=== PATIENT | male | born 1955 | race African-American/Black ===

== ENCOUNTER 2020-07-29 03:27 | Outpatient (CLI) | payer BC, SELFPAY ==
[2020-07-29 19:05] LABS: SARS-CoV-2 RNA PCR Negative
== END 2020-07-29 03:28 | disposition home or self-care (01) ==
LOC: ANHCOVIDDT 03:27
PROVIDERS: PCP Internal Medicine; Visit Provider Internal Medicine Gastroenterology
DX: Z01.812 Encounter for preprocedural laboratory examination (principal); Z20.828 Contact with and (suspected) exposure to other viral communicable diseases
CPT/HCPCS: 87635; C9803; U0003

== ENCOUNTER 2020-07-31 01:28 | Day surgery (SDC) | payer BC, SELFPAY ==
[2020-07-27 09:37] VITALS: BMI 30.9
[2020-07-31 09:21] VITALS: BP 139/70; PULSE 59; RESP 18; TEMP 36.3; O2SAT 99; BMI 32.9
[2020-07-31] MEDS: LACTATED RINGERS 1,000 ML 150 ML IV CONT (09:37)
--- NOTE | 2020-07-31 09:38 | WPDANESEPPF ---
Anes - Initial Pre Proc Eval Procedure: Operation Date: 07/31/20 10:00 Proposed Procedures p Screening Colonoscopy - Delfino Giles MD Date/Time: 07/31/20 09:38 Surgeon: Delfino Giles MD Pre Op Diagnosis: hx of polyps Patient Data Age: 65 Gender: M Height: 1.75 m Weight: 101.2 kg Last Vital Signs Temp 36.3 C L 07/31/20 09:21 Pulse 59 L 07/31/20 09:21 Resp 18 07/31/20 09:21 BP 139/70 07/31/20 09:21 Pulse Ox 99 07/31/20 09:21 Allergies Allergy/AdvReac Type Severity Reaction Status Date / Time No Known Allergies Allergy Verified 07/31/20 09:19 Home Medications Medication Instructions Recorded Confirmed Type diltiazem HCl 300 mg 300 mg PO DAILY #90 cap 08/20/19 07/27/20 Rx capsule,extended release 24 hr fluticasone propionate 50 2 spray NASAL DAILY PRN 11/05/19 07/27/20 History mcg/actuation nasal spray,suspension loratadine 10 mg tablet 10 mg PO DAILY PRN 11/05/19 07/27/20 History losartan 50 mg tablet 50 mg PO DAILY #90 tablet 02/03/20 07/27/20 Rx hydrochlorothiazide 25 mg tablet 25 mg PO DAILY #90 tablet 06/17/20 07/27/20 Rx doxazosin 4 mg PO BID 07/27/20 07/27/20 History Patient hx anesthesia problems: none Family hx anesthesia problems: none PMFSH Family History Family History Father Cerebrovascular accident, Onset Age: 59 Patient's father is , Onset Age: 59 Mother Family history of arthritis Social History Social History Smoking status: Never smoker Second hand tobacco smoke exposure: No Alcohol intake: never Substance use: never Substance use type: does not use Spiritual care concerns: No Anes - Eval Final PreProcedure Day of Procedure 07/31/20 09:38 Patient weight: obese Heart: regular rate and rhythm Lungs: clear to auscultation and normal air movement Airway: Mallampati scale class II Neurological: alert and oriented Last oral intake: >/= 8 hours ASA classification: III Emergent: no Anesthetic plan: proceed Anesthesia type and monitoring: general GIVS Informed Consent: The patient's anesthetic plan and its attendant risks and benefits were discussed with the patient/family/POA. Questions were solicited and answers provided to the satisfaction of the patient/family/POA.
--- NOTE | 2020-07-31 09:40 | PM.HPGS ---
History of Present Illness History of Present Illness Consent: Risks, benefits, and alternatives have been discussed and questions answered. Patient agrees to proceed with procedure. Chief complaint: hx of polyps Narrative: Juventino Cormier is a 65 year old AA male undergoing screening colonoscopy secondary history of colonic polyps. Patient had several polyps removed 2 years ago. No family history of colon polyps or colon cancer patient is asymptomatic. No interval changes in his health. [facility] Past Medical History Medical History (Updated 07/31/20 @ 09:43 by Delfino Giles MD) Hypertension Surgical History Surgical History (Updated 07/31/20 @ 09:42 by Delfino Giles MD) History of bilateral hip replacements Family History Family History Father Cerebrovascular accident, Onset Age: 59 Patient's father is , Onset Age: 59 Mother Family history of arthritis Social History Social History Smoking status: Never smoker Second hand tobacco smoke exposure: No Alcohol intake: never Substance use: never Substance use type: does not use Spiritual care concerns: No Meds Home Medications and Allergies Home Medications Medication Instructions Recorded Confirmed Type diltiazem HCl 300 mg 300 mg PO DAILY #90 cap 08/20/19 07/27/20 Rx capsule,extended release 24 hr fluticasone propionate 50 2 spray NASAL DAILY PRN 11/05/19 07/27/20 History mcg/actuation nasal spray,suspension loratadine 10 mg tablet 10 mg PO DAILY PRN 11/05/19 07/27/20 History losartan 50 mg tablet 50 mg PO DAILY #90 tablet 02/03/20 07/27/20 Rx hydrochlorothiazide 25 mg tablet 25 mg PO DAILY #90 tablet 06/17/20 07/27/20 Rx doxazosin 4 mg PO BID 07/27/20 07/27/20 History Allergies Allergy/AdvReac Type Severity Reaction Status Date / Time No Known Allergies Allergy Verified 07/31/20 09:19 Vital Signs Vital Signs - 24 hr 07/31/20 09:21 Temperature 36.3 C L Pulse Rate 59 L Respiratory Rate 18 Blood Pressure 139/70 Pulse Oximetry 99 Exam Const: Orientation/consciousness: patient oriented x3 Resp: Auscultation: clear to auscultation bilaterally Cardio: Rate: regular rate Rhythm: regular rhythm Heart sounds: no murmurs GI: GI Palp: Yes Soft to palpation, No Tenderness to palpation present (GI), Yes No hepatosplenomegaly present and No Palpable mass present Auscultation: normal bowel sounds Neuro: General: patient oriented x3 and no focal motor deficits Extrem: General: no pedal edema Assessment and Plan Additional Plan colonoscopy secondary history of colonic polyps
[2020-07-31 11:04] VITALS: BP 92/67; PULSE 57; RESP 16; O2SAT 100
[2020-07-31 11:14] VITALS: BP 102/57; PULSE 50; RESP 18; O2SAT 98
[2020-07-31 11:24] VITALS: BP 108/61; PULSE 48; RESP 16; O2SAT 100
== END 2020-07-31 11:44 | disposition home or self-care (01) ==
PROVIDERS: PCP Internal Medicine; Visit Provider Internal Medicine Gastroenterology
PROC: 0DJD8ZZ Inspection of Lower Intestinal Tract, Via Natural or Artificial Opening Endoscopic (ICD-10-PCS; CPT 45378; principal; 2020-07-31 10:00)
DX: Z12.11 Encounter for screening for malignant neoplasm of colon (principal); Q27.33 Arteriovenous malformation of digestive system vessel; I10 Essential (primary) hypertension; Z96.643 Presence of artificial hip joint, bilateral; Z86.010 Personal history of colon polyps
CPT/HCPCS: 45378; J2704; J7120

== ENCOUNTER 2021-08-28 10:18 | Outpatient (CLI) | payer BC, SELFPAY ==
[2021-08-28 12:26] LABS: Basophils Percent Auto 0.5 % (0.2-1.2); Eosinophils Absolute Auto 0.1 K/mm3 (0-0.3); Eosinophils Percent Auto 0.6 % (0-4.4); Hemoglobin 12.7 g/dL (14.0-18.0); Immature Granulocyte Absolute 0.04 K/mm3 (0.00-0.031); Immature Granulocyte Percent A 0.5 % (0-0.5); Lymphocytes Absolute Auto 3.86 K/mm3 (0.9-3.2); Mean Corpuscular HGB Conc 35.3 g/dl (32-36); Mean Corpuscular Hemoglobin 33.9 pg (26-34); Mean Platelet Volume 10.7 fl (7.4-10.4); Monocytes Absolute Auto 0.5 K/mm3 (0.1-0.6); Neutrophils Absolute Auto 3.2 K/mm3 (1.3-6.7); Neutrophils Percent Auto 41.4 % (45.5-73.1); Platelet Count Result 252 k/mm3 (150-375); Red Blood Count 3.75 M/mm3 (4.6-6.20); Red Cell Distribution Width 14.1 % (11.5-14.5); White Blood Count 7.7 K/mm3 (4.5-10.0)
[2021-08-28 12:36] LABS: Cholesterol 181 mg/dL (0-200); HDL Direct 37 mg/dL; Triglycerides 60 mg/dL (<150)
[2021-08-28 12:47] LABS: LDL Cholesterol Direct 104 mg/dL
[2021-08-28 13:07] LABS: Prostate Specific Antigen 3.7 ng/mL (< OR = 4.0)
[2021-08-28 13:29] LABS: Hemoglobin A1C 4.8 % (<5.7)
== END 2021-08-28 10:19 | disposition home or self-care (01) ==
LOC: ANHLAB 10:20
PROVIDERS: PCP Internal Medicine; Visit Provider Family Medicine
DX: N18.31 Chronic kidney disease, stage 3a (principal); Z13.0 Encounter for screening for diseases of the blood and blood-forming organs and certain disorders involving the immune mechanism; Z13.1 Encounter for screening for diabetes mellitus; Z12.5 Encounter for screening for malignant neoplasm of prostate
CPT/HCPCS: 36415; 80061; 83036; 84153; 85025

== ENCOUNTER 2022-02-27 06:31 | Emergency (ER) | payer BC, SELFPAY ==
--- NOTE | ~2022-02-27 | XR_ITS ---
EXAMINATION: XR chest 2V DATE: 02/27/2022 07:06 INDICATION: Chest pain TECHNIQUE: PA and lateral views of the chest were obtained. COMPARISON: Chest radiograph dated 03/02/2016 FINDINGS: Subtle opacity in the infrahilar right lower lung zone on the frontal projection which appears to cor respond to a linear band of discoid atelectasis/scarring on the lateral projection. No pulmonary brandy a, pleural effusion or pneumothorax. The cardiomediastinal silhouette is normal. Visualized bones and soft tissues are unremarkable. IMPRESSION: 1. Opacity in the right infrahilar lung and favor discoid atelectasis/scarring over pneumonia. Reviewed, dictated and finalized at location A.
--- NOTE | 2022-02-27 06:41 | ECG_ITS ---
Measurements Intervals [place] Rate: 52 P: 35 MN: 187 QRS: -34 QRSD: 110 T: -22 QT: 426 QTc: 398 Interpretive Statements SINUS BRADYCARDIA LEFT AXIS DEVIATION CANNOT RULE OUT SEPTAL INFARCT, AGE INDETERMINATE BORDERLINE ST-T WAVE ABNORMALITY- ANTEROLAT/INF LEADS BASELINE ARTIFACT- I, II, AVR, AVL, V1 ABNORMAL ECG Electronically Signed On 02-27-2022 7:58:35 CDT by Josue Britton D.O.
[2022-02-27 06:43] VITALS: BP 161/71; PULSE 53; RESP 17; TEMP 36.2; O2SAT 97
[2022-02-27 07:02] LABS: Basophils Absolute Auto 0.1 K/mm3 (0.0-0.1); Basophils Percent Auto 0.6 % (0.2-1.2); Eosinophils Absolute Auto 0.1 K/mm3 (0-0.3); Eosinophils Percent Auto 1.2 % (0-4.4); Hematocrit 39.4 % (42.0-52.0); Immature Granulocyte Absolute 0.04 K/mm3 (0.00-0.031); Immature Granulocyte Percent A 0.4 % (0-0.5); Lymphocytes Absolute Auto 4.72 K/mm3 (0.9-3.2); Lymphocytes Percent Auto 46.7 % (18.3-44.2); Mean Corpuscular Hemoglobin 29.7 pg (26-34); Mean Corpuscular Volume 90.2 fl (80-100); Mean Platelet Volume 10.1 fl (7.4-10.4); Monocytes Absolute Auto 0.7 K/mm3 (0.1-0.6); Monocytes Percent Auto 7.1 % (2.6-8.5); Neutrophils Absolute Auto 4.5 K/mm3 (1.3-6.7); Platelet Count Result 290 k/mm3 (150-375); Red Blood Count 4.37 M/mm3 (4.6-6.20); Red Cell Distribution Width 13.5 % (11.5-14.5); White Blood Count 10.1 K/mm3 (4.5-10.0)
[2022-02-27 07:06] LABS: Alanine Aminotransferase 32 U/L (6-50); Albumin Level 4.2 g/dL (3.5-5.1); Alkaline Phosphatase 66 U/L (38-126); Anion Gap 7 mmol/L (8-16); Aspartate Amino Transferase 41 U/L (17-59); Bilirubin,Total 0.7 mg/dL (0.2-1.3); Blood Urea Nitrogen 21 mg/dL (9-20); Carbon Dioxide 28 mmol/L (22-30); Chloride 100 mmol/L (98-107); Estimated CRCL calculation 55 ml/min; Estimated Glomerular Filt Rate > 60; Glucose 107 mg/dL (65-110); Lipase 31 U/L (23-300); Potassium 3.3 mmol/L (3.4-5.0); Sodium 135 mmol/L (137-145)
[2022-02-27 07:07] LABS: INR 1.3; Prothrombin Time 15.7 Seconds (11.1-14.7)
[2022-02-27 07:08] LABS: Partial Thromboplastin Time 34.7 SECONDS (22.3-36.8)
[2022-02-27 07:18] LABS: Troponin I 0.017 ng/mL (0.000-0.034)
--- NOTE | 2022-02-27 07:23 | ED.CHESTPAIN ---
HPI - Chest Pain General Chief Complaint: Chest Pain Stated Complaint: CP, constipation, chills and itching Time Seen by Provider: 02/27/22 07:03 Source: RN notes reviewed History of Present Illness HPI narrative: Patient presents emergency department from home for itching. Patient states he has had generalized itching since yesterday he states that with this itching he has had no rash there is been no swelling of his lips or tongue but he just feels itchy everywhere. He states that they recently adjusted his blood pressure medications he is unsure if this is contributing to this with the increased his losartan. Patient states he is also been having left-sided chest pain over the past 2 days the pain is located over the left lateral breast and hurts when he raises his left arm he states that the pain resolves when he puts his left arm down he has no pain at rest. He does note some intermittent shortness of breath he denies any fevers but has had some intermittent chills Related Data Home Medications Medication Instructions Recorded Confirmed fluticasone propionate 50 2 spray NASAL DAILY PRN 11/05/19 12/15/20 mcg/actuation nasal spray,suspension loratadine 10 mg tablet 10 mg PO DAILY PRN 11/05/19 12/15/20 Allergies Allergy/AdvReac Type Severity Reaction Status Date / Time No Known Allergies Allergy Verified 02/27/22 06:47 Review of Systems Review of Systems: Gen.: Denies fevers or chills ENT: Denies congestion Respiratory: Reports intermittent shortness of breath CV: Chest pain GI: Denies abdominal pain nausea, emesis or diarrhea Musculoskeletal: Denies back pain or muscle pain Neuro: Denies numbness, tingling, weakness or focal weakness Skin: Denies rash reports itching Except as documented, all other systems reviewed and negative [facility] Past Medical History Medical History Hypertension Surgical History Surgical History History of bilateral hip replacements Family History Family History Father Cerebrovascular accident, Onset Age: 59 Patient's father is , Onset Age: 59 Mother Family history of arthritis Social History Social History (Reviewed 02/27/22 @ 07:25 by GUDELIA Galicia Smoking status: Never smoker Second hand tobacco smoke exposure: No Alcohol intake: never Substance use: never Substance use type: does not use Spiritual care concerns: No Exam Narrative: APPEARANCE: No acute distress, nontoxic, resting in bed EYES: EOMI HEENT: Normocephalic, atraumatic, OMM, no swelling of the lips or tongue RESPIRATORY: No respiratory distress Clear to auscultation bilaterally with no rhonchi wheezing or rales. CARDIOVASCULAR: Regular rate and rhythm without murmurs rubs or gallops. Chest: Tender palpation of the left lateral chest wall just to the left of the areola over the pec lateral pectoralis muscle pain with flexion abduction left shoulder greater than 90 degrees with resolution of pain with putting the arm back down at rest no overlying erythema seen no masses palpated ABDOMINAL: Soft, nontender, nondistended, no rebound or guarding MUSCULOSKELETAl: Moves all extremities. No clubbing, cyanosis or edema. NEURO: Awake and alert. Following commands, speech normal, no focal deficits SKIN:: Warm, dry. No rashes lesions or abrasions no urticaria seen PSYCHIATRIC: Normal affect/mood, Course Course Emergency Course: Patient states chest pain is resolved with Benadryl Patient continues to have no chest pain except for when he moves his left arm Called and discussed with Dr. Britton presentation work-up we discussed the patient's symptoms 2 troponins in ER as well as heart score at this time feels patient may be discharged home with follow-up as an outpatient in his office Discussed with patient results
[2022-02-27] MEDS: KETOROLAC 30 MG/ML VIAL (*BKC) IV PUSH (08:10)
[2022-02-27] MEDS: diphenhydrAMINE HCl INJ 50 MG/ML VIAL 25 MG IV PUSH (08:11)
[2022-02-27] MEDS: POTASSIUM CHLORIDE 20 MEQ TABLET PO (09:04)
[2022-02-27 10:14] LABS: Troponin I 0.014 ng/mL (0.000-0.034)
== END 2022-02-27 12:26 | disposition home or self-care (01) ==
PROVIDERS: Emergency Medicine; Emergency Provider Emergency Medicine; PCP Family Medicine
DX: R07.9 Chest pain, unspecified (principal); I10 Essential (primary) hypertension
CPT/HCPCS: 36415; 71046; 80053; 83690; 84484; 85025; 85610; 85730; 93005; 96374; 96375; 99284; A9270; J1200; J1885

== ENCOUNTER 2023-01-17 03:15 | Emergency (ER) | payer BC, SELFPAY ==
--- NOTE | ~2023-01-17 | XR_ITS ---
Clinical Indication: Chest pain PA and lateral views of the chest: Comparison: 02/27/2022 Findings: The lungs are clear, without evidence of focal consolidation or pleural effusion. Probable COPD. Cardiomediastinal silhouette is within normal limits. Bones and soft tissues are unremarkable. Impression: Probable COPD. Clear lungs. Reviewed, dictated and finalized at location . Impression: Probable COPD. Clear lungs.
--- NOTE | 2023-01-17 03:16 | ECG_ITS ---
Measurements Intervals [place] Rate: 75 P: 43 WV: 140 QRS: -31 QRSD: 102 T: -2 QT: 344 QTc: 386 Interpretive Statements SINUS RHYTHM LEFT AXIS DEVIATION SEPTAL MYOCARDIAL INFARCTION , PROBABLY OLD MODERATE T-WAVE ABNORMALITY, CONSIDER ANTEROLATERAL ISCHEMIA ABNORMAL ECG COMPARED TO ECG 02/27/2022 06:43:58 HEART RATE HAS INCREASED Electronically Signed On 01-17-2023 16:14:34 CDT by Igor Chandra M.D.
[2023-01-17 03:24] VITALS: BP 178/88; PULSE 78; PULSE 80; RESP 17; O2SAT 98
[2023-01-17 03:37] VITALS: BP 147/85; PULSE 74; RESP 15; TEMP 36.8; O2SAT 97
[2023-01-17 03:41] LABS: Basophils Percent Auto 0.4 % (0.2-1.2); Eosinophils Absolute Auto 0.1 K/mm3 (0-0.3); Eosinophils Percent Auto 0.6 % (0-4.4); Hematocrit 38.3 % (42.0-52.0); Hemoglobin 12.6 g/dL (14.0-18.0); Immature Granulocyte Absolute 0.05 K/mm3 (0.00-0.031); Immature Granulocyte Percent A 0.6 % (0-0.5); Lymphocytes Absolute Auto 1.88 K/mm3 (0.9-3.2); Lymphocytes Percent Auto 23.6 % (18.3-44.2); Mean Corpuscular HGB Conc 32.9 g/dl (32-36); Mean Corpuscular Hemoglobin 31.2 pg (26-34); Mean Corpuscular Volume 94.8 fl (80-100); Mean Platelet Volume 9.8 fl (7.4-10.4); Monocytes Absolute Auto 0.9 K/mm3 (0.1-0.6); Monocytes Percent Auto 11.3 % (2.6-8.5); Neutrophils Percent Auto 63.5 % (45.5-73.1); Platelet Count Result 281 k/mm3 (150-375); Red Blood Count 4.04 M/mm3 (4.6-6.20); Red Cell Distribution Width 14.1 % (11.5-14.5)
--- NOTE | 2023-01-17 03:48 | ED.CHESTPAIN ---
HPI - Chest Pain General Chief Complaint: Chest Pain Stated Complaint: chest pain, nausea Time Seen by Provider: 01/17/23 03:23 History of Present Illness HPI narrative: Patient states that he over the past week has been feeling bad heartburn, she has had heartburn in the past but does not think he has been eating anything particularly bad, earlier today had some nausea and vomiting with dry heaves, states that the pain started in his upper abdomen and seem to come up to his chest with a burning sensation, it did resolve after he took some Pepcid. No chest pain, nausea or vomiting at this time. Related Data Home Medications Medication Instructions Recorded Confirmed fluticasone propionate 50 2 spray intranasal DAILY PRN 11/05/19 01/16/23 mcg/actuation nasal Congestion spray,suspension (Children's Flonase Allergy Relief) loratadine 10 mg tablet (Claritin) 10 mg PO DAILY PRN Allergy Symptoms 11/05/19 01/16/23 Allergies Allergy/AdvReac Type Severity Reaction Status Date / Time esomeprazole [From Nexium] AdvReac Hives Verified 01/17/23 03:36 Review of Systems Review of Systems: CONST: No fever. HEENT: Tickling in throat C/V: Heartburn RESP: Slight cough GI: Reports abdominal pain, nausea now resolved : No dysuria. M/S: No joint pain. SKIN: No rash. NEURO: [No headache or focal numbness or weakness] PSYCH: [No depression] [facility] Past Medical History Medical History Hypertension Surgical History Surgical History History of bilateral hip replacements Family History Family History Father Cerebrovascular accident, Onset Age: 59 Patient's father is , Onset Age: 59 Mother Family history of arthritis Social History Social History Smoking status: Never smoker Second hand tobacco smoke exposure: No Alcohol intake: never Substance use: never Substance use type: does not use Lack of Transportation: No Lack of Food: Never True Current Housing: I Have Housing Concerned About Future Housing: No Difficulty Paying Gas/Electric Bills: No Difficulty Paying for Meds: No Currently Unemployed: No Education: Decline to Answer Difficulty w/ Childcare or Family Care: No Spiritual care concerns: No Exam Narrative: EXAMINATION OF ORGAN SYSTEMS/BODY AREAS: Constitutional: Vital signs per nursing GENERAL:[No acute distress, non-toxic appearing.] HEAD: Normal with no signs of head trauma. EYES: EOMI, conjunctiva normal ENT: Hearing grossly intact LUNGS: Nonlabored breathing. HEART: [Regular rate and rhythm] ABD: [Soft], [nontender to palpation] EXT: Normal range of motion SKIN: [No rashes or lesions.] NEURO: [Alert and oriented x 3. No gross focal sensory or strength deficits.] PSYCH: Normal affect Course Vital Signs Vital signs: Vital Signs Pulse Rate 80 01/17/23 03:24 Respiratory Rate 17 01/17/23 03:24 Blood Pressure 178/88 H 01/17/23 03:24 Pulse Oximetry 98 01/17/23 03:24 Temperature 98.3 F 01/17/23 03:37 Pulse Rate 74 01/17/23 03:37 Respiratory Rate 15 01/17/23 03:37 Blood Pressure 147/85 H 01/17/23 03:37 Pulse Oximetry 97 01/17/23 03:37 Oxygen Delivery Room Air 01/17/23 03:38 MDM - Chest Pain MDM Narrative Medical decision making narrative: ED COURSE AND MEDICAL DECISION MAKINyoM presenting with burning chest pain/cough and nausea/vomiting. EKG done in triage negative for acute ischemic changes. Cardiac workup is initiated. EKG: Performed in triage and interpreted by me. Normal sinus rhythm. Rate [75]. Normal axis. FL normal. QRS duration normal. QTc normal. No pathologic Q waves. He does have some flattened T waves but on review of EMR this is on prior EKGs. No RV strain pattern. Labs notable
[2023-01-17 03:51] LABS: Alanine Aminotransferase 31 U/L (6-50); Albumin Level 4.4 g/dL (3.5-5.1); Alkaline Phosphatase 63 U/L (38-126); Anion Gap 6 mmol/L (8-16); Aspartate Amino Transferase 45 U/L (17-59); Bilirubin,Total 0.9 mg/dL (0.2-1.3); Blood Urea Nitrogen 17 mg/dL (9-20); Calcium 9.2 mg/dL (8.4-10.2); Carbon Dioxide 32 mmol/L (22-30); Chloride 98 mmol/L (98-107); Estimated CRCL calculation 66 ml/min; Estimated Glomerular Filt Rate > 60; Glucose 107 mg/dL (65-110); Lipase 26 U/L (23-300); Sodium 136 mmol/L (137-145)
[2023-01-17 04:00] LABS: INR 1.2
[2023-01-17 04:01] LABS: Partial Thromboplastin Time 33.1 SECONDS (22.3-36.8); Troponin I < 0.012 ng/mL (0.000-0.034)
[2023-01-17] MEDS: POTASSIUM CHLORIDE 20 MEQ PACKET (FOR LIQUID) 40 MEQ PO (05:43)
[2023-01-17] MEDS: ONDANSETRON HCL ODT 4 MG TABLET PO (06:41)
[2023-01-17 06:44] VITALS: BP 148/85; PULSE 76; RESP 16; O2SAT 95
== END 2023-01-17 06:43 | disposition home or self-care (01) ==
PROVIDERS: Emergency Provider Emergency Medicine; PCP Family Medicine
DX: R07.9 Chest pain, unspecified (principal); E87.6 Hypokalemia; I10 Essential (primary) hypertension
CPT/HCPCS: 36415; 71046; 80053; 83690; 84484; 85025; 85610; 85730; 93005; 99284; A9270

== ENCOUNTER 2024-03-14 15:44 | Outpatient (CLI) | payer BC, SELFPAY ==
--- NOTE | ~2024-03-14 | CT_ITS ---
EXAMINATION: CT IAC/mastoids BI wo con DATE: 03/14/2024 16:03 INDICATION: Chronic mastoiditis, right ear. TECHNIQUE: Computed tomography (CT) of the temporal bones was performed without intravenous contrast. Automated exposure control and iterative reconstruction technique were employed. The dose-length pro duct was 558.22 mGy-cm. COMPARISON: Neck CT 07/10/2018 FINDINGS: RIGHT TEMPORAL BONE: The internal auditory canal, cochlea, vestibule, semicircular canals, vestibular aqueduct, carotid ca nal, and jugular bulb are normal. The ossicles are normal. There is abundant material in the tympanic cavity including in Prussak space and around the ossicles. There are erosions of scutum. There is a right mastoid effusion. There is thickening of the tympanic membrane. There is irregular thickening o f the harris of the external artery canal. LEFT TEMPORAL BONE: The internal auditory canal, cochlea, vestibule, semicircular canals, vestibular aqueduct, carotid ca nal, jugular bulb, facial nerve course, ossicles, Prussak space, scutum, tympanic membrane, mastoid a ir cells, and external artery canal are normal. IMPRESSION: 1. Right otomastoid effusion with erosions of scutum, which may be chronic otitis media or cholesteat ernie. Reviewed, dictated and finalized at location A. IMPRESSION: 1. Right otomastoid effusion with erosions of scutum, which may be chronic otit is media or cholesteatoma.
== END 2024-03-14 15:45 ==
LOC: GOSHIMG 15:45
PROVIDERS: PCP Family Medicine; Visit Provider Otolaryngology
DX: H65.491 Other chronic nonsuppurative otitis media, right ear (principal); H90.11 Conductive hearing loss, unilateral, right ear, with unrestricted hearing on the contralateral side; H70.11 Chronic mastoiditis, right ear
CPT/HCPCS: 70480

== ENCOUNTER 2024-07-26 10:19 | Outpatient (CLI) | payer BC, SELFPAY ==
[2024-07-26 18:31] LABS: Blood Urea Nitrogen 18 mg/dL (9-20); Calcium 9.3 mg/dL (8.4-10.2); Carbon Dioxide 30 mmol/L (22-30); Estimated Glomerular Filt Rate > 60; Glucose 95 mg/dL (65-110); Sodium 138 mmol/L (137-145)
[2024-07-26 21:23] LABS: Anion Gap 6 mmol/L (4-12); Chloride 102 mmol/L (98-107); Potassium 3.2 mmol/L (3.4-5.0)
== END 2024-07-26 10:20 | disposition home or self-care (01) ==
LOC: ANHGOSHLAB 10:20
PROVIDERS: PCP Family Medicine; Visit Provider Family Medicine
DX: Z13.228 Encounter for screening for other metabolic disorders (principal)
CPT/HCPCS: 36415; 80048

== ENCOUNTER 2024-08-13 10:13 | Outpatient (CLI) | payer BC, SELFPAY ==
[2024-08-13 19:11] LABS: Anion Gap 8 mmol/L (4-12); Blood Urea Nitrogen 19 mg/dL (9-20); Calcium 9.4 mg/dL (8.4-10.2); Carbon Dioxide 26 mmol/L (22-30); Chloride 102 mmol/L (98-107); Estimated Glomerular Filt Rate > 60; Glucose 101 mg/dL (65-110); Potassium 4.2 mmol/L (3.4-5.0); Sodium 136 mmol/L (137-145)
== END 2024-08-13 10:14 | disposition home or self-care (01) ==
LOC: ANHGOSHLAB 10:13
PROVIDERS: PCP Family Medicine; Visit Provider Family Medicine
DX: Z13.228 Encounter for screening for other metabolic disorders (principal)
CPT/HCPCS: 36415; 80048

== ENCOUNTER 2024-09-10 09:08 | Emergency (ER) | payer BC, SELFPAY ==
--- NOTE | 2024-09-10 09:10 | ED.URI ---
HPI - URI/Sore Throat General Chief Complaint: Upper Respiratory Infection Stated Complaint: Cold Symptoms Time Seen by Provider: 09/10/24 09:09 Source: patient Mode of arrival: ambulatory Limitations: no limitations History of Present Illness HPI Narrative: Juventino is a 69-year-old male patient presenting to the clinic today with complaints of cold symptoms x3 days. He reports he has nasal congestion, sinus pressure, and chest congestion times 3 days. Is coughing up some green phlegm and blowing out green nasal drainage. He denies any chest pain or shortness of breath. MD elicited complaint: cough, rhinorrhea, nasal congestion and sinus pain Related Data Home Medications Medication Instructions Recorded Confirmed fluticasone propionate 50 2 spray intranasal DAILY PRN 11/05/19 08/13/24 mcg/actuation nasal Congestion spray,suspension (Children's Flonase Allergy Relief) loratadine 10 mg tablet (Claritin) 10 mg PO DAILY PRN Allergy Symptoms 11/05/19 08/13/24 Allergies Allergy/AdvReac Type Severity Reaction Status Date / Time esomeprazole [From Nexium] AdvReac Hives Verified 09/10/24 09:34 Review of Systems Review of Systems: Pertinent positives per HPI. Patient denies any fever, chills, rash, headache, visual changes, dizziness, shortness of breath, chest pain, palpitations, nausea, vomiting, diarrhea, constipation, abdominal pain, or any urinary issues. [facility] Past Medical History Medical History Hypertension Surgical History Surgical History History of bilateral hip replacements Family History Family History Father Cerebrovascular accident, Onset Age: 59 Patient's father is , Onset Age: 59 Mother Family history of arthritis Social History Social History Smoking status: Never smoker Second hand tobacco smoke exposure: No Alcohol intake: never Substance use: never Substance use type: does not use Lack of Transportation: No Lack of Food: Never True Current Housing: I Have Housing Concerned About Future Housing: No Difficulty Paying Gas/Electric Bills: No Difficulty Paying for Meds: No Currently Unemployed: No Education: Decline to Answer Difficulty w/ Childcare or Family Care: No Spiritual care concerns: No Comments At the time of my signature, I reviewed and agree with the nursing past medical, surgical, social, and family history. There is no relevant family history pertinent to the patient complaint. Exam Narrative: General: Well-developed, well nourished, in no apparent distress Head: Normocephalic, atraumatic Eyes: Pupils equally round and reactive to light bilaterally, EOM intact, sclera and conjunctive clear, no discharge, lids normal Ears: TMs intact and congested, ear canals clear, no drainage, grossly hearing normal. Nose: Nares patent, clear nasal discharge, mild inflammation, no sinus tenderness. Mouth: Oral pharynx without lesions or masses, good dentition, MMM. Postnasal drip Neck: Supple, trachea midline, no enlargement of anterior or posterior cervical nodes, no thyroid masses or goiter palpable. Cardio: Regular rate and rhythm, s1 and s2 normal, no murmur appreciated. Resp: Clear to auscultation bilaterally, no rhonchi, rales, wheezing or rubs Course Course Emergency Course: Portions of this record may have been created with voice recognition software. Level of Care: Express Care Visit Vital Signs Vital signs: Vital signs reviewed MDM - URI/Sore Throat MDM Narrative Medical decision making narrative: At the time of visit patient is resting comfortably on the exam table. Patient appears to be nontoxic. Labs: COVID and influenza testing was negative in the clinic today. Plan: I suspect patient has URI. Will send in prescription for prednisone. Supportive measures were discussed with the patient and they voiced understanding discharge instructions and agrees to treatment plan. Return precautions reviewed Differential Diagnosis Differential diagnosis: Likely upper respiratory infection, otitis media, sinusitis, viral infection, bronchitis, influenza, pharyngitis and other (COVID) Discharge Plan Discharge Clinical Impression: URI (upper respiratory infection) Qualifiers: URI type: unspecified URI Qualified Code(s): J06.9 - Acute upper respiratory infection, unspecified Patient Disposition: Home, Self-Care Condition: Stable Instructions: Antibiotic Form, Cold Symptoms (ED) Additional Instructions: COVID and influenza testing was negative in the clinic today. Take prescription medications only as prescribed-prednisone Increase fluids and stay well hydrated Tylenol/motrin for pain/fever Flonase and OTC antihistamines as directed Vicks vapor rub to open sinuses Sinus rinses for congestion Cepacol spray, cough drops, throat lozenges, warm tea with honey/lemon, gargle salt water to soothe throat BRAT diet for diarrhea Clear liquids x 24 hours then advance as tolerated for nausea/vomiting Go to the ED if you develop a worsening in your condition- high fever not controlled by Tylenol or Motrin, dehydration, weakness, lethargy, shortness of breath, or chest pain. Follow up with your PCP in 3-5 days if symptoms persist. Prescriptions: New prednisone 20 mg tablet 40 mg PO DAILY 5 Days Qty: 10 0RF No Action [id number] 3.5-10,000-1 mg/mL-unit/mL-% drops,suspension 4 drp otic (ear) Q8H Qty: 10 1RF Rx Instructions: put 4 drops in right ear t.i.d. with ear up for 1 minute afterward famotidine 20 mg tablet 20 mg PO DAILY Qty: 30 0RF loratadine [Claritin] 10 mg tablet 10 mg PO DAILY PRN (Reason: Allergy Symptoms) fluticasone propionate [Children's Flonase Allergy Rlf] 50 mcg/actuation spray,suspension 2 spray NASAL DAILY PRN (Reason: Congestion) Rx Instructions: administer into each nostril potassium chloride 20 mEq tablet extended release 20 meq PO DAILY Qty: 90 4RF hydrochlorothiazide 25 mg tablet 25 mg PO DAILY Qty: 90 1RF losartan 100 mg tablet 100 mg PO DAILY Qty: 90 0RF spironolactone 25 mg tablet 25 mg PO DAILY Qty: 90 1RF amlodipine 10 mg tablet 10 mg PO DAILY Qty: 90 1RF Follow-up/Referrals: Remy Sevilla DO [Primary Care Provider] - Time of Disposition: 09:35 Quality NIHSS Nursing Documentation ED NIHSS nursing documentation: reviewed/agree
[2024-09-10 09:17] VITALS: BP 118/50; PULSE 80; RESP 16; TEMP 35.9; O2SAT 99
[2024-09-10 09:39] LABS: EDCOVIDSCREEN Negative (Negative); EDINFLUASCREEN Negative (Negative); EDINFLUBSCREEN Negative (Negative)
== END 2024-09-10 10:27 | disposition home or self-care (01) ==
PROVIDERS: Emergency Provider Nurse Practitioner Family; PCP Family Medicine
DX: J06.9 Acute upper respiratory infection, unspecified (principal); Z20.822 Contact with and (suspected) exposure to COVID-19; I10 Essential (primary) hypertension; Z96.643 Presence of artificial hip joint, bilateral
CPT/HCPCS: 87426; 87804; 99213; G0463

== ENCOUNTER 2024-09-23 00:44 | Day surgery (SDC) | payer BC, SELFPAY ==
[2024-09-12 09:21] VITALS: BMI 29.5
--- NOTE | 2024-09-23 08:41 | WPDANESEPPF ---
Anes - Initial Pre Proc Eval Procedure: Operation Date: 09/23/24 12:30 Proposed Procedures p Screening Colonoscopy - Lewis Ladd MD Date/Time: 09/23/24 08:41 Surgeon: Lewis Ladd MD Pre Op Diagnosis: neoplasm screening Patient Data Age: 69 Gender: M Height: 1.75 m Weight: 90.8 kg Allergies Allergy/AdvReac Type Severity Reaction Status Date / Time esomeprazole (From Nexium) AdvReac Hives Verified 09/12/24 09:16 Home Medications ?Medication ?Instructions ?Recorded ?Confirmed ?Type fluticasone propionate 50 2 spray intranasal DAILY PRN 11/05/19 09/12/24 History mcg/actuation nasal Congestion spray,suspension (Children's Flonase Allergy Relief) loratadine 10 mg tablet (Claritin) 10 mg PO DAILY PRN Allergy Symptoms 11/05/19 09/12/24 History potassium chloride 20 mEq 20 meq PO DAILY #90 tabs 03/14/24 09/12/24 Rx tablet,extended release hydrochlorothiazide 25 mg tablet 25 mg PO DAILY #90 tabs 03/29/24 09/12/24 Rx ctfyfknp-afwnlflby-gaaoqhbti 3.5 4 drp otic (ear) Q8H #10 mL 04/22/24 09/12/24 Rx mg-10,000 unit/mL-1 % ear drops,susp losartan 100 mg tablet 100 mg PO DAILY #90 tabs 07/22/24 09/12/24 Rx spironolactone 25 mg tablet 25 mg PO DAILY #90 tabs 07/29/24 09/12/24 Rx amlodipine 10 mg tablet 10 mg PO DAILY #90 tabs 08/12/24 09/12/24 Rx prednisone 20 mg tablet 40 mg (2 x 20 mg) PO DAILY 5 days 09/10/24 09/12/24 Rx #10 tabs famotidine 20 mg tablet 20 mg PO DAILY PRN Heartburn 09/12/24 09/12/24 History Patient hx anesthesia problems: none Family hx anesthesia problems: none Results Review: All pre-operative results and documents have been reviewed as part of the pre-operative evaluation. [facility] Past Medical History Medical History Hypertension Surgical History Surgical History History of bilateral hip replacements Family History Family History Father Cerebrovascular accident, Onset Age: 59 Patient's father is , Onset Age: 59 Mother Family history of arthritis Social History Social History Smoking status: Never smoker Second hand tobacco smoke exposure: No Alcohol intake: never Substance use: never Substance use type: does not use Lack of Transportation: No Lack of Food: Never True Current Housing: I Have Housing Concerned About Future Housing: No Difficulty Paying Gas/Electric Bills: No Difficulty Paying for Meds: No Currently Unemployed: No Education: Decline to Answer Difficulty w/ Childcare or Family Care: No Spiritual care concerns: No Anes - Eval Final PreProcedure Day of Procedure 09/23/24 08:41 Results Review: All pre-operative results and documents have been reviewed as part of the pre-operative evaluation. Informed Consent: The patient's anesthetic plan and its attendant risks and benefits were discussed with the patient/family/POA. Questions were solicited and answers provided to the satisfaction of the patient/family/POA.
[2024-09-23 11:24] VITALS: BP 132/73; PULSE 73; RESP 18; TEMP 36.4; O2SAT 99
[2024-09-23] MEDS: LACTATED RINGERS 1,000 ML 150 ML IV CONT (11:36)
--- NOTE | 2024-09-23 11:41 | WPDANESEPPF ---
Anes - Initial Pre Proc Eval Procedure: Operation Date: 09/23/24 12:30 Proposed Procedures p Screening Colonoscopy - Lewis Ladd MD Date/Time: 09/23/24 11:41 Surgeon: Lewis Ladd MD Pre Op Diagnosis: neoplasm screening Patient Data Age: 69 Gender: M Height: 1.75 m Weight: 98.4 kg Last Vital Signs Temp 36.4 C L 09/23/24 11:24 Pulse 73 09/23/24 11:24 Resp 18 09/23/24 11:24 BP 132/73 09/23/24 11:24 Pulse Ox 99 09/23/24 11:24 O2 Del Method Room Air 09/23/24 11:24 Allergies Allergy/AdvReac Type Severity Reaction Status Date / Time esomeprazole (From Nexium) AdvReac Hives Verified 09/23/24 11:20 Home Medications ?Medication ?Instructions ?Recorded ?Confirmed ?Type fluticasone propionate 50 2 spray intranasal DAILY PRN 11/05/19 09/12/24 History mcg/actuation nasal Congestion spray,suspension (Children's Flonase Allergy Relief) loratadine 10 mg tablet (Claritin) 10 mg PO DAILY PRN Allergy Symptoms 11/05/19 09/23/24 History potassium chloride 20 mEq 20 meq PO DAILY #90 tabs 03/14/24 09/23/24 Rx tablet,extended release hydrochlorothiazide 25 mg tablet 25 mg PO DAILY #90 tabs 03/29/24 09/23/24 Rx qnmglrcl-xudwkkqtr-lomlpswyr 3.5 4 drp otic (ear) Q8H #10 mL 04/22/24 09/12/24 Rx mg-10,000 unit/mL-1 % ear drops,susp losartan 100 mg tablet 100 mg PO DAILY #90 tabs 07/22/24 09/23/24 Rx spironolactone 25 mg tablet 25 mg PO DAILY #90 tabs 07/29/24 09/23/24 Rx amlodipine 10 mg tablet 10 mg PO DAILY #90 tabs 08/12/24 09/23/24 Rx prednisone 20 mg tablet 40 mg (2 x 20 mg) PO DAILY 5 days 09/10/24 09/12/24 Rx #10 tabs famotidine 20 mg tablet 20 mg PO DAILY PRN Heartburn 09/12/24 09/23/24 History Patient hx anesthesia problems: none Family hx anesthesia problems: none Results Review: All pre-operative results and documents have been reviewed as part of the pre-operative evaluation. [facility] Past Medical History Medical History Hypertension Surgical History Surgical History History of bilateral hip replacements Family History Family History Father Cerebrovascular accident, Onset Age: 59 Patient's father is , Onset Age: 59 Mother Family history of arthritis Social History Social History Smoking status: Never smoker Second hand tobacco smoke exposure: No Alcohol intake: never Substance use: never Substance use type: does not use Lack of Transportation: No Lack of Food: Never True Current Housing: I Have Housing Concerned About Future Housing: No Difficulty Paying Gas/Electric Bills: No Difficulty Paying for Meds: No Currently Unemployed: No Education: Decline to Answer Difficulty w/ Childcare or Family Care: No Spiritual care concerns: No Anes - Eval Final PreProcedure Day of Procedure 09/23/24 11:41 Patient weight: obese Heart: regular rate and rhythm Lungs: clear to auscultation Airway: Mallampati scale class II Neurological: alert and oriented Last oral intake: >/= 8 hours ASA classification: III Emergent: no Anesthetic plan: proceed Anesthesia type and monitoring: general GIVS and standard monitoring Results Review: All pre-operative results and documents have been reviewed as part of the pre-operative evaluation. Informed Consent: The patient's anesthetic plan and its attendant risks and benefits were discussed with the patient/family/POA. Questions were solicited and answers provided to the satisfaction of the patient/family/POA.
--- NOTE | 2024-09-23 13:01 | P.PNGI_ITS ---
<Statement entered by Lewis Ladd MD - 09/24/24 12:33> See colonoscopy report
--- NOTE | 2024-09-23 13:02 | PM.IMHP ---
H&P: HPI History of Present Illness Date/Time: 09/23/24 13:02 Chief Complaint: History of colon polyps Narrative: The patient has a history of colonic polyps, the last colonoscopy was 4 years ago. 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 Review of Systems Review of Systems: All systems reviewed & are unremarkable except as noted in HPI and below PMFSH Past Medical History Medical History Hypertension Surgical History Surgical History History of bilateral hip replacements Family History Family History Father Cerebrovascular accident, Onset Age: 59 Patient's father is , Onset Age: 59 Mother Family history of arthritis Social History Social History Smoking status: Never smoker Second hand tobacco smoke exposure: No Alcohol intake: never Substance use: never Substance use type: does not use Lack of Transportation: No Lack of Food: Never True Current Housing: I Have Housing Concerned About Future Housing: No Difficulty Paying Gas/Electric Bills: No Difficulty Paying for Meds: No Currently Unemployed: No Education: Decline to Answer Difficulty w/ Childcare or Family Care: No Spiritual care concerns: No Meds Home Medications and Allergies Home Medications ?Medication ?Instructions ?Recorded ?Confirmed ?Type fluticasone propionate 50 2 spray intranasal DAILY PRN 11/05/19 09/12/24 History mcg/actuation nasal Congestion spray,suspension (Children's Flonase Allergy Relief) loratadine 10 mg tablet (Claritin) 10 mg PO DAILY PRN Allergy Symptoms 11/05/19 09/23/24 History potassium chloride 20 mEq 20 meq PO DAILY #90 tabs 03/14/24 09/23/24 Rx tablet,extended release hydrochlorothiazide 25 mg tablet 25 mg PO DAILY #90 tabs 03/29/24 09/23/24 Rx lhtnopjl-ojolqbgxq-xiqosofut 3.5 4 drp otic (ear) Q8H #10 mL 04/22/24 09/12/24 Rx mg-10,000 unit/mL-1 % ear drops,susp losartan 100 mg tablet 100 mg PO DAILY #90 tabs 07/22/24 09/23/24 Rx spironolactone 25 mg tablet 25 mg PO DAILY #90 tabs 07/29/24 09/23/24 Rx amlodipine 10 mg tablet 10 mg PO DAILY #90 tabs 08/12/24 09/23/24 Rx prednisone 20 mg tablet 40 mg (2 x 20 mg) PO DAILY 5 days 09/10/24 09/12/24 Rx #10 tabs famotidine 20 mg tablet 20 mg PO DAILY PRN Heartburn 09/12/24 09/23/24 History Allergies Allergy/AdvReac Type Severity Reaction Status Date / Time esomeprazole (From Nexium) AdvReac Hives Verified 09/23/24 11:20 Vital Signs Vital Signs - 24 hr 09/23/24 11:24 Temperature 97.5 F L Pulse Rate 73 Respiratory Rate 18 Blood Pressure 132/73 Pulse Oximetry 99 Oxygen Delivery Room Air Exam Const: General: cooperative and healthy appearing Resp: Effort & Inspection: normal respiratory effort and able to speak in complete sentences Auscultation: clear to auscultation bilaterally Cardio: Rate: regular rate Rhythm: regular rhythm GI: Inspection: normal to inspection GI Palp: No No hepatosplenomegaly present Auscultation: normal bowel sounds Rectal Exam: deferred Skin: General skin exam: normal color Psych: Appearance: grossly normal Mental Status: mental status grossly normal Assessment and Plan Assessment and plan (1) History of colonic polyps: Code(s): Z86.0100 - Personal history of colon polyps, unspecified Status: Acute Assessment and Plan: The patient is deemed a good candidate for the procedure. Consent signed. Will proceed. The we find no polyps, his next colonoscopy would be between 7 and 10 years.
[2024-09-23 13:35] VITALS: BP 125/53; PULSE 72; RESP 21; O2SAT 94
[2024-09-23 13:45] VITALS: BP 107/63; PULSE 61; RESP 16; O2SAT 99
[2024-09-23 13:55] VITALS: BP 120/62; PULSE 58; RESP 15; O2SAT 100
--- OUTSIDE RECORDS SUMMARY | 2024-09-28 10:20 | XMS_ITS | Encounter Summary ---
Author Organization [facility] Address [address] [place] [address] Phone Care Team Providers Care Loom Technician Name Role Phone Remy Sevilla DO Primary Care Provider [phone] Reason for Visit * Reason Comments OT Treatment * Consultation (Routine) - Authorized Specialty Diagnoses / Procedures Referred By Vish t Referred To Contact Occupational Therapy Diagnoses Wrist injury, left, initial encounter Pet, Major Freitas MD [address] [place] [address] Phone: tel: fax: [facility] (All Locations) Referral ID Status Reason Start Date Expiration Date Visits Requested Visits Authorized [id number] Authorized Specialty Services Required 02/02/2024 03/03/2025 24 24 Encounter Details Date Type Department Care Team (Late st Contact Info) Description 02/16/2024 3:00 PM CDT Therapy [facility] Occupational Therapy [address] [facility] [address] [place] [address] [place] [address] Aneta Colin OT [address] [facility] [address] [place] [id number] Rupture of extensor tendon of hand, left, subsequent encounter (Primary Dx) Social History Tobacco Use Types Packs/Day Years Used Date Smoking Tobacco: Never Passive Smoke Exposure: Never Smokeless Tobacco: Never Alcohol Use Standard Drinks/Week Comments Not Currently 0 (1 standard drink = 0.6 oz pur e alcohol) AUDIT-C Answer Date Recorded Q1: How often do you have a drink containing alcohol? Never 02/02/2024 Q2: How many drinks containi ng alcohol do you have on a typical day when you are drinking? Patient does not drink Q3: How often do you have si x or more drinks on one occasion? Never 02/02/2024 Personal Safety Answer Date Recorded Have you ever been in or are you currently in a harmful physical or emotional relationship or is someone making you feel afraid or unsafe? Denies 02/02/2024 Sex and Gender Information Value Date Recorded Sex Assigned at Not on file Legal 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 EPIDEMIOLOGY INTERN Gender Identity Male 08/03/2023 6:13 PM CDT Sexual Orientation Not on file documented as of this encounter Progress Notes * Aneta Colin, OT - 02/16/2024 3:00 PM CDT [facility] [place] Occupational/Physical Therapy Progress Note Juventino Cormier 1955 Visits: 3 Cancellations: 3 Diagnosis: Tenolysis at the level of hand and forearm for the extensor digitorum communis tendons to the small finger, ring finger, middle finger, in addition to the extensor indicis proprius and theextensor digitorum communis to the index finger (5 separate tendons). Repair of the extensor retinaculum at the level of the wrist. Date of surgery: 02/02/24 Referring MD: Garo AYALA order: Splint Fabrication after 02/02/24 sx w/ Dr. Major Wyman Subjective: Juventino is happy with his progress. He is wearing his nighttime extension splint as wellas his daytime yoke splint. He will be seeing Dr Wyman on 02/20. [] Mental health status discussed Details: Pain: no pain Objective: Circumference: P1 IF: 8.0 MF 8.0 RF 7.0 MP extension: -10/-10/-10/0 DPC: 2/2/1.5/1.5 Treatment provided: Active range of motion for digit extension - isolated digit extension, all digits extended togetheroff tabletop, combined active wrist and digit extension, wrist flexion and extension, and compositedigit flexion Reviewed home program to include active digit extension off tabletop, active and passive digit flexion Assessment: Juventino continues to do very well s/p his recent surgery. His composite fist is near full and he canextend his digits more than he could preoperatively. He is incorporating his hand into ADLs more effectively. We discussed that he can initiate scar mobilization after his sutures are removed, and herecalls this from previous surgeries. Goals: Goal Status / Date Updated Due by: STG1 Pt will demonstrate ability to don/doff orthosis for hygiene. Achieved 02/05/2024 02/05/24 STG2 Pt will report understanding of wear/care instructions for orthosis as they relate to ADL/IADLs. Achieved 02/05/2024 02/05/24 STG3 Pt to demonstrate full digit flexion (DPC <1cm) to aid with return to functional grasping. In progress 02/16/2024 02/21/24 LTG1 Pt will report comfort in orthosis for protection during ADLs. Goal met 02/16/2024 02/09/24 LTG2 Pt to extend long finger for playing piano with <2/10 pain. Goal met 02/16/2024 05/06/24 LTG3 Pt will report readiness for discharge to [facility], gradual return to more strenuous activities andverbalize understanding of any remaining precautions. In progress 02/16/2024 05/06/24 Plan: Frequency/Duration: 1-2 times per week for up to 12 weeks . Plan Details: patient will work independently and follow up as needed. Updated MD orders required after: Start time: 1508 End Time: 1525 Aneta Colin OTR/L, CHT If the patient does not return to therapy this will serve as a discharge summary. documented in this encounter Plan of Treatment Not on file documented as of this encounter Visit Diagnoses Diagnosis Rupture of extensor tendon of hand, left, subsequent encounter- Primary documented in this encounter Care Teams Loom Technician Relationship Specialty Start Date End Date Remy Sevilla DO [address] [place] [address] [place] [id number] PCP - General Family Medicine 07/10/23 documented as of this encounter
--- OUTSIDE RECORDS SUMMARY | 2024-09-28 10:20 | XMS_ITS | Encounter Summary ---
Author Organization [facility] Address [address] [place] [address] Phone Care Team Providers Care Cuff Setter Overlock Name Role Phone Remy Sevilla DO Primary Care Provider [phone] Reason for Visit * Reason Comments OT Treatment * Consultation (Routine) - Authorized Specialty Diagnoses / Procedures Referred By Contac t Referred To Contact Occupational Therapy Diagnoses Wrist injury, left, initial encounter Pet, Major Freitas MD [address] [place] [address] Phone: tel: fax: [facility] (All Locations) Referral ID Status Reason Start Date Expiration Date Visits Requested Visits Authorized [id number] Authorized Specialty Services Required 02/02/2024 03/03/2025 24 24 Encounter Details Date Type Department Care Team (Late st Contact Info) Description 02/07/2024 11:[address] 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 Major Wyman Subjective: Juventino reports that he is wearing his orthoses without difficulty. He is overall happy with his progress and happy that he got the surgery [] Mental health status discussed Details: Pain: no pain Objective: Circumference: P1 IF: 8.3 MF 8.0 RF 7.5 MP extension: -10/-15/-5/0 DPC: 2/2/1.5/2 Treatment provided: Active range of motion for digit extension - isolated digit extension, all digits extended togetheroff tabletop, combined active wrist and digit extension, wrist flexion and extension, and compositedigit flexion Functional activities: pop beads, carabiner interlocking hooking, plastic pegs with foam pegboard, wrist maze for digit/wrist motion Assessment: Juventino demonstrates excellent improvement since his recent surgery. He is happy with his progress and pleased with his surgery and will benefit from skilled therapy to address motion and prevent scaradhesions. Goals: Goal Status / Date Updated Due by: STG1 Pt will demonstrate ability to don/doff orthosis for hygiene. Achieved 02/05/2024 02/05/24 STG2 Pt will report understanding of wear/care instructions for orthosis as they relate to ADL/IADLs. Achieved 02/05/2024 02/05/24 STG3 Pt to demonstrate full digit flexion (DPC <1cm) to aid with return to functional grasping. In progress 02/07/2024 02/21/24 LTG1 Pt will report comfort in orthosis for protection during ADLs. In progress 02/07/2024 02/09/24 LTG2 Pt to extend long finger for playing piano with <2/10 pain. In progress 02/07/2024 05/06/24 LTG3 Pt will report readiness for discharge to [facility], gradual return to more strenuous activities andverbalize understanding of any remaining precautions. In progress 02/07/2024 05/06/24 Plan: Frequency/Duration: 1-2 times per week for up to 12 weeks . Plan Details: Heat, active motion, scar massage, adjust orthoses Updated MD orders required after: Start time: 1145 End Time: 1220 Aneta Colin OTR/L, CHT If the patient does not return to therapy this will serve as a discharge summary. documented in this encounter Plan of Treatment Not on file documented as of this encounter Visit Diagnoses Diagnosis Wrist injury, left, subsequent encounter- Primary documented in this encounter Care Teams Cuff Setter Overlock Relationship Specialty Start Date End Date Remy Sevilla DO [facility] [facility] [place] [address] PCP - General Family Medicine 07/10/23 documented as of this encounter
--- OUTSIDE RECORDS SUMMARY | 2024-09-28 10:20 | XMS_ITS | Encounter Summary ---
Author Organization [facility] Address Formerly [facility] [place] [address] [place] [address] Care Team Providers Care Care Companion Name Role Phone Unavailable Primary Care Provider Unavailabl e Encounter Details Date Type Department Care Team (Late st Contact Info) Description 08/31/[address] 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 Gender Identity Not on file Sexual Orientation Not on file documented as of this encounter Plan of Treatment Not on file documented as of this encounter Procedures Procedure Name Priority Date/Time Associated Diagnosis Comments CULTURE, ANAEROBIC Routine 08/30/2021 7: 12 AM ELECTRONIC ENGRAVER Myringotomy tube(s) status Chronic suppurative otitis media of right ear documented in this encounter Results * (ABNORMAL) CULTURE ANAEROBIC (08/30/2021 7:12 AM ELECTRONIC ENGRAVER) SPEC DESCRIPTION EAR,RIGHT 08/31/2021 7:12 AM ELECTRONIC ENGRAVER [facility] SPECIAL REQUESTS NO SPECIAL REQUEST 08/31/2021 7:[address] [facility] GRAM STAIN RESULT NO WHITE BLOOD CELLS SEEN 09/01/2021 9:27 AM ELECTRONIC ENGRAVER [facility] GRAM STAIN RESULT NO ORGANISMS SEEN 09/01/2021 9:[address] [facility] CULTURE RESULT HEAVY GROWTH OF DIPHTHEROIDS SAVING ISOLATE FOR 5 DAYS. CONTACT MICROBIOLOGY DEPARTMENT IF FURTHER WORKUP IS INDICATED. (A) 09/05/2021 11:06 AM ELECTRONIC ENGRAVER [facility] CULTURE RESULT NOTE: ANAEROBIC CULTURES ARE ROUTINELY SCREENED FOR BOTH AEROBIC AND ANAEROBIC ORGANISMS. 09/05/2021 11:06 AM ELECTRONIC ENGRAVER [facility] RIGHT EAR STRUCTURE / Unknown 08/30/2021 7:12 AM ELECTRONIC ENGRAVER 08/31/2021 7:13 AM ELECTRONIC ENGRAVER us Shikha Link NP MICROBIOLOGY - GENERAL ORDERA BLES Final Result [facility] [address] [place] [address], [place] [phone] documented in this encounter Visit Diagnoses Diagnosis Myringotomy tube(s) status- Primary Chronic suppurative otitis media of right ear documented in this encounter
--- OUTSIDE RECORDS SUMMARY | 2024-09-28 10:20 | XMS_ITS | Referral Summary ---
Author Organization [facility] Address [address] [place] [address] Care Team Providers Care Event Security Officer Name Role Phone Satnampaige Remy YOUNGBLOOD Primary Care Provider [phone] Allergies No known active allergies Medications hydroCHLOROthia zide (HYDRODIURIL) 25 mg tablet Take 1 tablet (25 mg total) by mouth clinical reimbursement specialist before breakfast 3 9 Active loratadine (CLARITIN) 10 mg tablet Take 1 tablet (10 mg total) by mouth clinical reimbursement specialist before breakfast 3 9 Active amLODIPine (NORVASC) 10 mg tablet Take 1 tablet (10 mg total) by mouth clinical reimbursement specialist before breakfast 2 Active metoprolol XL (TOPROL-XL) 50 mg extended release tablet Take 1 tablet (50 mg total) by mouth clinical reimbursement specialist before breakfast 2 Active losartan (COZAAR) 100 mg tablet Take 1 tablet (100 mg total) by mouth clinical reimbursement specialist before breakfast 2 Active ciprofloxacin-h ydrocortisone (Cipro HC) otic suspension Administer 3 drops into each ear as needed Active potassium chloride ER 10 mEq CR tablet Take 1 tablet/capsule (10 mEq total) by mouth clinical reimbursement specialist before breakfast Active acetaminophen (TYLENOL) 500 mg tablet Take 1 tablet (500 mg total) by mouth every 6 (six) hours as needed for pain 30 tablet 3 Active ibuprofen (ADVIL,MOTRIN) 600 mg tablet Take 1 tablet (600 mg total) by mouth every 6 (six) hours as needed for pain 60 tablet 3 Active oxyCODONE (ROXICODONE) 5 mg immediate release tabletIndicatio ns:Pain Take 1-2 tablets (5-10 mg total) by mouth every 4 (four) hours as needed for pain 10 tablet 4 Active Active Problems Problem Noted Date Diagnosed Date Tendon adhesions 12/20/2023 Tendon rupture of wrist 07/31/2023 Spontaneous rupture of extensor tendon of left h and 07/21/2023 Injury of left rotator cuff 08/27/2018 Tendinitis of right rotator cuff 08/28/2017 Primary localized osteoarthritis of pelvic regio n and thigh 12/13/2010 Surgical follow-up care 07/01/2010 Spinal stenosis of cervical region 05/28/2010 Osteoarthritis of cervical spine 05/28/2010 Benign prostatic hyperplasia 03/09/2010 Arthralgia of hip 02/23/2010 Social History Tobacco Use Types Packs/Day Years [...] on file 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 Gender Identity Male 08/03/2023 6:13 PM CDT Sexual Orientation Not on file Last Filed Vital Signs Vital Sign Reading Time Taken Comments Blood Pressure 128/72 02/02/2024 9:30 AM CDT Pulse 53 02/02/2024 9:30 AM CDT Temperature 36 ??C (96.8 ??F) 02/02/2024 9:00 AM CDT Respiratory Rate 19 02/02/2024 9:30 AM CDT Oxygen Saturation 97% 02/02/2024 9:30 AM CDT Inhaled Oxygen Concentration - - Weight 95.3 kg (210 lb) 08/02/2023 11:00 AM CDT Height 175.3 cm (5' 9 ) 08/02/2023 11:00 AM CDT Body Mass Index 31.01 08/02/2023 11:00 AM CDT Plan of Treatment Not on file Medical Devices Implanted Type Area Nuclear Monitoring Technician Device Identifier Shelf Expiration Date Model / Serial / Lot Other - See Comments Other - see comments Jaimie l: Hip Description:Bilateral hip jacqueline int replacement Insurance [facility] FEDERAL Member Subscriber Plan / Payer (Ef fective 2018-Present) Name:Juventino Cormier Relation to Subscriber:Self Name:Juventino Cormier Payer ID:[id number] (NAIC) Group ID:[id number] Type:[facility] Address: [address] [place] [id number] Care Teams Event Security Officer Relationship Specialty Start Date End Date Remy Sevilla DO [address] [facility] [address] [place] [phone] PCP - General Family Medicine 07/10/23
--- OUTSIDE RECORDS SUMMARY | 2024-09-28 10:20 | XMS_ITS | Encounter Summary ---
Author Organization [facility] Address [address] [place] [address] Phone Care Team Providers Care Medical Assistant Name Role Phone Remy Sevilla DO Primary Care Provider [phone] Reason for Visit * Reason Comments OT Re-Eval * Consultation (Routine) - Authorized Specialty Diagnoses / Procedures Referred By Vish t Referred To Contact Occupational Therapy Diagnoses Wrist injury, left, initial encounter Pet, Major Freitas MD [address] [place] [address] Phone: tel: fax: [facility] (All Locations) Referral ID Status Reason Start Date Expiration Date Visits Requested Visits Authorized [id number] Authorized Specialty Services Required 02/02/2024 03/03/2025 24 24 Encounter Details Date Type Department Care Team (Late st Contact Info) Description 02/05/2024 10:30 AM CDT Therapy [facility] Occupational Therapy [address] [facility] 6th [place] [address] [place] [address] Cuauhtemoc Mckeon, OT [address] [facility] [address] [place] [phone] Wrist injury, left, subsequent encounter (Primary Dx) [...] on file 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 [facility] Occupational Therapy Re-Evaluation Referring Provider: Major Wyman MD [address] [place] [address] Wrist injury, left, subsequent encounter [S69.92XD] Subjective: Juventino arrives today for a re-evaluation after his MD appointment today. He was originally seen in Fall 2022 after an extensor tendon attritional rupture. After that surgery, he reports he never got full middle finger extension which was frustrating. He found that his lack of middle finger extension was somewhat limiting for piano and typing on a keyboard. He underwent surgery on Monday for a tenolysis of his extensor tendons and arrives today to start therapy. 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 Repair of the extensor retinaculum at the level of the wrist. Next MD Appointment: [address] Wyman Past Medical History: Diagnosis Date Aftercare following joint replacement surgery Aftercare following joint replacement - (Added by Conv) Disorder of tendon of left hand 07/2023 GERD (gastroesophageal reflux disease) Hypertension Limb alert care status 07/2023 left hand Obesity Personal history of other diseases of the circulatory system History of hypertension - (Added by Conv) Personal history of other diseases of the digestive system History of esophageal reflux - (Added by ) Primary osteoarthritis of right hip Primary osteoarthritis of right hip - (Added by Conv) Patient has no known allergies. 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 Hobbies: Playing music (guitar, piano keyboard); Typing on computer Living situation: Lives with Do you feel safe in your home environment?: [x] Yes [] No ADL Status (bathing, grooming, dressing, eating, etc.): [] Independent [x] Independent but with increased time or pain [] Requires assistance [] Dependent Details: IADL Status (housework, driving, cooking, shopping, etc.) [] Independent [x] Independent but with increased time or pain [] Requires assistance [] Dependent Details: Leisure activities: [] Able to participate in leisure activities [x] Able to participate but with increased time or pain [x] Unable to participate in leisure activities Details: hard to play piano and type with extensor lag Sleep: [] Reports adequate sleep to support daily routines [x] Reports inadequate sleep to support daily routines Details: swelling and discomfort waking him up when he sleeps at night Hand dominance [] Right [] Left [x] Ambidextrous Involved side [] Right [x] Left [] Bilateral Numbness [] Yes [x] No Location: Tingling [] Yes [x] No Location: Pain at rest: 5/10 Pain at worst: 5/10 Are you taking pain medication? [x] Yes [] No Medication using: oxycodone Objective: Wound/appearance: Moderate edema throughout digits, palm and wrist. Sutures are covered with gauze from MD clinic. Clinical Exam: Edema: Circumferential measurements: DPC 24.5 cm DWC 20.1 cm Range of Motion: Active Digit Range of Motion Index Middle Ring Small MP -25/40 -25/47 -24/55 -11/55 PIP 0/82 -22/87 0/88 0/85 DIP 0/37 0/45 0/40 0/32 Able to extend long finger fully with focus in yoke orthosis and during reverse blocking exercise. Flexion deficit to DPC: 2.5/2.5/2.5/2.5 cm Treatment Provided: - Fabricated and issued a left hand based digit extension orthosis (HFO without joints, L3913) and a long finger yoke orthosis to hold long finger in full extension. Pt to wear yoke orthosis at all times during the day and wear hand based digit extension orthosis at night only. Pt able to don/doff orthoses and educated on wear/care. Pt left wearing yoke orthosis and left with hand based digit extension orthosis. A pre-fabricated orthosis will not support digits in full extension. - Initiated and performed digit AROM: full fist, hook fist, PIP reverse blocking, finger lifts. 10 reps 4x/day. - Discussed edema management: elevation as much as possible, active motion, and compression with tubigrip size D or ian wrap. - Written instructions provided for all education. All questions answered. Assessment: Pt demonstrated independence/verbalized understanding in: [] HEP [] Don/doff orthosis [x] All tx listed above Assessment details: Juventino is 3 days out from a left hand and forearm EDC tenolysis. He presents with good active flexion and some deficits with long finger extension both at the MP and PIP joints. He is able to fully extend his long finger when in the reverse blocked position and with encouragement in yoke orthosis. He verbalizes comfort in both orthoses and understanding of all education provided. He will continue to benefit from regular therapy to aid with regaining full digit extension for return to meaningful daily activities. Impairment list: [] Coordination [x] Edema [x] Endurance/activity tolerance [x] Fine motor use [] Flexibility [x] Gross motor use [] Muscle tone [x] Pain [x] Range of motion [x] Scar tissue [] Sensation [] Sensory/motor [] Skin integrity [] Strength Other: Functional Limitations: [] ADLs [] Community activities [] Communication (writing, typing, use of phone) [] Education (carrying books and/or electronic devices, using computer or writing utensils to take notes or complete assignments) [] Home management [x] Leisure activities [] Play [] Safety (balance, using affected UE to steady self or push off of surfaces) [] Sports [] Work Other: Environmental Barriers: [x] Home [] Work [] Community Barriers to Therapy: None Intervention Approach: [] Health promotion [x] Remediation [x] Wellness [] Adaptation [] Prevention Prognosis: [] Excellent [x] Good [] Fair [] Poor Goals for Occupational Therapy Intervention: Goal Status / Date Updated Due by: STG1 Pt will demonstrate ability to don/doff orthosis for hygiene. Achieved 02/05/2024 02/05/24 STG2 Pt will report understanding of wear/care instructions for orthosis as they relate to ADL/IADLs. Achieved 02/05/2024 02/05/24 STG3 Pt to demonstrate full digit flexion (DPC <1cm) to aid with return to functional grasping. New 02/05/2024 02/21/24 LTG1 Pt will report comfort in orthosis for protection during ADLs. New 02/05/2024 02/09/24 LTG2 Pt to extend long finger for playing piano with <2/10 pain. New 02/05/2024 05/06/24 LTG3 Pt will report readiness for discharge to [facility], gradual return to more strenuous activities andverbalize understanding of any remaining precautions. New 02/05/2024 05/06/24 Plan: Frequency/Duration: 1-2 times per week for up to 12 weeks . Plan Details: Heat, active motion, scar massage, adjust orthoses Updated MD orders required after: 05/03/24 Start time: 11:15 am End time: 12:00pm Cuauhtemoc Mckeon, ABIGAIL, OTR/L, CHT If the patient does not return to therapy this will serve as a discharge summary. FOR INSURANCE AUTHORIZATION PURPOSES ONLY: 1. Primary purpose of therapy: Rehabilitation 2. Name tool(s) used during evaluation: Goniometer 3. Will any of the following be used as a primary treatment: None of these apply 4. Body part(s) affected: Upper Extremity 5. Does the patient have difficulty performing age appropriate activities of daily living (ADLs) and activities related to independent living: Yes 6. Select all conditions expected to impact treatment: Musculoskeletal disorders (eg, juvenile idiopathic arthritis, contractures, or fractures) documented in this encounter Plan of Treatment Not on file documented as of this encounter Visit Diagnoses Diagnosis Wrist injury, left, subsequent encounter- Primary documented in this encounter Orders Outpatient Referral Count Last Ordered Date Fir st Ordered Date AMB REFERRAL ORDER TO HAND THERAPY 1 2023 documented in this encounter Care Teams Medical Assistant Relationship Specialty Start Date End Date Remy Sevilla DO [address] [facility] [address] [place] [id number] PCP - General Family Medicine 07/10/23 documented as of this encounter
--- OUTSIDE RECORDS SUMMARY | 2024-09-28 10:20 | XMS_ITS | Encounter Summary ---
Author Organization [facility] Address [address] [place] [address] Phone Care Team Providers Care Panel Lay Up Worker Name Role Phone Remy Sevilla DO Primary Care Provider [phone] Reason for Visit * Consultation (Routine) - Closed Specialty Diagnoses / Procedures Referred By Vish negro Referred To Contact Plastic Surgery Diagnoses Wrist injury, left, initial encounter Remy Sevilla DO [address] [facility] [address] [address] Phone: tel: fax: Major Wyman MD [address] [place] [address] Phone: tel: fax: Referral ID Status Reason Start Date Expiration Date V isits Requested Visits Authorized [id number] Closed Specialty Services Required 07/21/2023 08/19/2024 99 99 Encounter Details Date Type Department Care Team (Late st Contact Info) Description 02/21/2024 10:15 AM CDT Office Visit [facility] Surgery [address] 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 He reports vast improvement in his range of motion. He is back to playing his instrument and typing. He has no pain. Very happy with the outcome. On examination he is able to show full extension of all fingers in a position of pronation. He has aslight middle finger lag when he turns into supination, but this does not bother him. Incision is nicely healed. Today the sutures can come out. He can return to all activities without any restriction. He can follow up as needed. documented in this encounter Plan of Treatment Not on file documented as of this encounter Visit Diagnoses Diagnosis Extensor tendon adhesions- Primary documented in this encounter Care Teams Panel Lay Up Worker Relationship Specialty Start Date End Date Remy Sevilla DO [address] [facility] [address] [place] [address] PCP - General Family Medicine 07/10/23 documented as of this encounter
--- OUTSIDE RECORDS SUMMARY | 2024-09-28 10:20 | XMS_ITS | Encounter Summary ---
Author Organization [facility] Address [address] [place] [address] Phone Care Team Providers Care Dust Control Engineer Name Role Phone Remy Sevilla DO Primary Care Provider [phone] Encounter Details Date Type Department Care Team (Late st Contact Info) Description 02/05/2024 Plan of Care Documentation [facility] Occupational Therapy [address] [facility] [address] 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
--- OUTSIDE RECORDS SUMMARY | 2024-09-28 10:20 | XMS_ITS | Clinical Summary ---
Author Organization [facility] Address [address] [place] [address] Care Team Providers Care Nurse Aide Name Role Phone Satnampaige Remy YOUNGBLOOD Primary Care Provider [phone] Allergies No known active allergies Medications hydroCHLOROthia zide (HYDRODIURIL) 25 mg tablet Take 1 tablet (25 mg total) by mouth cephalometric technician before breakfast 3 9 Active loratadine (CLARITIN) 10 mg tablet Take 1 tablet (10 mg total) by mouth cephalometric technician before breakfast 3 9 Active amLODIPine (NORVASC) 10 mg tablet Take 1 tablet (10 mg total) by mouth cephalometric technician before breakfast 2 Active metoprolol XL (TOPROL-XL) 50 mg extended release tablet Take 1 tablet (50 mg total) by mouth cephalometric technician before breakfast 2 Active losartan (COZAAR) 100 mg tablet Take 1 tablet (100 mg total) by mouth cephalometric technician before breakfast 2 Active ciprofloxacin-h ydrocortisone (Cipro HC) otic suspension Administer 3 drops into each ear as needed Active potassium chloride ER 10 mEq CR tablet Take 1 tablet/capsule (10 mEq total) by mouth cephalometric technician before breakfast Active acetaminophen (TYLENOL) 500 mg [...] prostatic hyperplasia 03/09/2010 Arthralgia of hip 02/23/2010 Surgical History Surgery Date Site/Laterality Comments [place] HEMORRHOIDECTOMY INTERNAL RUBBER BAND LIGATIONS Hemorrhoidectomy - (Added by TW Conv) COLONOSCOPY TOTAL HIP ARTHROPLASTY 10/09/2009 - 10/08/2010 Bilateral Medical History Medical History Date Comments Primary osteoarthritis of right hip Primary osteoarthritis of right hip - (Added by TW Conv) Personal history of other di seases of the digestive system History of esophageal reflux - (Added by TW Conv) Personal history of other di seases of the circulatory system History of hypertension - (A dded by TW Conv) Aftercare following joint re placement surgery Aftercare following joint re placement - (Added by TW Conv) Hypertension GERD (gastroesophageal reflux disease) Limb alert care status 07/2023 left hand Disorder of tendon of left hand 07/2023 Obesity Family History Medical History Relation Name Comments Anesthesia problems Neg Hx Social History Tobacco Use Types Packs/Day Years [...] on file 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 Gender Identity Male 08/03/2023 6:13 PM CDT Sexual Orientation Not on file Obstetrics History Last Filed Vital Signs Vital Sign Reading [...] 08/02/2023 11:00 AM CDT Plan of Treatment Health Maintenance Due Date Last Done Comments Colon Cancer Screening-Colonoscopy 1955 Depression Screening 1955 Hepatitis C Screening 1955 Prostate Cancer Screening-PSA 1953 DTaP/Tdap/Td Vaccine (1 - Tdap) 1964 Hepatitis B Screening 1971 Zoster Vaccine (1 of 2) 2003 Pneumococcal vaccine 65+ (1 of 1 - PCV) 2018 Well Visit 65+ 2018 Influenza Vaccine (#1) 2024 8, 11/07/2017, 10/06/2016 Fall Risk Assessment 02/01/2025 02/02/2024 Medical Devices Implanted Type Area Delivery Coordinator Device Identifier Shelf Expiration Date Model / Serial / Lot Other - See Comments Other - see comments Bilatera l: Hip Description:Bilateral hip jacqueline int replacement Insurance [facility] MEDICARE [facility] Member Subscriber Plan / Payer (Ef fective 2018-Present) Name:Juventino Cormier Relation to Subscriber:Self Name:Juventino Cormier Saravanan Payer ID:[id number] (NAIC) Group ID:[id number] Type:BC ALLIANCE Address: [facility] [id number] [place] [id number] Care Teams Nurse Aide Relationship Specialty Start Date End Date Remy Sevilla DO [address] [place] [address] DR [address] [place] [id number] PCP - General Family Medicine 07/10/23
--- OUTSIDE RECORDS SUMMARY | 2024-09-28 10:20 | XMS_ITS | Clinical Summary ---
Author Organization [facility] Address [address] [place] [address]. 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 Gender Identity Not on file Sexual Orientation Not on file Plan of Treatment Health Maintenance Due Date Last Done Comments Colorectal Cancer Screening Colonoscopy (10 Years) 1953 Hepatitis C 1971 DTaP, Tdap and Td Vaccines ( 1 - Tdap) 1972 Zoster Vaccines (1 of 2) 2003 RSV Immunization or 60+ Years (1 - 1-dose 60+ series) 2013 Pneumococcal Vaccine: 65+ Ye ars (1 of 1 - PCV) 2018 COVID-19 Vaccine ( - 2023-2 5 season) 2024 Influenza Adult (#1) 2024 Meningococcal Vaccine Aged Out No sandi rhoda eligible based on patient's age to complete this topic RSV Immunizations Under 20 Months Aged Out No longer eligible based on patient's age to complete this topic Insurance [facility] MEDICARE PART A
--- OUTSIDE RECORDS SUMMARY | 2024-09-28 10:20 | XMS_ITS | Encounter Summary ---
Author Organization [facility] Address [facility] [place] [address] [place] [address] Care Team Providers Care Fire Support Man Name Role Phone Unavailable Primary Care Provider Unavailabl e Encounter Details Date Type Department Care Team (Latest Contact Info) Description 08/20/2020 6:47 PM SHOW HOST OR HOSTESS - 08/20/2020 11:59 PM SHOW HOST OR HOSTESS Hospital Encounter [facility] [place] [address] Ashish Ibarra MD [address] [place] [address] Discharge Disposition: Home or Self Care (Routine Discharge) Social History Tobacco Use Types Packs/Day Years Used Date Smoking Tobacco: Never Assessed Sex and Gender Information Value Date Recorded Sex Assigned at Not on file Legal Sex Male 6:47 PM SHOW HOST OR HOSTESS Gender Identity Not on file Sexual Orientation Not on file documented as of this encounter Plan of Treatment Not on file documented as of this encounter Procedures Procedure Name Priority Date/Time Associated Diagnosis Comments CULTURE, ANAEROBIC Routine 08/20/2020 4: 00 PM SHOW HOST OR HOSTESS Chronic purulent otitis media of right ear documented in this encounter Results * (ABNORMAL) CULTURE ANAEROBIC (08/20/2020 4:00 PM SHOW HOST OR HOSTESS) SPEC DESCRIPTION EAR,RIGHT 08/20/2020 6:51 PM SHOW HOST OR HOSTESS [facility] SPECIAL REQUESTS NO SPECIAL REQUEST 08/20/2020 6:51 PM [facility] GRAM STAIN RESULT NO WHITE BLOOD CELLS SEEN 08/22/2020 10:12 AM [facility] GRAM STAIN RESULT MANY GRAM POSITIVE RODS 08/22/2020 10:12 AM SHOW HOST OR HOSTESS [facility] CULTURE RESULT HEAVY GROWTH OF DIPHTHEROIDS SAVING ISOLATE FOR 5 DAYS. CONTACT MICROBIOLOGY DEPARTMENT IF FURTHER WORKUP IS INDICATED. (A) 08/26/2020 1:48 PM SHOW HOST OR HOSTESS [facility] CULTURE RESULT NOTE: ANAEROBIC CULTURES ARE ROUTINELY SCREENED FOR BOTH AEROBIC AND ANAEROBIC ORGANISMS. 08/26/2020 1:48 PM SHOW HOST OR HOSTESS [facility] RIGHT EAR STRUCTURE / Unknown 08/20/2020 4:00 PM SHOW HOST OR HOSTESS 08/20/2020 6:53 PM SHOW HOST OR HOSTESS us Ashish Ibarra MD MICROBIOLOGY - GENERAL ORDERABL ES Final Result [facility] [address] [place] [address], [place] [phone] documented in this encounter Visit Diagnoses Diagnosis Chronic purulent otitis media of right ear documented in this encounter
--- OUTSIDE RECORDS SUMMARY | 2024-09-28 10:20 | XMS_ITS | Encounter Summary ---
Author Organization [facility] Address [facility] 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 GRAM STAIN RESULT MANY GRAM POSITIVE RODS 08/22/2020 10:[address] [facility] CULTURE RESULT HEAVY GROWTH OF DIPHTHEROIDS SAVING ISOLATE FOR 5 DAYS. CONTACT MICROBIOLOGY DEPARTMENT IF FURTHER WORKUP IS INDICATED. (A) 08/26/2020 1:48 PM PUSH BUTTON SWITCH ASSEMBLER [facility] CULTURE RESULT NOTE: ANAEROBIC CULTURES ARE ROUTINELY SCREENED FOR BOTH AEROBIC AND ANAEROBIC ORGANISMS. 08/26/2020 1:48 PM PUSH BUTTON SWITCH ASSEMBLER [facility] RIGHT EAR STRUCTURE / Unknown 08/20/2020 4:00 PM PUSH BUTTON SWITCH ASSEMBLER 08/20/2020 6:53 PM PUSH BUTTON SWITCH ASSEMBLER us Ashish Ibarra MD MICROBIOLOGY - GENERAL ORDERABL ES Final Result [facility] [address] [place] [address], [place] [phone] documented in this encounter Visit Diagnoses Diagnosis Chronic purulent otitis media of right ear- Primary documented in this encounter
--- OUTSIDE RECORDS SUMMARY | 2024-09-28 10:20 | XMS_ITS | Encounter Summary ---
Author Organization [facility] Address [facility] [place] [address] [place] [address] Care Team Providers Care Geospatial Image Analyst Name Role Phone Unavailable Primary Care Provider Unavailabl e Encounter Details Date Type Department Care Team (Latest Contact Info) Description 08/30/2021 7:07 AM LINE PRODUCTION COOK - 08/30/2021 11:59 PM LINE PRODUCTION COOK Hospital Encounter [facility] [place] [address] Shikha Link, CONVEYOR FEEDER [address] [place] [address] Discharge Disposition: Home or Self Care (Routine Discharge) Social History Tobacco Use Types Packs/Day Years Used Date Smoking Tobacco: Never Assessed Sex and Gender Information Value Date Recorded Sex Assigned at Not on file Legal Sex Male 6:47 PM 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
--- OUTSIDE RECORDS SUMMARY | 2024-09-28 10:21 | XMS_ITS | Encounter Summary ---
Author Organization [facility] Healthcare Address [address] [place] [address] Care Team Providers Care Crusher Tender Name Role Phone Remy Sevilla Primary Care Provider [phone] Reason for Visit * Reason Comments Test Results Encounter Details Date Type Department Care Team (Late st Contact Info) Description 07/21/2023 11:30 AM CDT Office Visit [facility] Medical Group Hand Surgery [address] [place] [phone] Paula Flores MD [address] [place] [phone] Spontaneous rupture of extensor tendon of left hand (Primary Dx) Social History Tobacco Use Types Packs/Day Years Used Date Smoking Tobacco: Never Smokeless Tobacco: Never Alcohol Use Standard Drinks/Week Comments Not Currently 0 (1 standard drink = 0.6 oz pur e alcohol) Sex and Gender Information Value Date Recorded Sex Assigned at Not on file 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 FOLLOW UP VISIT Subjective CHIEF COMPLAINT He had concerns including Test Results of the Left Hand. HISTORY OF PRESENT ILLNESS The patient is a 68-year-old ambidextrous male who presents today for evaluation of a left wrist injury he sustained on 07/07/2023. The patient states he fell onto an outstretched hand and had immediate pain and swelling over the left wrist. He states that over the last few days he is also noticed an inability to extend the middle finger. He denies paresthesias in his left upper extremity. He states that he is tried icing and that this has failed to relieve his symptoms. He is not had any imaging prior to today. MEDICATIONS He has a current medication list which includes the following prescription(s): amlodipine, cartia xt, clotrimazole, doxazosin, enalapril, hydrochlorothiazide, loratadine, losartan, losartan, metoprolol xl, and naproxen. REVIEW OF SYSTEMS Constitutional: Negative for fever and chills. HENT: Negative for neck pain. Eyes: Negative for change in vision. Respiratory: Negative for cough and shortness of breath. Cardiovascular: Negative for chest pain or pressure. Hematologic: negative for easy bruising Musculoskeletal: negative for muscle and joint pain GI: negative for constipation Integumentary: negative for skin wound or rash Neurologic: negative for paresthesias Objective PHYSICAL EXAM There were no vitals taken for this visit. General: Well appearing in no acute distress Chest: Normal work of breathing HEENT: Normocephalic, atraumatic Neuro: alert and oriented to person, place and time Examination of the left upper extremity demonstrates the patient is able make a composite fist. He is tenodesis of all digits however he is unable to actively extend the middle finger and he is unable to hold middle finger and full extension. He is able to partially extend the ring finger however he was unable to hold the ring finger in extension. There is an obvious area of swelling about the dorsum of the wrist with tenderness to palpation. The patient is able to extend his index finger independently. His sensation is intact to light touch in the median, radial, ulnar distribution. His digits are warm well perfused. REVIEW OF X-RAYS/STUDIES/LABS CT scan without contrast of the left wrist was reviewed by me and it is my interpretation there is 12 mm dorsal ossific fragment overlies the 3rd carpometacarpal joint in the 4th extensor compartmentassociated with the long and ring finger extensor tendons. No discrete donor site/acute fracture seen. 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 MRI of the left hand without contrast was reviewed by me and it is my interpretation there is 17 x 13 mm osseous fragment dorsal to the 3rd carpometacarpal joint with moderate surrounding dorsal handsoft tissue swelling. The extensor tendons of the long and ring fingers appear associated with the f ragment and demonstrate laxity on the sagittal exam Assessment/Plan There are no diagnoses linked to this encounter. PLAN This is a 68 year-old [id number] male who presents today with left dorsal bony wrist mass,possibly heterotopic ossification verses fractured carpal boss and left middle and ring finger extensor tendon rupture. I reviewed with the patient the relevant anatomy in the diagnosis. I reviewed with the patient thatin order to address the left middle as well as ring finger extensor tendon rupture and prevent future rerupture I would plan to excise this ossific fragment and do a side to side middle and ring withan EIP transfer in order to power his middle and ring fingers. The patient understands the middle and ring finger were then be extended together. We discussed the risks and benefits of the procedure including but not limited to pain, infection, bleeding, risk to neurovascular structures, tendon injury, incomplete resolution of symptoms, stiffness and future surgery. The patient understood these risks and wished to proceed. We also discussed that all postoperative course and postoperative splinting followed by therapy. The patient understood these risks and wished to proceed. This will be scheduled at the earliest mutual convenience. Paula Flores MD documented in this encounter Plan of Treatment Not on file documented as of this encounter Visit Diagnoses Diagnosis Spontaneous rupture of extensor tendon of left hand- Primary documented in this encounter Care Teams Crusher Tender Relationship Specialty Start Date End Date Remy Sevilla DO [address] [facility] [place] [address] PCP - General Family Medicine 07/10/23 documented as of this encounter
--- OUTSIDE RECORDS SUMMARY | 2024-09-28 10:21 | XMS_ITS | Encounter Summary ---
Author Organization [facility] Healthcare Address [address] [place] [address] Care Team Providers Care Career Technical Supervisor Name Role Phone Remy Sevilla Primary Care Provider [phone] Reason for Visit * Reason Onset Date Comments surgery question 07/21/2023 Encounter Details Date Type Department Care Team (Late st Contact Info) Description 07/21/2023 Telephone [facility] Medical Group Hand Surgery [address] [facility] [address] [place] [phone] Paula Flores MD [address] [place] [phone] surgery question Social History Tobacco Use Types Packs/Day Years Used Date Smoking Tobacco: Never Smokeless Tobacco: Never Alcohol Use Standard Drinks/Week Comments Not Currently 0 (1 standard drink = 0.6 oz pur e alcohol) AUDIT-C Answer Date Recorded Q1: How often do you have a drink containing alcohol? Never 08/04/2023 Q2: How many drinks containi ng alcohol do you have on a typical day when you are drinking? Patient does not drink Q3: How often do you have si x or more drinks on one occasion? Never 08/04/2023 Personal Safety Answer Date Recorded Have you ever been in or are you currently in a harmful physical or emotional relationship or is someone making you feel afraid or unsafe? 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 Pt stated understanding. * Telephone Encounter - Edilai Wright - 07/21/2023 2:06 PM CDT ESD Pt has a question regarding the surgery on his middle and ring finger. He was told they would be operating jointly but he would like to know if his fingers will still be separate. documented in this encounter Plan of Treatment Not on file documented as of this encounter Visit Diagnoses Not on filedocumented in this encounter Care Teams Career Technical Supervisor Relationship Specialty Start Date End Date Remy Sevilla DO [facility] [address] [place] [phone] PCP - General Family Medicine 07/10/23 documented as of this encounter
--- OUTSIDE RECORDS SUMMARY | 2024-09-28 10:21 | XMS_ITS | Encounter Summary ---
Author Organization [facility] Healthcare Address [address] [place] [address] Care Team Providers Care Auditor Internal Name Role Phone Remy Sevilla Primary Care Provider [phone] Reason for Visit * Auth/Cert (Routine) Specialty Diagnoses / Procedures Referred By Vish negro Referred To Contact Diagnoses Tendon adhesions Tendon adhesions [M77.9] Procedures FL TENOLYSIS EXTENSOR TENDON HAND/FINGER EACH Left Extensor Tenolysis Referral ID Status Reason Start Date Expiration Date Visits Re quested Visits Authorized [id number] 1 1 Encounter Details Date Type Department Care Team (Late st Contact Info) Description 02/02/2024 7:20 AM CDT Anesthesia Event [facility] Operating [facility] ([facility]) [address] [place] [address] Louie Pedraza MD [address] [facility] [address] [place] [address] Nick Ann RN Anesthesia Record Procedure Summary Procedure Name Responsible Anesthesiologist Anesthesia Start Time Anesthesia Stop Time Left Hand Extensor Tenolysis x4 (Left: Arm Lower) Louie Pedraza MD 02/02/24 0720 02/02/24 0907 Events Date Time Event Comment 02/02/2024 0543 In Preop 0720 0720 An Start 0723 In Room 0724 An Start Data 0726 Start Supplemental O2 0727 An Induction The patient was reevaluated immediately before moderate or deep sedation use and before anesthesia induction. 0728 HOB turned 90 degrees 0730 Anesthesia Ready 0732 Proc Start 0743 Quick Note Patient obstruc ting. NURSERY TECHNICIAN placed oral airway. 0744 An LMA 0746 Quick Note Patient obstruc ting with oral airway in. Converted from MAC to general anesthesia with an LMA. 0747 Incision Start 0831 Quick Note Tourniquet down . (46 min total) 0850 Proc Fin 0852 Airway Removed 0855 an stop data 0855 Out of Room 0905 Handoff to RN I completed my handoff to the receiving nurse during which we: 1. Patient identified 2. Responsible provider identified 3. Pertinent medical history reviewed 4. Procedure type and surgical course discussed 5. Intraoperative anesthetic management and any significant issues discussed 6. Expectations and concerns for postop period discussed 7. Questions solicited from receiving nurse 8. Patient disposition at the time of handoff: PACU 09 An Stop Meds Name Total midazolam PF 2 mg lidocaine (cardiac) syringe 2 % 80 mg propofol 60 mg propofol 628.98 mg fentaNYL 50 mcg phenylephrine 100 mcg/mL 3.19 mg ondansetron PF (ZOFRAN) 2 mg/mL injectio n 4 mg glycopyrrolate 0.4 mg ceFAZolin (ANCEF) 2,000 mg/20 mL in ster ile water (premix) 2,000 mg 2,000 mg famotidine 20 mg dexAMETHasone 4 mg/mL 4 mg LR 0 mL * Agents Name O2% N2O O2 N2O Air Sevoflurane Inspired Sevoflurane * Blood No blood administrations on file. Lines, Drains, and Airways Type Details Placement Removal RETIRED Surgical Site 08/04/23; 0915; No ; Right; Wrist; 02/02/24; 0839; Not present on admission 08/04/23 0915 by Ashish Saravia RN 02/02/24 0839 by Amelie Rubio RN RETIRED Surgical Site 02/02/24; Left, Distal; Forearm; 09/10/24 (Retired LDA, Removed/Completed by Cytosorbents with LDA Utility); 1213 (Retired LDA, Removed/Completed by Cytosorbents with LDA Utility) 02/02/24 0000 by Amelie Rubio RN 09/10/24 1213 by Discharge Provider, Automatic Peripheral IV Placement Date: 02/02/24; Placement Time: 718; Catheter Size: 20 G; Orientation: Right, Posterior; Location: Hand; Site Prep: Chlorhexidine; Technique: Anatomical landmarks; Inserted by: Cresencio BAE; Insertion Attempts: 1; Patient Tolerance: Tolerated well; Removal Date: 02/02/24; Removal Time: 0902/02/24 0719 by Arianna Coles RN 02/02/24 0946 by Yudi Chaves RN RETIRED Surgical Site 02/02/24; 0722; Le ft; Hand; 02/02/24; 0839 02/02/24 0722 by Amelie Rubio RN 02/02/24 0839 by Amelie Rubio RN Supraglottic Airway Placement Date: 02/02/24; Placement Time: 812 (created via procedure documentation); Mask Ventilation: 1; Size: 4; Insertion Attempts: 1; Removal Date: 02/02/24; Removal Time: 0802/02/24 0813 by Nadir Newton CRNA 02/02/24 0852 by Nick Ann RN RETIRED Surgical Site 02/02/24; 0835; Le ft; Arm; proximal; 09/10/24 (Retired LDA, Removed/Completed by Cytosorbents with LDA Utility); 1213 (Retired LDA, Removed/Completed by Cytosorbents with LDA Utility) 02/02/24 0835 by Amelie Rubio RN 09/10/24 1213 by Discharge Provider, Automatic documented in this encounter Social History Tobacco Use Types Packs/Day Years [...] on file 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 Gender Identity Male 08/03/2023 6:13 PM CDT Sexual Orientation Not on file documented as of this encounter OR Notes * Anesthesia Postprocedure Evaluation - Louie Pedraza MD - 02/02/2024 9:28 AM CDT Patient: Juventino Cormier Procedure Summary Date: 02/02/24 Room / Location: [facility] OR POD 4 ROOM E / [facility] OR POD 4 Anesthesia Start: 719 Anesthesia Stop: 906 Procedure: Left Hand Extensor Tenolysis x4 (Left: Arm Lower) Diagnosis: Tendon adhesions (Tendon adhesions [M77.9]) Surgeons: Major Wyman MD Responsible Provider: Louie Pedraza MD Anesthesia Type: general ASA Status: 2 Anesthesia Type: general Last vitals BP 147/77 Pulse 60 Temp 36 ??C (96.8 ??F) (Temporal) Resp 12 SpO2 98% Anesthesia Post Evaluation Patient location during evaluation: PACU Patient participation: complete - patient participated Level of consciousness: fully awake Pain score: 0 Pain management: adequate Airway patency: adequate Evidence of recall: no Cardiovascular status: acceptable Respiratory status: acceptable Hydration status: acceptable Pt is: normothermic Nausea/Vomiting status: none No notable events documented. * Anesthesia Procedure Notes - Nick Ann RN - 02/02/2024 8:11 AM CDT Associated Order(s): Airway Airway Patient location: OR Urgency: elective Indications for airway management: anesthesia Difficult airway: no Staff: Supervising provider: Louie Pedraza MD Placed by: NURSERY TECHNICIAN: Nadir Newton CRNA Other staff: Nick Ann RN Emergent airway documentation: Risks and benefits discussed: yes Consent obtained: yes Consent given by: patient Airway prep: Preoxygenated: yes Patient position: sniffing Mask difficulty assessment: 1 - vent by mask Spontaneous ventilation during airway: absent Sedation level during airway: GA Final airway details: Final airway type: supraglottic airway Final supraglottic airway: IGel SGA size: 4 Number of attempts: 1 * Anesthesia Preprocedure Evaluation - Louie Pedraza MD - 02/02/2024 7:38 AM CDT Images from the original note were not included. Anesthesia Evaluation Juventino Cormier is a 68 y.o. 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 12/13/2010 Surgical follow-up care 07/01/2010 Spinal stenosis of cervical region 05/28/2010 Osteoarthritis of cervical spine 05/28/2010 Benign prostatic hyperplasia 03/09/2010 Arthralgia of hip 02/23/2010 Past Medical History: Diagnosis Date Aftercare following joint replacement surgery Aftercare following joint replacement - (Added by TW Conv) Disorder of tendon of left hand 07/2023 GERD (gastroesophageal reflux disease) Hypertension Limb alert care status 07/2023 left hand Obesity Personal history of other diseases of the circulatory system History of hypertension - (Added by TW Conv) Personal history of other diseases of the digestive system History of esophageal reflux - (Added by TW Conv) Primary osteoarthritis of right hip Primary osteoarthritis of right hip - (Added by TW Conv) Past Surgical History: Procedure Laterality Date COLONOSCOPY FL HEMORRHOIDECTOMY INTERNAL RUBBER BAND LIGATIONS Hemorrhoidectomy - (Added by TW Conv) 1980s TOTAL HIP ARTHROPLASTY Bilateral 2010 No Known Allergies Med List Status: Nurse Complete Set By: Arianna Coles RN at 02/02/2024 5:48 AM Taking? Last Dose Start Date End Date Provider amLODIPine (NORVASC) 10 mg tablet 02/01/2024 08/18/22 -- ProviderJennifer MD ciprofloxacin-hydrocortisone (Cipro HC) otic suspension 02/01/2024 -- -- Jennifer Higginbotham MD hydroCHLOROthiazide (HYDRODIURIL) 25 mg tablet 02/01/2024 02/03/19 -- Jennifer Higginbotham MD loratadine (CLARITIN) 10 mg tablet 02/01/2024 03/09/19 -- Jennifer Higginbotham MD losartan (COZAAR) 100 mg tablet 02/01/2024 07/25/22 -- Jennifer Higginbotham MD metoprolol XL (TOPROL-XL) 50 mg extended release tablet 02/01/2024 08/08/22 -- Jennifer Higginbotham MD potassium chloride ER 10 mEq CR tablet 02/01/2024 -- -- Jennifer Higginbotham MD Notes: Has not started Flag for Review Taking? Last Dose Start Date End Date Provider acetaminophen (TYLENOL) 500 mg tablet -- 08/04/23 -- Jaclyn Mcgee MD Take 1 tablet (500 mg total) by mouth every 6 (six) hours as needed for pain HYDROcodone-acetaminophen (NORCO) 5-325 mg per tablet -- 08/04/23 -- Jaclyn Mcgee MD Take 1 tablet by mouth every 6 (six) hours as needed for pain (breakthrough pain) ibuprofen (ADVIL,MOTRIN) 600 mg tablet -- 08/04/23 -- Jaclyn Mcgee MD Take 1 tablet (600 mg total) by mouth every 6 (six) hours as needed for pain Current Facility-Administered Medications: ceFAZolin (ANCEF) 2,000 mg/20 mL in sterile water (premix) 2,000 mg, 2,000 mg, intravenous, Once Social History Tobacco Use Smoking Status Never Passive exposure: Never Smokeless Tobacco Never Alcohol Use: Not At Risk (02/02/2024) AUDIT-C Frequency of Alcohol Consumption: Never Average Number of Drinks: Patient does not drink Frequency of Binge Drinking: Never Substance and Sexual Activity Drug Use Never Family History Problem Relation Age of Onset Anesthesia problems Neg Hx Vitals: 02/02/24 0600 BP: 122/52 Pulse: (!) 46 Resp: 10 Temp: 36 ??C (96.8 ??F) SpO2: 94% PT: No results found for requested labs within last 30 days. INR: No results found for requested labs within last 30 days. APTT: No results found for requested labs within last 30 days. Hgb A1C: No results found for requested labs within last 30 days. CBC RBC: No results found for requested labs within last 30 days. RDW: No results found for requested labs within last 30 days. MCHC: No results found for requested labs within last 30 days. MCH: No results found for requested labs within last 30 days. MCV: No results found for requested labs within last 30 days. Hct: No results found for requested labs within last 30 days. Hgb: No results found for requested labs within last 30 days. WBC: No results found for requested labs within last 30 days. MPV: No results found for requested labs within last 30 days. Platelets: No results found for requested labs within last 30 days. RDW CV: No results found for requested labs within last 30 days. RDW Sd: No results found for requested labs within last 30 days. BMP Glucose: No results found for requested labs within last 30 days. Calcium: No results found for requested labs within last 30 days. Sodium: No results found for requested labs within last 30 days. Potassium: No results found for requested labs within last 30 days. CO2: No results found for requested labs within last 30 days. Chloride: No results found for requested labs within last 30 days. BUN: No results found for requested labs within last 30 days. Creatinine: No results found for requested labs within last 30 days. STOP-Bang Total Score: 4 DOS Physical Exam Medical history, medications, and allergies reviewed. Attestation: With today's edits, I endorse the findings of the procedural assessment dated: 02/02/2024. Airway Exam: Mallampati: II Cervical ROM: FROM TM distance: >4 Cardiovascular Exam: Rate: regular Rhythm: regular Negative for Murmur Pulmonary Exam: LCTA, bilat EENT Exam: trachea midline Dental Exam: Appears intact Current state: Patient's current state is cooperative. Anesthesia Plan ASA 2 My patient is approved for the Anesthesia Controlled Medication protocol when under care of a NURSERY TECHNICIAN Planned anesthesia: MAC Informed Consent: Discussed plan with NURSERY TECHNICIAN. Anesthesia plan and risks discussed with patient. Consent and Attending signature: I and/or my designee have discussed the anesthesia plan, benefits, possible alternatives, parental presence at time of induction (if indicated), and clinically relevant risks that may include dental injury, unintentional awareness, and/or other complications. The patient and/or parent/legal guardian understand, and agree to proceed. All questions answered. documented in this encounter Plan of Treatment Not on file documented as of this encounter Procedures Procedure Name Priority Date/Time Associated Diagnosis Comments FL AN PROCEDURE PLACEHOLDER Routine 02/02/2024 8:11 AM CDT FL AN ELECTIVE SUPRAGLOTTIC AIRWAY Routine 02/02/2024 8:11 AM CDT documented in this encounter Results * FL AN ELECTIVE SUPRAGLOTTIC AIRWAY, FL AN PROCEDURE PLACEHOLDER (02/02/2024 8:11 AM CDT) Narrative Nick Ann RN - 02/02/2024 8:11 AM CDT Nick Ann RN ? 02/02/2024 ??8:13 AM Airway Patient location: OR Urgency: elective Indications for airway management: anesthesia Difficult airway: no Staff: Supervising provider: Louie Pedraza MD Placed by: NURSERY TECHNICIAN: Nadir Newton CRNA Other staff: Nick Ann RN Emergent airway documentation: Risks and benefits discussed: yes Consent obtained: yes Consent given by: patient Airway prep: Preoxygenated: yes Patient position: sniffing Mask difficulty assessment: 1 - vent by mask Spontaneous ventilation during airway: absent Sedation level during airway: GA Final airway details: Final airway type: supraglottic airway Final supraglottic airway: IGel SGA size: 4 Number of attempts: 1 Louie Pedraza MD ANESTHESIA ORDERABLES Sima l Result documented in this encounter Visit Diagnoses Not on filedocumented in this encounter Administered Medications Inactive Administered Medications - up to 3 most recent administrations Medication Order MAR Action Action Date Dose Rate Site ceFAZolin (ANCEF) 2,000 mg/20 mL in sterile water (premix) 2,000 mg 2,000 mg, intravenous, at 400 mL/hr, Administer over 3 Minutes, Once, On Mon02/02/24 at 0615, For 1 dose, Pre-Op, Administer within 60 minutes of incision., Indications: Prophylaxis, SurgicalIndications:Prophylaxis, Surgical Given 02/02/2024 7:25 AM CDT 2,000 mg dexAMETHasone (DECADRON) 4 mg/mL injection intravenous, Administer over 2 Minutes, As needed, Starting on Mon02/02/24 at 0801, Anesthesia Intra-op Given 02/02/2024 8:01 AM CDT 4 mg famotidine (PEPCID) injection intravenous, Administer over 2 Minutes, As needed, Starting on Mon02/02/24 at 0801, Anesthesia Intra-op Given 02/02/2024 8:01 AM CDT 20 mg fentaNYL (SUBLIMAZE) preservative free injection intravenous, As needed, Starting on Mon02/02/24 at 0727, Anesthesia Intra-op Given 02/02/2024 7:27 AM CDT 50 mcg glycopyrrolate (ROBINUL) injection intravenous, Administer over 1 Minutes, As needed, Starting on Mon02/02/24 at 0720, Anesthesia Intra-op Given 02/02/2024 7:28 AM CDT 0.2 mg Given 02/02/2024 7:20 AM CDT 0.2 mg Lactated Ringer's (LR) infusion intravenous, Continuous PRN, Starting on Mon02/02/24 at 0720, Anesthesia Intra-op Rate/Dose Change 02/02/2024 8:48 AM CDT 7 00 mL/hr New Bag 02/02/2024 7:20 AM CDT 30 mL/hr lidocaine (cardiac) (XYLOCAINE) preservative free injection intravenous, As needed, Starting on Mon02/02/24 at 0727, Anesthesia Intra-op, Indications: Ventricular ArrhythmiasIndications:Ventricular Arrhythmias Given 02/02/2024 7: 30 AM CDT 40 mg Given 02/02/2024 7:27 AM CDT 40 mg midazolam (VERSED) 2 mg/2 mL preservative free injection intravenous, Administer over 2 Minutes, As needed, Starting on Mon02/02/24 at 0720, Anesthesia Intra-op Given 02/02/2024 7:27 AM CDT 1 mg Given 02/02/2024 7:20 AM CDT 1 mg ondansetron (ZOFRAN) injection intravenous, Administer over 2 Minutes, As needed, Starting on Mon02/02/24 at 0801, Anesthesia Intra-op Given 02/02/2024 8:01 AM CDT 4 mg phenylephrine (JEAN-CLAUDE-SYNEPHRINE) 1 mg/10 mL (100 mcg/mL) in sodium chloride 0.9% (premix) intravenous, Continuous PRN, Starting on Mon02/02/24 at 0742, Anesthesia Intra-op New Bag 02/02/2024 7:42 AM CDT 0.5 mcg/kg/min 28.59 mL/hr propofoL (DIPRIVAN) 10 mg/mL IV intravenous, Continuous PRN, Starting on Mon02/02/24 at 0727, Anesthesia Intra-op Rate/Dose Change 02/02/2024 7:53 AM CDT 100 mcg/kg/min 57.18 mL/hr Rate/Dose Change 02/02/2024 7:45 AM CDT 125 mcg/kg/min 71. 475 mL/hr New Bag 02/02/2024 7:27 AM CDT 100 mcg/kg/min 57.18 mL/ hr propofoL (DIPRIVAN) 10 mg/mL IV intravenous, As needed, Starting on Mon02/02/24 at 0731, Anesthesia Intra-op Bolus 02/02/2024 7:39 AM CDT 20 mg Bolus 02/02/2024 7:34 AM CDT 20 mg New Bag 02/02/2024 7:31 AM CDT 20 mg documented in this encounter Care Teams Auditor Internal Relationship Specialty Start Date End Date Remy Sevilla DO [facility] [address] [place] [address] [place] [id number] PCP - General Family Medicine 07/10/23 documented as of this encounter
--- OUTSIDE RECORDS SUMMARY | 2024-09-28 10:21 | XMS_ITS | Encounter Summary ---
Author Organization [facility] Address [address] [place] [address] Phone Care Team Providers Care Faith Doctor Name Role Phone Remy Sevilla DO Primary Care Provider [phone] Reason for Visit * Reason Comments OT Treatment * Consultation (Routine) - Closed Specialty Diagnoses / Procedures Referred By Vish negro Referred To Contact Occupational Therapy Diagnoses Extensor tendon rupture of hand, left, subsequent encounter Pet, Major Freitas MD [address] [place] [address] Phone: tel: fax: [facility] (All Locations) Referral ID Status Reason Start Date Expiration Date V isits Requested Visits Authorized [id number] Closed Specialty Services Required 08/09/2023 09/07/2024 24 24 Encounter Details Date Type Department Care Team (Late st Contact Info) Description 08/16/2023 2:00 PM COMPOSITION PROFESSOR Therapy [facility] Occupational Therapy [address] [facility] 6th [place] [address] [place] [address] Cuauhtemoc Mckeon, OT [address] [facility] [address] [place] [id number] Rupture of extensor tendon of hand, left, [...] file 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 [facility] Occupational Therapy Progress Note Juventino Cormier 1955 Referring Provider: Major Wyman MD [address] [place] [address] Rupture of extensor tendon of hand, left, subsequent encounter [[id number]] Diagnosis: 1. Attritional rupture of the left ring finger and middle finger at the extensor digitorum communistendons. 2. Bony mass associated with the left digital extensors. 3. Tendon adhesions of the left ring and middle finger extensor tendons. Date of surgery: 08/04/23 1. Excision left hand bony mass, 1.5 cm in maximal diameter. 2. Tenolysis extensor digitorum communis tendon to the ring finger. 3. Tenolysis extensor digitorum communis tendon to the middle finger. Each of these tenolysis procedures was at the level of the hand, wrist and forearm. 4. Reconstruct left middle finger extensor digitorum communis tendon with palmaris longus tendon autograft. 5. Reconstruction of left ring finger extensor digitorum communis tendon with palmaris longus autograft. 6. Tenosynovial biopsy, left 4th compartment. Referring MD: Dr. Garo AYALA order: Frequency/Duration: 1 x week for up to 12 weeks Md visit: 2 weeks OT/PT Evaluate and Treat: edema/scar mgmt PRN. A/PROM of IP joints in splint. Okay to begin very gentle AROM for wrist as well as MP extension in gravity eliminated out of splint. Have pt work on individual finger lifts in the splint to prevent scar adhesions. states this is a very strongly weaved graft. Restrictions: Limit heavy use of L UE; must wear splint Orthosis Specifications: Fabricate L FA-based P1 block for all digits with wrist in 30 degrees extension and Mps in full extension to be worn AAT except protected hygiene/exercises. WHFO without joints, L3808 Purpose: to support affected structures Subjective: Juventino is 2 weeks out from a left EDC tendon repair to his long and ring finger. He reports he had a lot of swelling on Monday after keeping his hand down, but that after elevating his hand and using cold water on his fingers it resolved. He notes that his exercises are going well and he feels his hand is doing better. [x] Mental health status discussed Details: reports no problems Pain: 0/10 Objective: Appearance: Sutures are intact with no signs of infection. Mild edema visualized. Edema: Circumferential measurement DPC: 24.6 cm Range of Motion: Active Digit Range of Motion Index Middle Ring Small MP NT NT NT NT PIP 0/90 -18/92 0/96 0/89 DIP 0/55 0/55 0/54 0/49 Treatment Provided: - Pt to continue wearing P1 blocking orthosis at all times but remove for protected hygiene and exercises. - Reviewed and performed HEP (see handouts): - AROM of IP joints (hook fist) in orthosis 10 reps 4x/day - AROM MP extension from position in orthosis (finger lifts) 10 reps 4x/day - Added gentle mid range wrist AROM with other hand to maintain MP extension 10 reps 4x/day. - Added MP extension in gravity eliminated out of orthosis 10 reps 4x/day. - Added scar massage to perform adjacent to incisions for 2-3 min 3x/day. Performed in clinic this date. - Discussed edema management - continue to elevate and move adjacent joints (elbow, IP joints) - All questions answered. Assessment: Juventino presents today 2 weeks out from a left long and ring finger EDC repair with autograft tendon. He presents with improved hook fist active motion and improved extension compared to his last visit. He is still unable to lift his digits off the table, but is able to fire his EDC and extend his MPs in gravity eliminated plane this week. Added gentle wrist motion and scar massage [place] gliding and to decrease scar adhesions. Pt continues to verbalize comfort in orthosis and understanding of all precautions. He will continue to benefit from skilled therapy to ensure appropriate progress through exercises to aid with return to functional use of left hand. Plan: Frequency/Duration: Weekly for up to 12 weeks Plan details: MHP, AROM hook fist, MP extension, wrist AROM, possibly progress to gentle MP flexionif allowed by MD, adjust orthosis if needed. Goals: Goals for Occupational Therapy Intervention: Goal Status / Date Updated Due by: STG1 Pt will demonstrate ability to don/doff orthosis for hygiene. Achieved 08/09/2023 08/09/23 STG2 Pt will report understanding of wear/care instructions for orthosis as they relate to ADL/IADLs. Achieved 08/09/2023 08/09/23 STG3 Pt will demonstrate ability to make a full hook fist Ongoing 08/16/23 08/22/23 LTG1 Pt will report comfort in orthosis for protection during ADLs. Met 08/16/23 08/16/23 LTG2 Pt will demonstrate ability to lift middle/ring finger off table to aid with return to piano Ongoing 08/16/23 11/09/22 LTG3 Pt will demonstrate ability to make a fist (DPC <2cm) when allowed by precautions to aid with return to functional grasping. Ongoing 08/16/23 11/09/22 Start Time: 2:10 pm End Time: 2:45 pm ABIGAIL Triana, OTR/L, CHT If the patient does not return to therapy this will serve as a discharge summary. OSITION PROFESSOR documented in this encounter Plan of Treatment Not on file documented as of this encounter Visit Diagnoses Diagnosis Rupture of extensor tendon of hand, left, subsequent encounter- Primary documented in this encounter Care Teams Faith Doctor Relationship Specialty Start Date End Date Remy Sevilla DO [facility] [address] [place] [address] PCP - General Family Medicine 07/10/23 documented as of this encounter
--- OUTSIDE RECORDS SUMMARY | 2024-09-28 10:21 | XMS_ITS | Encounter Summary ---
Author Organization [facility] Address [address] [place] [address] Phone Care Team Providers Care Supervisor Belt And Link Assembly Name Role Phone Remy Sevilla DO Primary Care Provider [phone] Encounter Details Date Type Department Care Team (Late st Contact Info) Description 08/23/2023 1:00 PM TEACHING MUSIC LESSONS Office Visit [facility] Surgery [address] [facility] 6th [place] [address] [place] [address] Major Wyman MD [address] [place] [address] Extensor tendon rupture of hand, left, subsequent encounter (Primary Dx) [...] on file 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 He reports that he is worn his splint as directed. He has been attending therapy. On examination today the reconstructions are clearly intact. He does have some tugging on his skin when he tries to activate. He has some extensor lag at the MP joint which is perhaps a little bit worse than last time I saw him. This improves with wrist flexion due to tenodesis. Incisions are well healed. At this point the patient can progress his therapy to be more aggressive in terms of active range of motion. Should continue splinting to prop up his MPs. I do think that he is probably having some stretching of his musculotendinous units as the prolonged re-application of tension is getting these back towards the resting length. This is probably due to some lag. It is also possible he is affected by some adhesions. Right now I think we should focus on movement to get his motion back. His current MP extension is better than it was preoperatively, but still sub ideal. In the future he may benefit from tenolysis under wide- awake anesthesia, or tightening of his transfer. I will see him back in about month to assess progress. HING MUSIC LESSONS documented in this encounter Plan of Treatment Not on file documented as of this encounter Visit Diagnoses Diagnosis Extensor tendon rupture of hand, left, subsequent encounter- Primary documented in this encounter Care Teams Supervisor Belt And Link Assembly Relationship Specialty Start Date End Date Remy Sevilla DO [facility] [address] [place] [id number] PCP - General Family Medicine 07/10/23 documented as of this encounter
--- OUTSIDE RECORDS SUMMARY | 2024-09-28 10:21 | XMS_ITS | Encounter Summary ---
Author Organization [facility] Address [address] [place] [address] Phone Care Team Providers Care Cruise Counselor Name Role Phone Remy Sevilla DO Primary Care Provider [phone] Reason for Referral * Consultation (Routine) - Closed Specialty Diagnoses / Procedures Referred By Vish negro Referred To Contact Occupational Therapy Diagnoses Extensor tendon rupture of hand, left, subsequent encounter Pet, Major Freitas MD [address] [place] [address] Phone: tel: fax: [facility] (All Locations) Referral ID Status Reason Start Date Expiration Date V isits Requested Visits Authorized [id number] Closed Specialty Services Required 08/09/2023 09/07/2024 24 24 Question Answer Rfl reason PT/OT Evaluate and Treat Therapy options discussed with patient? Yes Location provided for therapy services is: Patient requested/Patient preferred Please select the performing region: [facility] (All Locations) [167] # of visits: 24 Comments Occupational Therapy / Physical Therapy Outpatient Referral [facility] Diagnosis: 1. Attritional rupture of the left ring finger and middle finger at the extensor digitorum communis tendons. 2. Bony mass associated with the left digital extensors. 3. Tendon adhesions of the left ring and middle finger extensor tendons. PROCEDURES PERFORMED 08/04/23 1. Excision left hand bony mass, [...] autograft. 6. Tenosynovial biopsy, left 4th compartment. Frequency/Duration: 1 x week for up to [...] joints, L3808 Purpose: to support affected structures Reason for Visit * Consultation (Routine) - Closed Specialty Diagnoses / Procedures Referred By Vish negro Referred To Contact Plastic Surgery Diagnoses Wrist injury, left, initial encounter Remy Sevilla DO [address] [facility] [address] [place] [address] Phone: tel: fax: Major Wyman MD [address] [place] [address] Phone: tel: fax: Referral ID Status Reason Start Date Expiration Date V isits Requested Visits Authorized [id number] Closed Specialty Services Required 07/21/2023 08/19/2024 99 99 Encounter Details Date Type Department Care Team (Late st Contact Info) Description 08/09/2023 1:00 PM CDT Office Visit [facility] Surgery [address] [facility] 6th [place] [address] [place] [address] Major Wyman MD [address] [place] [address] Extensor tendon rupture of hand, left, subsequent [...] on file 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 Both palmaris tendons were used. He reports minimal pain. He has been using theright hand without any difficulty. On examination his incisions are healing nicely. He is able to show active MP extension, but this does not get up to full MP extension in the middle and ring finger or the index finger for that matter. He is able make a fist. No signs of infection. At this point I would like the patient to get a splint. This should be a P1 block short-arm type ofsplint to keep his wrist in some extension and MPs in extension. He will start activating within his splint to avoid scarring. He has a very strong reconstruction so I think that we can afford some early motion here. I would like to see him back in about 2 weeks for suture removal. documented in this encounter Plan of Treatment Scheduled Referrals Name Type Priority Associated Diagnoses Order Schedule Ambulatory referral order to Hand Therapy - Outpatient Referral Routine Extensor tendon rupture of hand, left, subsequent encounter Expected: 08/09/2023 (Approximate), Expires: 08/09/2024 documented as of this encounter Visit Diagnoses Diagnosis Extensor tendon rupture of hand, left, subsequent encounter- Primary documented in this encounter Care Teams Cruise Counselor Relationship Specialty Start Date End Date Remy Sevilla DO [address] [facility] [address] [address] PCP - General Family Medicine 07/10/23 documented as of this encounter
--- OUTSIDE RECORDS SUMMARY | 2024-09-28 10:21 | XMS_ITS | Encounter Summary ---
Author Organization [facility] Address [address] [place] [address] Phone Care Team Providers Care Business Mail Entry Clerk Name Role Phone Remy Sevilla DO Primary Care Provider [phone] Encounter Details Date Type Department Care Team (Late st Contact Info) Description 08/07/2023 Telephone [facility] Surgery [address] [facility] 6th [place] [address] [place] [address] El Gutierres, APOLONIA Social History Tobacco Use Types Packs/Day Years [...] on file Legal 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 [employer] Gender Identity Male 08/03/2023 6:13 PM CDT Sexual Orientation Not on file documented as of this encounter Miscellaneous Notes * Telephone Encounter - El Gutierres RMA - 08/07/2023 10:15 AM CDT Patient called with concern to post op dressing feeling too tight . Informed patient that what he is feeling and most likely has inflammation, and swelling. Instructed patient to elevate hand above elbow, and to start Ibuprofen OTC every 4-6 hrs. Patient has appointment on 08/09/23 emphasized importance of appointment to patient and to make sure he attends that appointment. Patient understood and will comply. documented in this encounter Plan of Treatment Not on file documented as of this encounter Visit Diagnoses Not on filedocumented in this encounter Care Teams Business Mail Entry Clerk Relationship Specialty Start Date End Date Remy Sevilla DO [facility] [address] [place] [address] PCP - General Family Medicine 07/10/23 documented as of this encounter
--- OUTSIDE RECORDS SUMMARY | 2024-09-28 10:21 | XMS_ITS | Encounter Summary ---
Author Organization [facility] Address [address] [place] [address] Care Team Providers Care Senior Dynamics Crm Developer Name Role Phone Remy Sevilla DO Primary Care Provider [phone] Reason for Referral * MRI/CAT/PET Scan (Routine) - Closed Specialty Diagnoses / Procedures Referred By Contac t Referred To Contact Radiology Diagnoses Spontaneous rupture of extensor tendon of left hand Fracture of unspecified carpal bone, left wrist, initial encounter for closed fracture Procedures CT Wrist Left WO Contrast Paula Flores MD [address] [place] [address] [address] [place] [address] Phone: tel: fax: [facility] [address] [place] [address] Referral ID Status Reason Start Date Expiration Date Visits Re quested Visits Authorized [id number] Closed 07/11/2023 08/09/2024 1 1 Encounter Details Date Type Department Care Team (Late st Contact Info) Description 07/11/2023 Orders Only [facility] Hand Surgery [facility] [address] [place] [address] [facility] [address] [place] [address] Spontaneous rupture of extensor tendon of left hand (Primary Dx); Fracture of unspecified carpal bone, left wrist, initial encounter for closed fracture Social History Tobacco Use Types Packs/Day Years Used Date Smoking Tobacco: Never Smokeless Tobacco: Never Alcohol Use Standard Drinks/Week Comments Not Currently 0 (1 standard drink = 0.6 oz pur e alcohol) Sex and Gender Information Value Date Recorded Sex Assigned at Not on file 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 CT WRIST LEFT WO CONTRAST REASON FOR STUDY: ?? Soft tissue infection suspected, wrist, xray done, extensor tendon injury suspected ?? extensor tendon injury suspected, Soft tissue infection suspected, wrist, xray done, Spontaneous rupture of extensor tendon of left hand, Fracture of unspecified carpal bone, left wrist, initial encounter for closed fracture ? Pt states he fell last week in his yard onto left wrist/hand ?? TECHNIQUE: Multidetector CT scan of the ?? left wrist ??was performed. ?? Axial, ?? coronal and sagittal images were reconstructed. Dose modulation adjustment of the mA and/or kV has been performed per [facility] protocols according to patient size and indication. COMPARISON: ?? Left hand MRI 07/10/2023. ??Left hand radiographs 07/10/2023. FINDINGS: A 12 mm dorsal ossific fragment overlies the 3rd carpometacarpal joint and is present in the 4th extensor compartment and is likely associated with the long and ring finger extensor tendons. Moderate basal joint thumb, mild triscaphe, mild distal radioulnar joint and amxp-xd-ircrokfn 2nd metacarpophalangeal joint osteoarthritis are present. ?? Small cyst is present in the ulna at the distal radioulnar joint. IMPRESSION: 1. ?? 12 mm dorsal ossific fragment overlies the 3rd carpometacarpal joint in the 4th extensor compartment associated with the long and ring finger extensor tendons. ??No discrete donor site/acute fracture seen. 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 2. ?? Xogj-fo-hmhlfolf polyarticular hand and wrist osteoarthritis. THIS IS AN ELECTRONICALLY VERIFIED FINAL REPORT 07/18/2023 9:57 AM - Electronically signed by ??Owen Ireland M.D. TH: TH D: ??07/18/2023 9:57 AM T: ??07/18/2023 9:57 AM Report ID: [id number] Reading Location: ??[id number] Procedure Note Owen Ireland MD - 07/18/2023 EXAM DESCRIPTION: CT WRIST LEFT WO CONTRAST REASON FOR STUDY: Soft tissue infection suspected, wrist, xray done, extensor tendon injury suspected extensor tendon injury suspected, Soft tissue infection suspected, wrist,xray done, Spontaneous rupture of extensor tendon of left hand, Fracture of unspecified carpal bone, left wrist, initial encounter for closed fracture Pt states he fell last week in his yard onto left wrist/hand TECHNIQUE: Multidetector CT scan of the left wrist was performed.Axial, coronal and sagittal images were reconstructed. Dose modulation adjustment of the mA and/or kV has been performed per [facility] protocols according to patient size and indication. COMPARISON: Left hand MRI 07/10/2023. Left hand radiographs 07/10/2023. FINDINGS: A 12 mm dorsal ossific fragment overlies the 3rd carpometacarpal joint and is present in the 4th extensor compartment and is likelyassociated with the long and ring finger extensor tendons. Moderate basal joint thumb, mild triscaphe, mild distal radioulnar jointand bqeh-qg-giplzkwz 2nd metacarpophalangeal joint osteoarthritis are present. Small cyst is present in the ulna at the distal radioulnar joint. IMPRESSION: 1. 12 mm dorsal ossific fragment overlies the 3rd carpometacarpal jointin the 4th extensor compartment associated with the long and ring fingerextensor tendons. No discrete donor site/acute fracture seen. 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 2. Xzds-wj-yhswbnnx polyarticular hand and wrist osteoarthritis. THIS IS AN ELECTRONICALLY VERIFIED FINAL REPORT 07/18/2023 9:57 AM - Electronically signed by Owen Ireland M.D. TH: TH Report ID: [id number] Reading Location: [id number] Paula Flores MD IMG CT PROCEDURES Final R esult documented in this encounter Visit Diagnoses Diagnosis Spontaneous rupture of extensor tendon of left hand- Primary Fracture of unspecified carpal bone, left wrist, initial encounter for closed fracture Spontaneous rupture of extensor tendon of left hand Fracture of unspecified carpal bone, left wrist, initial encounter for closed fracture documented in this encounter Care Teams Senior Dynamics Crm Developer Relationship Specialty Start Date End Date Remy Sevilla DO [facility] [address] [address] PCP - General Family Medicine 07/10/23 documented as of this encounter
--- OUTSIDE RECORDS SUMMARY | 2024-09-28 10:21 | XMS_ITS | Encounter Summary ---
Author Organization [facility] Healthcare Address [address] [place] [address] Care Team Providers Care Dry Pan Feeder Name Role Phone Remy Sevilla Primary Care Provider [phone] Reason for Visit * Auth/Cert (Routine) Specialty Diagnoses / Procedures Referred By Vish negro Referred To Contact Diagnoses Tendon adhesions Tendon adhesions [M77.9] Procedures SC TENOLYSIS EXTENSOR TENDON HAND/FINGER EACH Left Extensor Tenolysis Referral ID Status Reason Start Date Expiration Date Visits Re quested Visits Authorized [id number] 1 1 Encounter Details Date Type Department Care Team (Late st Contact Info) Description 02/02/2024 7:30 AM CDT - 02/02/2024 9:30 AM CDT Surgery [facility] ([facility]) [address] [place] [address] Major Wyman MD [address] [facility] [address] [place] [address] Left Hand Extensor Tenolysis x4 Surgery Details Date/Time Status Location OR Service Patient Class Case Cl ass Case Type Trauma Case? 02/02/2024 7:[address] [facility] CAM OR POD 4 E Plastics Outpatient Elective Panel 1 Procedure LRB Anes Op Region Wound Class Comments Left Hand Extensor Tenolysis x4 Left General Arm Lowe r Class I - Clean Surgeon Surgeon Role Service Panel Mehreen Vega MD Resident - Assisting Orthopaedics 1 Arianna George MD Resident - Assisting Plasti cs 1 Pet, Major Freitas MD Primary Plastics 1 Case Notes 12/26@1259 Per Polo via case message, Per pt request, please reschedule this surgery to 02/02/24. CF Special Needs 1:1 Mix of 1% Lidocaine w/ EPI and 0.25% Marcaine w/ EPI, Tenolysis Knives. 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 Gender Identity Male 08/03/2023 6:13 PM CDT Sexual Orientation Not on file documented as of this encounter Last Filed Vital Signs Vital Sign Reading Time Taken Comments Blood Pressure 128/72 02/02/2024 9:30 AM CDT Pulse 53 02/02/2024 9:30 AM CDT Temperature 36 ??C (96.8 ??F) 02/02/2024 9:00 AM CDT Respiratory Rate 19 02/02/2024 9:30 AM CDT Oxygen Saturation 97% 02/02/2024 9:30 AM CDT Inhaled Oxygen Concentration - - Weight - - Height - - Body Mass Index - - documented in this encounter Medications at Time of Discharge acetaminophen (TYLENOL) 500 mg tablet Take 1 tablet (500 mg total) by mouth every 6 (six) hours as needed for pain 30 tablet 08/04/2023 amLODIPine (NORVASC) 10 mg tablet Take 1 tablet (10 mg total) by mouth header up before breakfast 08/18/2022 ciprofloxacin-hy drocortisone (Cipro HC) otic suspension Administer 3 drops into each ear as needed hydroCHLOROthiaz anuj (HYDRODIURIL) 25 mg tablet Take 1 tablet (25 mg total) by mouth header up before breakfast 3 02/03/2019 ibuprofen (ADVIL,MOTRIN) 600 mg tablet Take 1 tablet (600 mg total) by mouth every 6 (six) hours as needed for pain 60 tablet 08/04/2023 loratadine (CLARITIN) 10 mg tablet Take 1 tablet (10 mg total) by mouth header up before breakfast 3 03/09/2019 losartan (COZAAR) 100 mg tablet Take 1 tablet (100 mg total) by mouth header up before breakfast 07/25/2022 metoprolol XL (TOPROL-XL) 50 mg extended release tablet Take 1 tablet (50 mg total) by mouth header up before breakfast 08/08/2022 oxyCODONE (ROXICODONE) 5 mg immediate release tabletIndication s:Pain Take 1-2 tablets (5-10 mg total) by mouth every 4 (four) hours as needed for pain 10 tablet 02/02/2024 potassium chloride ER 10 mEq CR tablet Take 1 tablet/capsule (10 mEq total) by mouth header up before breakfast documented as of this encounter Ordered Prescriptions Prescription Sig Dispense Quantity Refills Last Filled Start Date End Date oxyCODONE (ROXICODONE) 5 mg immediate release tabletIndications: Pain Take 1-2 tablets (5-10 mg total) by mouth every 4 (four) hours as needed for pain 10 tablet 02/02/2024 documented in this encounter Discharge Disposition Disposition Code Departure Means Destination Comment s Discharge to home or self care documented in this encounter H&P Notes * Arianna George MD - 02/02/2024 6:30 AM CDT PLASTIC & RECONSTRUCTIVE SURGERY HISTORY & PHYSICAL Patient: Juventino Cormier : 1955 PCP: Remy Sevilla DO HISTORY OF PRESENT ILLNESS: Juventino Cormier is a 68 y.o. male who presents for left long and ring finger extensor tenolysis. Pt has h/o attritional rupture of left ring/long finger EDC. REVIEW OF SYSTEMS: A thorough review of systems was performed and all systems are negative unless state above in HPI. PAST MEDICAL HISTORY: Past Medical History: Diagnosis Date Aftercare following [...] right hip - (Added by TW Conv) PAST SURGICAL HISTORY: Past Surgical History: Procedure Laterality Date COLONOSCOPY SC HEMORRHOIDECTOMY INTERNAL RUBBER BAND LIGATIONS Hemorrhoidectomy - (Added by TW Conv) TOTAL HIP ARTHROPLASTY Bilateral 2010 SOCIAL HISTORY: Social History Tobacco Use Smoking status: Never Passive exposure: Never Smokeless tobacco: Never Substance and Sexual Activity Drug use: Never Sexual activity: Defer Alcohol Use: Not At Risk (02/02/2024) AUDIT-C Frequency of Alcohol Consumption: Never Average Number of Drinks: Patient does not drink Frequency of Binge Drinking: Never FAMILY HISTORY: Family History Problem Relation Age of Onset Anesthesia problems Neg Hx MEDICATIONS: Prior to Admission medications Medication Sig Start Date End Date Taking? Authorizing Provider amLODIPine (NORVASC) 10 mg tablet Take 1 tablet (10 mg total) by mouth header up before breakfast 08/18/22 Yes Jennifer Higginbotham MD ciprofloxacin-hydrocortisone (Cipro HC) otic suspension Administer 3 drops into each ear as needed Yes ProviderJennifer MD hydroCHLOROthiazide (HYDRODIURIL) 25 mg tablet Take 1 tablet (25 mg total) by mouth header up before breakfast 02/03/19 Yes Jennifer Higginbotham MD loratadine (CLARITIN) 10 mg tablet Take 1 tablet (10 mg total) by mouth header up before breakfast 03/09/19 Yes Jennifer Higginbotham MD losartan (COZAAR) 100 mg tablet Take 1 tablet (100 mg total) by mouth header up before breakfast 07/25/22 Yes Jennifer Higginbotham MD metoprolol XL (TOPROL-XL) 50 mg extended release tablet Take 1 tablet (50 mg total) by mouth header up before breakfast 08/08/22 Yes Jennifer Higginbotham MD potassium chloride ER 10 mEq CR tablet Take 1 tablet/capsule (10 mEq total) by mouth header up before breakfast Yes Jennifer Higginbotham MD acetaminophen (TYLENOL) 500 mg tablet Take 1 tablet (500 mg total) by mouth every 6 (six) hours as needed for pain 08/04/23 Jaclyn Mcgee MD HYDROcodone-acetaminophen (NORCO) 5-325 mg per tablet Take 1 tablet by mouth every 6 (six) hours asneeded for pain (breakthrough pain) 08/04/23 Jaclyn Mcgee MD ibuprofen (ADVIL,MOTRIN) 600 mg tablet Take 1 tablet (600 mg total) by mouth every 6 (six) hours asneeded for pain 08/04/23 Jaclyn Mcgee MD ALLERGIES: No Known Allergies PHYSICAL EXAM: General: no acute distress ENT: normocephalic, atraumatic, mucous membranes moist Neck: supple Chest: RRR Lungs: nonlabored breathing without audible wheeze Abdomen: Soft, nontender, nondistended Extremities: WWP Neurologic: A&Ox3 Psychiatric: Normal mood and affect. ASSESSMENT AND PLAN: - Will plan for left long and ring finger extensor tenolysis - Risks, benefits, and possible complications were reviewed with patient who voiced understanding and consent was obtained. Cosigned by Major Wyman MD at 02/02/2024 7:13 AM CDT documented in this encounter Miscellaneous Notes * Brief Op Note - Mehreen Vega MD - 02/02/2024 7:47 AM CDT Operative Progress Note Surgical Team: Surgeons and Role: * Major Wyman MD - Primary * Arianna George MD - Resident - Assisting * Mehreen Vega MD - Resident - Assisting Anesthesiologist: Louie Pedraza MD LABORER [employer]: Nadir Newton CRNA Student Nurse Contract Design Agent: Nick Ann RN Manufacturing Helper: Aury Dean RN Manufacturing Helper Relief: Pam Cormier RN Scrub: Amelie Buck ST Orientee Scrub: Roma Cannon RN Orientee Manufacturing Helper: Amelie Rubio RN DATE OF SURGERY : 02/02/2024 Preoperative Diagnosis: Pre-op Diagnosis * Tendon adhesions [M77.9] Postoperative Diagnosis: Post-op Diagnosis * Tendon adhesions [M77.9] Procedure(s): Procedure(s) (LRB): Left Hand Extensor Tenolysis x4 (Left) Operative Findings: Scar tissue impeding stensor tendon glide Estimated Blood Loss: 0 mL Intraoperative Fluids: See anesthesia note Specimens: No specimen collected in procedure Implants: Nothing was implanted during the procedure Blood/Blood Products Transfused: 0 mls Complications: None Condition on Discharge from the operating room was stable Mehreen Vega MD Date: 02/02/2024 Time: 8:52 AM Cosigned by Major Wyman MD at 02/02/2024 9:24 AM CDT * Op Note - Major Wyman MD - 02/02/2024 12:00 AM CDT PREOPERATIVE DIAGNOSIS Extensor tendon adhesions of the left arm. POSTOP DIAGNOSIS Extensor tendon adhesions of the left arm. PROCEDURES PERFORMED 1. Tenolysis at the level of hand and forearm for the extensor digitorum communis tendons to the small finger, ring finger, middle finger, in addition to the extensor indicis proprius and the extensor digitorum communis to the index finger (5 separate tendons). 2. Repair of the extensor retinaculum at the level of the wrist. SURGEONS PRESENT Cresencio Gordillo Danielle Hogarth. COMPLICATION None apparent at the end of procedure. EBL 5 mL. 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 I repaired these with tendon graft. He has done quite wellbut he has some limited terminal extension of the middle finger, and extending index finger is still a little bit difficult. I felt he had adhesions and I recommended tenolysis. I advised him of the risks of surgery which include bleeding, infection, damage to surrounding structures, incomplete oriental orthodox of range of motion, tendon rupture, and stiffness. He provided his informed consent. OPERATIVE PROCEDURE Patient was greeted in the preoperative area. Operative site was marked. He was brought to the OR by the anesthesia team, positioned supine on the OR table. A sedation was attempted, but his airway began to obstruct, so the anesthesia team placed a laryngeal mask airway. This constituted a general anesthetic. He was prepped and draped in usual sterile fashion. I injected a mixture of 0.25% Marcaine with epinephrine and 1% lidocaine plain in the intended surgical site. I opened up his previous incision and identified the extensor tendons to the small middle, ring and index finger. The middle finger was the most affected, but he had dense adhesions throughout the back of the hand and the proximal forearm where I had done the proximal coaptations for his tendons. I performed tenolysis of theindex finger, extensor digitorum communis, the middle finger extensor digitorum communis, the ring finger extensor digitorum communis, and small finger extensor digitorum communis. I also performed tenolysis of the extensor indicis proprius. All of these were at the level of the hand and wrist and forearm. Once this was done, I could see that there was approximately a 1.5 cm strip of extensor retinaculum left. This was quite camarena, but I felt that we could improve this. I found some additional fibrous tissue which I think perhaps was his old extensor retinaculum or it may be something else. Irepaired this on top of the extensor tendons at the level of wrist to reinforce the extensor retinaculum. The repair was done with 3-0 Vicryl suture in a horizontal mattress fashion. Once I was done,I could see the tendons had nice gliding underneath the retinaculum and underneath the skin bridge in between the 2 incisions. These gave full extension and hyperextension of the MP joint. Tenodesis showed a good cascade. I dropped the tourniquet, performed hemostasis with bipolar electrocautery. Irrigated copiously and closed the incisions with nylon distally where he had thin dermis and Monocryl proximally where he had thicker dermis. I applied Mastisol and Steri-Strips to the proximal incision and antibiotic ointment, Adaptic, 4x4s, and a soft dressing. I was present for entire procedure. POSTOPERATIVE PLAN The patient will start movement immediately. I would like him to come back on Monday to see Gege.At that point, the dressing can be taken down. At that point, he should do dressing care with antibiotic ointment and some nonstick gauze followed by re-application of a gently compressive Dougie bandage. This should be his protocol for about the first 2 weeks postoperatively. I do not think splintingis necessary. I would like him to initiate therapy on Monday and follow closely with the therapist to maximize his active extension. Job ID/Internal Job ID: [id number] documented in this encounter Plan of Treatment Not on file documented as of this encounter Procedures Procedure Name Priority Date/Time Associated Diagnosis Comments TENOLYSIS - UPPER EXTREMITY 02/02/2024 7:23 AM CDT Tendon adhesions Case Notes 12/26@1259 Per Polo via case message, Per pt request, please reschedule this surgery to 02/02/24. CF Special Needs 1:1 Mix of 1% Lidocaine w/ EPI and 0.25% Marcaine w/ EPI, Tenolysis Knives. documented in this encounter Visit Diagnoses Diagnosis Tendon adhesions- Primary Tendon adhesions Tendon adhesions documented in this encounter Admitting Diagnoses Diagnosis Tendon adhesions documented in this encounter Administered Medications Inactive Administered Medications - up to 3 most recent administrations Medication Order MAR Action Action Date Dose Rate Site bacitracin-polymyxin B (POLYSPORIN) 500-10,000 unit/gram ointment tube As needed, Starting on Mon02/02/24 at 0843, Intra-Op Given 02/02/2024 8:43 AM CDT 1 Application Surgical Site benzocaine-menthoL (CHLORASEPTIC) lozenge 1 lozenge 1 lozenge, mouth/throat, Once, On Mon02/02/24 at 1000, For 1 dose, Phase I Given 02/02/2024 9:32 AM CDT 1 lozenge BUPivacaine-EPINEPHrine (MARCAINE with EPI) 0.25 %-1:200,000 preservative free injection As needed, Starting on Mon02/02/24 at 0733, Intra-Op Given 02/02/2024 7:33 AM CDT 20 mL Surgical Site lidocaine (XYLOCAINE) 10 mg/mL (1 %) injection As needed, Starting on Mon02/02/24 at 0733, Intra-Op, Indications: Administration of Local AnesthesiaIndications:Adm inistration of Local Anesthesia Given 02/02/2024 7:33 AM CDT 20 mL Surgical Site sodium chloride 0.9% irrigation As needed, Starting on Mon02/02/24 at 0754, Intra-Op Given 02/02/2024 7:54 AM CDT 1,000 mL documented in this encounter Discontinued Medications Medication Sig Discontinue Reason Start Date End Da te HYDROcodone-acetaminop hen (NORCO) 5-325 mg per tabletIndications:Pain Take 1 tablet by mouth every 6 (six) hours as needed for pain (breakthrough pain) Stop Taking at Discharge 08/04/2023 02/02/2024 documented as of this encounter Active and Recently Administered Medications Times are shown in CDT. Scheduled Medication Order 01/31/2024 02/01/2024 02/02/2024 benzocaine-menthoL (CHLORASEPTIC) lozenge 1 lozenge (COMPLETED) 1 lozenge, mouth/throat, Once, On Mon02/02/24 at 1000, For 1 dose, Phase I 0932 (Given - Provid er: Yudi Chaves RN) ceFAZolin (ANCEF) 2,000 mg/20 mL in sterile water (premix) 2,000 mg (COMPLETED) 2,000 mg, intravenous, at 400 mL/hr, Administer over 3 Minutes, Once, On Mon02/02/24 at 0615, For 1 dose, Pre-Op, Administer within 60 minutes of incision., Indications: Prophylaxis, Surgical 0725 (Given - Provid er: Nick Ann RN) PRN Medication Order 01/31/2024 02/01/2024 02/02/2024 bacitracin-polymyxin B (POLYSPORIN) 500-10,000 unit/gram ointment tube (CANCELED) As needed, Starting on Mon02/02/24 at 0843, Intra-Op 0843 (Given - Provid er: Major Wyman MD) BUPivacaine-EPINEPHrine (MARCAINE with EPI) 0.25 %-1:200,000 preservative free injection (CANCELED) As needed, Starting on Mon02/02/24 at 0733, Intra-Op 0733 (Given - Provid er: Major Wyman MD) fentaNYL (SUBLIMAZE) preservative free injection 50 mcg 50 mcg, intravenous, Once as needed, uncontrolled pain on PACU admission, Starting on Mon02/02/24 at 0857, For 1 dose, Phase I, Then proceed to PACU 1st line analgesic., Indications: Pain HYDROmorphone (DILAUDID) injection 0.2 mg 0.2 mg, intravenous, Administer over 2 Minutes, Every 10 min PRN, 1st line for pain, Starting on Mon02/02/24 at 0857, Phase I, Switch to 2nd line analgesic order if pain is uncontrolled or increasing after 2 doses. Notify Anesthesiologist if total PACU dose reaches 2 mg and pain score 5/10 or more., Indications: Pain HYDROmorphone (DILAUDID) injection 0.4 mg 0.4 mg, intravenous, Administer over 2 Minutes, Every 10 min PRN, 2nd line for pain, Starting on Mon02/02/24 at 0857, Phase I, May administer 10 mintes after 2nd dose of 1st line analgesic agent for uncontrolled or increasing pain. Revert to 1st line dose if POSS of 3. Notify Anesthesiologist if total PACU dose reaches 2 mg and pain score 5/10 or more., Indications: Pain lidocaine (XYLOCAINE) 10 mg/mL (1 %) injection (CANCELED) As needed, Starting on Mon02/02/24 at 0733, Intra-Op, Indications: Administration of Local Anesthesia 0733 (Given - Provid er: Major Wyman MD) naloxone (NARCAN) 0.4 mg/mL injection 0.04-0.4 mg 0.04-0.4 mg, intravenous, Once as needed, other, excessive sedation/respiratory depression, Starting on Mon02/02/24 at 0857, For 1 dose, Phase I, Dilute 0.4 mg with 9 mL NS (final concentration 0.04 mg/mL). For respiratory depression (respiratory rate less than 6), administer 0.4 mg IVP over 30 seconds. For excessive sedation administer 0.04 mg (1 mL) every 1 minute until desired level of alertness. For IV, administer over 30 seconds., Indications: Opioid Toxicity sodium chloride 0.9% irrigation (CANCELED) As needed, Starting on Mon02/02/24 at 0754, Intra-Op 0754 (Given - Provid er: Major Wyman MD) documented in this encounter Orders Medications Ordered That Daniel ht Not Have Been Administered Count Last Ordered Date First Ordered Date ceFAZolin (ANCEF) 2,000 mg/2 0 mL in sterile water (premix) 2,000 mg 1 02/02/2024 fentaNYL (SUBLIMAZE) preserv ative free injection 50 mcg 1 02/02/2024 HYDROmorphone (DILAUDID) injection 0.2 mg 1 02/02/2024 HYDROmorphone (DILAUDID) injection 0.4 mg 1 02/02/2024 naloxone (NARCAN) 0.4 mg/mL injection 0.04-0.4 mg 1 02/02/2024 Nursing Count Last Ordered Date First Orde red Date DISCHARGE ACTIVITY 2 02/02/2024 DISCHARGE CALL PROVIDER 1 02/02/2024 DISCHARGE INSTRUCTIONS 2 02/02/2024 Discharge Count Last Ordered Date First Orde red Date DISCHARGE PATIENT 1 02/02/2024 documented in this encounter Care Teams Dry Pan Feeder Relationship Specialty Start Date End Date Remy Sevilla DO [facility] [facility] [address] [place] [address] [place] [id number] PCP - General Family Medicine 07/10/23 documented as of this encounter
--- OUTSIDE RECORDS SUMMARY | 2024-09-28 10:21 | XMS_ITS | Encounter Summary ---
Author Organization [facility] Address [address] [place] [address] Care Team Providers Care Singing Messenger Name Role Phone Juan A Quezada MD Primary Care Provider [phone] Reason for Referral * Procedure (Routine) - Closed Specialty Diagnoses / Procedures Referred By Contniya t Referred To Contact Diagnoses Trigger ring finger of right hand Procedures Hand / Upper Extremity Arthrocentesis: R ring A1 Trisha Harmon PA [address] [place] [address] [address] [place] [id number] Phone: tel: fax: [facility] Referral ID Status Reason Start Date Expiration Date Visits Re quested Visits Authorized [id number] Closed 12/15/2020 01/14/2022 1 1 S INTERN Encounter Details Date Type Department Care Team (Late st Contact Info) Description 12/15/2020 2:30 PM SALES INTERN Office Visit [facility] Hand Surgery [address] [place] [address] Trisha Harmon PA [facility] [facility] [address] [place] [address] Trigger ring finger of right hand (Primary Dx) Social History Tobacco Use Types Packs/Day Years Used Date Smoking Tobacco: Never Smokeless Tobacco: Never Alcohol Use Standard Drinks/Week Comments Not Currently 0 (1 standard drink = 0.6 oz pur e alcohol) Sex and Gender Information Value Date Recorded Sex Assigned at Not on file Legal 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 SALES INTERN Gender Identity Male 08/03/2023 6:13 PM CDT Sexual Orientation Not on file documented as of this encounter Progress Notes * Trisha Harmon PA - 12/15/2020 2:30 PM CSTAssociated Order(s): Hand / Upper Extremity Arthrocentesis: R ring A1 Post-Procedure Diagnose(s): Trigger ring finger of right hand Images from the original note were not included. Patient ID: Juventino Cormier is a 65 y.o. male. Visit Date: 12/15/2020 Chief Complaint: No chief complaint on file. HPI: Patient is a 65-year-old ambidextrous male who presents today with complaints of right ring triggerfinger. He has been seen previously for right ring trigger digit, and received an injection on 04/16/2020. At that time he had been having catching of the finger, but states that over the last several weeks he has noticed increased swelling and mild pain. He has not had any triggering. Physical Exam: General: A&O x 3, NAD, Well appearing Eyes: EOMs intact. PERRL. Integument: skin is warm and dry. Neuro: CN II-XII grossly intact. Pt gait is stable, balance WNL. Sensation intact. Cardiovascular: 2+ capillary refill to all upper digits bilaterally. On examination, patient does have mild to moderate tenderness with palpation over the palmar aspectof the right ring finger just proximal to the A1 ludy. At this areas also a tender nodularity. There is no active triggering noted. Patient does have difficulty achieving full flexion of the digit. X-rays/Imaging: Assessment/Plan There are no diagnoses linked to this encounter. Treatment / Plan: Today I injected the patient's right ring flexor tendon sheath for treatment of his trigger digit. I have given him a pink card for follow-up in 2 weeks. I have asked him to call the office with any other questions or concerns. Hand / Upper Extremity Arthrocentesis: R ring A1 Performed by: Trisha Harmon PA Authorized by: Trisha Harmon PA Hand/Upper Extremity Injection: Consent Given by: Patient Site marked: the procedure site was marked Timeout: prior to procedure the correct patient, procedure, and site was verified Verbal consent obtained?: Yes Written consent obtained?: No Supporting Documentation: Indications: Pain Procedure Details: Condition: trigger finger Location: Ring finger Site: R ring A1 Prep: patient was prepped and draped in usual sterile fashion Prep: patient was prepped using a clean technique Needle Size: 27 G Approach: Volar Medications: 1 mL lidocaine 10 mg/mL (1 %); 10 mg triamcinolone 40 mg/mL ANNELIESE Pereyra S INTERN documented in this encounter Plan of Treatment Not on file documented as of this encounter Procedures Procedure Name Priority Date/Time Associated Diagnosis Comments [place] INJECTION 1 TENDON SHEATH/LIGAMENT APONEUROSIS Routine 12/15/2020 2:30 PM SALES INTERN Trigger ring finger of right hand documented in this encounter Results * [place] INJECTION 1 TENDON SHEATH/LIGAMENT APONEUROSIS (12/15/2020 2:30 PM SALES INTERN) Narrative Trisha Harmon PA - 12/15/2020 2:30 PM SALES INTERN Trisha Harmon PA ? 12/15/2020 ??2:41 PM Hand / Upper Extremity Arthrocentesis: R ring A1 Performed by: Trisha Harmon PA Authorized by: Trisha Harmon PA Hand/Upper Extremity Injection: ??Consent Given by: ??Patient ??Site marked: the procedure site was marked ?Timeout: prior to procedure the correct patient, procedure, and site was verified ?Verbal consent obtained?: Yes ?Written consent obtained?: No ?? Supporting Documentation: ??Indications: ??Pain Procedure Details: ??Condition: trigger finger ?Location: ??Ring finger ??Site: ??R ring A1 ??Prep: patient was prepped and draped in usual sterile fashion ?Prep: patient was prepped using a clean technique ?Needle Size: ??27 G ??Approach: ??Volar ??Medications: ??1 mL lidocaine 10 mg/mL (1 %); 10 mg triamcinolone 40 mg/mL us Trisha COY IN CLINIC/BEDSIDE ORDERABLES F inal Result documented in this encounter Visit Diagnoses Diagnosis Trigger ring finger of right hand- Primary documented in this encounter Administered Medications Inactive Administered Medications - up to 3 most recent administrations Medication Order MAR Action Action Date Dose Rate Site lidocaine (XYLOCAINE) 10 mg/mL (1 %) injection 1 mL 1 mL, One-Time Injection, Starting on Mon12/15/20 at 1441, For 1 dose, Indications: Administration of Local AnesthesiaIndications:Administratio n of Local Anesthesia Given 12/15/2020 2:41 PM SALES INTERN 1 mL triamcinolone (KENALOG) 40 mg/mL injection 10 mg 10 mg, intra-articular, One-Time Injection, Starting on Mon12/15/20 at 1441, For 1 doseIndications:Trigger ring finger of right hand Given 12/15/2020 2:41 PM SALES INTERN 10 mg documented in this encounter Care Teams Singing Messenger Relationship Specialty Start Date End Date Juan A Quezada MD [address] [place] [address] PCP - General Internal Medicine 03/12/19 07/09/23 documented as of this encounter
--- OUTSIDE RECORDS SUMMARY | 2024-09-28 10:21 | XMS_ITS | Encounter Summary ---
Author Organization [facility] Healthcare Address [address] [place] [address] Care Team Providers Care Bomb Technician Name Role Phone Remy Sevilla Primary Care Provider [phone] Reason for Visit * Auth/Cert (Routine) Specialty Diagnoses / Procedures Referred By Vish negro Referred To Contact Diagnoses Tendon rupture of wrist, left, initial encounter Tendon rupture of wrist, left, initial encounter [S66.912A] Procedures PA REPAIR EXTENSOR TENDON FINGER W/GRAFT EACH Left Middle Finger and Ring Finger Tendon Graft Referral ID Status Reason Start Date Expiration Date Visits Re quested Visits Authorized [id number] 1 1 Encounter Details Date Type Department Care Team (Late st Contact Info) Description 08/04/2023 7:30 AM CDT - 08/04/2023 10:10 AM CDT Surgery [facility] [address] [place] [id number] Pet, Major Freitas MD [address] [facility] [address] [place] [address] Left Middle Finger and Ring Finger Tendon Graft x2 Surgery Details Date/Time Status Location OR Service Patient Class Case Cl ass Case Type Trauma Case? 08/04/2023 7:30 AM Posted [facility] OR POD 4 G Plastics Outpatient Elective Panel 1 Procedure LRB Anes Op Region Wound Class Comments Left Middle Finger and Ring Finger Tendon Graft x2 Left Monitor Anesthesia Care Fingers Class I - Clean EXCISION CYST/LESION/MASS - HAND Left Monitor Anesthesia Care Hand Class I - Clean TENOLYSIS x2 Left General Arm Upper Class I - Clean Surgeon Surgeon Role Service Panel Laura Lobato MD Resident - Assisting Plastics 1 Jaclyn Mcgee MD Resident - Assisting Orthop aedics 1 Garo, Major Freitas MD Primary Plastics 1 Case Notes 08/03@1413- Changed line up per Polo via phone call.[email or web address]: Sent email to OR resource nurse about missing blank dpc. 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 Gender Identity Male 08/03/2023 6:13 PM CDT Sexual Orientation Not on file documented as of this encounter Last Filed Vital Signs Vital Sign Reading Time Taken Comments Blood Pressure 145/76 08/04/2023 6:00 AM CDT Pulse 54 08/04/2023 6:00 AM CDT Temperature 36.3 ??C (97.3 ??F) 08/04/2023 6:00 AM CD T Respiratory Rate 11 08/04/2023 6:00 AM CDT Oxygen Saturation 99% 08/04/2023 6:00 AM CDT Inhaled Oxygen Concentration - - Weight 95.3 kg (210 lb) 08/02/2023 11:00 AM CDT Height 175.3 cm (5' 9 ) 08/02/2023 11:00 AM CDT Body Mass Index 31.01 08/02/2023 11:00 AM CDT documented in this encounter Discharge Instructions * Discharge Instructions* Jaclyn Mcgee MD - 08/04/2023 7:19 AM CDT Please call Monday - Monday from 9 am - 4 pm with questions or concerns. For urgent issues, outside of these hours, please call and ask for the plastic surgery resident marketing communications specialist if: You have a fever higher than 101.3 degrees F. You have persistent nausea and/or vomiting. You have increased or uncontrollable pain. You feel dizzy or like you may pass out. Diet: Do not drink alcohol while taking narcotic pain medications. You may return to your previous diet as tolerated. It is important for you to get extra nutrition for healing. Eat extra protein and take a multivitamin daily. Drink 2-3 Ensure or Boost supplement shakes each day. Activity: No sports or strenuous activity until cleared by your doctor. Do not put weight on the affected arm or use it to lift or carry. Elevate the affected extremity as much as possible. This will reduce swelling and pain and improve your final results. Keep your hand above your elbow and your elbow above your heart. Continue to move unaffected joints to avoid stiffness. Care Instructions: Please keep splint and dressings clean, dry, and in place until your follow-up appointment. It is important that the splint not get wet while bathing. Special Instructions: Do not drive when taking narcotic pain medications. Examples of narcotic pain medication include Percocet, Oxycontin, [place], Hydrocodone, and Oxycodone. [place] and Percocet both contain 325 mg of Acetaminophen (Tylenol) per pill. Do not exceed 4,000 mg of acetaminophen/Tylenol from any source in a 24 hour period. If you do not need or like the narcotic pain medication - you may substitute a regular strength Tylenol. Do not take both the Tylenol and narcotic pain medication. Be sure to track your total Tylenolintake. Narcotic pain medications can cause constipation and nausea. Take a stool softener as instructed and take medications with food. If you have itching due to the narcotic pain medications, you may take an etrh-dzb-rrktqld antihistamine such as Benadryl. Smoking slows wound healing. It increases your chance for infection and other complications including loss of your flap. This applies to e-cigarettes, tobacco, and other nicotine products. Follow up: Follow up is important to ensure the best possible outcome. Please follow-up with Dr. Major Wyman at [facility] ([facility] [address] [place] [phone] Call Call to get an appointment in 2 weeks. * Attachments The following attachments cannot be sent through Care Everywhere. * [facility] PATHWAY TO EXCELLENT CARE AFTER SURGERY documented in this encounter Medications at Time of Discharge acetaminophen (TYLENOL) 500 mg tablet Take 1 tablet (500 mg total) by mouth every 6 (six) hours as needed for pain 30 tablet 08/04/2023 amLODIPine (NORVASC) 10 mg tablet Take 1 tablet (10 mg total) by mouth director loan before breakfast 08/18/2022 ciprofloxacin-hy drocortisone (Cipro HC) otic suspension Administer 3 drops into each ear as needed hydroCHLOROthiaz anuj (HYDRODIURIL) 25 mg tablet Take 1 tablet (25 mg total) by mouth director loan before breakfast 3 02/03/2019 ibuprofen (ADVIL,MOTRIN) 600 mg tablet Take 1 tablet (600 mg total) by mouth every 6 (six) hours as needed for pain 60 tablet 08/04/2023 loratadine (CLARITIN) 10 mg tablet Take 1 tablet (10 mg total) by mouth director loan before breakfast 3 03/09/2019 losartan (COZAAR) 100 mg tablet Take 1 tablet (100 mg total) by mouth director loan before breakfast 07/25/2022 metoprolol XL (TOPROL-XL) 50 mg extended release tablet Take 1 tablet (50 mg total) by mouth director loan before breakfast 08/08/2022 potassium chloride ER 10 mEq CR tablet Take 1 tablet/capsule (10 mEq total) by mouth director loan before breakfast HYDROcodone-acet aminophen (NORCO) 5-325 mg per tabletIndication s:Pain Take 1 tablet by mouth every 6 (six) hours as needed for pain (breakthrough pain) 10 tablet 08/04/2023 documented as of this encounter Ordered Prescriptions Prescription Sig Dispense Quantity Refills Last Filled Start Date End Date ibuprofen (ADVIL,MOTRIN) 600 mg tablet Take 1 tablet (600 mg total) by mouth every 6 (six) hours as needed for pain 60 tablet 08/04/2023 acetaminophen (TYLENOL) 500 mg tablet Take 1 tablet (500 mg total) by mouth every 6 (six) hours as needed for pain 30 tablet 08/04/2023 HYDROcodone-acetam inophen (NORCO) 5-325 mg per tabletIndications: Pain Take 1 tablet by mouth every 6 (six) hours as needed for pain (breakthroug h pain) 10 tablet 08/04/2023 02/02/2024 documented in this encounter Discharge Disposition Disposition Code Departure Means Destination Comment s Discharge to home or self care documented in this encounter H&P Notes * Jacky Joyce MD - 08/04/2023 7:03 AM CDT I have reviewed the H&P, examined the patient, and endorse the findings as written. Plan of Care : Based on the above findings, I consider Juventino Cormier to be an acceptable risk for : Procedure(s): Left Middle Finger and Ring Finger Tendon Graft Cosigned by Major Wyman MD at 08/04/2023 7:05 AM CDT Source Note - Karen Cunningham NP - 08/02/2023 1:15 PM CDT Images from the original note were not included. Center for Preoperative Assessment and Planning Preoperative Evaluation Record Evaluation type/location: TPAP from [facility] Planned procedure site: [facility] OR (Pod 4) Date: 08/02/23 NOTE: This note represents a preoperative evaluation initiated via telephone interview. NO PHYSICALEXAM was performed at the time of initial assessment. A physical exam may be added to this note anddocumented below. Anesthesia Evaluation Juventino Cormier is a 68 y.o. male Procedure(s): Left Middle Finger and Ring Finger Tendon Graft Pre-Op Diagnosis Codes: * Tendon rupture of wrist, left, initial encounter [S66.912A] HISTORY HPI 68 yo male with Tendon rupture of wrist, left being evaluated prior to undergoing Left Middle Finger and Ring Finger Tendon Graft (Left: Fingers) Past Medical History Information obtained from: patient and chart. Neurological Pertinent negatives: seizures; neuromuscular disease; CVA/stroke; TIA; CEA; ICA stenosis; dementia/mild cognitive impairment and carotid artery stent Cardiovascular + Hypertension Typical systolic BP - 140 Typical diastolic BP - 80 Pertinent negatives: CAD ; NC ; CABG ; valvular heart disease; valve replacement; atrial fibrillation; arrhythmia; pacemaker/ICD; PVD; DVT/PE; negative for CHF; drug-eluting stent(s); bare metal stent(s) and coronary angioplasty Respiratory Pertinent negatives: COPD; asthma; sleep apnea (TED); pulmonary hypertension; no O2 use outside thehospital and non-smoker Hepatic / Heme Pertinent negatives: liver disease; history of anemia; history of thrombocytopenia and history of Kamila positive Gastrointestinal + GERD - on daily therapy. Asymptomatic. Pertinent negatives: hiatal hernia Renal / Pertinent negatives: renal disease; dialysis and nephrolithiasis Musculoskeletal/Pain + Osteoarthritis Pertinent negatives: chronic pain; chronic opioid use and previous treatment for opioid use disorder Endocrine / Other + Obesity (BMI >30) Pertinent negatives: diabetes mellitus; thyroid disease; cancer history; rheumatological disease and transplanted organ Functional Capacity Functional capacity: 4-6 METs Comments: Patient reports they are able to walk 2 flights of stairs or 3-4 blocks at a moderate pace without significant SOB or CP. 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 PAT Summary and Plans Cardiac risk classification of planned procedure: low cardiac risk. Preoperative assessment status: complete. Additional comments: Juventino Cormier is a 68 y.o. male who is being evaluated prior to undergoing a low cardiac risk surgery. Revised Cardiac Risk Index factors are (none) for a total RCRI of 0 out of6. Functional capacity is 4-6 METs. NOTE: This note represents a preoperative evaluation initiated via telephone interview. NO PHYSICALEXAM was performed at the time of initial assessment. A physical exam may be added to this note anddocumented below. Obstructive sleep apnea (TED) screening status is STOP-Bang=3 suggesting moderate risk for TED. Blood bank needs for day of procedure: No type and screen needed Pending labs/tests include: None Labs reviewed 07/28/2023 CMP Bindery Machine Setter/Set Up Operator 1.4 CBC unremarkable Patient instructions were provided via telephone and in writing sent via [employer]. Patient verbalized understanding of preoperative plan. TPAP Complete Preoperative evaluation performed by Karen Cunningham NP on 08/02/23 at 1:17 PM . Patient Active Problem List Diagnosis Date Noted Tendon rupture of wrist 07/31/2023 Spontaneous rupture [...] Aftercare following joint replacement - (Added by FANNIE Conv) Disorder of tendon of left hand 07/2023 GERD (gastroesophageal reflux disease) Hypertension Limb alert care status 07/2023 left hand Obesity Personal history of other diseases of the circulatory system History of hypertension - (Added by TW Conv) Personal history of other diseases of the digestive system History of esophageal reflux - (Added by FANNIE Conv) Primary osteoarthritis of right hip Primary osteoarthritis of right hip - (Added by TW Conv) Past Surgical History: Procedure Laterality Date COLONOSCOPY PA HEMORRHOIDECTOMY INTERNAL RUBBER BAND LIGATIONS Hemorrhoidectomy - (Added by TW Conv) 1980s TOTAL HIP ARTHROPLASTY Bilateral 2010 No Known Allergies Med List Status: Nurse Complete Set By: Nika Ellis RN at 08/02/2023 11:01 AM Taking? Last Dose Start Date End Date Provider amLODIPine (NORVASC) 10 mg tablet 08/02/2023 08/18/22 -- Jennifer Higginbotham MD ciprofloxacin-hydrocortisone (Cipro HC) otic suspension Past Week -- -- Jennifer Higginbotham MD hydroCHLOROthiazide (HYDRODIURIL) 25 mg tablet 08/02/2023 02/03/19 -- Jennifer Higginbotham MD loratadine (CLARITIN) 10 mg tablet 08/02/2023 03/09/19 -- Jennifer Higginbotham MD losartan (COZAAR) 100 mg tablet 08/02/2023 07/25/22 -- Jennifer Higginbotham MD metoprolol XL (TOPROL-XL) 50 mg extended release tablet 08/02/2023 08/08/22 -- Jennifer Higginbotham MD potassium chloride ER 10 mEq CR tablet -- -- -- Jennifer Higginbotham MD Notes: Has not started -- -- No current facility-administered medications for this encounter. Current Outpatient Medications: amLODIPine (NORVASC) 10 mg tablet ciprofloxacin-hydrocortisone (Cipro HC) otic suspension hydroCHLOROthiazide (HYDRODIURIL) 25 mg tablet loratadine (CLARITIN) 10 mg tablet losartan (COZAAR) 100 mg tablet metoprolol XL (TOPROL-XL) 50 mg extended release tablet potassium chloride ER 10 mEq CR tablet Social History Tobacco Use Smoking Status Never Passive exposure: Never Smokeless Tobacco Never Alcohol Use: Not At Risk (08/02/2023) AUDIT-C Frequency of Alcohol Consumption: Never Average Number of Drinks: Patient does not drink Frequency of Binge Drinking: Never Substance and Sexual Activity Drug Use Never Family History Problem Relation Age of Onset Anesthesia problems Neg Hx There were no vitals filed for this visit. Relevant diagnostics: ECG(s): 07/29/2023 Ventricular Rate EKG/Min BPM 52 Atrial Rate BPM 52 PA-Interval (MSEC) ms 178 QRS-Interval (MSEC) ms 96 QT-Interval (MSEC) ms 418 QTc ms 388 P Alton degrees 35 R Alton degrees -31 T Alton degrees 2 Diagnosis Sinus bradycardia Left axis deviation T wave abnormality, consider lateral ischemia Abnormal ECG When compared with ECG of 22-DEC-2010 12:21, Premature atrial complexes are no longer Present ST no longer elevated in Anterior leads Inverted T waves have replaced nonspecific T wave abnormality in Anterior leads Confirmed by MASON ARREAGA M.D. ([id number]) on 07/29/2023 4:27:23 PM Echocardiogram(s): N/A Stress test(s): N/A Cardiac catheterization(s): N/A PFT(s): N/A Vascular studies: N/A Other: N/A PT: No results found for requested labs within last 30 days. INR: No results found for requested labs within last 30 days. APTT: No results found for requested labs within last 30 days. Hgb A1C: No results found for requested labs within last 30 days. CBC RBC: 07/28/2023: 4.24 M/cumm (L) RDW: No results found for requested labs within last 30 days. MCHC: 07/28/2023: 32.7 g/dL MCH: 07/28/2023: 30.0 pg MCV: 07/28/2023: 91.5 fL Hct: 07/28/2023: 38.8 % (L) Hgb: 07/28/2023: 12.7 g/dL (L) WBC: 07/28/2023: 8.0 K/cumm MPV: 07/28/2023: 10.3 fL Platelets: 07/28/2023: 272 K/cumm RDW CV: 07/28/2023: 14.0 % RDW Sd: 07/28/2023: 46.1 fL BMP Glucose: 07/28/2023: 104 mg/dL Calcium: 07/28/2023: 9.8 mg/dL Sodium: 07/28/2023: 141 mmol/L Potassium: 07/28/2023: 3.2 mmol/L (L) CO2: 07/28/2023: 28 mmol/L Chloride: 07/28/2023: 102 mmol/L BUN: 07/28/2023: 23 mg/dL Creatinine: 07/28/2023: 1.40 mg/dL (H) Lencho index score: 100 documented in this encounter Miscellaneous Notes * Brief Op Note - Jaclyn Mcgee MD - 08/04/2023 8:06 AM CDT Operative Progress Note Surgical Team: Surgeon(s) and Role: * Major Wyman MD - Primary * Jaclyn Mcgee MD - Resident - Assisting * Laura Lobato MD - Resident - Assisting Anesthesiologist: Ashley Padilla MD CANVAS MARKER: Yael Fang CRNA High Energy Forming Equipment Operator: Ashish Saravia RN Scrub: Brian Cummings ST FLOAT: Andreea Anderson RN DATE OF SURGERY : 08/04/2023 Preoperative Diagnosis: Pre-op Diagnosis * Tendon rupture of wrist, left, initial encounter [S66.912A] Postoperative Diagnosis: Post-op Diagnosis * Tendon rupture of wrist, left, initial encounter [S66.912A] Procedure(s): Procedure(s) (LRB): Left Middle Finger and Ring Finger Tendon Graft x2 (Left) EXCISION CYST/LESION/MASS - HAND (Left) TENOLYSIS x2 (Left) Operative Findings: [id number] bony mass on dorsal left hand Complete rupture of left hand ring and middle finger extensor tendons Estimated Blood Loss: 10 mL Intraoperative Fluids: Per anesthesia Specimens: ID Type Source Tests Collected by Time A : left wrist bony mass Tissue Mass/Tumor/Lesion SURGICAL PATHOLOGY Major Wyman MD 08/04/2023 0818 B : left extensor tenosynovium Tissue Tendon / Tendon Sheath SURGICAL PATHOLOGY Major Wyman MD 08/04/2023826 Implants: Nothing was implanted during the procedure Blood/Blood Products Transfused: 0 mls Complications: None Condition on Discharge from the operating room was stable Jaclyn Mcgee MD Date: 08/04/2023 Time: 10:37 AM TEACHING ATTESTATION : I was present and directly participated in the entire procedure (including opening and closing). Cosigned by Major Wyman MD at 08/04/2023 11:28 AM CDT * Op Note - Major Wyman MD - 08/04/2023 12:00 AM CDT PREOPERATIVE DIAGNOSES Bony mass over the left digital extensor tendons. Attritional rupture of the left extensor digitorum communis tendon to the middle finger, with suspected severe wear of the extensor digitorum communis tendon to the ring finger. POSTOPERATIVE DIAGNOSES Attritional rupture of the left ring finger and middle finger at the extensor digitorum communis tendons. Bony mass associated with the left digital extensors. Tendon adhesions of the left ring and middle finger extensor tendons. PROCEDURES PERFORMED Excision left hand bony mass, 1.5 cm in maximal diameter. Tenolysis extensor digitorum communis tendon to the ring finger. Tenolysis extensor digitorum communis tendon to the middle finger. Each of these tenolysis procedures was at the level of the hand, wrist and forearm. Reconstruct left middle finger extensor digitorum communis tendon with palmaris longus tendon autograft. Reconstruction of left ring finger extensor digitorum communis tendon with palmaris longus autograft. Tenosynovial biopsy, left 4th compartment. SURGEONS PRESENT Major Wyman, Jaclyn Douglas SPECIMENS Left hand bony mass and left extensor tenosynovium. COMPLICATION None apparent at the end of the procedure. EBL 5 mL. INDICATIONS This is a gentleman with a history of inability to extend his middle finger on the left side after a fall. He also has weakness of the ring finger extensor. He has a bony mass on his dorsal hand and I suspected attritional rupture. I advised him that exploration would reveal very likely a rupture of the middle finger extensor digitorum communis tendon, and also likely additional tendon damage, especially affecting the ring finger, which was already weak. I offered him 2 options which included tendon transfer or intercalary reconstruction. Because he strongly values independent digital extension, he chose intercalary reconstruction. I advised him that I would need a palmaris longus tendon atleast from the left side and possibly from the right side as well. I advised him the of risks of surgery including bleeding, infection, damage to structures, adhesions, stiffness, imperfect digital cascade, tendon rupture, and wound dehiscence. He provided informed consent. OPERATIVE PROCEDURE Patient was greeted in preoperative area. Operative site marked. Brought to the OR by anesthesia team, positioned supine on the OR table. He was brought under general anesthetic and prepped draped inhis usual fashion. Surgical time-out was held. Began the case by saying left upper extremity with the Esmarch bandage, raised tourniquet to 250 mmHg. I made an extensile exposure over the dorsal left hand. Dissected down through skin subcutaneous tissue. I identified a jagged bony mass associated with his dorsal hand soft tissues. I removed this and sent it for pathology. There was complete rupture of the ring finger and middle finger extensor tendons at the level of the mid metacarpal. There was a small attachment between 1 of the small finger extensor tendons and the ring finger extensor tendon which explained its residual but weak movement. The proximal ends were not accessible from thisdistal incision. I made a counter incision proximally over the 4th compartment. Dissected down through skin and subcutaneous tissues and entered the 4th compartment. I identified the middle and ring extensor tendons, which had been ruptured. These were heavily scarred in this area. I performed tenolysis of these tendons meticulously by from the surrounding tendons using a tenotomy scissor and a [place]. I was eventually able to free them so that they glided nicely, and I was able to ret ract into the proximal incision. There was an intercalary defect of about 6 cm in each of these 2 tendons. I then used a tendon stripper to harvest the left palmaris longus tendon through a small wrist incision. I then turned my attention to the right side and made a similar small incision in the wrist crease and harvested the palmaris longus tendon in this location as well. In both cases of palmaris longus harvest I was very careful to protect the nearby palmar cutaneous branch of the median nerve. Both the donor sites were closed with 4-0 nylon suture in a horizontal mattress fashion. I then began intercalary reconstruction of the middle finger and ring finger extensor tendons. I began the proximal incision and extended the cut proximal tendons by attaching a tendon graft, each 1.This was done with 3-0 FiberWire in a running interlocking manner. After extending both of these tendons I threaded each of them through the extensor retinaculum using a tendon passer. I took a tenosynovial biopsy of the tissue around the tendons for pathology to see if we have any sense of why this inflammatory bony mass may have formed. I then did my distal tensioning. I used a running interlocking suture of 3-0 FiberWire to repair the distal extent of the middle finger extensor digitorum communis reconstruction. I did this with tensioning the MP joint slightly in excessive extension compared to the index finger anticipating some stretching. I then used the other tendon graft to repair distally to the ring finger extensor digitorum communis tendon using a similar technique and similar tensioning. I checked that the patient had excellent tenodesis of the of the fingers and that they mov ed in concert with the small and the index finger which they were doing well. I did observe during my dissection that there was some wear and fray on the extensor indicis proprius and the extensor digitorum communis to the small finger. The extensor digiti quinti and the extensor digitorum communisto the index finger were unaffected. I dropped the tourniquet, performed hemostasis with bipolar electrocautery. Irrigated copiously and closed both incisions. The proximal end was closed with absorbable subcutaneous Monocryl and the distal was closed with nylon. The hand regained perfusion immediately after the tourniquet was dropped. I splinted him with an MP block leaving his fingertips free and wrist in neutral. I was present for the entire procedure. POSTOPERATIVE PLAN The patient will come to see me on Monday. He will go into a removable MP block. I will start a little bit of early wrist tenodesis motion given that I think these repairs were very strong. I willprogress him per protocol. SUMMARY STATEMENT This operation consists of excision of a bony mass, tenosynovial biopsy, 2 extensor tendon reconstructions with intercalary autograft, in addition to tenolysis of 2 extensor tendons at the level of the hand, wrist and forearm. Job ID/Internal Job ID: [id number] * Pre-Procedure Instructions - Karen Cunningham NP - 08/02/2023 1:08 PM CDT [facility] Location: [facility] The night before your surgery: * Do not eat anything after midnight the night before your procedure. and * Do not smoke or use tobacco products after midnight the night before surgery. It is best to stop smoking now to improve your health. The morning of your surgery: * You may have clear liquids on your surgery day. You must stop drinking two hours before you arrive to the surgery facility. Acceptable clear liquids include water, clear sports drinks, black coffee, or clear soda. DO NOT drink any milk, creamer, or alcohol. * Your surgeon's office may have provided additional instructions or restrictions. Please follow those instructions. * You may brush your teeth and rinse your mouth out. * Do not glue your dentures. * Do not wear jewelry, body piercings, makeup, hairpins, false eyelashes or contact lenses to the hospital. * Leave any valuables at home or with your family. * If you have an implantable device with a remote, bring the remote with you on the day of surgery. * If having surgery at [facility], you may want to bring a credit card if you want to use our Mobile Pharmacy for your discharge medications. Mobile pharmacy is not available at [facility], the [facility]opedic Center, or the [place] for [facility]. Outpatient Surgery: * You must have a responsible adult drive you home and stay with you for 24 hours after your surgery * You cannot be alone at home or in a hotel * Please call your surgeon's office if you do not have someone to drive you home and/or stay with you after surgery * Please bring any items you may need to spend the night in the hospital. Sometimes patients need to be cared for in the hospital overnight. Instructions For Your Medications: Pre-Surgery Instructions: Medication Instructions amLODIPine (NORVASC) 10 mg tablet Take as prescribed. ciprofloxacin-hydrocortisone (Cipro HC) otic suspension Don't take on day of surgery hydroCHLOROthiazide (HYDRODIURIL) 25 mg tablet Don't take on day of surgery loratadine (CLARITIN) 10 mg tablet Don't take on day of surgery losartan (COZAAR) 100 mg tablet Take as prescribed. metoprolol XL (TOPROL-XL) 50 mg extended release tablet Take as prescribed. potassium chloride ER 10 mEq CR tablet Don't take on day of surgery General Instructions For Medications: * Stop all of these medications 5 days prior to your surgery: excedrin, motrin, advil, ibuprofen, aleve, naproxen, meloxicam, celebrex, celecoxib. For medications that you are instructed to take on the morning of surgery, take the medications with a few sips of water. Stop all of these medications 7-14 days prior to your surgery: Vitamin E, Herbal medicines, Diet Pills If you have pain, you may take tylenol (acetaminophen). Do not take more than 6 tablets or 3000 mg (3 g) within a 24 period. Call your surgeon and the CPAP clinic if any of the following happens before surgery: Any changes in your health You have a fever You have any signs of an infection (chest, urinary tract or tooth) You have been to the Emergency Room or were in the hospital You have started taking any new medications You have questions about a bowel prep or special diet before surgery You have symptoms of COVID-19 such as a new or worsening cough, shortness of breath, fever, body aches, loss of taste or smell, diarrhea or vomiting, or sore throat. You have a household contact with COVID-19. You test positive for COVID-19. * Perioperative Nursing Note - Nika Ellis RN - 08/02/2023 11:04 AM CDT [facility] Preoperative Assessment and Planning Perioperative Nursing Note Telephone Preoperative Evaluation ([facility]) - TELEPHONE ONLY, NO PHYSICAL EXAM Date: 08/02/23 This assessment was completed with the patient. Vitals: 08/02/23 1100 Weight: 95.3 kg (210 lb) Height: 175.3 cm (5' 9 ) CHEST CIRCUMFERENCE: Social History Tobacco Use Smoking Status Never Passive exposure: Never Smokeless Tobacco Never Substance and Sexual Activity Drug Use Never Alcohol Use Q1: How often do you have a drink containing alcohol?: Never Q2: How many drinks containing alcohol do you have on a typical day when you are drinking?: Patientdoes not drink Q3: How often do you have six or more drinks on one occasion?: Never Outpatient Medications Marked as Taking for the 08/04/23 encounter (Hospital Encounter) Medication Sig Dispense Refill amLODIPine (NORVASC) 10 mg tablet Take 1 tablet (10 mg total) by mouth director loan before breakfast ciprofloxacin-hydrocortisone (Cipro HC) otic suspension Administer 3 drops into each ear as needed hydroCHLOROthiazide (HYDRODIURIL) 25 mg tablet Take 1 tablet (25 mg total) by mouth director loan before breakfast 3 loratadine (CLARITIN) 10 mg tablet Take 1 tablet (10 mg total) by mouth director loan before breakfast 3 losartan (COZAAR) 100 mg tablet Take 1 tablet (100 mg total) by mouth director loan before breakfast metoprolol XL (TOPROL-XL) 50 mg extended release tablet Take 1 tablet (50 mg total) by mouth director loan before breakfast Implants Other - see comments Other - See Comments - Implanted (Bilateral) Hip As of 07/24/2023 Status: Implanted SKIN Piercings Remaining: No Wound (LDAs) Type of Wound (LDA): (denies) SCREENINGS Lencho index score: 100 NUTRITION PATIENT CARE PLANNING Advance Directives (For Healthcare) Have you reviewed your Advance Directive and is it valid for this stay?: No Advance Directive: Patient does not have advance directive Communication/Dispatcher Electric Power Needs Communication Needs: Glasses, Contacts Assistive Devices/DME: Eyeglasses, Contacts Hearing - Right Ear: Functional Hearing - Left Ear: Functional Discharge Planning Type of Residence: Private residence Living Arrangements: Spouse/significant other Support Systems: Spouse/significant other Patient expects to be discharged to:: Private residence NUCLEAR MEDICINE TECH NO ADDITIONAL COMMENTS/ FOLLOW UP * Pre-Procedure Instructions - Nika Ellis RN - 08/02/2023 11:04 AM CDT [facility] PREOPERATIVE ASSESSMENT [facility]ANNING (CPAP) PRE-SURGICAL NURSING INSTRUCTIONS Telephone Assessment General Information Discussed with Patient: Surgery location provided to patient. Arrival time and surgical time will be provided to the patient by their surgeon. You should wear clothing that is clean, loose, comfortable and easy to get in and out of on the dayof surgery. You should remove nail coverings, artificial nails and nail sao tomean prior to the day of surgery. You should leave your valuables and any jewelry at home. No metal or piercings are allowed in the operating room. You should bring your insurance card, a photo ID (example: General Production Manager's License) and a method of payment for any insurance copay, deductible or copay for discharge medications. You should bring a complete, up-to-date, list of all your medications on the day of surgery, including any over the counter medications or supplements you may take. Please note on your medication list, the last date & time you took each medication. The healthcare team, on the day of surgery, will ask for this information. You should bring your Advanced Directive and/or Living Will with you on the day of surgery if you have not verified a copy is already in your Epic Chart. A Guide for Patients Having Surgery: Your Pathway to Excellent Care OUR GOAL IS TO PROVIDE YOU WITH EXCELLENT CARE Use this guide to learn about what you can do before, during and after surgery to help your recovery. You are the most important person on your health care team. By becoming informed and involved, you can contribute to the success of your surgery. If your surgeon's directions are different than those in this guide, talk with your nurse or surgeon to confirm the information. It is important that you understand how to take care of yourself at home after surgery. Be sure to bring this guide with you on the day of surgery and take it home with you after surgery. Write down questions for your nurse or surgeon on the last page of this booklet. Important pages to be reviewed BEFORE surgery: Page 1: QR codes for Surgery Center maps Page 3: Types of Anesthesia Page 5: Tips for the day & night before surgery Page 6: When to stop eating BEFORE surgery and examples of clear liquids Page 7-10: Preventing Infection: Chlorhexidine Gluconate (CHG) Bathing Instructions You may access A Guide for Patients Having Surgery: Your Pathway to Excellent Care by the followinglink: [email or web address] How To Prepare Your Skin For Surgery Below is the Pre-Surgical Bathing Protocol you should follow for your surgery. If your surgeon provides you different bathing instructions, please follow your surgeon's orders. 2 Day CHG Bathing Protocol (no nasal ointment) PREVENTING INFECTION (DECOLONIZATION): Decolonization is the use of a topical antiseptic soap and sometimes a nasal ointment to remove bacteria (germs) from the skin's surface. Antiseptic soap: Chlorhexidine gluconate or CHG (brand name: Hibiclens??) Before surgery, your entire body must be thoroughly cleaned. CHG helps to reduce the bacteria on your skin. You may be given one or more bottles of CHG or you may be asked to obtain from your preferred pharmacy. Be sure to ask your pharmacist if you need help finding this product. SHOWERING WITH ANTISEPTIC SOAP (CHG) What You Need For Each Shower 60 mL (?? cup) of CHG 2 clean washcloths CHG Bathing Instructions First, shampoo and rinse your hair with your own shampoo (no conditioners). Do this so the antiseptic soap isn't washed off by your shampoo. Wash face with warm water. Turn off shower and stand away from the water. Use 2 clean washcloths to apply the antiseptic soap to all areas as described below: Pour 30 mL (1/8 cup) of CHG on washcloth #1: Using washcloth- start at jawline and firmly massage the soap into the skin in a circular motion to clean neck, shoulders, chest, back, both armpits, arms, hands and abdomen. Finish with legs and feet. Pour 30 mL (1/8 cup) of CHG on washcloth #2: Using washcloth- firmly massage the soap into the skinin a circular motion to clean groin area, perineum and buttocks. (Do not use CHG on genital area.) Jaramillo Points: The CHG antiseptic soap will not bubble or lather very much. If you get soap in your eyes, ears or mouth, rinse well with cool water. When finished, leave the soap on your skin for 2 minutes before rinsing. Dry off with a clean fresh towel. Wear clean clothes or pajamas to sleep in. After showering DO NOT put on deodorant, hair products or conditioners, lotions or creams, powders,Vaseline or any non-essential products. If you cannot reach the surgical site, such as the back, please have someone help you. Shaving: You may shave your face, legs and underarms during your evening shower before you apply the CHG antiseptic soap. Be careful not to cut or bebo your skin. Avoid shaving on the day of surgery. 2-Day CHG Bathing Protocol The Evening Before Surgery: Take a shower with Antiseptic soap (CHG). Follow the steps for ???Showering with Antiseptic Soap (CHG)?? above. Change all linens on your bed so you are sleeping in clean fresh sheets and pillowcases. Remove nail coverings, artificial nails and nail sao tomean. The Morning of Surgery: Take a shower with Antiseptic soap (CHG). Follow the steps for ???Showering with Antiseptic Soap (CHG)?? above. Put clean clothes on after you shower. Travel/Exposure Screening: Travel Screening Have you traveled outside the [place] in the last 6 months?: No Exposure Screening Have you been exposed to anyone who is sick in the last 30 days?: No Have you been exposed to or tested positive for COVID-19 within the last 10 days?: No Infectious Disease Screening Are you having any of the following:: None As of 08/02/2022 any COVID TESTING required for surgery will be set up by your surgeon's office. Please reach out to your surgeon's office if you develop any COVID symptoms, test positive for COVID or are exposed to a COVID positive person. If you have questions, please call the CPAP Staff at [phone], Monday-Monday 8am-4:30pm. All patients should read the below section: COVID 19 Updates & Visitor Policy: Please access [email or web address] for the most updated information. Information on [facility] & the [facility]: Please view [email or web address] (Patient & Visitor Information) for additional details regarding Advanced Directive forms, AWARE, directions, parking information, lodging, Internet access, dining and more. Information on [facility] or [facility] [place] ([facility]): Please view [email or web address] (Patient and Visitor Information) for parking/directions and more. For MyChart information, to activate account or password recovery, please go to [email or web address] or call [phone] (toll-free: [phone]), Mon- Monday 8am-5pm. Information for Suicide Prevention: National Suicide Prevention Lifeline (8-366- 297-OKMD (7284)). Surgery Times: For patients having surgery @ [facility] or [facility] [place] ([facility]), if your surgeon's office has not notified you of your surgery time by NOON THE BUSINESS DAY BEFORE your surgery, please call [phone] and ask for your surgeon's office Dr. Sabino Wyman. documented in this encounter Plan of Treatment Not on file documented as of this encounter Procedures Procedure Name Priority Date/Time Associated Diagnosis Comments SURGICAL PATHOLOGY Routine 08/04/2023 8:18 AM CDT Tendon rupture of wrist, left, initial encounter TENOLYSIS - UPPER EXTREMITY 08/04/2023 7:30 AM CDT Tendon rupture of wrist, left, initial encounter Case Notes 08/03@1413- Changed line up per Polo via phone call.[email or web address]: Sent email to OR resource nurse about missing blank dpc. SR Special Needs MIni C-Arm, Tourniquet, 1:1 Mix of 1% Lidocaine w/ EPI and 0.25% Marcaine w/ EPI, Tendon Passer + Zambrano, Nerve Stripper, 3-0 Fiberwire EXCISION CYST/LESION/MASS - HAND 08/04/2023 7:30 AM CDT Tendon rupture of wrist, left, initial encounter Case Notes 08/03@1413- Changed line up per Polo via phone call.[email or web address]: Sent email to OR resource nurse about missing blank dpc. SR Special Needs MIni C-Arm, Tourniquet, 1:1 Mix of 1% Lidocaine w/ EPI and 0.25% Marcaine w/ EPI, Tendon Passer + Zambrano, Nerve Stripper, 3-0 Fiberwire TENDON GRAFT 08/04/2023 7:30 AM CDT Tendon rupture of wrist, left, initial encounter Case Notes 08/03@1413- Changed line up per Polo via phone call.[email or web address]: Sent email to OR resource nurse about missing blank dpc. SR Special Needs MIni C-Arm, Tourniquet, 1:1 Mix of 1% Lidocaine w/ EPI and 0.25% Marcaine w/ EPI, Tendon Passer + Zambrano, Nerve Stripper, 3-0 Fiberwire documented in this encounter Results * Surgical pathology (08/04/2023 8:18 AM CDT) Tissue (Mass/Tumor/Lesio n) 08/04/2023 8:18 AM CDT Tissue (Tendon / Tendon Sheath) 08/04/2023 8:27 AM CDT Narrative PATHOLOGY [facility] - 08/11/2023 2:16 PM CDT EPIC results best viewed via link to PDF [facility] [address], [place] [address] Note to Patients: This report may contain a detailed description of human tissue sent by a health care provider to the laboratory for pathologic evaluation. The content of this report is essential for diagnosis and may provide important critical findings. This information may be unfamiliar to patients to review without a medical professional present. It is advised that the patient review this report in the presence of a health care provider who can answer questions and explain the details. SURGICAL PATHOLOGY REPORT FINAL Patient Name: ?? JUVENTINO CORMIER Gender: ??M : ??1955 (Age: 68) Address: ??[address] [place] [address] ??[id number] Hospital #: ??[id number] Taken:08/04/2023 Received:08/04/2023 Reported: 08/11/2023 Patient Type: [facility] SDS ?? Service: Surgery Location: Physician(s): ??MD Remy Levy D.O. Diagnosis: A. ??Soft tissue, left wrist, excision ? - Heterotopic ossification B. Synovium, left wrist, excision ? - Sub-synovial soft tissues with no histopathological abnormality 08/11/2023 08:28 By this signature, I attest that the above diagnosis is based upon my personal examination of the slides(and/or other material indicated in the diagnosis). Ozzy Esqueda M.D. Report Electronically Reviewed and Signed Out By ??Ozzy Esqueda M.D. 08/11/2023 14:16:27 Microscopic Description and Comment: Microscopic examination substantiates the above cited diagnosis. Lesa Mcdaniels M.D. History: The patient is a 68-year-old man presenting with a tendon rupture of wrist, left, initial encounter. ??Operative procedure: Left middle finger and ring finger tendon graft x2. Specimen(s) Received: A: Left wrist bony mass B: Left extensor tenosynovium Gross Description: Received in two formalin jars labeled with the patient's identifiers. A. ??Labeled left wrist bony mass , is an irregular ovoid marie-fernandez bone fragment (2.0 x 1.5 x 1.0 cm) with a congested marie cut surface. The bone fragment is inked blue and bisected. The bone fragment is entirely submitted in cassette A1 after decalcification. Jar 0. ?? B. ??Labeled left extensor tenosynovium , is a piece of rubbery marie-white tissue (2.0 x 1.0 x 0.6 cm). ??Tissue is entirely submitted in cassette B1. ??Jar 0. ? behu/08/04/2023 15:46 PA(s): Soha Mckoy By this signature, I attest that the above diagnosis is based upon my personal examination of the slides(and/or other material). Addenda/Procedures The performance characteristics of some immunohistochemical stains, fluorescence in-situ hybridization tests and immunophenotyping by flow cytometry cited in this report (if any) were determined by the Surgical Pathology and Flow Cytometry Departments at [facility] as part of an ongoing quality assurance assistant program and in compliance with federally mandated regulations drawn from the Clinical Laboratory Improvement Act of 1988 (CLIA '88). ??Some of these tests rely on the use of analyte specific reagents and are subject to specific labeling requirements by the US Food and Drug Administration. ??Such diagnostic tests may only be performed in a facility that is certified by the Department of Health and Human Services as a high complexity laboratory under CLIA '88. ??The FDA has determined that such clearance or approval is not necessary. ??This test is used for clinical purposes. ??It should not be regarded as investigational or for research. ??Nevertheless, federal rules concerning the medical use of analyte specific reagents require that the following disclaimer be attached to the report: This test was developed and its performance characteristics determined by the Surgical Pathology and Flow Cytometry Departments of [facility]. ??It has not been cleared or approved by the U. S. Food and Drug Administration. IMAGES AND SCANNED DOCUMENTS, IF INCLUDED, ONLY VIEWABLE IN PDF VERSION OF REPORT Major Wyman MD LAB PATHOLOGY ORDERABLES Final Result PATHOLOGY [facility] [address] Floor [place], [place] [phone] documented in this encounter Visit Diagnoses Diagnosis Tendon rupture of wrist, left, initial encounter Tendon rupture of wrist, left, initial encounter documented in this encounter Admitting Diagnoses Diagnosis Tendon rupture of wrist documented in this encounter Administered Medications Inactive Administered Medications - up to 3 most recent administrations Medication Order MAR Action Action Date Dose Rate Site BUPivacaine-EPINEPHrine (MARCAINE with EPI) 0.25 %-1:200,000 preservative free injection As needed, Starting on Mon08/04/23 at 1015, Intra-Op Given 08/04/2023 10:15 AM CDT 20 mL Surgical Site HYDROcodone-acetaminophen (NORCO) 5-325 mg per tablet 1 tablet 1 tablet, oral, Once as needed, 2nd line for pain, Starting on Mon08/04/23 at 1052, For 2 doses, Phase I, Indications: PainIndications:Pain Given 08/04/2023 12:16 PM CDT 1 tablet HYDROmorphone (DILAUDID) injection 0.5 mg 0.5 mg, intravenous, Administer over 2 Minutes, Every 10 min PRN, 2nd line for pain, Starting on Mon08/04/23 at 1052, For 4 doses, Phase I Given 08/04/2023 11:39 AM CDT 0.5 mg Lactated Ringer's (LR) infusion 30 mL/hr, intravenous, Continuous, Starting on Mon08/04/23 at 0630, Pre-Op New Bag 08/04/2023 8:23 AM CDT Restarted 08/04/2023 7:38 AM CDT Rate/Dose Verify 08/04/2023 7:25 AM CDT 30 mL/h r sodium chloride 0.9% irrigation As needed, Starting on Mon08/04/23 at 0813, Intra-Op Given 08/04/2023 8:13 AM CDT 1,000 mL documented in this encounter Discontinued Medications Medication Sig Discontinue Reason Start Date End Da te CARTIA XT 300 mg 24 hr capsuleIndications:hype rtension Take 1 capsule (300 mg total) by mouth director loan before breakfast 02/25/2019 08/02/2023 enalapril (VASOTEC) 5 mg tablet 1 tablet (5 mg total) 08/02/2023 documented as of this encounter Historical Medications * This list may reflect changes made after this encounter. potassium chloride ER 10 mEq CR tablet Take 1 tablet/capsule (10 mEq total) by mouth director loan before breakfast added in this encounter Active and Recently Administered Medications Times are shown in CDT. Scheduled Medication Order 08/02/2023 08/03/2023 08/04/2023 ceFAZolin (ANCEF) 2,000 mg/20 mL in sterile water (premix) 2,000 mg (COMPLETED) 2,000 mg, intravenous, at 400 mL/hr, Administer over 3 Minutes, Once, On Mon08/04/23 at 0630, For 1 dose, Pre-Op, Administer within 60 minutes of incision., Indications: Prophylaxis, Surgical 0739 (Given - Provid er: Yael Fang CRNA) Continuous Medication Order 08/02/2023 08/03/2023 08/04/2023 Lactated Ringer's (LR) infusion 30 mL/hr, intravenous, Continuous, Starting on Mon08/04/23 at 0630, Pre-Op 0609 (New Bag - Prov ider: Mehreen York RN)0725 (Rate/Dose Verify - Provider: Yael Fang CRNA)0737 (Paused - Provider: Yael Fang CRNA - Comment: Switch to gravity)0738 (Restarted - Provider: Yael Fang CRNA)0822 (Canceled Entry - Provider: Yael Fang CRNA - Comment: Switch to gravity)0823 (New Bag - Provider: Yael Fang CRNA)1019 (Anesthesia Volume Adjustment - Provider: Yael Fang CRNA)1638 (Due: Stopped) Lactated Ringer's (LR) infusion 125 mL/hr, intravenous, Continuous, Starting on Mon08/04/23 at 1130, Phase I 1130 (Due) PRN Medication Order 08/02/2023 08/03/2023 08/04/2023 albuterol 2.5 mg/0.5 mL nebulizer solution 2.5 mg 2.5 mg, nebulization, Once as needed, wheezing, Starting on Mon08/04/23 at 1052, For 1 dose, Phase I, Notify Anesthesiologist. , Indications: Bronchospastic Pulmonary Disease BUPivacaine-EPINEPHrine (MARCAINE with EPI) 0.25 %-1:200,000 preservative free injection (CANCELED) As needed, Starting on Mon08/04/23 at 1015, Intra-Op 1015 (Given - Provid er: Major Wyman MD) fentaNYL (SUBLIMAZE) preservative free injection 50 mcg 50 mcg, intravenous, Every 10 min PRN, 1st line for pain, Starting on Mon08/04/23 at 1052, Phase I, Notify Anesthesiologist if total PACU dose reaches 100 mcg and pain score 5/10 or more., Indications: Pain hydrALAZINE (APRESOLINE) injection 5 mg 5 mg, intravenous, Administer over 2 Minutes, Every 15 min PRN, high blood pressure, Starting on Mon08/04/23 at 1052, Phase I, Max cumulative dose 20 mg. Dose if systolic BP greater than 180 AND heart rate less than 70. HYDROcodone-acetaminophen (NORCO) 5-325 mg per tablet 1 tablet 1 tablet, oral, Once as needed, 2nd line for pain, Starting on Mon08/04/23 at 1052, For 2 doses, Phase I, Indications: Pain 1216 (Given - Provid er: Reema Lyman RN) HYDROmorphone (DILAUDID) injection 0.5 mg 0.5 mg, intravenous, Administer over 2 Minutes, Every 10 min PRN, 2nd line for pain, Starting on Mon08/04/23 at 1052, For 4 doses, Phase I 1139 (Given - Provid er: Reema Lyman RN) labetaloL (NORMODYNE,TRANDATE) injection 5 mg 5 mg, intravenous, at 30 mL/hr, Administer over 2 Minutes, Every 10 min PRN, high blood pressure, Starting on Mon08/04/23 at 1052, Phase I, Max cumulative dose 20 mg. Dose if systolic blood pressure greater than 180 AND HR greater than 70. naloxone (NARCAN) 0.4 mg/mL injection 0.04-0.4 mg 0.04-0.4 mg, intravenous, Once as needed, other, excessive sedation/respiratory depression, Starting on Mon08/04/23 at 1052, For 1 dose, Phase I, Dilute 0.4 mg with 9 mL NS (final concentration 0.04 mg/mL). For respiratory depression (respiratory rate less than 6), administer 0.4 mg IVP over 30 seconds. For excessive sedation administer 0.04 mg (1 mL) every 1 minute until desired level of alertness. For IV, administer over 30 seconds., Indications: Opioid Toxicity prochlorperazine (COMPAZINE) injection 10 mg 10 mg, intravenous, Administer over 2 Minutes, Once as needed, nausea, vomiting, Starting on Mon08/04/23 at 1052, For 1 dose, Phase I sodium chloride 0.9% irrigation (CANCELED) As needed, Starting on Mon08/04/23 at 0813, Intra-Op 0813 (Given - Provid er: Major Wyman MD) documented in this encounter Orders Medications Ordered That Daniel ht Not Have Been Administered Count Last Ordered Date First Ordered Date albuterol 2.5 mg/0.5 mL nebu lizer solution 2.5 mg 1 08/04/2023 Carrier Fluids for Secondary Infusion - 0.9% Sodium Chloride 1 08/04/2023 ceFAZolin (ANCEF) 2,000 mg/2 0 mL in sterile water (premix) 2,000 mg 1 08/04/2023 fentaNYL (SUBLIMAZE) preserv ative free injection 50 mcg 1 08/04/2023 hydrALAZINE (APRESOLINE) injection 5 mg 1 1 labetaloL (NORMODYNE,TRANDAT E) injection 5 mg 1 08/04/2023 Lactated Ringer's (LR) infusion 1 3 naloxone (NARCAN) 0.4 mg/mL injection 0.04-0.4 mg 1 08/04/2023 prochlorperazine (COMPAZINE) injection 10 mg 1 08/04/2023 sodium chloride 0.9% flush 0.5-20 mL 1 07/10 Discharge Count Last Ordered Date First Orde red Date DISCHARGE PATIENT 1 08/04/2023 documented in this encounter Care Teams Bomb Technician Relationship Specialty Start Date End Date Remy Sevilla DO [address] [facility] [address] [place] [address] PCP - General Family Medicine 07/10/23 documented as of this encounter
--- OUTSIDE RECORDS SUMMARY | 2024-09-28 10:21 | XMS_ITS | Encounter Summary ---
Author Organization [facility] Address [address] [place] [address] Care Team Providers Care Wage Conciliator Name Role Phone Remy Sevilla DO Primary Care Provider [phone] Reason for Referral * MRI/CAT/PET Scan (Routine) - Closed Specialty Diagnoses / Procedures Referred By Vish negro Referred To Contact Radiology Diagnoses Spontaneous rupture of extensor tendon of left hand Fracture of unspecified carpal bone, left wrist, initial encounter for closed fracture Procedures MRI Hand Left WO Contrast Paula Flores MD [address] [place] [address] DR [address] [place] [address] Phone: tel: fax: [address] [phone] Referral ID Status Reason Start Date Expiration Date Visits Re quested Visits Authorized [id number] Closed 07/10/2023 08/08/2024 1 1 Reason for Visit * MRI/CAT/PET Scan (Routine) - Closed Specialty Diagnoses / Procedures Referred By Vish negro Referred To Contact Radiology Diagnoses Spontaneous rupture of extensor tendon of left hand Fracture of unspecified carpal bone, left wrist, initial encounter for closed fracture Procedures MRI Hand Left WO Contrast Paula Flores MD [facility] [facility] [address] [place] [address] Phone: tel: fax: [address] [phone] Referral ID Status Reason Start Date Expiration Date Visits Re quested Visits Authorized [id number] Closed 07/10/2023 08/08/2024 1 1 Encounter Details Date Type Department Care Team (Latest Contact Info) Description 07/10/2023 3:30 PM CDT - 07/10/2023 11:59 PM CDT Hospital Encounter [address] [address] Spontaneous rupture of extensor tendon of left hand; Fracture of unspecified carpal bone, left wrist, initial encounter for closed fracture Discharge Disposition: Discharge to home or self care Social History Tobacco Use Types Packs/Day Years Used Date Smoking Tobacco: Never Smokeless Tobacco: Never Alcohol Use Standard Drinks/Week Comments Not Currently 0 (1 standard drink = 0.6 oz pur e alcohol) Sex and Gender Information Value Date Recorded Sex Assigned at Not on file 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 Gender Identity Male 08/03/2023 6:13 PM CDT Sexual Orientation Not on file documented as of this encounter Medications at Time of Discharge amLODIPine (NORVASC) 10 mg tablet Take 1 tablet (10 mg total) by mouth chrome plater helper before breakfast 08/18/2022 hydroCHLOROthiaz anuj (HYDRODIURIL) 25 mg tablet Take 1 tablet (25 mg total) by mouth chrome plater helper before breakfast 3 02/03/2019 loratadine (CLARITIN) 10 mg tablet Take 1 tablet (10 mg total) by mouth chrome plater helper before breakfast 3 03/09/2019 losartan (COZAAR) 100 mg tablet Take 1 tablet (100 mg total) by mouth chrome plater helper before breakfast 07/25/2022 metoprolol XL (TOPROL-XL) 50 mg extended release tablet Take 1 tablet (50 mg total) by mouth chrome plater helper before breakfast 08/08/2022 CARTIA XT 300 mg 24 hr capsuleIndicatio ns:hypertension Take 1 capsule (300 mg total) by mouth chrome plater helper before breakfast 3 02/25/2019 3 clotrimazole (LOTRIMIN) 1 % external solution TIMA TO RIGHT EAR 4 GTS BID FOR 10 DAYS 10/08/2019 3 doxazosin (CARDURA) 4 mg tablet TK 1 T BID 3 01/16/2019 3 enalapril (VASOTEC) 5 mg tablet 1 tablet (5 mg total) 3 losartan (COZAAR) 50 mg tablet TK 1 T PO D 4 01/30/2019 3 naproxen (NAPROSYN) 500 mg tablet 3 documented as of this encounter Discharge Disposition Disposition Code Departure Means Destination Discharge to home or self care documented in this encounter Plan of Treatment Not on file documented as of this encounter Procedures Procedure Name Priority Date/Time Associated Diagnosis Comments MRI HAND LEFT WO CONTRAST Schedule Routine, Read Routine (OP Routine) 07/10/2023 4:29 PM CDT Spontaneous rupture of extensor tendon of left hand Fracture of unspecified carpal bone, left wrist, initial encounter for closed fracture documented in this encounter Results * MRI Hand Left WO Contrast (07/10/2023 4:29 PM CDT) Anatomical Region Laterality Modality Upper Extremities Left Magnetic Reson ance 07/10/2023 5:56 PM CDT Narrative 07/10/2023 6:04 PM CDT EXAM DESCRIPTION: MRI HAND LEFT WO CONTRAST REASON FOR STUDY: Hand fracture, tendon/ligament injury suspected, xray done, TO INCLUDE WRIST ?? Pt stated that he had a fall on 07/07/2023. Pt stated that he fell w/ his LT hand on his chest while falling forward. Pt stated that he has a bone or bump that has risen on his 3rd metacarpal. Pt stated pain and swelling of LT hand since injury. Pt ?? stated no surgery. Bone/bump was marked w/ marker ? TECHNIQUE: Multiplanar, multisequence MRI of the ??left hand ??was performed ?? without contrast. COMPARISON: 07/10/2023 FINDINGS: There is a 17 x 13 mm osseous fragment dorsal to the 3rd carpometacarpal joint. ??There is moderate surrounding dorsal hand soft tissue swelling. ??The extensor tendons of the long and ring fingers appear associated with the fragment and demonstrate laxity on the sagittal exam. There is mild triscaphe and basal thumb joint chondrosis. ??There is 1st through 3rd metacarpophalangeal joint chondrosis. The visualized flexor tendons appear intact. ??The carpal tunnel appears normal. ??The extensor tendons of the 1st, 2nd and 5th digits appear intact on limited evaluation. IMPRESSION: 17 x 13 mm osseous fragment dorsal to the 3rd carpometacarpal joint with moderate surrounding dorsal hand soft tissue swelling. The extensor tendons of the long and ring fingers appear associated with the fragment and demonstrate laxity on the sagittal exam. ??Recommend further evaluation with a hand and wrist CT to assess for donor site. ??Additionally, wrist MRI may be considered for evaluation of the extensor compartment tendons at the level of the distal radius. Mild left triscaphe and basal thumb joint chondrosis. Mild left 1st through 3rd metacarpophalangeal joint chondrosis. THIS IS AN ELECTRONICALLY VERIFIED FINAL REPORT 07/10/2023 6:04 PM - Electronically signed by ??Rachid Haynes M.D. D: ??07/10/2023 6:04 PM T: Report ID: [id number] Reading Location: ??[id number] Procedure Note Rachid Haynes MD - 07/10/2023 EXAM DESCRIPTION: MRI HAND LEFT WO CONTRAST REASON FOR STUDY: Hand fracture, tendon/ligament injury suspected, xraydone, TO INCLUDE WRIST Pt stated that he had a fall on 07/07/2023. Pt stated that he fell w/ hisLT hand on his chest while falling forward. Pt stated that he has a bone orbump that has risen on his 3rd metacarpal. Pt stated pain and swelling of LThand since injury. Pt stated no surgery. Bone/bump was marked w/ marker TECHNIQUE: Multiplanar, multisequence MRI of the left hand was performed without contrast. COMPARISON: 07/10/2023 FINDINGS: There is a 17 x 13 mm osseous fragment dorsal to the 3rd carpometacarpal joint. There is moderate surrounding dorsal hand softtissue swelling. The extensor tendons of the long and ring fingers appearassociated with the fragment and demonstrate laxity on the sagittal exam. There is mild triscaphe and basal thumb joint chondrosis. There is 1st through 3rd metacarpophalangeal joint chondrosis. The visualized flexor tendons appear intact. The carpal tunnel appears normal. The extensor tendons of the 1st, 2nd and 5th digits appear intacton limited evaluation. IMPRESSION: 17 x 13 mm osseous fragment dorsal to the 3rd carpometacarpal joint with moderate surrounding dorsal hand soft tissue swelling. The extensortendons of the long and ring fingers appear associated with the fragment anddemonstrate laxity on the sagittal exam. Recommend further evaluation with a hand and wrist CT to assess for donor site. Additionally, wrist MRI may beconsidered for evaluation of the extensor compartment tendons at the level of thedistal radius. Mild left triscaphe and basal thumb joint chondrosis. Mild left 1st through 3rd metacarpophalangeal joint chondrosis. THIS IS AN ELECTRONICALLY VERIFIED FINAL REPORT 07/10/2023 6:04 PM - Electronically signed by Rachid Haynes M.D. T: Report ID: [id number] Reading Location: [place] [address] Paula Flores MD IMG MRI PROCEDURES Final Result documented in this encounter Visit Diagnoses Diagnosis Spontaneous rupture of extensor tendon of left hand Fracture of unspecified carpal bone, left wrist, initial encounter for closed fracture documented in this encounter Care Teams Wage Conciliator Relationship Specialty Start Date End Date Remy Sevilla DO [address] [facility] [address] [place] [address] PCP - General Family Medicine 07/10/23 documented as of this encounter
--- OUTSIDE RECORDS SUMMARY | 2024-09-28 10:21 | XMS_ITS | Encounter Summary ---
Author Organization [facility] Address [address] [place] [address] Phone Care Team Providers Care Front Office Assistant Name Role Phone Remy Sevilla DO Primary Care Provider [phone] Reason for Visit * Reason Comments OT Treatment * Consultation (Routine) - Closed Specialty Diagnoses / Procedures Referred By Vish negro Referred To Contact Occupational Therapy Diagnoses Extensor tendon rupture of hand, left, subsequent encounter Pet, Major Freitas MD [address] [place] [address] Phone: tel: fax: [facility] (All Locations) Referral ID Status Reason Start Date Expiration Date V isits Requested Visits Authorized [id number] Closed Specialty Services Required 08/09/2023 09/07/2024 24 24 Encounter Details Date Type Department Care Team (Late st Contact Info) Description 08/23/2023 2:00 PM STAFF DEVELOPER Therapy [facility] Occupational Therapy [address] [facility] 6th [place] [address] [place] [address] Cuauhtemoc Mckeon, OT [address] [facility] [address] [place] [address] Rupture of extensor tendon of hand, left, [...] on file 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 [facility] Occupational Therapy Progress Note Juventino Cormier 1955 Referring Provider: Major Wyman MD [address] [place] [address] Rupture of extensor tendon of hand, left, subsequent encounter [Y45.428V] Diagnosis: 1. Attritional rupture of the left [...] to support affected structures Subjective: Juventino is 3 weeks out from a left EDC tendon repair to his long and ring finger. He sawDr. Pet today who gave him the go ahead to start being more aggressive with his exercises. He has been doing the exercises provided last week without any difficulty. [x] Mental health status discussed Details: reports no problems Pain: 0/10 Objective: Appearance: Sutures are intact with no signs of infection. Mild edema visualized. Edema: Circumferential measurement DPC: 24.6 cm Range of Motion: Active Digit Range of Motion Index Middle Ring Small MP (isolated MP flexion) -19/55 -31/58 -26/63 0/62 PIP (in hook fist) 0/96 -18/92 0/98 0/94 DIP (in hook fist) 0/55 0/62 0/60 0/60 Treatment Provided: - Pt to continue wearing P1 blocking orthosis at all times but remove for protected hygiene and exercises. Added extra foam under long and ring finger for increased MP extension. - MHP x 10 min prior to A/PROM for tissue extensibility and pain relief. - Reviewed and performed HEP (see handouts): - AROM of IP joints (hook fist) in orthosis 10 reps 4x/day - AROM MP extension from position in orthosis (finger lifts) 10 reps 4x/day - Gentle mid range wrist AROM with other hand to maintain MP extension 10 reps 4x/day. - MP extension in gravity eliminated out of orthosis 10 reps 4x/day. - Added MP flexion to hook fist exercise 10 reps 4x/day (able to come up to a full hook fist) - Added digit extension with wrist flexion 10 reps 4x/day - Added hook fist to gentle composite full fist 10 reps 4x/day - Reviewed and performed scar massage for 2-3 min 4x/day. Performed in clinic for 5 minutes over all incisions. - Discussed edema management - continue to elevate and move adjacent joints (elbow, IP joints) - All questions answered. Assessment: Juventino presents today 3 weeks out from a left long and ring finger EDC repair with autograft tendon. He present with continued full active hook fist, but an extension lag in his long finger MP that is greater than what it was last week at his visit. 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 But with digits extended, he is unableto fully extend his long finger MP. His intrinsic extensors (lumbricals) may be stronger than his external extensors which is why he is not able to extend with digits full extended. He also demonstrates increased scar adherence this date compared to his last visit, so this may be limiting tendon gliding. Added more aggressive MP flexion and composite flexion this date to aid with increasing tendon gliding and increasing range of motion. Pt continues to verbalize comfort in orthosis and understanding of all precautions. He will continue to benefit from skilled therapy to ensure appropriate progress through exercises to aid with return to functional use of left hand. Plan: Frequency/Duration: Weekly for up to 12 weeks Plan details: MHP, AROM hook fist, MP extension, wrist AROM, MP flexion, scar management, compositeflexion, adjust orthosis if needed. Goals: Goals for Occupational Therapy Intervention: Goal Status / Date Updated Due by: STG1 Pt will demonstrate ability to don/doff orthosis for hygiene. Achieved 08/09/2023 08/09/23 STG2 Pt will report understanding of wear/care instructions for orthosis as they relate to ADL/IADLs. Achieved 08/09/2023 08/09/23 STG3 Pt will demonstrate ability to make a full hook fist Ongoing 08/23/23 08/22/23 LTG1 Pt will report comfort in orthosis for protection during ADLs. Met 08/16/23 08/16/23 LTG2 Pt will demonstrate ability to lift middle/ring finger off table to aid with return to piano Ongoing 08/23/23 11/09/22 LTG3 Pt will demonstrate ability to make a fist (DPC <2cm) when allowed by precautions to aid with return to functional grasping. Ongoing 08/23/23 11/09/22 Start Time: 1:50 pm End Time: 2:40 pm ABIGAIL Triana, OTR/L, CHT If the patient does not return to therapy this will serve as a discharge summary. F DEVELOPER documented in this encounter Plan of Treatment Not on file documented as of this encounter Visit Diagnoses Diagnosis Rupture of extensor tendon of hand, left, subsequent encounter- Primary documented in this encounter Care Teams Front Office Assistant Relationship Specialty Start Date End Date Remy Sevilla DO [facility] [address] [address] PCP - General Family Medicine 07/10/23 documented as of this encounter
--- OUTSIDE RECORDS SUMMARY | 2024-09-28 10:21 | XMS_ITS | Encounter Summary ---
Author Organization [facility] Address [address] [place] [address] Phone Care Team Providers Care Blow Machine Tender Starch Spraying Name Role Phone Remy Sevilla DO Primary Care Provider [phone] Reason for Visit * Reason Comments OT Treatment * Consultation (Routine) - Canceled Specialty Diagnoses / Procedures Referred By Vish negro Referred To Contact Occupational Therapy Diagnoses Extensor tendon rupture of hand, left, subsequent encounter Pet, Major Freitas MD [address] [place] [address] Phone: tel: fax: [facility] (All Locations) Referral ID Status Reason Start Date Expiration Date Visits Requested Visits Authorized [id number] Canceled Specialty Services Required 08/23/2023 09/21/2024 24 24 Encounter Details Date Type Department Care Team (Late st Contact Info) Description 09/06/2023 1:00 PM ELECTRONIC WIRER Therapy [facility] Occupational Therapy [address] [facility] 6th [place] [address] [place] [address] Cuauhtemoc Mckeon, OT [address] [address] Rupture of extensor tendon of hand, left, [...] on file Legal 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 [facility] Occupational Therapy Progress Note Juventino Cormier 1955 Referring Provider: Major Wyman MD [address] [place] [address] Rupture of extensor tendon of hand, left, subsequent encounter [Y19.185X] Diagnosis: 1. Attritional rupture of the left [...] x week for up to 12 weeks visit: 2 weeks OT/PT Evaluate and Treat: [...] to support affected structures Subjective: Juventino is 5 weeks out from a left EDC tendon repair to his long and ring finger. He notes intermittent pain on the back of his hand. Overall, he has been doing his exercises consistently and feels his hand is moving better. [x] Mental health status discussed Details: reports no problems Pain: 11/18 Objective: Appearance: Sutures are intact with no signs of infection. Mild edema visualized. Edema: Circumferential measurement DPC: 24.6 cm Range of Motion: Active Digit Range of Motion (full fist) Index Middle Ring Small MP -19/55 -29/61 -21/74 0/75 PIP 0/96 -18/100 0/99 0/94 DIP 0/55 0/65 0/60 0/60 Treatment Provided: - Pt to continue wearing P1 blocking orthosis at all times but remove for protected hygiene and exercises. - MHP x 10 min prior to [...] out of orthosis 10 reps 4x/day. - MP flexion to hook fist exercise 10 reps 4x/day (able to come up to a full hook fist) - Digit extension with wrist flexion 10 reps 4x/day - progressed by increasing wrist extension and maintaining digit extension - Hook fist to gentle composite full fist 10 reps 4x/day - Scar management: IASTM x 5 min over dorsal incision Cross frictional massage over dorsal hand with finger lifts Manual scar massage - All questions answered. Assessment: Juventino presents today 5 weeks out from a left long and ring finger EDC repair with autograft tendon. His long finger MCP extension has improved from his last visit and he continues to be able to fire his EDC into full MP extension hook fist. He continues to have difficulty with long finger MP extension with digits in full extension. He is likely scarred down in his dorsal hand which is likely limiting his tendon gliding. Added more aggressive scar management techniques this date compared to last session. Pt continues to verbalize comfort in orthosis [...] ability to make a full hook fist Met 09/06/23 08/22/23 LTG1 Pt will report comfort in orthosis for protection during ADLs. Met 08/16/23 08/16/23 LTG2 Pt will demonstrate ability to lift middle/ring finger off table to aid with return to piano Ongoing 09/06/23 11/09/22 LTG3 Pt will demonstrate ability to make a fist (DPC <2cm) when allowed by precautions to aid with return to functional grasping. Ongoing 09/06/23 11/09/22 Start Time: 1:00 pm End Time: 1:40 pm ABIGAIL Triana, OTR/L, CHT If the patient does not return to therapy this will serve as a discharge summary. TRONIC WIRER documented in this encounter Plan of Treatment Not on file documented as of this encounter Visit Diagnoses Diagnosis Rupture of extensor tendon of hand, left, subsequent encounter- Primary documented in this encounter Care Teams Blow Machine Tender Starch Spraying Relationship Specialty Start Date End Date Remy Sevilla DO [address] [facility] [address] [place] [address], [place] [address] PCP - General Family Medicine 07/10/23 documented as of this encounter
--- OUTSIDE RECORDS SUMMARY | 2024-09-28 10:21 | XMS_ITS | Encounter Summary ---
Author Organization [facility] Healthcare Address [address] [place] [address] Care Team Providers Care Cfd Engineer Name Role Phone Remy Sevilla DO Primary Care Provider [phone] Reason for Referral * MRI/CAT/PET Scan (Routine) - Closed Specialty Diagnoses / Procedures Referred By Vish negro Referred To Contact Radiology Diagnoses Spontaneous rupture of extensor tendon of left hand Fracture of unspecified carpal bone, left wrist, initial encounter for closed fracture Procedures MRI Hand Left WO Contrast Paula Flores MD [address] [place] [address] DR [address] [place] [address] Phone: tel: fax: [address] [phone] Referral ID Status Reason Start Date Expiration Date Visits Re quested Visits Authorized [id number] Closed 07/10/2023 08/08/2024 1 1 * Diagnostic Imaging (Routine) - Closed Specialty Diagnoses / Procedures Referred By Vish negro Referred To Contact Diagnoses Left hand pain Procedures XR Hand Left 3+ Vw Paula Flores MD [facility] [facility] [address] V[address] [place] [address] Phone: tel: fax: [address] [phone] Referral ID Status Reason Start Date Expiration Date Visits Re quested Visits Authorized [id number] Closed 07/10/2023 08/08/2024 1 1 Reason for Visit * Reason Comments Pain Encounter Details Date Type Department Care Team (Late st Contact Info) Description 07/10/2023 10:00 AM CDT Office Visit [facility] Hand Surgery [address] [facility] [address] [place] [id number] Paula Flores MD [address] [facility] [address] V[address] [place] [id number] Left hand pain (Primary Dx); Spontaneous rupture of extensor tendon of left [...] 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 FOLLOW UP VISIT Subjective CHIEF COMPLAINT He had concerns including Pain of the Left Hand. HISTORY OF PRESENT [...] to hold middle finger and full extension. There is an obvious area of swelling about the dorsum ofthe wrist with tenderness to palpation. His sensation is intact to light touch in the median, radial, ulnar distribution. His digits are warm well perfused. REVIEW OF X-RAYS/STUDIES/LABS X-rays of the left hand dated today were reviewed by me and demonstrate what appears to be an acuteossific fragment in the dorsal aspect of the wrist at the carpometacarpal joints is further displaced distally with overlying soft tissue swelling. 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 Assessment/Plan Juventino was seen today for pain. Diagnoses and all orders for this visit: Left hand pain - XR Hand Left 3+ Vw; Future Spontaneous rupture of extensor tendon of left hand - MRI Hand Left WO Contrast; Future Fracture of unspecified carpal bone, left wrist, initial encounter for closed fracture - MRI Hand Left WO Contrast; Future PLAN This is a 67-year-old etspv-wdci-llfjgtai male who presents today with left carpal fracture, likelythe capitate as well as left middle finger extensor tendon rupture. I reviewed with the patient the relevant anatomy in the diagnosis. I reviewed the patient has images with him today. I discussed with him that in order to better evaluate where this dorsal fragment came from I have ordered him an MRI. At the same time we will also assess his middle extensor tendon.I have placed him into a volar resting splint. He will return to see me following the test to discuss the results. Paula Flores MD documented in this encounter Plan of Treatment Not on file documented as of this encounter Results * MRI Hand Left [...] D: ??07/10/2023 6:04 PM T: Report ID: [id number] Reading Location: ??[id number] Procedure Note Rachid Haynes MD - 07/10/2023 [...] by Rachid Haynes M.D. T: Report ID: [id number] Reading Location: [id number] us Paula Flores MD IM MRI PROCEDURES Final Result * XR Hand Left 3+ Vw (07/10/2023 10:09 AM CDT) Anatomical Region Laterality Modality Upper Extremities, Hand Left Computed Radiography 07/10/2023 12:3 1 PM CDT Narrative 07/10/2023 12:33 PM CDT EXAM DESCRIPTION: XR HAND LEFT 3 OR MORE VIEWS REASON FOR STUDY: pain ?? Fall x 3 days ago, pain and swelling, loss of mobility to 3rd digit ? FINDINGS: Three views of the left hand are submitted for interpretation and compared to prior 08/25/2022. Ossific fragment in the dorsal aspect of the wrist at the carpometacarpal joints is further displaced distally with overlying soft tissue swelling. ?? 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 IMPRESSION: Increased displacement of dorsal ossific fragment in the wrist with adjacent soft tissue swelling overlying the carpometacarpal joints. ??The donor site is uncertain and CT would be helpful to further evaluate if clinically indicated. 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 THIS IS AN ELECTRONICALLY VERIFIED FINAL REPORT 07/10/2023 12:33 PM - Electronically signed by ??Owen Ireland M.D. TH: TH D: ??07/10/2023 12:33 PM T: ??07/10/2023 12:33 PM Report ID: [id number] Reading Location: ??[id number] Procedure Note Owen Ireland MD - 07/10/2023 EXAM DESCRIPTION: XR HAND LEFT 3 OR MORE VIEWS REASON FOR STUDY: pain Fall x 3 days ago, pain and swelling, loss of mobility to 3rd digit FINDINGS: Three views of the left hand are submitted for interpretationand compared to prior 08/25/2022. Ossific fragment in the dorsal aspect of the wrist at the carpometacarpal joints is further displaced distally with overlying soft tissue swelling. 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 IMPRESSION: Increased displacement of dorsal ossific fragment in the wrist withadjacent soft tissue swelling overlying the carpometacarpal joints. The donor siteis uncertain and CT would be helpful to further evaluate if clinicallyindicated. 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 THIS IS AN ELECTRONICALLY VERIFIED FINAL REPORT 07/10/2023 12:33 PM - Electronically signed by Owen Ireland M.D. TH: TH Report ID: [id number] Reading Location: [id number] us Paula Flores MD IMG XR PROCEDURES Final R esult documented in this encounter Visit Diagnoses Diagnosis Left hand pain- Primary Pain in soft tissues of limb Spontaneous rupture of extensor tendon of left hand Fracture of unspecified carpal bone, left wrist, initial encounter for closed fracture Left hand pain Pain in soft tissues of limb Spontaneous rupture of extensor tendon of left hand Fracture of unspecified carpal bone, left wrist, initial encounter for closed fracture documented in this encounter Care Teams Cfd Engineer Relationship Specialty Start Date End Date Remy Sevilla DO [facility] [address] [address] PCP - General Family Medicine 07/10/23 documented as of this encounter
--- OUTSIDE RECORDS SUMMARY | 2024-09-28 10:21 | XMS_ITS | Encounter Summary ---
Author Organization [facility] Address [address] [place] [address] Phone Care Team Providers Care V Belt Curer Name Role Phone Remy Sevilla DO Primary Care Provider Reason for Visit * Consultation (Routine) - Closed Specialty Diagnoses / Procedures Referred By Vish negro Referred To Contact Plastic Surgery Diagnoses Wrist injury, left, initial encounter Remy Sevilla DO [address] [facility] [address] [address] Phone: tel: fax: Garo, Major Freitas MD [address] [place] [address] Phone: tel: fax: Referral ID Status Reason Start Date Expiration Date V isits Requested Visits Authorized [id number] Closed Specialty Services Required 07/21/2023 08/19/2024 99 99 Encounter Details Date Type Department Care Team (Late st Contact Info) Description 02/05/2024 10:15 AM CDT Office Visit [facility] Surgery [address] [facility] 6th [place] [address] [place] [address] Gege Randall NP [address] [facility] [phone] [place] [address] Extensor tendon adhesions (Primary Dx) Social History [...] on file 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 Repair of the extensor retinaculum at the level of the wrist. INTERIM HISTORY Juventino Cormier presents to clinic for scheduled post operative visit. He presents to clinic 3 days out from above surgery with Dr Wyman. His post operative pain is manageable. He does complain of a sore throat from the anesthesia process with swelling to back of the throat. He has no fevers or chills. Airway patent, just sore. FOCUSED PHYSICAL EXAM CDI surgical incisions to left dorsal distal forearm and hand that crosses the wrist crease. All skin edges well approximated, no signs of infection, no erythema or induration. He has a moderate amount of diffuse pitting edema to fingers, wrist, and hand. He is quite stiff, but can gently move all fingers, hand is WWP with grossly intact sensation ASSESSMENT/PLAN Juventino is stable. He will keep incisions clean, wash daily with mild soap and water. Okay to get incisions wet in shower, no submerging in water. Dress with a small amount of baci ointment and dry bandage. He will start therapy immediately, he has an appointment with Jam after our visit. He will continue therapy until his follow up with Dr Wyman in 1.5-2weeks. As far as his sore throat, there is swelling on exam with some ecchymosis. His airway is patent. I recommended cold/warm fluids for comfort, throat lozenges, and softer foods. This should resolve within a few days. I recommend he geta hold of anesthesia or CPAP if the issue persists. All questions answered at visit, patient is agreeable to plan. Gege Randall NP documented in this encounter Plan of Treatment Not on file documented as of this encounter Visit Diagnoses Diagnosis Extensor tendon adhesions- Primary documented in this encounter Care Teams V Belt Curer Relationship Specialty Start Date End Date Remy Sevilla DO [address] [facility] [address] [place] [address] PCP - General Family Medicine 07/10/23 documented as of this encounter
--- OUTSIDE RECORDS SUMMARY | 2024-09-28 10:21 | XMS_ITS | Encounter Summary ---
Author Organization [facility] Address [address] [place] [address] Care Team Providers Care Noise Abatement Engineer Name Role Phone Juan A Quezada MD Primary Care Provider [phone] Reason for Referral * Diagnostic Imaging (Routine) - Closed Specialty Diagnoses / Procedures Referred By Contac t Referred To Contact Diagnoses Right hand pain Procedures XR Hand Right 3 or More Views Paula Flores MD Phone: tel: fax: [address] [phone] Referral ID Status Reason Start Date Expiration Date Visits Re quested Visits Authorized [id number] Closed 08/23/2022 09/22/2023 1 1 ICAL SPECIALTY REP * Diagnostic Imaging (Routine) - Closed Specialty Diagnoses / Procedures Referred By Vish negro Referred To Contact Diagnoses Left hand pain Procedures XR Hand Left 3 or More Views Paula Flores MD Phone: tel: fax: [address] [phone] Referral ID Status Reason Start Date Expiration Date Visits Re quested Visits Authorized [id number] Closed 08/23/2022 09/22/2023 1 1 ICAL SPECIALTY REP Reason for Visit * Diagnostic Imaging (Routine) - Closed Specialty Diagnoses / Procedures Referred By Contac t Referred To Contact Diagnoses Right hand pain Procedures XR Hand Right 3 or More Views Paula Flores MD Phone: tel: fax: [facility] [address] [place] [address] Referral ID Status Reason Start Date Expiration Date Visits Re quested Visits Authorized [id number] Closed 08/23/2022 09/22/2023 1 1 Encounter Details Date Type Department Care Team (Latest Contact Info) Description 08/25/2022 11:28 AM CLINICAL SPECIALTY REP - 08/25/2022 11:59 PM CLINICAL SPECIALTY REP Hospital Encounter [facility] [address] [place] [address] Left hand pain; Right hand pain Discharge Disposition: Discharge to home or self care Social History Tobacco Use Types Packs/Day Years Used Date Smoking Tobacco: Never Smokeless Tobacco: Never Alcohol Use Standard Drinks/Week Comments Not Currently 0 (1 standard drink = 0.6 oz pur e alcohol) Sex and Gender Information Value Date Recorded Sex Assigned at Not on file Legal 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 CLINICAL SPECIALTY REP Gender Identity Male 08/03/2023 6:13 PM CDT Sexual Orientation Not on file documented as of this encounter Medications at Time of Discharge amLODIPine (NORVASC) 10 mg tablet Take 1 tablet (10 mg total) by mouth early childhood associate before breakfast 08/18/2022 hydroCHLOROthiaz anuj (HYDRODIURIL) 25 mg tablet Take 1 tablet (25 mg total) by mouth early childhood associate before breakfast 3 02/03/2019 loratadine (CLARITIN) 10 mg tablet Take 1 tablet (10 mg total) by mouth early childhood associate before breakfast 3 03/09/2019 losartan (COZAAR) 100 mg tablet Take 1 tablet (100 mg total) by mouth early childhood associate before breakfast 07/25/2022 metoprolol XL (TOPROL-XL) 50 mg extended release tablet Take 1 tablet (50 mg total) by mouth early childhood associate before breakfast 08/08/2022 CARTIA XT 300 mg 24 hr capsuleIndicatio ns:hypertension Take 1 capsule (300 mg total) by mouth early childhood associate before breakfast 3 02/25/2019 3 clotrimazole (LOTRIMIN) [...] Procedure Name Priority Date/Time Associated Diagnosis Comments XR HAND RIGHT 3 OR MORE VIEWS Schedule Routine, Read Routine (OP Routine) 08/25/2022 11:48 AM CLINICAL SPECIALTY REP Right hand pain XR HAND LEFT 3 OR MORE VIEWS Schedule Routine, Read Routine (OP Routine) 08/25/2022 11:48 AM CLINICAL SPECIALTY REP Left hand pain documented in this encounter Results * XR Hand Right 3 or More Views (08/25/2022 11:48 AM CLINICAL SPECIALTY REP) Anatomical Region Laterality Modality Upper Extremities, Hand Right Computed Radiography 08/27/2022 9:00 AM CLINICAL SPECIALTY REP Narrative 08/27/2022 9:02 AM CLINICAL SPECIALTY REP EXAM DESCRIPTION: ?? XR HAND RIGHT 3 OR MORE VIEWS REASON FOR STUDY: Pain in 4th digit for 6 months, no injury ?? TECHNIQUE: ?? Frontal, lateral, and oblique ??radiographic views acquired of the right hand. COMPARISON: ?? None available FINDINGS: Joint alignment is normal. ??There is mild thumb interphalangeal joint osteoarthritis. ??There is no fracture. ??No gross soft tissue abnormality. IMPRESSION: ?? No acute osseous abnormality. Mild thumb interphalangeal joint osteoarthritis. THIS IS AN ELECTRONICALLY VERIFIED FINAL REPORT 08/27/2022 9:02 AM - Electronically signed by ??Derrick SCHMIDT D: ??08/27/2022 9:02 AM T: Report ID: [id number] Reading Location: ??[id number] Procedure Note Derrick Henson MD - 08/27/2022 EXAM DESCRIPTION: XR HAND RIGHT 3 OR MORE VIEWS REASON FOR STUDY: Pain in 4th digit for 6 months, no injury TECHNIQUE: Frontal, lateral, and oblique radiographic views acquired ofthe right hand. COMPARISON: None available FINDINGS: Joint alignment is normal. There is mild thumb interphalangeal joint osteoarthritis. There is no fracture. No gross soft tissue abnormality. IMPRESSION: No acute osseous abnormality. Mild thumb interphalangeal joint osteoarthritis. THIS IS AN ELECTRONICALLY VERIFIED FINAL REPORT 08/27/2022 9:02 AM - Electronically signed by Derrick SCHMIDT T: Report ID: [id number] Reading Location: [id number] us Paula Flores MD IMG XR PROCEDURES Final R esult * XR Hand Left 3 or More Views (08/25/2022 11:48 AM CLINICAL SPECIALTY REP) Anatomical Region Laterality Modality Upper Extremities, Hand Left Computed Radiography 08/27/2022 8:23 AM CLINICAL SPECIALTY REP Narrative 08/27/2022 8:26 AM CLINICAL SPECIALTY REP EXAM DESCRIPTION: ?? XR HAND LEFT 3 OR MORE VIEWS REASON FOR STUDY: Pain in left wrist and proximal metacarpal area since elbowed in wrist 1 month ago ?? TECHNIQUE: ?? Frontal, lateral, and oblique ??radiographic views acquired of the left hand. COMPARISON: ?? None available FINDINGS: BONES/JOINTS: ?? No acute fracture, malalignment or osseous abnormalities. ?? There is mild thumb basal joint osteoarthritis. SOFT TISSUES: ?? Unremarkable. OTHER: ?? No other significant finding. IMPRESSION: ?? No acute osseous abnormality. Mild left thumb basal joint osteoarthritis. THIS IS AN ELECTRONICALLY VERIFIED FINAL REPORT 08/27/2022 8:26 AM - Electronically signed by ??Derrick SCHMIDT D: ??08/27/2022 8:26 AM T: Report ID: [id number] Reading Location: ??[id number] Procedure Note Derrick Henson MD - 08/27/2022 EXAM DESCRIPTION: XR HAND LEFT 3 OR MORE VIEWS REASON FOR STUDY: Pain in left wrist and proximal metacarpal area since elbowed in wrist 1month ago TECHNIQUE: Frontal, lateral, and oblique radiographic views acquired ofthe left hand. COMPARISON: None available FINDINGS: BONES/JOINTS: No acute fracture, malalignment or osseous abnormalities. There is mild thumb basal joint osteoarthritis. SOFT TISSUES: Unremarkable. OTHER: No other significant finding. IMPRESSION: No acute osseous abnormality. Mild left thumb basal joint osteoarthritis. THIS IS AN ELECTRONICALLY VERIFIED FINAL REPORT 08/27/2022 8:26 AM - Electronically signed by Derrick Henson M.D. MZ T: Report ID: [id number] Reading Location: [id number] us Paula Flores MD IMG XR PROCEDURES Final R esult documented in this encounter Visit Diagnoses Diagnosis Left hand pain Pain in soft tissues of limb Right hand pain Pain in soft tissues of limb documented in this encounter Care Teams Noise Abatement Engineer Relationship Specialty Start Date End Date Juan A Quezada MD [address] [place] [address] PCP - General Internal Medicine 03/12/19 07/09/23 documented as of this encounter
--- OUTSIDE RECORDS SUMMARY | 2024-09-28 10:21 | XMS_ITS | Encounter Summary ---
Author Organization [facility] Address [address] [place] [address] Phone Care Team Providers Care Director Surface Transportation Name Role Phone Remy Sevilla DO Primary Care Provider [phone] Reason for Visit * Reason Comments OT Initial Eval * Consultation (Routine) - Closed Specialty Diagnoses / Procedures Referred By Vish t Referred To Contact Occupational Therapy Diagnoses Extensor tendon rupture of hand, left, subsequent encounter Pet, Major Freitas MD [address] [place] [address] Phone: tel: fax: [facility] (All Locations) Referral ID Status Reason Start Date Expiration Date V isits Requested Visits Authorized [id number] Closed Specialty Services Required 08/09/2023 09/07/2024 24 24 Encounter Details Date Type Department Care Team (Late st Contact Info) Description 08/09/2023 2:00 PM CDT Therapy [facility] Occupational Therapy [address] [place] [address] [place] [address] Cuauhtemoc Mckeon, OT [address] [facility] [address] [place] [id number] Rupture of extensor tendon of hand, left, subsequent encounter (Primary Dx); Extensor tendon rupture of hand, left, subsequent encounter Social History Tobacco Use Types Packs/Day [...] on file 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 [facility] Occupational Therapy Evaluation Referring Provider: Major Wyman MD [address] [facility] [address] [place] [address] Rupture of extensor tendon of hand, left, subsequent encounter [J93.189B] Subjective: Juventino arrives today after seeing Dr. Wyman. He is accompanied by his . He reports he sustained extensor tendon ruptures about 6 weeks ago due to arthritis. He underwent surgery for extensor tendonreconstructions 5 days ago. Patient's primary goal:to return to normal functional use of left hand Diagnosis: 1. Attritional rupture of the left ring finger and middle finger at the extensor digitorum communistendons. 2. Bony mass associated with the left digital extensors. 3. Tendon adhesions of the left ring and middle finger extensor tendons. Date of onset: 1 month before surgery Cause of injury: Attritional rupture of tendons Date of surgery: 08/04/23 Surgery details: 1. Excision left hand bony mass, 1.5 [...] autograft. 6. Tenosynovial biopsy, left 4th compartment. Next MD Appointment: 2 weeks Order: Frequency/Duration: 1 x week for up to 12 weeks Md visit: 2 weeks OT/PT Evaluate and Treat: edema/scar mgmt PRN. A/PROM of IP joints in splint. Okay to begin very gentle AROM for wrist as well as MP extension in gravity eliminated out of splint. Have pt work on individual finger lifts in the splint to prevent scar adhesions. MD states this is a very strongly weaved graft. Restrictions: Limit heavy use of L UE; must wear splint Orthosis Specifications: Fabricate L FA-based P1 block for all digits with wrist in 30 degrees extension and Mps in full extension to be worn AAT except protected hygiene/exercises. WHFO without joints, L3808 Purpose: to support affected structures Past Medical History: Diagnosis Date Aftercare following [...] right hip - (Added by TW Conv) Patient has no known allergies. 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 Hobbies: Plays piano Living situation: Lives with Do you feel safe in your home environment?: [x] Yes [] No ADL Status (bathing, grooming, dressing, eating, etc.): [] Independent [x] Independent but with increased time or pain [x] Requires assistance [] Dependent Details: IADL Status (housework, driving, cooking, shopping, etc.) [] Independent [x] Independent but with increased time or pain [x] Requires assistance [] Dependent Details: is driving Leisure activities: [] Able to participate in leisure activities [x] Able to participate but with increased time or pain [x] Unable to participate in leisure activities Details: cannot play piano Sleep: [] Reports adequate sleep to support daily routines [x] Reports inadequate sleep to support daily routines Details: cast was waking him up at night Hand dominance [] Right [] Left [x] Ambidextrous Involved side [] Right [x] Left [] Bilateral Numbness [] Yes [x] No Location: Tingling [] Yes [x] No Location: Pain at rest: 1/10 Pain at worst: 2/10 Are you taking pain medication? [x] Yes [] No Medication using: ibuprofen, hydrocodone, tylenol PRN Objective: Wound/appearance: Sutures intact with no signs of infection. Clinical Exam: Edema: Minimal edema visualized. Range of Motion: Unable to achieve full IP extension in middle and ring finger. Near full hook fist when in orthosis. Will take formal measurements at next visit Pt able to lift index and small finger from orthosis, but not able to lift middle or ring finger from orthosis this date. Treatment Provided: - Initial evaluation performed. - Wound care: covered incision with 2x2 gauze and wrap gauze. Pt issued additional supplies for useat home. - Fabricated and issued a left forearm based P1 blocking orthosis for all digits with wrist in 30 degrees extension and MPs in full extension (WHFO without joints, L3808). Pt to wear at all times, but may remove for protected hygiene. Pt cover in shower. Pt able to don/doff and educated on wear/care. Pt left wearing orthosis. A pre-fabricated orthosis would not properly fit or support upper extremity. - Initiated AROM of IP joints in orthosis 10 reps 4x/day - Initiated AROM MP extension from position in orthosis 10 reps 4x/day - Discussed edema management - continue to elevate and move adjacent joints (elbow, IP joints) - Written instructions provided for all education. All questions answered. Assessment: Pt demonstrated independence/verbalized understanding in: [] HEP [] Don/doff orthosis [x] All tx listed above Assessment details: Juventino is 5 days out from a left middle and ring finger extensor tendon reconstruction after an attritional rupture. He is able to perform a near full hook fist when in the orthosis, but has difficulty with full extension. Finger lifts in orthosis were added to aid with gliding tendon, but pt does demonstrate difficulty with lifting middle/ring finger. Pt verbalizes comfort inorthosis and understanding of all precautions. He will continue to benefit from skilled therapy to ensure appropriate progress through exercises to aid with return to functional use of left hand. Impairment list: [] Coordination [x] Edema [x] Endurance/activity tolerance [x] Fine motor use [] Flexibility [x] Gross motor use [] Muscle tone [x] Pain [x] Range of motion [x] Scar tissue [] Sensation [] Sensory/motor [] Skin integrity [] Strength Other: Functional Limitations: [] ADLs [] Community activities [] Communication [] Education [x] Home management [x] Leisure activities [] Play [] Safety [] Sports [] Work Other: Environmental Barriers: [x] Home [] Work [] Community Barriers to Therapy: None Intervention Approach: [] Health promotion [x] Remediation [] Wellness [] Adaptation [] Prevention Prognosis: [] [...] ability to make a full hook fist New 08/09/2023 08/22/23 LTG1 Pt will report comfort in orthosis for protection during ADLs. New 08/09/2023 08/16/23 LTG2 Pt will demonstrate ability to lift middle/ring finger off table to aid with return to piano New 08/09/2023 11/09/22 LTG3 Pt will demonstrate ability to make a fist (DPC <2cm) when allowed by precautions to aid with return to functional grasping. New 08/09/2023 11/09/22 Plan: Frequency/Duration: 1x/week for up to 12 weeks Plan Details: MHP, scar massage, hook fist, finger lifts, MP extension in gravity eliminated holding wrist in extension (if finger lifts still too hard), add gentle mid range wrist motion, adjust orthosis, add granger part to splint if needed to maintain digit extension Start time: 2:00pm End time: 3:10pm ABIGAIL Triana, OTR/L, CHT If the patient does not return to therapy this will serve as a discharge summary. FOR INSURANCE AUTHORIZATION PURPOSES ONLY: 1. Primary purpose of therapy: Rehabilitation 2. Name tool(s) used during evaluation: N/a 3. Will any of the following be [...] tendon of hand, left, subsequent encounter- Primary Extensor tendon rupture of hand, left, subsequent encounter documented in this encounter Orders Outpatient Referral Count Last Ordered Date st Ordered Date AMB REFERRAL ORDER TO HAND THERAPY 2 2022 documented in this encounter Care Teams Director Surface Transportation Relationship Specialty Start Date End Date Remy Sevilla DO [address] [facility] [address] [place] [address] PCP - General Family Medicine 07/10/23 documented as of this encounter
--- OUTSIDE RECORDS SUMMARY | 2024-09-28 10:21 | XMS_ITS | Encounter Summary ---
Author Organization [facility] Address [address] [place] [address] Care Team Providers Care Oil Pipeline Operator Name Role Phone Juan A Quezada MD Primary Care Provider [phone] Reason for Referral * Procedure (Routine) - Closed Specialty Diagnoses / Procedures Referred By Vish negro Referred To Contact Diagnoses Trigger ring finger of right hand Procedures Hand / Upper Extremity Arthrocentesis: R ring A1 Trisha Harmon PA [address] [place] [address] [address] [place] [address] Phone: tel: fax: [facility] Referral ID Status Reason Start Date Expiration Date Visits Re quested Visits Authorized [id number] Closed 07/09/2021 08/08/2022 1 1 Reason for Visit * Reason Comments Pain Encounter Details Date Type Department Care Team (Late st Contact Info) Description 07/08/2021 3:15 PM CDT Office Visit [facility] Hand Surgery [address] [facility] [facility] [address] [place] [address] Trisha Harmon PA [address] [place] [address] DR [address] [place] [id number] Trigger ring finger of right hand (Primary Dx) Social History Tobacco Use Types Packs/Day Years Used Date Smoking Tobacco: Never Smokeless Tobacco: Never Alcohol Use Standard Drinks/Week Comments Not Currently 0 (1 standard drink = 0.6 oz pur e alcohol) Sex and Gender Information Value Date Recorded Sex Assigned at Not on file 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 Patient ID: Juventino Cormier is a 66 y.o. male. Visit Date: 07/08/2021 Chief Complaint: Chief Complaint Patient presents with ??? Right Ring Finger - Pain HPI: Patient is a 66-year-old ambidextrous male who presents today with complaints of right ring triggerfinger. He has been seen previously for right ring trigger digit, and received an injection on 12/15/2020. He has noticed increased swelling and mild pain. [...] 10 mg triamcinolone 40 mg/mL ANNELIESE Pereyra documented in this encounter Plan of Treatment Not on file documented as of this encounter Procedures Procedure Name Priority Date/Time Associated Diagnosis Comments MT INJECTION 1 TENDON SHEATH/LIGAMENT APONEUROSIS Routine 07/08/2021 3:15 PM CDT Trigger ring finger of right hand documented in this encounter Results * MT INJECTION 1 TENDON SHEATH/LIGAMENT APONEUROSIS (07/08/2021 3:15 PM CDT) Narrative Trisha Harmon PA - 07/08/2021 3:15 PM CDT Trisha Harmon PA ? 07/09/2021 11:17 AM Hand / Upper Extremity Arthrocentesis: R ring [...] mL 1 mL, One-Time Injection, Starting on Mon07/09/21 at 1116, For 1 dose, Indications: Administration of Local AnesthesiaIndications:Administrati on of Local Anesthesia Given 07/09/2021 11:16 AM CDT 1 mL triamcinolone (KENALOG) 40 mg/mL injection 10 mg 10 mg, intra-articular, One-Time Injection, Starting on Mon07/09/21 at 1116, For 1 doseIndications:Trigger ring finger of right hand Given 07/09/2021 11:16 AM CDT 10 mg documented in this encounter Care Teams Oil Pipeline Operator Relationship Specialty Start Date End Date Juan A Quezada MD [address] [place] [address] PCP - General Internal Medicine 03/12/19 07/09/23 documented as of this encounter
--- OUTSIDE RECORDS SUMMARY | 2024-09-28 10:21 | XMS_ITS | Encounter Summary ---
Author Organization [facility] Healthcare Address [address] [place] [address] Care Team Providers Care Health Systems Analyst Name Role Phone Remy Sevilla Primary Care Provider [phone] Reason for Visit * Auth/Cert (Routine) Specialty Diagnoses / Procedures Referred By Vish negro Referred To Contact Diagnoses Tendon rupture of wrist, left, initial encounter Tendon rupture of wrist, left, initial encounter [S66.912A] Procedures RI REPAIR EXTENSOR TENDON FINGER W/GRAFT EACH Left Middle Finger and Ring Finger Tendon Graft Referral ID Status Reason Start Date Expiration Date Visits Re quested Visits Authorized [id number] 1 1 Encounter Details Date Type Department Care Team (Latest Contact Info) Description 08/04/2023 5:13 AM CDT - 08/04/2023 12:38 PM CDT Hospital Encounter [facility] [address] [place] [address] Pet, Major Freitas MD [address] [facility] [address] [place] [address] Tendon rupture of wrist, left, initial encounter Discharge Disposition: Discharge to home or self [...] on file Legal 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 Gender Identity Male 08/03/2023 6:13 PM CDT Sexual Orientation Not on file documented as of this encounter Last Filed Vital Signs Vital Sign Reading Time Taken Comments Blood Pressure 157/83 08/04/2023 12:00 PM CDT Pulse 62 08/04/2023 12:10 PM CDT Temperature 36.1 ??C (97 ??F) 08/04/2023 10:50 AM CDT Respiratory Rate 16 08/04/2023 12:10 PM CDT Oxygen Saturation 100% 08/04/2023 12:10 PM CDT Inhaled Oxygen Concentration - - Weight [...] and ask for the plastic surgery resident solution professional if: You have a fever higher than [...] of narcotic pain medication include Percocet, Oxycontin, Tomball, Hydrocodone, and Oxycodone. Tomball and Percocet both contain 325 mg of [...] narcotic pain medications, you may take an zfuz-fip-thnuygh antihistamine such as Benadryl. Smoking slows wound healing. It increases your chance for infection and other complications including loss of your flap. This applies to e-cigarettes, tobacco, and other nicotine products. Follow up: Follow up is important to ensure the best possible outcome. Please follow-up with Dr. Major Wyman at [facility] [address] [place] [address] - [address] [place] [phone] Call Call to get an appointment in 2 weeks. * Attachments The following attachments cannot be sent through Care Everywhere. * [facility] PATHWAY TO EXCELLENT CARE AFTER SURGERY documented in this encounter Medications at Time of Discharge acetaminophen (TYLENOL) 500 mg tablet Take 1 tablet (500 mg total) by mouth every 6 (six) hours as needed for pain 30 tablet 08/04/2023 amLODIPine (NORVASC) 10 mg tablet Take 1 tablet (10 mg total) by mouth assembler fluorescent lights before breakfast 08/18/2022 ciprofloxacin-hy drocortisone (Cipro HC) otic suspension Administer 3 drops into each ear as needed hydroCHLOROthiaz anuj (HYDRODIURIL) 25 mg tablet Take 1 tablet (25 mg total) by mouth assembler fluorescent lights before breakfast 3 02/03/2019 ibuprofen (ADVIL,MOTRIN) 600 mg tablet Take 1 tablet (600 mg total) by mouth every 6 (six) hours as needed for pain 60 tablet 08/04/2023 loratadine (CLARITIN) 10 mg tablet Take 1 tablet (10 mg total) by mouth assembler fluorescent lights before breakfast 3 03/09/2019 losartan (COZAAR) 100 mg tablet Take 1 tablet (100 mg total) by mouth assembler fluorescent lights before breakfast 07/25/2022 metoprolol XL (TOPROL-XL) 50 mg extended release tablet Take 1 tablet (50 mg total) by mouth assembler fluorescent lights before breakfast 08/08/2022 potassium chloride ER 10 mEq CR tablet Take 1 tablet/capsule (10 mEq total) by mouth assembler fluorescent lights before breakfast HYDROcodone-acet aminophen (NORCO) 5-325 mg per tabletIndication s:Pain Take 1 tablet by mouth every 6 (six) hours as needed for pain (breakthrough pain) 10 tablet 08/04/2023 4 documented as of this encounter Ordered Prescriptions [...] Preoperative Evaluation Record Evaluation type/location: TPAP from [facility] Planned procedure site: [facility] OR (Pod 4) Date: 08/02/23 NOTE: [...] BP - 80 Pertinent negatives: CAD ; LA ; CABG ; valvular heart disease; valve [...] pace without significant SOB or CP. 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 Patient verbalized understanding of preoperative plan. TPAP [...] Past Surgical History: Procedure Laterality Date COLONOSCOPY RI HEMORRHOIDECTOMY INTERNAL RUBBER BAND LIGATIONS Hemorrhoidectomy - (Added by TW Conv) 1980s TOTAL HIP ARTHROPLASTY Bilateral 2009 No Known Allergies Med List Status: Nurse Complete Set By: Nika Ellis RN at 08/02/2023 11:01 AM Taking? Last Dose Start Date End Date Provider amLODIPine (NORVASC) 10 mg tablet 08/02/2023 08/18/22 -- ProviderJennifer MD ciprofloxacin-hydrocortisone (Cipro HC) otic suspension Past Week -- -- ProviderJennifer MD hydroCHLOROthiazide (HYDRODIURIL) 25 mg tablet 08/02/2023 02/03/19 -- Jennifer Higginbotham MD loratadine (CLARITIN) 10 mg tablet 08/02/2023 03/09/19 -- Jennifer Higginbotham MD losartan (COZAAR) 100 mg tablet 08/02/2023 07/25/22 -- Jennifer Higginbotham MD metoprolol XL (TOPROL-XL) 50 mg extended release tablet 08/02/2023 08/08/22 -- ProviderJennifer MD potassium chloride ER 10 mEq CR [...] EKG/Min BPM 52 Atrial Rate BPM 52 RI-Interval (MSEC) ms 178 QRS-Interval (MSEC) ms 96 QT-Interval (MSEC) ms 418 QTc ms 388 P [place] degrees 35 R [place] degrees -31 T [place] degrees 2 Diagnosis Sinus bradycardia Left axis [...] Resident - Assisting Anesthesiologist: Ashley Padilla MD MATERIAL SPECIALIST: Yael Fang CRNA Dean Of Girls: Ashish Saravia RN Scrub: Brian Cummings ST [...] HAND (Left) TENOLYSIS x2 (Left) Operative Findings: [id number] bony mass on dorsal left hand Complete rupture of left hand ring and middle finger extensor tendons Estimated Blood Loss: 10 mL Intraoperative Fluids: Per anesthesia Specimens: ID Type Source Tests Collected by Time A : left wrist bony mass Tissue Mass/Tumor/Lesion SURGICAL PATHOLOGY Major Wyman MD 08/04/202318 B : left extensor tenosynovium Tissue Tendon [...] left 4th compartment. SURGEONS PRESENT Major Wyman, Rob Lobato, Jaclyn Dolan SPECIMENS Left hand bony mass and left [...] tendons using a tenotomy scissor and a [place]. I was eventually able to free them [...] the of the fingers and that they mo briana in concert with the small and the index finger which they were doing well. I did observe duringmy dissection that there was some wear and fray on the extensor indicis proprius and the extensor digitorum communis to the small finger. The extensor digiti quinti and the extensor digitorum communis to the index finger were unaffected. I dropped [...] wrist and forearm. Job ID/Internal Job ID: [id number] * Pre-Procedure Instructions - Karen Cunningham NP - 08/02/2023 1:08 PM CDT [facility] for Preoperative Assessment and Planning CP[facility] Clinic Location: [facility] The night before your surgery: [...] of surgery. * If having surgery at [facility], you may want to bring a credit card if you want to use our Mobile Pharmacy for your discharge medications. Mobile pharmacy is not available at [facility], the [facility], or the [place] [facility]. Outpatient Surgery: * You must have a [...] Planning Perioperative Nursing Note Telephone Preoperative Evaluation ([facility]) - TELEPHONE ONLY, NO PHYSICAL EXAM Date: [...] 1 tablet (10 mg total) by mouth assembler fluorescent lights before breakfast ciprofloxacin-hydrocortisone (Cipro HC) otic suspension Administer 3 drops into each ear as needed hydroCHLOROthiazide (HYDRODIURIL) 25 mg tablet Take 1 tablet (25 mg total) by mouth assembler fluorescent lights before breakfast 3 loratadine (CLARITIN) 10 mg tablet Take 1 tablet (10 mg total) by mouth assembler fluorescent lights before breakfast 3 losartan (COZAAR) 100 mg tablet Take 1 tablet (100 mg total) by mouth assembler fluorescent lights before breakfast metoprolol XL (TOPROL-XL) 50 mg extended release tablet Take 1 tablet (50 mg total) by mouth assembler fluorescent lights before breakfast Implants Other - see comments [...] Directive: Patient does not have advance directive Communication/Technical Writing Lead/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 You should leave your valuables and any jewelry at home. No metal or piercings are allowed in the operating room. You should bring your insurance card, a photo ID (example: Inspector [place]'s License) and a method of payment for [...] Remove nail coverings, artificial nails and nail vincentian. The Morning of Surgery: Take a shower [...] questions, please call the CPAP Staff at [phone], Monday-Monday 8am-4:30pm. All patients should read the below section: COVID 19 Updates & Visitor Policy: Please access [email or web address] for the most updated information. Information on [facility]: Please view [email or web address] (Patient & Visitor Information) for additional details regarding Advanced Directive forms, AWARE, directions, parking information, lodging, Internet access, dining and more. Information on [facility] or [facility] ([facility]): Please view [email or web address] (Patient and Visitor Information) for parking/directions and more. For MyChart information, to activate account or password recovery, please go to [email or web address] or call [phone] (toll-free: [phone]), Mon- Monday 8am-5pm. Information for Suicide Prevention: National Suicide Prevention Lifeline (2-133- 192-HSUW (6724)). Surgery Times: For patients having surgery @ [facility] or [facility] [place] ([facility]), if your surgeon's office has not notified you of your surgery time by NOON THE BUSINESS DAY BEFORE your surgery, please call [phone] and ask for your surgeon's office Dr. [...] Sheath) 08/04/2023 8:27 AM CDT Narrative PATHOLOGY [facility] - 08/11/2023 2:16 PM CDT EPIC results best viewed via link to PDF [facility] [place] [address] Note to Patients: This report may contain [...] Gender: ??M : ??1955 (Age: 68) Address: ??[address] [place], [place] ??[address] Hospital #: ??[id number] Taken:08/04/2023 Received:08/04/2023 Reported: 08/11/2023 Patient Type: [facility] SDS ?? Service: Surgery Location: Physician(s): ??MD Remy Levy D.O. Diagnosis: A. ??Soft tissue, left wrist, excision ? - Heterotopic ossification B. Synovium, left wrist, excision ? - Sub-synovial soft tissues with no histopathological abnormality /08/11/2023 08:28 By this signature, I attest that [...] submitted in cassette B1. ??Jar 0. ? [facility] [place]/08/04/2023 15:46 PA(s): Soha Mckoy By this signature, I attest that the above diagnosis is based upon my personal examination of the slides(and/or other material). Addenda/Procedures The performance characteristics of some immunohistochemical stains, fluorescence in-situ hybridization tests and immunophenotyping by flow cytometry cited in this report (if any) were determined by the Surgical Pathology and Flow Cytometry Departments at [facility] as part of an ongoing research quality assurance analyst program and in compliance with federally mandated [...] Surgical Pathology and Flow Cytometry Departments of [facility]. ??It has not been cleared or approved by the U. S. Food and Drug Administration. IMAGES AND SCANNED DOCUMENTS, IF INCLUDED, ONLY VIEWABLE IN PDF VERSION OF REPORT Major Wyman MD LAB PATHOLOGY ORDERABLES Final Result PATHOLOGY [facility] [address] [place], [place] [phone] documented in this encounter Visit Diagnoses Diagnosis Tendon rupture of wrist, left, initial encounter documented in this encounter Admitting Diagnoses Diagnosis Tendon rupture of wrist documented in this encounter Administered Medications Inactive Administered Medications - up to 3 most recent administrations Medication Order MAR Action Action Date Dose Rate Site HYDROcodone-acetaminophen (NORCO) 5-325 mg per tablet [...] 08/04/2023 7:25 AM CDT 30 mL/h r documented in this encounter Discontinued Medications Medication Sig Discontinue Reason Start Date End Da te CARTIA XT 300 mg 24 hr capsuleIndications:hype rtension Take 1 capsule (300 mg total) by mouth assembler fluorescent lights before breakfast 02/25/2019 08/02/2023 enalapril (VASOTEC) 5 mg tablet 1 tablet (5 mg total) 08/02/2023 documented as of this encounter Historical Medications * This list may reflect changes made after this encounter. potassium chloride ER 10 mEq CR tablet Take 1 tablet/capsule (10 mEq total) by mouth assembler fluorescent lights before breakfast added in this encounter Active [...] nebu lizer solution 2.5 mg 1 08/04/2023 BUPivacaine-EPINEPHrine (MAR MARTITA with EPI) 0.25 %-1:200,000 preservative free injection 1 08/04/2023 Carrier Fluids for Secondary Infusion [...] chloride 0.9% flush 0.5-20 mL 1 07/10 sodium chloride 0.9% irrigation 1 3 Discharge Count Last Ordered Date First Orde red Date DISCHARGE PATIENT 1 08/04/2023 documented in this encounter Care Teams Health Systems Analyst Relationship Specialty Start Date End Date Remy Sevilla DO [address] [facility] [address] [place] [id number] PCP - General Family Medicine 07/10/23 documented as of this encounter
--- OUTSIDE RECORDS SUMMARY | 2024-09-28 10:21 | XMS_ITS | Encounter Summary ---
Author Organization [facility] Address [address] [place] [address] Phone Care Team Providers Care Unit Assistant Name Role Phone Remy Sevilla DO Primary Care Provider [phone] Reason for Visit * Consultation (Routine) - Closed Specialty Diagnoses / Procedures Referred By Vish negro Referred To Contact Plastic Surgery Diagnoses Wrist injury, left, initial encounter Remy Sevilla DO [address] [facility] [address] [address] Phone: tel: fax: Major Wyman MD [address] [place] [address] Phone: tel: fax: Referral ID Status Reason Start Date Expiration Date V isits Requested Visits Authorized [id number] Closed Specialty Services Required 07/21/2023 08/19/2024 99 99 Encounter Details Date Type Department Care Team (Late st Contact Info) Description 12/20/2023 1:00 PM CDT Office Visit [facility] Surgery [address] 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 You may receive a call from [facility] even if you do not need an appointment. They are with the anesthesia department and just want to be prepared for yoursurgery. Surgery Please note - Surgery dates and times can and often DO change and can be as early as a 5:30 a.m. arrival. We will call you to confirm details and arrival time the day before your surgery. Date: Friday, January 05, 2024 Approximate Arrival Time: 6:30 a.m. Admittance Type: Outpatient - The patient will be released home after surgery. Make sure to arrangefor a responsible person to take the patient home. They will not discharge unless they can release the patient to the care of a responsible adult. Location: [facility] - [address] [place] [id number] - 4th Floor - Use Regional Sales Representative Parking from 6:00 a.m. to 7:00 p[address] [facility] on 3rd floor - Report to Surgery Registration. - More information about the [facility] is available at [email or web address] Before Surgery: Our precertification department will contact your insurance to obtain any needed authorizations. If instructed, complete your preoperative testing by the day before surgery. Follow instructions given by the [facility] ([facility].) Even if you don't need an appointment, you may receive a call from [facility] to review preparation instructions. If you take anticoagulants / blood thinners such as Aspirin, Warfarin, Coumadin, Plavix, Heparin, Ticlid, or Lovenox, your Primary Care Physician or Commercial Lender must be consulted before discontinuing prior to surgery. Stop all herbal medications, vitamin E, diet pills, multivitamins, and NSAIDS such as Ibuprofen, Advil, Motrin, Nuprin, Aleve, Naprosyn, or Naproxen 1 to 10 days prior to surgery. If you develop a cold or flu-like symptoms before surgery, please call our office at [phone] to report this. If you are ill, we may have to cancel or postpone your surgery, so please give us as much notice as possible. Please do not smoke, drink alcoholic beverages, or indulge in any other recreational drugs (tobacco, cannabis, etc) during the 24 hours before your surgery. The Day of Surgery: If you are being sedated, nothing to eat after midnight the night before surgery. You may brush your teeth with no swallowing. Small sips of water are permitted to take any required medication. You may have clear liquids up to 2 hours before your arrival time to the hospital or surgery center. Clear liquids include Apple Juice, Black Coffee, Chicken/Beef Boullion or Broth, Crystal Light, Gatorade, Walter-Aid, Lemonade, Plain Jell-O, Popsicles, Soda/Pop, Tea, Water, and White Grape Juice. Stop drinking all liquids 2 hours before your arrival time. If you are diabetic, DO NOT TAKE ANY DIABETIC PILLS OR INSULIN the morning of surgery. Your blood sugar will be checked at the hospital prior to surgery and will be taken care of as needed. Bring your Photo ID, Insurance Card, and a List of Medications you are taking or the bottles themselves to surgery with you. Arrival time will be 2 hours before your surgery time. There may be periods where you will be waiting. Patients under the age of 18 must be accompanied by an adult. The absence of a responsible adult will result in delay or cancellation of your procedure. You may have up to 2 people in the waiting room while the procedure goes on. Do not wear any jewelry, make-up, nail afghan, hair clips, or contact lenses the day of surgery. Bring your contact lens case and cleaning solution to the hospital if you wear contacts. Do not bring any valuables with you to the hospital, or they will have to be placed with security or left with an accompanying person in the waiting room. After you have checked in at the surgery center, your lab work and other testing will be reviewed. You will then be escorted to the holding room where you will change into [facility] and be interviewed by several members of the health care team. For your safety, you will be asked your name and date of several times. After your surgical procedure, you will be taken to the recovery room, where your blood pressure will be checked and oxygen may be given to you. If you are returning home after your surgery, a nurse will review your post-operative instructions and prepare you for discharge from the hospital. If youare staying overnight, you will be taken to your room. Your family may then join you. After Surgery: It is strongly recommended you have someone to stay with you for the first 24 hours after your procedure. There will be a follow up appointment on your discharge paperwork after surgery. It is important for us to see you after the surgery. If you need to move this appointment, please call our Call Centerat [phone]. If you have Family and Medical Leave Act (FMLA) paperwork for yourself or a family member or short term disability paperwork, it should be faxed to the office at [phone] Attn: Dr. Major Wyman. These can take up to 14 days to process. If you are having medical issues after your surgery, please call the Nurse's Line at [phone] or through [employer]. Please note these methods are not monitored after hours or over weekends.. If you are having medical issues after business hours, calls should be made to [phone], and ask for the Plastic Surgery resident environmental compliance technician. Important Phone Numbers: Nurse's Line - [phone] Nurse's Fax - [phone] [facility] - [phone] Office Fax - [phone] [facility] Billing - [phone] [facility] Billing - [phone] [facility] - [phone] Appointments: [phone] documented in this encounter Progress Notes * Fabian Arambula MD PhD - 12/20/2023 1:00 PM CDT PLASTIC & RECONSTRUCTIVE SURGERY CLINIC ESTABLISHED PATIENT NOTE Patient: Juventino Cormier : 1955 PCP: Remy Sevilla DO DATE OF VISIT: 12/20/2023 PROCEDURE: Left intercalary tendon graft reconstruction of his middle and ring finger extensors. HISTORY OF PRESENT ILLNESS: Juventino Cormier is a 68 y.o. male who underwent the above procedure. Patient is recovering well. Pain controlled. No fevers, chills, erythema, incisional dehiscence. The patient does still notice incomplete extension at the left ring finger MPJ that has not improved since his last visit. The extensor lag is worse with supination. He is able to complete his ADLs and does not have any pain currently. 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 REVIEW OF SYSTEMS: A thorough review of systems was performed per the patients general health questionnaire. All systems are negative except for history of present illness per patient questionnaire. PHYSICAL EXAM: General: NAD, resting comfortably LUE: Left hand and forearm with well-healing surgical incision over the dorsum of the ulnar hand. No signs of infection. There is approximately 20 degrees of extension lag at the ring finger MP jointin pronation and 30 degrees with wrist supination. There is good tension on the tendon repair with attempted MPJ extension. There is palpable catching of the RF extensor tendon at the scar site and decreased excursion. ASSESSMENT AND PLAN: Juventino Cormier is a 68 y.o. male s/p left intercalary tendon graft reconstruction of his middle andring finger extensors on 08/04/23. He is doing well postoperatively but does still have bothersome extensor lag at the ring finger MP. While he does not have pain and is not limited in completing is a ctivities of daily living, he would like to improve his finger extension. I suspect that this is due to excess scar tissue around the site of tendon repair. Other causes, including insufficient tendon tensioning, are less likely as there is excellent tendon pull with attempted MP extension in the ring and small fingers. We discussed tenolysis to reduce adhesions and scar tissue burden around his repair in the office today. I would pursue this under local anesthesia with the patient wide awake to test voluntary MPJ extension in real time. We discussed the risks and benefits of surgery including bleeding, infection, incomplete scar release, and tendon rupture, and he would like to proceed. Demetriwill work to get this scheduled for him at his earliest convenience. He knows to call the office with questions or concerns in the meantime. I did speak with him about the possibility that tenolysis does not restore full active extension. If this is the case he is very clear that he would not like he [id number] tenodesis. Also, I would hesitate to cut and repair his tendon again. More likely I would probably put an imbricating stitch in the tendon and then protected while things heal in. Cosigned by Major Wyman MD at 12/20/2023 2:38 PM CDT Associated attestation - Major Wyman MD - 12/20/2023 2:38 PM CDT I have seen and examined the patient. I agree with the findings and plan of care as documented in the resident/fellow's note. My total encounter time on 12/20/2023 was 30 minutes which was spent in the activities documented in the note. This includes time spent prior to the visit and after the visitin direct care of the patient. This time does not include time spent in any separately reportable services. documented in this encounter Plan of Treatment Not on file documented as of this encounter Visit Diagnoses Diagnosis Extensor tendon adhesions- Primary documented in this encounter Care Teams Unit Assistant Relationship Specialty Start Date End Date Remy Sevilla DO [address] [place] [address] [address] [place] [phone] PCP - General Family Medicine 07/10/23 documented as of this encounter
--- OUTSIDE RECORDS SUMMARY | 2024-09-28 10:21 | XMS_ITS | Encounter Summary ---
Author Organization [facility] Healthcare Address [address] [place] [address] Care Team Providers Care Desk Top Publisher Name Role Phone Remy Sevilla Primary Care Provider [phone] Encounter Details Date Type Department Care Team (Late st Contact Info) Description 07/31/2023 Telephone [facility] Medical Group Hand Surgery [address] [place] [address] [place] [phone] Paula Flores MD [address] [place] [address] [address] Social History Tobacco Use Types Packs/Day Years Used Date Smoking Tobacco: Never Smokeless Tobacco: Never Alcohol Use Standard Drinks/Week Comments Not Currently 0 (1 standard drink = 0.6 oz pur e alcohol) AUDIT-C Answer Date Recorded Q1: How often do you have a drink containing alc ohol? Monthly or less 07/24/2023 Q2: How many drinks containi ng alcohol do you have on a typical day when you are drinking? 1 or 2 07/24/2023 Q3: How often do you have si x or more drinks on one occasion? 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 Pt was reminded not to eat or drink after Midnight. Understanding was voiced documented in this encounter Plan of Treatment Not on file documented as of this encounter Visit Diagnoses Not on filedocumented in this encounter Care Teams Desk Top Publisher Relationship Specialty Start Date End Date Remy Sevilla DO [address] [place] [facility] [place] [address] [address] PCP - General Family Medicine 07/10/23 documented as of this encounter
--- OUTSIDE RECORDS SUMMARY | 2024-09-28 10:21 | XMS_ITS | Encounter Summary ---
Author Organization [facility] Healthcare Address [address] [place] [address] Care Team Providers Care Financial Rep Name Role Phone Di Remy YOUNGBLOOD Primary Care Provider [phone] Reason for Visit * Reason Onset Date Comments CANCEL SURGERY 07/31/2023 Encounter Details Date Type Department Care Team (Late st Contact Info) Description 07/31/2023 Telephone [facility] Medical Group Hand Surgery [address] [facility] [address] [place] [phone] Paula Flores MD [address] [place] [id number] CANCEL SURGERY Social History Tobacco Use Types Packs/Day Years [...] on file 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 He will call back if he wants to reschedule. Dr Flores is aware and surgery canceled. * Telephone Encounter - Jacinda Barrett MA - 08/01/2023 8:18 AM CDT Left message for pt to call back. * Telephone Encounter - Ciarra Paris - 07/31/2023 3:39 PM CDT ESD Pt would like to cancel surgery. Pt would like to wait to get surgery and try another way. Surgery is 08/02/23 documented in this encounter Plan of Treatment Not on file documented as of this encounter Visit Diagnoses Not on filedocumented in this encounter Care Teams Financial Rep Relationship Specialty Start Date End Date Remy Sevilla DO [facility] [place] [address] [place] [address] [place] [address] PCP - General Family Medicine 07/10/23 documented as of this encounter
--- OUTSIDE RECORDS SUMMARY | 2024-09-28 10:21 | XMS_ITS | Encounter Summary ---
Author Organization [facility] Address [address] [address] Care Team Providers Care Tool Coordinator Name Role Phone Juan A Quezada MD Primary Care Provider [phone] Reason for Referral * Procedure (Routine) - Closed Specialty Diagnoses / Procedures Referred By Contac t Referred To Contact Diagnoses Left hand pain Procedures Medium Joint (Ankle, Elbow, Shoulder (AC), Wrist) Injection: L radiocarpal Paula Flores MD Phone: tel: fax: [facility] Referral ID Status Reason Start Date Expiration Date Visits Re quested Visits Authorized [id number] Closed 08/25/2022 09/24/2023 1 1 ENISHMENT ANALYST * Procedure (Routine) - Closed Specialty Diagnoses / Procedures Referred By Contac t Referred To Contact Diagnoses Trigger ring finger of right hand Procedures Hand / Upper Extremity Arthrocentesis: R ring A1 Paula Flores MD Phone: tel: fax: [facility] Referral ID Status Reason Start Date Expiration Date Visits Re quested Visits Authorized [id number] Closed 08/25/2022 09/24/2023 1 1 ENISHMENT ANALYST * Diagnostic Imaging (Routine) - Closed Specialty Diagnoses / Procedures Referred By Vish negro Referred To Contact Diagnoses Right hand pain Procedures XR Hand Right 3 or More Views Paula Flores MD Phone: tel: fax: [address] [phone] Referral ID Status Reason Start Date Expiration Date Visits Re quested Visits Authorized [id number] Closed 08/23/2022 09/22/2023 1 1 ENISHMENT ANALYST * Diagnostic Imaging (Routine) - Closed Specialty Diagnoses / Procedures Referred By Vish negro Referred To Contact Diagnoses Left hand pain Procedures XR Hand Left 3 or More Views Paula Flores MD Phone: tel: fax: [address] [phone] Referral ID Status Reason Start Date Expiration Date Visits Re quested Visits Authorized [id number] Closed 08/23/2022 09/22/2023 1 1 ENISHMENT ANALYST Reason for Visit * Reason Comments Pain Muscle Weakness Numbness Trigger Finger Encounter Details Date Type Department Care Team (Late st Contact Info) Description 08/25/2022 11:30 AM REPLENISHMENT ANALYST Office Visit [facility] Hand Surgery [facility] [address] [phone] Paula Flores MD [address] [place] [id number] Left hand pain (Primary Dx); Right hand pain; Trigger ring finger of right hand Social History Tobacco Use Types Packs/Day Years Used Date Smoking Tobacco: Never Smokeless Tobacco: Never Alcohol Use Standard Drinks/Week Comments Not Currently 0 (1 standard drink = 0.6 oz pur e alcohol) Sex and Gender Information Value Date Recorded Sex Assigned at Not on file Legal 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 REPLENISHMENT ANALYST Gender Identity Male 08/03/2023 6:13 PM CDT Sexual Orientation Not on file documented as of this encounter Progress Notes * Paula Flores MD - 08/25/2022 11:30 AM CSTAssociated Order(s): Hand / Upper Extremity Arthrocentesis: R ring A1; Medium Joint (Ankle, Elbow, S houlder (AC), Wrist) Injection: L radiocarpal Post-Procedure Diagnose(s): Trigger ring finger of right hand; Left hand pain Images from the original note were not included. FOLLOW UP VISIT Subjective CHIEF COMPLAINT He had no chief complaint listed for this encounter. HISTORY OF PRESENT ILLNESS The patient is a 67-year-old ambidextrous male who presents today for evaluation of a right ring trigger finger as well as an injury to the left wrist. He states that he is had trigger finger for multiple months however it has been worse over the last weeks . He describes pain swelling and triggering multiple times per day. He previously tried corticosteroid injections and would like to try this a gain. With regard to the left wrist injury he states that he was worsening around with his nephew when his nephew struck the dorsal aspect of his left wrist. States he is got dull aching moderate to severe pain which is worse with gripping things and better with rest. He notes that his pain is activity related and is worse with wrist movement. He is tried icing which has failed to relieve his symptoms. He is not tried any corticosteroid injections or bracing for this problem. MEDICATIONS He has a current medication list which includes the following prescription(s): cartia xt, clotrimazole, doxazosin, enalapril, hydrochlorothiazide, loratadine, losartan, and naproxen. REVIEW OF SYSTEMS Constitutional: Negative [...] the patient is able make a composite fist and fully extend all digits. He has sensation intact to light touch in the median, radial, and ulnar distribution. He is got tenderness to palpation over the radiocarpal joint and pain with resisted wristflexion extension. He does have full active range of motion. There is no swelling or ecchymosis. Heis no tenderness to palpation over his 1st CMC joint or 1st dorsal compartment. He is no tendernessto palpation over his 4th dorsal compartment, 6 dorsal compartment. He is no tenderness to palpation over his SL or LT interval. DRUJ is stable in supination, pronation and neutral. He is no tenderness to palpation over his ulnar fovea. Examination of the right upper extremity demonstrates the patient has tenderness to palpation over the right ring finger A1 ludy. There is clicking on exam but no obvious triggering. He is full active range of motion of the hands able make fist fully extend all digits. His sensation is intact to light touch in the median, radial, and ulnar distribution. His digits are warm and well perfused. REVIEW OF X-RAYS/STUDIES/LABS X-rays of the left hand dated today were reviewed by me and demonstrate no fractures, dislocations or malalignment. There is joint space narrowing and sclerosis particularly at the 1st MP joint as well as multiple IP joints consistent with osteoarthritis. There is also joint space narrowing and scle rosis at the radiocarpal joint as well as DRUJ consistent with osteoarthritis. X-rays of the right hand dated today were reviewed by me and demonstrate no fractures, dislocationsor malalignment. There is joint space narrowing and sclerosis particularly at the 1st MP joint as well as multiple IP joints consistent with osteoarthritis. Assessment/Plan Diagnoses and all orders for this visit: Left hand pain - XR Hand Left 3 or More Views; Future Right hand pain - XR Hand Right 3 or More Views; Future Hand / Upper Extremity Arthrocentesis: R ring A1 Performed by: Paula Flores MD Authorized by: Paula Flores MD Hand/Upper Extremity Injection: Consent Given by: Patient Site marked: the procedure site was marked Timeout: prior to procedure the correct patient, procedure, and site was verified Verbal consent obtained?: Yes Written consent obtained?: Yes Supporting Documentation: Indications: Pain Procedure Details: Condition: trigger finger Location: Ring finger Site: R ring A1 Prep: patient was prepped and draped in usual sterile fashion Prep: patient was prepped using a clean technique Medications: 40 mg triamcinolone 40 mg/mL; 1 mL lidocaine 10 mg/mL (1 %) Medium Joint (Ankle, Elbow, Shoulder (AC), Wrist) Injection: L radiocarpal Performed by: Paula Flores MD Authorized by: Paula Florse MD Medium Joint Injection/Aspiration: Consent Given by: Patient Verbal consent obtained?: Yes Written consent obtained?: Yes Supporting Documentation: Indications: Pain Procedure Details: Location: Wrist Site: L radiocarpal Prep: patient was prepped and draped in usual sterile fashion Medications: 1 mL lidocaine 10 mg/mL (1 %); 40 mg triamcinolone 40 mg/mL Patient tolerance: Patient tolerated the procedure well with no immediate complications PLAN This is a 67-year-old xivhc-mdde-fqviaxpj male who presents today with left radiocarpal osteoarthritis as well as a right ring trigger finger. I reviewed with the patient the relevant anatomy in the diagnosis. We discussed forms of non operative management including rest, ice, anti-inflammatory medications, activity modification, bracing and corticosteroid injection. We discussed the risks and benefits of a corticosteroid injection including but not limited to pain, infection, bleeding, risk to neurovascular structures, incomplete resolution of symptoms, increased blood sugar, and future surgery. I have given the patient an oval 8 splint to wear for his ring trigger finger. Additionally he wished to undergo corticosteroid injectionsfor his right ring trigger finger as well as left radiocarpal osteoarthritis. This was provided by me. He will return to see me in 8 weeks time for repeat evaluation. PROCEDURE NOTE: After a discussion of the indications and risks, the site was confirmed with a formal timeout. Using aseptic technique the finger was prepped and the base of the digit was topically anesthetized with Ethyl Chloride. Approximately 1 cc of a combination of Kenalog 40 milligram per cc and Lidocaine 1% without epinephrine was instilled in the flexor sheath by myself. A sterile dressing was applied and the patient tolerated it well. No adverse reactions were observed. PROCEDURE NOTE: After a discussion of the indications and risks, the site was confirmed with a formal timeout. Using aseptic technique the left wrist was prepped and topically anesthetized with EthylChloride. Approximately 1cc of a combination of Kenalog 40 milligram per cc and Lidocaine 1% without epinephrine was instilled into the radiocarpal joint. A sterile dressing was applied and the patient tolerated it well. No adverse reactions were observed Paula Flores MD ENISHMENT ANALYST documented in this encounter Plan of Treatment Not on file documented as of this encounter Procedures Procedure Name Priority Date/Time Associated Diagnosis Comments SC INJECTION 1 TENDON SHEATH/LIGAMENT APONEUROSIS Routine 08/25/2022 11:30 AM REPLENISHMENT ANALYST Trigger ring finger of right hand SC ARTHROCENTESIS ASPIR&/INJ INTERM JT/BURS W/O US Routine 08/25/2022 11:30 AM REPLENISHMENT ANALYST Left hand pain documented in this encounter Results * XR Hand Right 3 or More Views (08/25/2022 11:48 AM REPLENISHMENT ANALYST) Anatomical Region Laterality Modality Upper Extremities, Hand Right Computed Radiography 08/27/2022 9:00 AM REPLENISHMENT ANALYST Narrative 08/27/2022 9:02 AM REPLENISHMENT ANALYST EXAM DESCRIPTION: ?? XR HAND RIGHT 3 [...] D: ??08/27/2022 9:02 AM T: Report ID: [id number] Reading Location: ??[id number] Procedure Note Derrick Henson MD - 08/27/2022 [...] 9:02 AM - Electronically signed by Derrick Henson M.D. MZ T: Report ID: [id number] Reading Location: [place] [address] us Paula Flores MD IMG XR PROCEDURES Final R esult * XR Hand Left 3 or More Views (08/25/2022 11:48 AM REPLENISHMENT ANALYST) Anatomical Region Laterality Modality Upper Extremities, Hand Left Computed Radiography 08/27/2022 8:23 AM REPLENISHMENT ANALYST Narrative 08/27/2022 8:26 AM REPLENISHMENT ANALYST EXAM DESCRIPTION: ?? XR HAND LEFT 3 [...] D: ??08/27/2022 8:26 AM T: Report ID: [id number] Reading Location: ??[id number] Procedure Note Derrick Henson MD - 08/27/2022 [...] Derrick Henson M.D. MZ T: Report ID: [id number] Reading Location: [place] [address] us Paula Flores MD IMG XR PROCEDURES Final R esult * SC ARTHROCENTESIS ASPIR&/INJ INTERM JT/BURS W/O US (08/25/2022 11:30 AM REPLENISHMENT ANALYST) Narrative Paula Flores MD - 08/25/2022 11:30 AM REPLENISHMENT ANALYST Paula Flores MD ? 08/28/2022 ??6:26 AM Medium Joint (Ankle, Elbow, Shoulder (AC), Wrist) Injection: L radiocarpal Performed by: Paula Flores MD Authorized by: Paula Flores MD Medium Joint Injection/Aspiration: ??Consent Given by: ??Patient ??Verbal consent obtained?: Yes ?Written consent obtained?: Yes ?? Supporting Documentation: ??Indications: ??Pain Procedure Details: ??Location: ??Wrist ??Site: ??L radiocarpal ??Prep: patient was prepped and draped in usual sterile fashion ?Medications: ??1 mL lidocaine 10 mg/mL (1 %); 40 mg triamcinolone 40 mg/mL ??Patient tolerance: ??Patient tolerated the procedure well with no immediate complications us Paula Flores MD IN CLINIC/BEDSIDE ORDERAB LES Final Result * SC INJECTION 1 TENDON SHEATH/LIGAMENT APONEUROSIS (08/25/2022 11:30 AM REPLENISHMENT ANALYST) Narrative Paula Flores MD - 08/25/2022 11:30 AM REPLENISHMENT ANALYST Paula Flores MD ? 08/28/2022 ??6:26 AM Hand / Upper Extremity Arthrocentesis: R ring A1 Performed by: Paula Flores MD Authorized by: Paula Flores MD Hand/Upper Extremity Injection: ??Consent Given by: ??Patient ??Site marked: the procedure site was marked ?Timeout: prior to procedure the correct patient, procedure, and site was verified ?Verbal consent obtained?: Yes ?Written consent obtained?: Yes ?? Supporting Documentation: ??Indications: ??Pain Procedure Details: ??Condition: trigger finger ?Location: ??Ring finger ??Site: ??R ring A1 ??Prep: patient was prepped and draped in usual sterile fashion ?Prep: patient was prepped using a clean technique ?Medications: ??40 mg triamcinolone 40 mg/mL; 1 mL lidocaine 10 mg/mL (1 %) us Paula Flores MD IN CLINIC/BEDSIDE ORDERAB LES Final Result documented in this encounter Visit Diagnoses Diagnosis Left hand pain- Primary Pain in soft tissues of limb Right hand pain Pain in soft tissues of limb Trigger ring finger of right hand Left hand pain Pain in soft tissues of limb Right hand pain Pain in soft tissues of limb documented in this encounter Administered Medications Inactive Administered Medications - up to 3 most recent administrations Medication Order MAR Action Action Date Dose Rate Site lidocaine (XYLOCAINE) 10 mg/mL (1 %) injection 1 mL 1 mL, One-Time Injection, Starting on Leatha 08/25/22 at 1204, For 1 dose, Indications: Administration of Local AnesthesiaIndications:Admin istration of Local Anesthesia Given 08/25/2022 12:04 PM REPLENISHMENT ANALYST 1 mL Left Wrist lidocaine (XYLOCAINE) 10 mg/mL (1 %) injection 1 mL 1 mL, One-Time Injection, Starting on Leatha 08/25/22 at 1204, For 1 dose, Indications: Administration of Local AnesthesiaIndications:Admin istration of Local Anesthesia Given 08/25/2022 12:04 PM REPLENISHMENT ANALYST 1 mL Right Ring Finger triamcinolone (KENALOG) 40 mg/mL injection 40 mg 40 mg, intra-articular, One-Time Injection, Starting on Leatha 08/25/22 at 1204, For 1 doseIndications:Left hand pain Given 08/25/2022 12:04 PM REPLENISHMENT ANALYST 40 mg Left Wrist triamcinolone (KENALOG) 40 mg/mL injection 40 mg 40 mg, intra-articular, One-Time Injection, Starting on Leatha 08/25/22 at 1204, For 1 doseIndications:Trigger ring finger of right hand Given 08/25/2022 12:04 PM REPLENISHMENT ANALYST 40 mg Right Ring Finger documented in this encounter Historical Medications * This list may reflect changes made after this encounter. losartan (COZAAR) 100 mg tablet Take 1 tablet (100 mg total) by mouth washing machine repairer before breakfast 07/25/2022 metoprolol XL (TOPROL-XL) 50 mg extended release tablet Take 1 tablet (50 mg total) by mouth washing machine repairer before breakfast 08/08/2022 amLODIPine (NORVASC) 10 mg tablet Take 1 tablet (10 mg total) by mouth washing machine repairer before breakfast 08/18/2022 added in this encounter Care Teams Tool Coordinator Relationship Specialty Start Date End Date Juan A Quezada MD [address] [place] [address] PCP - General Internal Medicine 03/12/19 07/09/23 documented as of this encounter
--- OUTSIDE RECORDS SUMMARY | 2024-09-28 10:21 | XMS_ITS | Encounter Summary ---
Author Organization [facility] Address [address] [place] [address] Care Team Providers Care Health Information Management Director Name Role Phone Remy Sevilla DO Primary Care Provider [phone] Reason for Referral * Diagnostic Imaging (Routine) - Closed Specialty Diagnoses / Procedures Referred By Vish negro Referred To Contact Diagnoses Left hand pain Procedures XR Hand Left 3+ Vw [facility] [address] [place] [address] Phone: tel: fax: [address] [phone] Referral ID Status Reason Start Date Expiration Date Visits Re quested Visits Authorized [id number] Closed 07/10/2023 08/08/2024 1 1 Reason for Visit * Diagnostic Imaging (Routine) - Closed Specialty Diagnoses / Procedures Referred By Vish negro Referred To Contact Diagnoses Left hand pain Procedures XR Hand Left 3+ Vw [facility] [address] [place] [address] Phone: tel: fax: [address] [phone] Referral ID Status Reason Start Date Expiration Date Visits Re quested Visits Authorized [id number] Closed 07/10/2023 08/08/2024 1 1 Encounter Details Date Type Department Care Team (Latest Contact Info) Description 07/10/2023 10:02 AM CDT - 07/10/2023 11:59 PM CDT Hospital Encounter [facility] IM [address] [place] [address] Left hand pain Discharge Disposition: Discharge to home or self care Social History Tobacco Use Types Packs/Day Years Used Date Smoking Tobacco: Never Smokeless Tobacco: Never Alcohol Use Standard Drinks/Week Comments Not Currently 0 (1 standard drink = 0.6 oz pur e alcohol) Sex and Gender Information Value Date Recorded Sex Assigned at Not on file Legal 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 BACK GRAY 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 WASHER Gender Identity Male 08/03/2023 6:13 PM CDT Sexual Orientation Not on file documented as of this encounter Medications at Time of Discharge amLODIPine (NORVASC) 10 mg tablet Take 1 tablet (10 mg total) by mouth brick setter before breakfast 08/18/2022 hydroCHLOROthiaz anuj (HYDRODIURIL) 25 mg tablet Take 1 tablet (25 mg total) by mouth brick setter before breakfast 3 02/03/2019 loratadine (CLARITIN) 10 mg tablet Take 1 tablet (10 mg total) by mouth brick setter before breakfast 3 03/09/2019 losartan (COZAAR) 100 mg tablet Take 1 tablet (100 mg total) by mouth brick setter before breakfast 07/25/2022 metoprolol XL (TOPROL-XL) 50 mg extended release tablet Take 1 tablet (50 mg total) by mouth brick setter before breakfast 08/08/2022 CARTIA XT 300 mg 24 hr capsuleIndicatio ns:hypertension Take 1 capsule (300 mg total) by mouth brick setter before breakfast 3 02/25/2019 3 clotrimazole (LOTRIMIN) [...] Priority Date/Time Associated Diagnosis Comments XR HAND LEFT 3 OR MORE VIEWS Schedule Routine, Read Routine (OP Routine) 07/10/2023 10:09 AM CDT Left hand pain documented in this encounter Results * XR Hand Left 3+ Vw (07/10/2023 [...] distally with overlying soft tissue swelling. ?? Qwhi-wq-rgziloxb proximal and distal interphalangeal joint fingers, interphalangeal joint thumb and basal joint thumb osteoarthritis are unchanged. IMPRESSION: Increased displacement of dorsal ossific fragment in the wrist with adjacent soft tissue swelling overlying the carpometacarpal joints. ??The donor site is uncertain and CT would be helpful to further evaluate if clinically indicated. Unchanged bdkd-xq-lqjpjqgp interphalangeal joints fingers, interphalangeal joint thumb and basal joint thumb osteoarthritis. THIS IS AN ELECTRONICALLY VERIFIED FINAL REPORT 07/10/2023 12:33 PM - Electronically signed by ??Owen Ireland M.D. TH: TH D: ??07/10/2023 12:33 PM T: ??07/10/2023 12:33 PM Report ID: [id number] Reading Location: ??[id number] Procedure Note Owen Ireland MD - 07/10/2023 [...] displaced distally with overlying soft tissue swelling. Ckyx-xq-udrslypy proximal and distal interphalangeal joint fingers, interphalangeal joint thumb and basal joint thumb osteoarthritis are unchanged. IMPRESSION: Increased displacement of dorsal ossific fragment in the wrist withadjacent soft tissue swelling overlying the carpometacarpal joints. The donor siteis uncertain and CT would be helpful to further evaluate if clinicallyindicated. Unchanged nqor-ar-hjtrelws interphalangeal joints fingers,interphalangeal joint thumb and basal joint thumb osteoarthritis. THIS IS AN ELECTRONICALLY VERIFIED FINAL REPORT 07/10/2023 12:33 PM - Electronically signed by Owen Ireland M.D. TH: Report ID: [id number] Reading Location: [id number] us Paula Flores MD IMG XR PROCEDURES Final R esult documented in this encounter Visit Diagnoses Diagnosis Left hand pain Pain in soft tissues of limb documented in this encounter Care Teams Health Information Management Director Relationship Specialty Start Date End Date Remy Sevilla DO [address] [facility] [address] [place] [id number] PCP - General Family Medicine 07/10/23 documented as of this encounter
--- OUTSIDE RECORDS SUMMARY | 2024-09-28 10:21 | XMS_ITS | Encounter Summary ---
Author Organization [facility] Address [address] [place] [address] Care Team Providers Care Medical Safety Director Name Role Phone Remy Sevilla DO Primary Care Provider [phone] Encounter Details Date Type Department Care Team (Late st Contact Info) Description 07/11/2023 Orders Only [facility] Hand Surgery [address] [place] [address] [place] [phone] Paula Flores MD [address] [facility] [address] [place] [address] Spontaneous rupture of extensor tendon of left [...] on file Legal 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
--- OUTSIDE RECORDS SUMMARY | 2024-09-28 10:21 | XMS_ITS | Encounter Summary ---
Author Organization [facility] Address [address] [place] [address] Phone Care Team Providers Care Jboss Developer Name Role Phone Remy Sevilla DO Primary Care Provider [phone] Reason for Visit * Reason Comments OT Treatment * Consultation (Routine) - Canceled Specialty Diagnoses / Procedures Referred By Vish negro Referred To Contact Occupational Therapy Diagnoses Extensor tendon rupture of hand, left, subsequent encounter Pet, Major Freitas MD [address] [place] [address] Phone: tel: fax: [facility] (All Locations) Referral ID Status Reason Start Date Expiration Date Visits Requested Visits Authorized [id number] Canceled Specialty Services Required 08/23/2023 09/21/2024 24 24 Encounter Details Date Type Department Care Team (Late st Contact Info) Description 09/20/2023 2:00 PM NEWSPAPER CORRESPONDENT Therapy [facility] Occupational Therapy [address] [place] [address] [place] [address] Cuauhtemoc Mckeon, OT [address] [address] Rupture of extensor tendon of hand, left, [...] on file Legal 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 NEWSPAPER 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 [facility] Occupational Therapy Progress Note Juventino Cormier 1955 Referring Provider: Major Wyman MD [address] [place] [address] Rupture of extensor tendon of hand, left, subsequent encounter [F15.865F] Diagnosis: 1. Attritional rupture of the left [...] to support affected structures Subjective: Juventino is 6 weeks out from a left EDC tendon repair to his long and ring finger. He notes that he can make a full fist and though he can't straighten all the way yet with his middle finger, this does not bother him functionally and he has no pain with use. He has been wearing the splinton and off but notes that Dr. Wyman cleared him today from wearing his splint. He is excited that he was release to all activities without restrictions. [x] Mental health status discussed Details: reports no problems Pain: 0/10 Objective: Appearance: Sutures are intact with no signs of infection. Mild edema visualized. Edema: Circumferential measurement DPC: 24.6 cm Range of Motion: Active Digit Range of Motion (full fist) Index Middle Ring Small MP 0/60 -23/72 -10/80 0/85 PIP 0/105 0/105 0/106 0/92 DIP 0/55 0/65 0/60 0/60 Treatment Provided: - Discussed continuing to wear custom orthosis as needed for heavy activities or if pain occurs over the next few weeks. He understands to wean out of orthosis - Reviewed HEP exercises to continue: - AROM MP extension from position in orthosis (finger lifts) 10 reps 4x/day - Gentle mid range wrist AROM with other hand to maintain MP extension 10 reps 4x/day. - Digit extension with wrist flexion 10 reps 4x/day - progressed by increasing wrist extension and maintaining digit extension - Cross frictional massage over dorsal hand with finger lifts - Manual scar massage - All questions answered. Assessment: Juventino presents toda 6 weeks out from a left long and ring finger EDC repair with autograft tendon. His long finger MCP extension has improved from his last visit and his flexion improvesas he is able to make a full fist without difficulty. He continues to have difficulty with long finger MP extension with digits in full extension and wrist in full extension. He is likely scarred down in his dorsal hand which is likely limiting his tendon gliding. Pt in agreement with plan to continue with HEP independently and understands to follow up as needed. Plan: Frequency/Duration: D/c to HEP Goals: Goals for Occupational Therapy Intervention: Goal [...] table to aid with return to piano Met for ring finger 09/20/23 11/09/22 LTG3 Pt will demonstrate ability to make a fist (DPC <2cm) when allowed by precautions to aid with return to functional grasping. Met 09/20/23 11/09/22 Start Time: 1:50 pm End Time: 2:10 pm ABIGAIL Triana, OTR/L, CHT If the patient does not return to therapy this will serve as a discharge summary. PAPER CORRESPONDENT documented in this encounter Plan of Treatment Not on file documented as of this encounter Visit Diagnoses Diagnosis Rupture of extensor tendon of hand, left, subsequent encounter- Primary documented in this encounter Care Teams Jboss Developer Relationship Specialty Start Date End Date Remy Sevilla DO [facility] [address] [place] [address] [place] [id number] PCP - General Family Medicine 07/10/23 documented as of this encounter
--- OUTSIDE RECORDS SUMMARY | 2024-09-28 10:21 | XMS_ITS | Encounter Summary ---
Author Organization [facility] Address [address] [place] [address] Phone Care Team Providers Care Hematologist Name Role Phone Remy Sevilla DO Primary Care Provider [phone] Reason for Visit * Consultation (Routine) - Closed Specialty Diagnoses / Procedures Referred By Vish negro Referred To Contact Plastic Surgery Diagnoses Wrist injury, left, initial encounter Remy Sevilla DO [facility]7 [facility] [address] [address] Phone: tel: fax: Major Wyman MD [address] [place] [address] Phone: tel: fax: Referral ID Status Reason Start Date Expiration Date V isits Requested Visits Authorized [id number] Closed Specialty Services Required 07/21/2023 08/19/2024 99 99 Encounter Details Date Type Department Care Team (Late st Contact Info) Description 07/31/2023 2:45 PM CDT Office Visit [facility] Surgery [address] 6th [place] [address] [place] [address] Major Wyman MD [address] [place] [address] Wrist injury, left, initial encounter Social History Tobacco Use Types Packs/Day [...] on file 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 You may receive a call from [facility] even if you do not need an appointment. They are with the anesthesia department and just want to be prepared for yoursurgery. Surgery Please note - Surgery dates and times can and often DO change and can be as early as a 5:30 a.m. arrival. We will call you to confirm details and arrival time the day before your surgery. Date: Friday, August 04, 2023 Approximate Arrival Time: 9:30 a.m. Admittance Type: Outpatient - The patient will be released home after surgery. Make sure to arrangefor a responsible person to take the patient home. You will not be discharged unless they can release you to the care of a responsible adult. Location: [facility] - [address] [place] [address] - 4th Floor - Use Truck Spotter Parking from 6:00 a.m. to 7:00 p.m. or park in the [facility], walkway on 3rd floor - Report to Surgery Registration. More information about [facility] and the [facility] is available at [email or web address] Before Surgery: Our precertification department will contact [...] or Lovenox, your Primary Care Physician or Equipment Services Associate must be consulted before discontinuing prior to surgery. Stop all herbal medications, vitamin E, diet pills, multivitamins, and NSAIDS such as Ibuprofen, Advil, Motrin, Nuprin, Aleve, Naprosyn, or Naproxen 1 to 10 days prior to surgery. If you develop a cold or flu-like symptoms before surgery, please call our office at [phone] to report this. If you are ill, [...] Do not wear any jewelry, make-up, nail kyrgyz, hair clips, or contact lenses the day [...] holding room where you will change into [facility] and be interviewed by several members of [...] this appointment, please call our Call Centerat [phone]. If you have Family and Medical Leave Act (FMLA) paperwork for yourself or a family member or short term disability paperwork, it should be faxed to the office at [phone] Attn: Dr. Major Wyman. These can take up to 14 days to process. If you are having medical issues after your surgery, please call the Nurse's Line at [phone] or through [employer]. Please note these methods are not monitored after hours or over weekends.. If you are having medical issues after business hours, calls should be made to [phone], and ask for the Plastic Surgery resident convict guard. Important Phone Numbers: Nurse's Line - [phone] Nurse's Fax - [phone] [facility] - [phone] Office Fax - [phone] [facility] Billing - [phone] [facility] Billing - [phone] [facility] [phone] Appointments: [phone] documented in this encounter Progress Notes * Garo, Major Freitas MD - 07/31/2023 2:45 PM CDT Patient Identification: Juventino Cormier History of Present Illness: Juventino Cormier is a 68 y.o. year-old male who presents as a new patient for a chief complaint of inability to extend the left middle finger at the MP joint. He reports a fall at the end of June.Since then he has been unable to fully extend the middle finger. X-ray showed an unusual mass of bone overlying the metacarpals in the central portion of the left hand. MRI showed concern for damage to the extensor tendons of the middle and ring finger. He is seen another hand surgeon who recommended tendon transfer. He comes in today for a 2nd opinion. Medical History: Past Medical History: Diagnosis Date Aftercare following [...] right hip - (Added by TW Conv) Surgical History: Past Surgical History: Procedure Laterality Date COLONOSCOPY [place] HEMORRHOIDECTOMY INTERNAL RUBBER BAND LIGATIONS Hemorrhoidectomy - (Added by TW Conv) TOTAL HIP ARTHROPLASTY Bilateral Social History: Social History Tobacco Use Smoking status: Never Smokeless tobacco: Never Substance and Sexual Activity Drug use: Defer Sexual activity: None Alcohol Use: Not At Risk (07/24/2023) AUDIT-C Frequency of Alcohol Consumption: Monthly or less Average Number of Drinks: 1 or 2 Frequency of Binge Drinking: Never Family History: History reviewed. No pertinent family history. Home Medications: Current Outpatient Medications Medication Sig Dispense Refill amLODIPine (NORVASC) 10 mg tablet Take 1 tablet (10 mg total) by mouth daily CARTIA XT 300 mg 24 hr capsule TK 1 C PO QD 3 ciprofloxacin-hydrocortisone (Cipro HC) otic suspension 3 drops 2 (two) times a day enalapril (VASOTEC) 5 mg tablet hydroCHLOROthiazide (HYDRODIURIL) 25 mg tablet nightly 3 loratadine (CLARITIN) 10 mg tablet TK 1 T PO D 3 losartan (COZAAR) 100 mg tablet Take 1 tablet (100 mg total) by mouth daily metoprolol XL (TOPROL-XL) 50 mg extended release tablet Take 1 tablet (50 mg total) by mouth daily No current facility-administered medications for this visit. Allergies: No Known Allergies Review of Systems: Review Of Systems: Positive findings from the Review of Systems are noted in the History of Presentillness. All other systems are negative. Physical Examination: On examination the patient has about 40?? of extensor lag at the middle finger MP joint. The index finger and small finger and thumb have normal extension. The ring finger is able to extend completely but this is weak with respect to the contralateral side. Sensation on the dorsum of the hand is normal. He is a palpable bony mass over the 3rd metacarpal. Interpretation of Imaging: I reviewed the patient's x-ray which shows this chronic appearing bone fragment over the metacarpals. His MRI shows that this is associated with the extensor tendons to the middle and ring finger. I am able to trace his index and small finger extensors and they seem to be completely separate from this. On review of his CT scan I do not see a donor site which would suggest that this bone is a acute fracture fragment. Rather, it looks quite smooth, and is most consistent with heterotopic ossification. Assessment and Plan: Juventino Cormier is a 68 y.o. year-old male presenting with left middle finger extensor tendon rupture. Based upon his clinical presentation I strongly suspect that the patient has had an attritional rupture related to this bony mass on the extensor side of his hand. In addition to attritional rupture of the middle finger extensor, I strongly suspect that his ring finger extensor is quite frayed. This is suspected based upon the MRI, and also based upon my physical examination. I described to this patient that the true extent of his extensor deficiency will not be totally understood until we open this up in surgery. However I think it is most likely that the pathology above is all that we will find, especially because his MRI of the adjacent extensors look normal. We discussed several reconstructive options. We 1st discussed non operative management. He understands this very unlikely that his extensor function would recover without intervention, I also described to him that would be atrisk for further extensor ruptures if untreated. I strongly recommended excision of this unusual bony mass, and sending this for pathology. 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 Ithink that the best way to achieve this would be intercalary grafting of the extensor tendons usinghis left and/or right palmaris longus tendon. He is previously been offered a tendon transfer the extensor indicis proprius tendon into the ring and middle finger extensors. I do believe that this kel reasonable option, but after discussing with the patient I understand his preference for intercalary grafting. I did discuss with him the possibility that transfer of the index finger extensor could be necessary if intraoperative evaluation reveals very extensive area of attritional tendon damage, or if the proximal stump could not be retrieved for some reason. Did give me permission to take tendon graft from either or both forearms, and he has consented to extensor indicis proprius tendon transfer if I deem this necessary based upon intraoperative examination. I counseled the patient aboutthe risks of surgery which include bleeding, infection, damage to surrounding structures, tendon adhesions, tendon rupture, stiffness. He provides informed consent. My plan will be as follows: 1) exploration of the extensor surface of the hand with excision of bony mass, and sent for permanent pathology 2) reconstruction of the left middle finger common extensor tendon with intercalary ipsilateral palmaris longus tendon graft 3) possible reconstruction of the left ring finger common extensor tendon with intercalary ipsilateral or contralateral palmaris tendon graft 4) tendon transfer only if the above plan is not technically feasible. documented in this encounter Plan of Treatment Not on file documented as of this encounter Visit Diagnoses Diagnosis Wrist injury, left, initial encounter documented in this encounter Orders Outpatient Referral Count Last Ordered Date st Ordered Date AMB REFERRAL TO PLASTIC SURGERY 1 3 documented in this encounter Care Teams Hematologist Relationship Specialty Start Date End Date Remy Sevilla DO [facility]7 [facility] [address] [place] [phone] PCP - General Family Medicine 07/10/23 documented as of this encounter
--- OUTSIDE RECORDS SUMMARY | 2024-09-28 10:21 | XMS_ITS | Encounter Summary ---
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 Gender Identity Male 08/03/2023 6:13 PM CDT Sexual Orientation Not on file documented as of this encounter Last Filed Vital Signs Vital Sign Reading Time Taken Comments Blood Pressure 152/78 07/28/2023 2:28 PM CDT rt upper arm Pulse 63 07/28/2023 2:28 PM CDT Temperature 36.7 ??C (98 ??F) 07/28/2023 2:28 PM CDT Respiratory Rate 14 07/28/2023 2:28 PM CDT Oxygen Saturation 99% 07/28/2023 2:28 PM CDT Inhaled Oxygen Concentration - - Weight 99.8 kg (220 lb) 07/28/2023 2:28 PM CDT Height 175.3 cm (5' 9 ) 07/28/2023 2:28 PM CDT Body Mass Index 32.49 07/28/2023 2:28 PM CDT documented in this encounter Plan of Treatment Not on file documented as of this encounter Procedures Procedure Name Priority Date/Time Associated Diagnosis Comments EGFR Routine 07/28/2023 2:09 PM CDT Pre-op testing DIFFERENTIAL AUTO Routine 07/28/2023 2:0 9 PM CDT Pre-op testing CBC WITH AUTO DIFFERENTIAL Routine 07/28/2023 2:09 PM CDT Pre-op testing BASIC METABOLIC PANEL Routine 07/28/2023 2:09 PM CDT Pre-op testing ECG 12-LEAD Routine 07/28/2023 2:04 PM CDT Pre-op testing documented in this encounter Results * eGFR (07/28/2023 2:09 PM CDT) [facility] Signature eGFR 54 mL/min/1. 73 m2 Comment: Interpretive Data Reference Interval Normal ?>/= 90 mL/min/1.73m2 Mildly decreased* ? 60 - 89 mL/min/1.73m2 Mildly to moderately decreased ?45 - 59 mL/min/1.73m2 Moderately to severely decreased ??30 - 44 mL/min/1.73m2 Severely decreased ?15 - 29 mL/min/1.73m2 Kidney Failure ?< 15 ??mL/min/1.73m2 *Relative to young adult level Estimated glomerular filtration rate is determined by the 2020 CKD-EPI equation recommended by the National Kidney Foundation (A Unifying Approach to GFR Estimation: Recommendations of the NKF-ASK Task Force on Reassessing the Inclusion of Race in Diagnosing Kidney Disease, JASN 202). The CKD-EPI equation should not be used for patients with unstable renal function and has not been validated in children and those over 70. Current interpretive data was last reviewed 2021. Blood 07/28/2023 2:09 PM CDT 07/28/2023 2:22 PM CDT Emre Hinson MD LAB BLOOD ORDERABLES Final Result [place] [address] [facility] Department [place] [address] * (ABNORMAL) Differential, auto (07/28/2023 2:09 PM CDT) Pathologist [facility] Neutrophil abs 3.4 1.7 - 6.5 K/cumm Imm gran abs 0.0 0.0 - 0.1 K/cumm [facility] Lymphocyte abs 3.9(H) 0.8 - 3.3 K/cumm [facility] Monocyte abs 0.6 0.2 - 0.8 K/cumm [facility] Eosinophil abs 0.1 0.0 - 0.5 K/cumm [facility] Basophil abs 0.1 0.0 - 0.1 K/cumm [facility] Neutrophil pct 42.8 % [facility] Comment: Interpretive Data Percent cell count reference ranges are not reported, since discordance with absolute values may lead to misinterpretation of CBC data. Current Interpretive Data was last revised on 2018. Imm gran pct 0.4 % [facility] Comment: Interpretive Data Percent cell count reference ranges are not reported, since discordance with absolute values may lead to misinterpretation of CBC data. Current Interpretive Data was last revised on 2018. Lymphocyte pct 48.5 % [facility] Comment: Interpretive Data Percent cell count reference ranges are not reported, since discordance with absolute values may lead to misinterpretation of CBC data. Current Interpretive Data was last revised on 2018. Monocyte pct 6.9 % [facility] Comment: Interpretive Data Percent cell count reference ranges are not reported, since discordance with absolute values may lead to misinterpretation of CBC data. Current Interpretive Data was last revised on 2018. Eosinophil pct 0.6 % [facility] Comment: Interpretive Data Percent cell count reference ranges are not reported, since discordance with absolute values may lead to misinterpretation of CBC data. Current Interpretive Data was last revised on 2018. Basophil pct 0.8 % [facility] Comment: Interpretive Data Percent cell count reference ranges are not reported, since discordance with absolute values may lead to misinterpretation of CBC data. Current Interpretive Data was last revised on 2018. Blood 07/28/2023 2:09 PM CDT 07/28/2023 2:22 PM CDT Emre Hinson MD LAB BLOOD ORDERABLES Final Result [facility] [address] [facility] Department [place] [address] * (ABNORMAL) Basic metabolic panel (07/28/2023 2:09 PM CDT) Sodium 141 135 - 145 mmol/L Potassium, pl 3.2(L) 3.3 - 4.9 mmol/L [facility] Chloride 102 97 - 110 mmol/L [facility] CO2 28 22 - 32 mmol/L [facility] Anion gap 11 2 - 15 mmol/L [facility] BUN 23 6 - 25 mg/dL [facility] Creatinine 1.40(H) 0.80 - 1.30 mg/dL [facility] Glucose 104 70 - 199 mg/dL [facility] Comment: Interpretive Data Fasting glucose >/= 126 mg/dl is diagnostic for diabetes. ?? Fasting is defined as no caloric intake for at least 8 hours. Fasting glucose between 100 mg/dl to 125 mg/dl is diagnostic of prediabetes. In a patient with classic symptoms of hyperglycemia or hyperglycemic crisis, a random glucose >/= 200 mg/dl is diagnostic for diabetes. In the absence of unequivocal hyperglycemia, results should be confirmed by repeat testing. The classification and Diagnosis of Diabetes Diabetes Care 202; 46: S19-S40. Current interpretive data was last revised 2022. Calcium 9.8 8.5 - 10.3 mg/dL [facility] Blood 07/28/2023 2:09 PM CDT 07/28/2023 2:22 PM CDT Emre Hinson MD LAB BLOOD ORDERABLES Final Result [facility] [address] [facility] Department of Laboratories [place], [place] [id number] * (ABNORMAL) CBC with auto differential (07/28/2023 2:09 PM CDT) [facility] WBC 8.0 3.8 - 9.9 K/cumm Hgb 12.7(L) 13.0 - 17.5 g/dL [facility] Comment: Interpretive Data A reference range for this assay has not been established for patients with an unknown legal sex. Please refer to the laboratory test catalog for established sex-specific reference intervals. Current interpretive data was last revised on 2023. Hct 38.8(L) 38.9 - 50.3 % [facility] Comment: Interpretive Data A reference range for this assay has not been established for patients with an unknown legal sex. Please refer to the laboratory test catalog for established sex-specific reference intervals. Current interpretive data was last revised on 2023. Plt 272 150 - 400 K/cumm [facility] MPV 10.3 9.1 - 12.3 fL [facility] RBC 4.24(L) 4.30 - 5.80 M/cumm [facility]NY[facility] Comment: Interpretive Data A reference range for this assay has not been established for patients with an unknown legal sex. Please refer to the laboratory test catalog for established sex-specific reference intervals. Current interpretive data was last revised on 2023. MCV 91.5 81.3 - 96.4 fL [facility] MCH 30.0 27.1 - 33.3 pg [facility] MCHC 32.7 32.3 - 35.7 g/dL [facility] RDW CV 14.0 11.1 - 14.9 % [facility] RDW SD 46.1 35.7 - 48.1 fL [facility] NRBC abs 0.00 0.00 - 0.01 K/cumm [facility] Blood 07/28/2023 2:09 PM CDT 07/28/2023 2:22 PM CDT Emre Hinson MD LAB BLOOD ORDERABLES Final Result Performing Organization Address City/[facility]/ZIP Co de Phone Number [facility] [address] [facility] Department [place] [address] * ECG 12 lead (07/28/2023 2:04 PM CDT) Pathologist [facility] Ventricular Rate EKG/Min 52 BPM [facility] Atrial Rate 52 BPM [facility] VT-Interval (MSEC) 178 ms [facility] QRS-Interval (MSEC) 96 ms [facility] QT-Interval (MSEC) 418 ms [facility] QTc 388 ms [facility] P Irene 35 degrees [facility] R Irene -31 degrees [facility] T [place] 2 degrees [facility] Diagnosis Sinus bradycardia Left axis deviation T wave abnormality, consider lateral ischemia Abnormal ECG When compared with ECG of 22-DEC-2010 12:21, Premature atrial complexes are no longer Present ST no longer elevated in Anterior leads Inverted T waves have replaced nonspecific T wave abnormality in Anterior leads Confirmed by MASON ARREAGA M.D. ([id number]) on 07/29/2023 4:27:23 PM [facility] 07/28/2023 2:04 PM CDT 07/29/2023 4:27 PM CDT Emre Hinson MD ECG ORDERABLES Final Resu lt Performing Organization Address City/[facility]/ZIP Co de Phone Number [facility] documented in this encounter Visit Diagnoses Diagnosis Pre-op testing Unspecified pre-operative examination documented in this encounter Care Teams Smooth And Burr Worker Composites Relationship Specialty Start Date End Date Remy Sevilla DO [address] [place] [address] [address] [place] [address] PCP - General Family Medicine 07/10/23 documented as of this encounter
--- OUTSIDE RECORDS SUMMARY | 2024-09-28 10:21 | XMS_ITS | Encounter Summary ---
Author Organization [facility] Address [address] [place] [address] Care Team Providers Care Tool Coordinator Name Role Phone Di Remy YOUNGBLOOD Primary Care Provider [phone] Reason for Referral * Cardiology (Routine) - Closed Specialty Diagnoses / Procedures Referred By Contac t Referred To Contact Diagnoses Pre-op testing Procedures ECG 12 lead Emre Hinson MD [address] [facility] [address] [place] [address] Phone: tel: fax: [address] [phone] Referral ID Status Reason Start Date Expiration Date Visits Re quested Visits Authorized [id number] Closed 07/24/2023 08/22/2024 1 1 Encounter Details Date Type Department Care Team (Late st Contact Info) Description 07/24/2023 Orders Only [facility] PreAdmission Testing [address] [place] [phone] Merle Aranda RN Pre-op testing (Primary Dx) Social History Tobacco Use Types [...] on file 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 WBC 8.0 3.8 - 9.9 K/cumm Hgb 12.7(L) 13.0 - 17.5 g/dL [facility] Comment: Interpretive Data A reference range for this assay has not been established for patients with an unknown legal sex. Please refer to the laboratory test catalog for established sex-specific reference intervals. Current interpretive data was last revised on 2023. Hct 38.8(L) 38.9 - 50.3 % [facility] Comment: Interpretive Data A reference range for this assay has not been established for patients with an unknown legal sex. Please refer to the laboratory test catalog for established sex-specific reference intervals. Current interpretive data was last revised on 2023. Plt 272 150 - 400 K/cumm [facility] MPV 10.3 9.1 - 12.3 fL [facility] RBC 4.24(L) 4.30 - 5.80 M/cumm [facility] Comment: Interpretive Data A reference range for this assay has not been established for patients with an unknown legal sex. Please refer to the laboratory test catalog for established sex-specific reference intervals. Current interpretive data was last revised on 2023. MCV 91.5 81.3 - 96.4 fL [facility] MCH 30.0 27.1 - 33.3 pg [facility] MCHC 32.7 32.3 - 35.7 g/dL [facility] RDW CV 14.0 11.1 - 14.9 % [facility] RDW SD 46.1 35.7 - 48.1 fL [facility] NRBC abs 0.00 0.00 - 0.01 K/cumm [facility] Blood 07/28/2023 2:09 PM CDT 07/28/2023 2:22 PM CDT Emre Hinson MD LAB BLOOD ORDERABLES Final Result Performing Organization Address City/[facility]/ZIP Co de Phone Number [address] [place] [address] * (ABNORMAL) Basic metabolic panel (07/28/2023 2:09 PM CDT) Sodium 141 135 - 145 mmol/L Potassium, pl 3.2(L) 3.3 - 4.9 mmol/L [facility] Chloride 102 97 - 110 mmol/L [facility] CO2 28 22 - 32 mmol/L [facility] Anion gap 11 2 - 15 mmol/L [facility] BUN 23 6 - 25 mg/dL [facility] Creatinine 1.40(H) 0.80 - 1.30 mg/dL [facility] Glucose 104 70 - 199 mg/dL [facility] Comment: Interpretive Data Fasting glucose >/= 126 [...] classification and Diagnosis of Diabetes Diabetes Care 2021; 46: S19-S40. Current interpretive data was last revised 2022. Calcium 9.8 8.5 - 10.3 mg/dL [facility] Blood 07/28/2023 2:09 PM CDT 07/28/2023 2:22 PM CDT Emre Hinson MD LAB BLOOD ORDERABLES Final Result Performing Organization Address City/[facility]/ZIP Co de Phone Number [facility] [address] Department [place] [address] * ECG 12 lead (07/28/2023 2:04 PM CDT) Ventricular Rate EKG/Min 52 BPM [facility] Atrial Rate 52 BPM [facility] [place]-Interval (MSEC) 178 ms [facility] QRS-Interval (MSEC) 96 ms [facility] QT-Interval (MSEC) 418 ms [facility] QTc 388 ms [facility] P [place] 35 degrees [facility] R [place] -31 degrees [facility] T [place] 2 degrees [facility] Diagnosis Sinus bradycardia Left axis deviation T wave abnormality, consider lateral ischemia Abnormal ECG When compared with ECG of 22-DEC-2010 12:21, Premature atrial complexes are no longer Present ST no longer elevated in Anterior leads Inverted T waves have replaced nonspecific T wave abnormality in Anterior leads Confirmed by MASON ARREAGA M.D. ([id number]) on 07/29/2023 4:27:23 PM [facility] 07/28/2023 2:04 PM CDT 07/29/2023 4:27 PM CDT us Emre Hinson MD ECG ORDERABLES Final Resu lt [facility] documented in this encounter Visit Diagnoses Diagnosis Pre-op testing- Primary Unspecified pre-operative examination documented in this encounter Care Teams Tool Coordinator Relationship Specialty Start Date End Date Remy Sevilla DO [address] [facility] [address] [place] [address] PCP - General Family Medicine 07/10/23 documented as of this encounter
--- OUTSIDE RECORDS SUMMARY | 2024-09-28 10:21 | XMS_ITS | Encounter Summary ---
Author Organization [facility] Address [address] [place] [address] Care Team Providers Care Machine Technician Name Role Phone Remy Sevilla Primary Care Provider [phone] Reason for Visit * Auth/Cert (Routine) Specialty Diagnoses / Procedures Referred By Vish negro Referred To Contact Diagnoses Tendon adhesions Tendon adhesions [M77.9] Procedures CT TENOLYSIS EXTENSOR TENDON HAND/FINGER EACH Left Extensor Tenolysis Referral ID Status Reason Start Date Expiration Date Visits Re quested Visits Authorized [id number] 1 1 Encounter Details Date Type Department Care Team (Latest Contact Info) Description 02/02/2024 5:40 AM CDT - 02/02/2024 10:01 AM CDT Hospital Encounter [facility] Operating [facility] [address] [place] [address] Pet, Major Freitas MD [address] [facility] [address] [place] [address] Tendon adhesions (Primary Dx) Discharge Disposition: Discharge to home or self [...] on file 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 Gender Identity Male 08/03/2023 6:13 PM CDT [...] 1 tablet (10 mg total) by mouth vocational technical education director before breakfast 08/18/2022 ciprofloxacin-hy drocortisone (Cipro HC) otic suspension Administer 3 drops into each ear as needed hydroCHLOROthiaz anuj (HYDRODIURIL) 25 mg tablet Take 1 tablet (25 mg total) by mouth vocational technical education director before breakfast 3 02/03/2019 ibuprofen (ADVIL,MOTRIN) 600 mg tablet Take 1 tablet (600 mg total) by mouth every 6 (six) hours as needed for pain 60 tablet 08/04/2023 loratadine (CLARITIN) 10 mg tablet Take 1 tablet (10 mg total) by mouth vocational technical education director before breakfast 3 03/09/2019 losartan (COZAAR) 100 mg tablet Take 1 tablet (100 mg total) by mouth vocational technical education director before breakfast 07/25/2022 metoprolol XL (TOPROL-XL) 50 mg extended release tablet Take 1 tablet (50 mg total) by mouth vocational technical education director before breakfast 08/08/2022 oxyCODONE (ROXICODONE) 5 mg immediate release tabletIndication s:Pain Take 1-2 tablets (5-10 mg total) by mouth every 4 (four) hours as needed for pain 10 tablet 02/02/2024 potassium chloride ER 10 mEq CR tablet Take 1 tablet/capsule (10 mEq total) by mouth vocational technical education director before breakfast documented as of this encounter [...] Past Surgical History: Procedure Laterality Date COLONOSCOPY CT HEMORRHOIDECTOMY INTERNAL RUBBER BAND LIGATIONS Hemorrhoidectomy - (Added by TW Conv) 1980s TOTAL HIP ARTHROPLASTY Bilateral 2009 SOCIAL HISTORY: Social History Tobacco Use Smoking [...] 1 tablet (10 mg total) by mouth vocational technical education director before breakfast 08/18/22 Yes Jennifer Higginbotham MD ciprofloxacin-hydrocortisone (Cipro HC) otic suspension Administer 3 drops into each ear as needed Yes Jennifer Higginbotham MD hydroCHLOROthiazide (HYDRODIURIL) 25 mg tablet Take 1 tablet (25 mg total) by mouth vocational technical education director before breakfast 02/03/19 Yes Jennifer Higginbotham MD loratadine (CLARITIN) 10 mg tablet Take 1 tablet (10 mg total) by mouth vocational technical education director before breakfast 03/09/19 Yes Jennifer Higginbotham MD losartan (COZAAR) 100 mg tablet Take 1 tablet (100 mg total) by mouth vocational technical education director before breakfast 07/25/22 Yes Jennifer Higginbotham MD metoprolol XL (TOPROL-XL) 50 mg extended release tablet Take 1 tablet (50 mg total) by mouth vocational technical education director before breakfast 08/08/22 Yes Jennifer Higginbotham MD potassium chloride ER 10 mEq CR tablet Take 1 tablet/capsule (10 mEq total) by mouth vocational technical education director before breakfast Yes Jennifer Higginbotham MD acetaminophen (TYLENOL) 500 mg tablet Take 1 tablet (500 mg total) by mouth every 6 (six) hours as needed for pain 08/04/23 Jaclyn Mcgee MD HYDROcodone-acetaminophen (NORCO) 5-325 mg per tablet Take 1 tablet by mouth every 6 (six) hours asneeded for pain (breakthrough pain) 08/04/23 aJclyn Mcgee MD ibuprofen (ADVIL,MOTRIN) 600 mg tablet [...] Resident - Assisting Anesthesiologist: Louie Pedraza MD COMMODITY LOAN CLERK: Nadir Newton CRNA Student Nurse Gas Turbine Powerplant Mechanic Helper: Nick Ann RN Client Reporting Associate: Aury Dean RN Client Reporting Associate Relief: Pam Cormier RN Scrub: Amelie Buck ST Orient[place] Scrub: Roma Cannon RN Orientee Client Reporting Associate: Amelie Rubio RN DATE OF SURGERY : [...] level of the wrist. SURGEONS PRESENT Cresencio Gordillo, Mehreen Vega. COMPLICATION None apparent at the end of [...] bleeding, infection, damage to surrounding structures, incomplete judaism of range of motion, tendon rupture, and [...] his active extension. Job ID/Internal Job ID: [id number] documented in this encounter Plan of Treatment [...] Diagnoses Diagnosis Tendon adhesions- Primary Tendon adhesions documented in this encounter Admitting Diagnoses Diagnosis Tendon adhesions documented in this encounter Administered Medications Inactive Administered Medications - up to 3 most recent administrations Medication Order MAR Action Action Date Dose Rate Site benzocaine-menthoL (CHLORASEPTIC) lozenge 1 lozenge 1 lozenge, mouth/throat, Once, On Mon02/02/24 at 1000, For 1 dose, Phase I Given 02/02/2024 9:32 AM CDT 1 lozenge documented in this encounter Discontinued Medications Medication [...] Count Last Ordered Date First Ordered Date bacitracin-polymyxin B (POLY SPORIN) 500-10,000 unit/gram ointment tube 1 02/02/2024 BUPivacaine-EPINEPHrine (MAR MARTITA with EPI) 0.25 %-1:200,000 preservative free injection 1 02/02/2024 ceFAZolin (ANCEF) 2,000 mg/2 0 mL in sterile water (premix) 2,000 mg 1 02/02/2024 fentaNYL (SUBLIMAZE) preserv ative free injection 50 mcg 1 02/02/2024 HYDROmorphone (DILAUDID) injection 0.2 mg 1 02/02/2024 HYDROmorphone (DILAUDID) injection 0.4 mg 1 02/02/2024 lidocaine (XYLOCAINE) 10 mg/ mL (1 %) injection 1 02/02/2024 naloxone (NARCAN) 0.4 mg/mL injection 0.04-0.4 mg 1 02/02/2024 sodium chloride 0.9% irrigation 1 Nursing Count Last Ordered Date First Orde red Date DISCHARGE ACTIVITY 2 02/02/2024 DISCHARGE CALL PROVIDER 1 02/02/2024 DISCHARGE INSTRUCTIONS 2 02/02/2024 Discharge Count Last Ordered Date First Orde red Date DISCHARGE PATIENT 1 02/02/2024 documented in this encounter Care Teams Machine Technician Relationship Specialty Start Date End Date Remy Sevilla DO [address] [facility] [address] [place] [address] PCP - General Family Medicine 07/10/23 documented as of this encounter
--- OUTSIDE RECORDS SUMMARY | 2024-09-28 10:21 | XMS_ITS | Encounter Summary ---
Author Organization [facility] Address [address] [place] [address] Phone Care Team Providers Care Die Setter Name Role Phone Remy Sevilla DO Primary Care Provider [phone] Reason for Visit * Consultation (Routine) - Closed Specialty Diagnoses / Procedures Referred By Vish negro Referred To Contact Plastic Surgery Diagnoses Wrist injury, left, initial encounter Remy Sevilla DO [facility] [address] [address] Phone: tel: fax: Major Wyman MD [address] [place] [address] Phone: tel: fax: Referral ID Status Reason Start Date Expiration Date V isits Requested Visits Authorized [id number] Closed Specialty Services Required 07/21/2023 08/19/2024 99 99 Encounter Details Date Type Department Care Team (Late st Contact Info) Description 09/20/2023 1:00 PM FIRE EXTINGUISHER REPAIRER Office Visit [facility] Surgery [address] [facility] 6th [place] [address] [place] [address] Major Wyman MD [address] [place] [address] Extensor tendon rupture of hand, left, subsequent [...] on file 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 He is accompanied by his at today's visit. He reports that he has beendoing well and attending therapy once weekly and is compliant with his fabricated splint as recommended. He does experience some mild intermittent tingling sensation near the dorsal wrist scar however he does not take any pain medication and he does work on scar massage. On examination, there is a well-healed longitudinal scar of the dorsal aspect of the left wrist which is slightly hypertrophic in nature. He is able to completely extend the MP joint in wrist neutral, but in wrist extension he has a lag up to 10 or 15??. Digital range of motion is otherwise normal.He is unable to lift the middle finger off of the table when his palm is flat against the surface. In summary the patient is doing remarkably well compared to his preoperative examination. At this point, the patient has no restrictions and we encouraged him to use his hand as much as possible. We did discuss that the persistent slight extensor lag at the left middle finger MCP joint is likely due to tensioning of the reconstruction however at this point, unless it becomes functionally debilitating or terribly bothersome to the patient, we recommend continued observation of this. Because the patient believes he has been able to function well with his hand and looks forward to play the guitar again he would like to also continue monitoring. I look forward to seeing him in about 3 months' time to assess his progress. Is my hope that this small lag will not be functionally significant, andthat no further intervention will be necessary. If he is having difficulty with activities I would consider tightening the tendon transfer and performing tenolysis. Cosigned by Major Wyman MD at 09/20/2023 1:44 PM FIRE EXTINGUISHER REPAIRER EXTINGUISHER REPAIRER Associated attestation - Major Wyman MD - 09/20/2023 1:44 PM FIRE EXTINGUISHER REPAIRER I have seen and examined the patient. I agree with the findings and plan of care as documented in the resident/fellow's note. My total encounter time on 09/20/2023 was 25 minutes which was spent in the activities documented in the note. This includes time spent prior to the visit and after the visit in direct care of the patient. This time does not include time spent in any separately reportable services. documented in this encounter Plan of Treatment Not on file documented as of this encounter Visit Diagnoses Diagnosis Extensor tendon rupture of hand, left, subsequent encounter- Primary documented in this encounter Care Teams Die Setter Relationship Specialty Start Date End Date Remy Sevilla DO [facility] [address] [place] [id number] PCP - General Family Medicine 07/10/23 documented as of this encounter
--- OUTSIDE RECORDS SUMMARY | 2024-09-28 10:21 | XMS_ITS | Encounter Summary ---
Author Organization [facility] Healthcare Address [address] [place] [address] Care Team Providers Care Cutter Wet Machine Name Role Phone Remy Sevilla Primary Care Provider [phone] Reason for Visit * Auth/Cert (Routine) Specialty Diagnoses / Procedures Referred By Vish negro Referred To Contact Diagnoses Tendon rupture of wrist, left, initial encounter Tendon rupture of wrist, left, initial encounter [S66.912A] Procedures MT REPAIR EXTENSOR TENDON FINGER W/GRAFT EACH Left Middle Finger and Ring Finger Tendon Graft Referral ID Status Reason Start Date Expiration Date Visits Re quested Visits Authorized [id number] 1 1 Encounter Details Date Type Department Care Team (Late st Contact Info) Description 08/04/2023 7:25 AM CDT Anesthesia Event [facility] Operating [facility] [address] [place] [address] Ashley Padilla MD [address] [place] [address] Karen Cunningham NP [address] [place] [address] Anesthesia Record Procedure Summary Procedure Name Responsible Anesthesiologist Anesthesia Start Time Anesthesia Stop Time Left Middle Finger and Ring Finger Tendon Graft x2 (Left: Fingers) Ashley Padilla MD 08/04/23 0725 08/04/23 1053 Events Date Time Event Comment 08/04/2023 0547 In Preop 0721 0725 An Start 0730 In Room 0730 An Start Data 0738 Start Supplemental O2 0738 An Induction The patient was reevaluated immediately before moderate or deep sedation use and before anesthesia induction. 0738 Anesthesia Ready 0742 Quick Note Surgeon request ing switch from MAC to general 0744 an jaimie now 0744 Converted to GA 0744 An Induction The patient was reevaluated immediately before moderate or deep sedation use and before anesthesia induction. 0745 An LMA 0749 IV Placed IV removed from R arm due to surgical access, replaced in R foot 0804 Quick Note LUE tourniquet up 250 mmHg 0805 Proc Start 0806 Incision Start 0817 Quick Note 0846 Quick Note RUE tourniquet up 250 mmHg 0857 Quick Note RUE tourniquet down 1013 Quick Note LUE tourniquet down 1043 Proc Fin 1045 an stop data 1045 Airway Removed 1046 Out of Room 1053 Handoff to RN I completed my handoff [...] Patient disposition at the time of handoff: No value filed. 1053 An Stop Meds Name Total midazolam PF 2 mg lidocaine (cardiac) syringe 2 % 100 mg propofol 150 mg propofol 38.12 mg fentaNYL 150 mcg phenylephrine 100 mcg/mL 200 mcg ePHEDrine 25 mg glycopyrrolate 0.3 mg ceFAZolin (ANCEF) 2,000 mg/20 mL in ster ile water (premix) 2,000 mg 2,000 mg HYDROmorphone 2 mg/mL 0.6 mg famotidine 20 mg dexAMETHasone 4 mg/mL 4 mg dexmedeTOMIDine 80mcg/20mL (4 mcg/mL) 12 mcg ondansetron PF (ZOFRAN) 2 mg/mL injectio n 4 mg Lactated Ringer's (LR) infusion 1,400 mL * Agents Name O2% N2O O2 Air Sevoflurane Inspired Sevoflurane * Blood No blood administrations on file. Lines, Drains, and Airways Type Details Placement Removal Peripheral IV Placement Date: 08/04/23; Placement Time: 0609; Catheter Size: 20 G; Orientation: Anterior, Proximal, Right; Location: Forearm; Site Prep: Chlorhexidine; Inserted by: Mehreen BAE; Insertion Attempts: 1; Patient Tolerance: Tolerated well; Removal Date: 08/04/23; Removal Time: 0817 (removed via procedure documentation) 08/04/23 0609 by Mehreen York RN 08/04/23 0817 by Yael Fang CRNA Supraglottic Airway Placement Date: 08/04/23; Placement Time: 0816 (created via procedure documentation); Mask Ventilation: 0; Size: 5; Insertion Attempts: 1; Comments: Atraumatic placement of LMA igel 5. Adequate tidal volume returned. Leak audible at < 13xiF5X; Removal Date: 08/04/23; Removal Time: 1045 08/04/23 0816 by Yael Fang CRNA 08/04/23 1045 by Yael Fang CRNA Peripheral IV Placement Date: 08/04/23; Placement Time: 08 (created via procedure documentation); Catheter Size: 20 G; Orientation: Right; Location: Foot; Site Prep: Chlorhexidine; Insertion Attempts: 1; Removal Date: 08/04/23; Removal Time: 1218; Removal Reason: Discharge 08/04/23 0817 by Yael Fang CRNA 08/04/23 1218 by Reema Lyman RN RETIRED Surgical Site 08/04/23; 0915; No ; Right; Wrist; 02/02/24; 0839; Not present on admission 08/04/23 0915 by Ashish Saravia RN 02/02/24 0839 by Amelie Rubio RN RETIRED Surgical Site 08/04/23; 0915; Le ft; Wrist; 02/02/24 08/04/23 0915 by Ashish Saravia RN 02/02/24 0000 by Amelie Rubio RN RETIRED Surgical Site 08/04/23; 0915; Le ft; Arm; 02/02/24 08/04/23 0915 by Ashish Saravia RN 02/02/24 0000 by Amelie Rubio RN documented in this encounter Social History Tobacco [...] on file 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 Gender Identity Male 08/03/2023 6:13 PM CDT Sexual Orientation Not on file documented as of this encounter OR Notes * Anesthesia Postprocedure Evaluation - Lui Quiroz MD - 08/04/2023 11:50 AM CDT Patient: Juventino Cormier Procedure Summary Date: 08/04/23 Room / Location: [facility] OR POD 4 ROOM G / [facility] OR POD 4 Anesthesia Start: 724 Anesthesia Stop: 1052 Procedures: Left Middle Finger and Ring Finger Tendon Graft x2 (Left: Fingers) EXCISION CYST/LESION/MASS - HAND (Left: Hand) TENOLYSIS x2 (Left: Arm Upper) Diagnosis: Tendon rupture of wrist, left, initial encounter (Tendon rupture of wrist, left, initial encounter [S66.912A]) Surgeons: Major Wyman MD Responsible Provider: Ashley Padilla MD Anesthesia Type: general ASA Status: 2 Anesthesia Type: general Last vitals BP 170/83 Pulse 58 Temp 36.1 ??C (97 ??F) (Temporal) Resp 11 SpO2 97% Anesthesia Post Evaluation Patient location during evaluation: PACU Patient participation: complete - patient participated Level of consciousness: fully awake Pain score: 9 Pain management: inadequate Airway patency: adequate and patent Evidence of recall: no Cardiovascular status: acceptable and hemodynamically stable Respiratory status: acceptable and room air Hydration status: acceptable Pt is: normothermic Nausea/Vomiting status: none No notable events documented. * Anesthesia Procedure Notes - Yael Fang CRNA - 08/04/2023 8:17 AM CDTAssociated Order(s): Peripheral IV Catheter Peripheral IV Catheter Patient location: OR Staff: Placed by: DELICATESSEN MANAGER: Yael Fang CRNA Preprocedure prep: Prep solution: chlorhexadine PPE: gloves and provider hat/mask PIV line: Laterality: right Site: foot Catheter size: 20 g Technique: anatomical landmarks Procedure details: good blood return and occlusive dressing applied Number of attempts: 1 Assessment: Events: patient tolerated procedure well with no complications * Anesthesia Procedure Notes - Yael Fang CRNA - 08/04/2023 8:16 AM CDTAssociated Order(s): Airway Airway Patient location: OR Urgency: elective Indications for airway management: anesthesia Difficult airway: no Staff: Supervising provider: Ashley Padilla MD Placed by: DELICATESSEN MANAGER: Yael Fang CRNA Emergent airway documentation: Risks and benefits discussed: yes Consent obtained: yes Consent given by: patient Airway prep: Preoxygenated: yes Patient position: sniffing Mask difficulty assessment: 0 - not attempted Spontaneous ventilation during airway: absent Sedation level during airway: GA Final airway details: Final airway type: supraglottic airway Final supraglottic airway: IGel SGA size: 5 Number of attempts: 1 Additional comments: Atraumatic placement of LMA igel 5. Adequate tidal volume returned. Leak audible at < 80brV9O * Anesthesia Preprocedure Evaluation - Ashley Padilla MD - 08/02/2023 1:15 PM CDT Images from the original note were not included. [facility] Planning Preoperative Evaluation Record Evaluation type/location: TPAP from [facility] Planned procedure site: [facility] OR (Pod 4) Date: [...] BP - 80 Pertinent negatives: CAD ; DC ; CABG ; valvular heart disease; valve [...] pace without significant SOB or CP. 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 Patient verbalized understanding of preoperative plan. TPAP [...] of right hip - (Added by Conv) Past Surgical History: Procedure Laterality Date COLONOSCOPY MT HEMORRHOIDECTOMY INTERNAL RUBBER BAND LIGATIONS Hemorrhoidectomy - (Added by Conv) 1980s TOTAL HIP ARTHROPLASTY Bilateral 2010 [...] 10 mEq CR tablet -- -- -- ProviderJennifer MD Notes: Has not started -- -- [...] EKG/Min BPM 52 Atrial Rate BPM 52 MT-Interval (MSEC) ms 178 QRS-Interval (MSEC) ms 96 QT-Interval (MSEC) ms 418 QTc ms 388 P [place] degrees 35 R [place] degrees -31 T [place] degrees 2 Diagnosis Sinus bradycardia Left axis [...] 1.40 mg/dL (H) Lencho index score: 100 DOS Physical Exam Medical history, medications, and allergies reviewed. Attestation: This PAT evaluation Airway Exam: Mallampati: II Cervical ROM: FROM Cardiovascular Exam: Rate: regular Rhythm: regular Pulmonary Exam: LCTA, bilat Anesthesia Plan ASA 2 My patient is approved for the Anesthesia Controlled Medication protocol when under care of a DELICATESSEN MANAGER Planned anesthesia: MAC Induction: Induction: intravenous. Postoperative Plan: Patient's planned disposition post procedure is Outpatient. Informed Consent: Discussed plan with DELICATESSEN MANAGER. Anesthesia plan and risks discussed with patient. [...] Name Priority Date/Time Associated Diagnosis Comments MT AN PROCEDURE PLACEHOLDER Routine 08/04/2023 8:17 AM CDT MT AN PROCEDURE PLACEHOLDER Routine 08/04/2023 8:16 AM CDT MT AN ELECTIVE SUPRAGLOTTIC AIRWAY Routine 08/04/2023 8:16 AM CDT documented in this encounter Results * MT AN PROCEDURE PLACEHOLDER (08/04/2023 8:17 AM CDT) Narrative Yael Fang CRNA - 08/04/2023 8:17 AM CDT Yael Fang CRNA ? 08/04/2023 ??8:17 AM Peripheral IV Catheter Patient location: OR Staff: Placed by: DELICATESSEN MANAGER: Yael Fang CRNA Preprocedure prep: Prep solution: chlorhexadine PPE: gloves and provider hat/mask PIV line: Laterality: right Site: foot Catheter size: 20 g Technique: anatomical landmarks Procedure details: good blood return and occlusive dressing applied Number of attempts: 1 Assessment: Events: patient tolerated procedure well with no complications Ashley Padilla MD ANESTHESIA ORDERABLES Fin al Result * MT AN ELECTIVE SUPRAGLOTTIC AIRWAY, MT AN PROCEDURE PLACEHOLDER (08/04/2023 8:16 AM CDT) Narrative Yael Fang CRNA - 08/04/2023 8:16 AM CDT Yael Fang CRNA ? 08/04/2023 ??8:16 AM Airway Patient location: OR Urgency: elective Indications for airway management: anesthesia Difficult airway: no Staff: Supervising provider: Ashley Padilla MD Placed by: DELICATESSEN MANAGER: Yael Fang CRNA Emergent airway documentation: Risks and benefits discussed: yes Consent obtained: yes Consent given by: patient Airway prep: Preoxygenated: yes Patient position: sniffing Mask difficulty assessment: 0 - not attempted Spontaneous ventilation during airway: absent Sedation level during airway: GA Final airway details: Final airway type: supraglottic airway Final supraglottic airway: IGel SGA size: 5 Number of attempts: 1 Additional comments: Atraumatic placement of LMA igel 5. Adequate tidal volume returned. Leak audible at < 05atO6K Ashley Padilla MD ANESTHESIA ORDERABLES Fin al Result documented in this encounter Visit Diagnoses [...] within 60 minutes of incision., Indications: Prophylaxis, SurgicalIndications:Prophylaxis , Surgical Given 08/04/2023 7:39 AM CDT 2,000 mg dexAMETHasone (DECADRON) 4 mg/mL injection intravenous, Administer over 2 Minutes, As needed, Starting on Mon08/04/23 at 0823, Anesthesia Intra-op Given 08/04/2023 8:23 AM CDT 4 mg dexmedeTOMIDine (PRECEDEX) 80 mcg/20 mL (4 mcg/mL) in sodium chloride 0.9% (premix) intravenous, As needed, Starting on Mon08/04/23 at 0832, Anesthesia Intra-op Given 08/04/2023 8:32 AM CDT 12 mcg ePHEDrine injection intravenous, Administer over 5 Minutes, As needed, Starting on Mon08/04/23 at 0801, Anesthesia Intra-op Given 08/04/2023 10:21 AM CDT 15 mg Given 08/04/2023 8:01 AM CDT 10 mg famotidine (PEPCID) injection intravenous, Administer over 2 Minutes, As needed, Starting on Mon08/04/23 at 0822, Anesthesia Intra-op Given 08/04/2023 8:22 AM CDT 20 mg fentaNYL (SUBLIMAZE) preservative free injection intravenous, As needed, Starting on Mon08/04/23 at 0804, Anesthesia Intra-op Given 08/04/2023 8:04 AM CDT 100 mc g Given 08/04/2023 7:47 AM CDT 50 mcg glycopyrrolate (ROBINUL) injection intravenous, Administer over 1 Minutes, As needed, Starting on Mon08/04/23 at 0755, Anesthesia Intra-op Given 08/04/2023 7:55 AM CDT 0.2 mg Given 08/04/2023 7:50 AM CDT 0.1 mg HYDROmorphone (DILAUDID) injection intravenous, Administer over 2 Minutes, As needed, Starting on Mon08/04/23 at 0818, Anesthesia Intra-op Given 08/04/2023 8:18 AM CDT 0.6 mg Lactated Ringer's (LR) infusion 30 mL/hr, intravenous, Continuous, Starting on Mon08/04/23 at 0630, Pre-Op New Bag 08/04/2023 8:23 AM CDT Restarted 08/04/2023 7:38 AM CDT Rate/Dose Verify 08/04/2023 7:25 AM CDT 30 mL/h r lidocaine (cardiac) (XYLOCAINE) preservative free injection intravenous, As needed, Starting on Mon08/04/23 at 0738, Anesthesia Intra-op, Indications: Ventricular ArrhythmiasIndications:Ventricular Arrhythmias Given 08/04/2023 7:38 AM CDT 100 mg midazolam (VERSED) 2 mg/2 mL preservative free injection intravenous, Administer over 2 Minutes, As needed, Starting on Mon08/04/23 at 0725, Anesthesia Intra-op Given 08/04/2023 7:25 AM CDT 2 mg ondansetron (ZOFRAN) injection intravenous, Administer over 2 Minutes, As needed, Starting on Mon08/04/23 at 1019, Anesthesia Intra-op Given 08/04/2023 10:19 AM CDT 4 mg phenylephrine (JEAN-CLAUDE-SYNEPHRINE) 1 mg/10 mL (100 mcg/mL) in sodium chloride 0.9% (premix) intravenous, As needed, Starting on Mon08/04/23 at 0757, Anesthesia Intra-op Given 08/04/2023 7:57 AM CDT 200 mc g propofoL (DIPRIVAN) 10 mg/mL IV intravenous, As needed, Starting on Mon08/04/23 at 0738, Anesthesia Intra-op Given 08/04/2023 7:44 AM CDT 110 mg Given 08/04/2023 7:38 AM CDT 40 mg propofoL (DIPRIVAN) 10 mg/mL IV intravenous, Continuous PRN, Starting on Mon08/04/23 at 0738, Anesthesia Intra-op New Bag 08/04/2023 7:38 AM CDT 80 mcg/kg/min 45.744 mL/hr documented in this encounter Care Teams Cutter Wet Machine Relationship Specialty Start Date End Date Remy Sevilla DO [address] [facility]NOTE 3] [address] [place] [address] PCP - General Family Medicine 07/10/23 documented as of this encounter
--- OUTSIDE RECORDS SUMMARY | 2024-09-28 10:21 | XMS_ITS | Encounter Summary ---
Author Organization [facility] Address [address] [place] [address] Phone Care Team Providers Care Purification Supervisor Name Role Phone Remy Sevilla DO Primary Care Provider [phone] Encounter Details Date Type Department Care Team (Late st Contact Info) Description 08/09/2023 Plan of Care Documentation [facility] Occupational Therapy [address] 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
--- OUTSIDE RECORDS SUMMARY | 2024-09-28 10:21 | XMS_ITS | Encounter Summary ---
Author Organization [facility] Healthcare Address [address] [place] [address] Care Team Providers Care Scientific Publications Editor Name Role Phone Remy Sevilla Primary Care Provider [phone] Reason for Visit * Reason Onset Date Comments Call Back Re: CT Scan Appt 07/12/2023 Encounter Details Date Type Department Care Team (Late st Contact Info) Description 07/12/2023 Telephone [facility] Medical Group Orthopedics and Sports Medicine [address] [place] [phone] Paula Mckeon MD [address] [place] [phone] Call Back Re: CT Scan Appt Social History Tobacco Use Types Packs/Day Years Used Date Smoking Tobacco: Never Smokeless Tobacco: Never Alcohol Use Standard Drinks/Week Comments Not Currently 0 (1 standard drink = 0.6 oz pur e alcohol) Sex and Gender Information Value Date Recorded Sex Assigned at Not on file 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 Pt is aware of CT and will proceed as scheduled. * Telephone Encounter - Daija Gar - 07/12/2023 9:14 AM CDT ESD: Patient would like a call back regarding the CT - he wants to know why dr mckeon wants him to get a CT, when he already did an MRI the other * Telephone Encounter - Jacinda Barrett MA - 07/12/2023 8:21 AM CDT Left message for pt to call back to notify him on CT scheduled on 07/18/2023 at 9am at [facility]. He must arrive at 8:30am. documented in this encounter Plan of Treatment Not on file documented as of this encounter Visit Diagnoses Not on filedocumented in this encounter Care Teams Scientific Publications Editor Relationship Specialty Start Date End Date Remy Sevilla DO [address] [facility] [address] [place] [id number] PCP - General Family Medicine 07/10/23 documented as of this encounter
--- OUTSIDE RECORDS SUMMARY | 2024-09-28 10:21 | XMS_ITS | Encounter Summary ---
Author Organization [facility] Address [address] [place] [address] Care Team Providers Care Leather Whitener Name Role Phone Remy Sevilla DO Primary Care Provider [phone] Reason for Referral * MRI/CAT/PET Scan (Routine) - Closed Specialty Diagnoses / Procedures Referred By Vish negro Referred To Contact Radiology Diagnoses Spontaneous rupture of extensor tendon of left hand Fracture of unspecified carpal bone, left wrist, initial encounter for closed fracture Procedures CT Wrist Left WO Contrast Paula Flores MD [address] [place] [address] [address] VIR[address]ES [address] [place] [address] Phone: tel: fax: [address] [address] Referral ID Status Reason Start Date Expiration Date Visits Re quested Visits Authorized [id number] Closed 07/11/2023 08/09/2024 1 1 Reason for Visit * MRI/CAT/PET Scan (Routine) - Closed Specialty Diagnoses / Procedures Referred By Vish negro Referred To Contact Radiology Diagnoses Spontaneous rupture of extensor tendon of left hand Fracture of unspecified carpal bone, left wrist, initial encounter for closed fracture Procedures CT Wrist Left WO Contrast Paula Flores MD [facility] [address] VIRAMONTES [address] [place] [address] Phone: tel: fax: 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 Gender Identity Male 08/03/2023 6:13 PM CDT Sexual Orientation Not on file documented as of this encounter Medications at Time of Discharge amLODIPine (NORVASC) 10 mg tablet Take 1 tablet (10 mg total) by mouth herbicide service sales representative before breakfast 08/18/2022 hydroCHLOROthiaz anuj (HYDRODIURIL) 25 mg tablet Take 1 tablet (25 mg total) by mouth herbicide service sales representative before breakfast 3 02/03/2019 loratadine (CLARITIN) 10 mg tablet Take 1 tablet (10 mg total) by mouth herbicide service sales representative before breakfast 3 03/09/2019 losartan (COZAAR) 100 mg tablet Take 1 tablet (100 mg total) by mouth herbicide service sales representative before breakfast 07/25/2022 metoprolol XL (TOPROL-XL) 50 mg extended release tablet Take 1 tablet (50 mg total) by mouth herbicide service sales representative before breakfast 08/08/2022 CARTIA XT 300 mg 24 hr capsuleIndicatio ns:hypertension Take 1 capsule (300 mg total) by mouth herbicide service sales representative before breakfast 3 02/25/2019 3 clotrimazole (LOTRIMIN) [...] Procedure Name Priority Date/Time Associated Diagnosis Comments CT WRIST LEFT WO CONTRAST Schedule Routine, Read Routine (OP Routine) 07/18/2023 9:05 AM CDT Spontaneous rupture of extensor tendon of left hand Fracture of unspecified carpal bone, left wrist, initial encounter for closed fracture documented in this encounter Results * CT Wrist Left [...] mild triscaphe, mild distal radioulnar joint and adpi-xi-nwbrmrdq 2nd metacarpophalangeal joint osteoarthritis are present. ?? [...] to chronic extensor tendon pathology. 2. ?? Ztkr-db-qpbrysag polyarticular hand and wrist osteoarthritis. THIS IS AN ELECTRONICALLY VERIFIED FINAL REPORT 07/18/2023 9:57 AM - Electronically signed by ??Owen Ireland M.D. TH: TH D: ??07/18/2023 9:57 AM T: ??07/18/2023 9:57 AM Report ID: [id number] Reading Location: ??[id number] Procedure Note Owen Ireland MD - 07/18/2023 [...] thumb, mild triscaphe, mild distal radioulnar jointand njrp-ko-xafyzkts 2nd metacarpophalangeal joint osteoarthritis are present. Small [...] related to chronic extensor tendon pathology. 2. Fdon-hx-ymcjrmjm polyarticular hand and wrist osteoarthritis. THIS IS AN ELECTRONICALLY VERIFIED FINAL REPORT 07/18/2023 9:57 AM - Electronically signed by Owen Ireland M.D. TH: Report ID: [id number] Reading Location: [id number] Paula Flores MD IMG CT PROCEDURES Final R esult documented in this encounter Visit Diagnoses Diagnosis Spontaneous rupture of extensor tendon of left hand Fracture of unspecified carpal bone, left wrist, initial encounter for closed fracture documented in this encounter Care Teams Leather Whitener Relationship Specialty Start Date End Date Remy Sevilla DO [address] [facility] [address] [address] PCP - General Family Medicine 07/10/23 documented as of this encounter
--- OUTSIDE RECORDS SUMMARY | 2024-09-28 10:22 | XMS_ITS | Encounter Summary ---
Author Organization [facility] Address [address] [place] [address] Care Team Providers Care Legal Aid Name Role Phone Juan A Quezada MD Primary Care Provider [phone] Encounter Details Date Type Department Care Team (Late st Contact Info) Description 03/26/2019 Telephone [facility] Medical [facility] Orthopedics and Sports Medicine 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 * Telephone Encounter - aTna Apple - 03/26/2019 8:35 AM CDT [facility] AIM is telling Emily in [place] that they need an authorization for his MRI of his upper extremitytomorrow documented in this encounter Plan of Treatment Not on file documented as of this encounter Visit Diagnoses Not on filedocumented in this encounter Care Teams Legal Aid Relationship Specialty Start Date End Date Juan A Quezada MD [address] [place] [address] PCP - General Internal Medicine 03/12/19 07/09/23 documented as of this encounter
--- OUTSIDE RECORDS SUMMARY | 2024-09-28 10:22 | XMS_ITS | Encounter Summary ---
Author Organization [facility] Address [address] [facility] [address] [place] [address] Care Team Providers Care Supervising Floorperson Name Role Phone Juan A Quezada MD Primary Care Provider [phone] Reason for Visit * Reason Comments Pain Encounter Details Date Type Department Care Team (Latest Contact Info) Description 04/18/2019 1:00 PM CDT Office Visit [facility] Orthopedics and Sports Medicine [address] [place] [address] [address] [place] [phone] Javier Daniel MD [address] [place] [address] 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 VISIT DATE: 04/18/2019 CHIEF COMPLAINT He had concerns including Pain of the Left Shoulder., numbness left hand HISTORY OF PRESENT ILLNESS Juventino Cormier is a 63 y.o. male. The patient comes in today with a new complaint of numbness in his left hand. The patient reports that the cortisone injection to his left shoulder helped significantly. He reports the shoulder is much better. He reports that does still hurts some with range of motion. However, 2-3 days after the injection the patient started to note numbness in his left hand. Hereports that all the fingers in his hands were numb. The patient reports that the numbness has beendecreasing since that point time. It is not numb all the time at this point. MEDICATIONS He has a current medication list which includes the following prescription(s): cartia xt, doxazosin, enalapril, hydrochlorothiazide, loratadine, losartan, and naproxen. ALLERGIES He has No Known Allergies. SOCIAL HISTORY reports that he has never smoked. He has never used smokeless tobacco. REVIEW OF SYSTEMS Constitutional: No Fever Respiratory: No Shortness of Breath PHYSICAL EXAM There is no height or weight on file to calculate BMI. Alert and Oriented X 3. No apparent distress. Hearing is intact to spoken word. Respirations regular. Neck range of motion is full. Negative Spurlings sign. Skin is intact across the neck. Left shoulder exam. The arm is warm and well perfused. The patients skin is intact across the upper extremity.Forward elevation is to 170 degrees. External rotation with the arm at the side is to 60 degrees. 4/5 strength with thumbs down abduction. 4/5 strength with resisted external rotation with the arm atthe side. The patient does have good strength with flexion/ extension of his fingers. The patient does describe slightly decreased sensation to light touch throughout all of his fingers. IMAGING No imaging was obtained today There are no diagnoses linked to this encounter. 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 Left hand numbness PLAN I discussed with him that I am not sure what is causing this numbness. I am not sure that it is specifically connected to the cortisone injection since we are not anywhere close to any nerves in his brachial plexus. The patient does describe noting some skin discoloration across the entire shoulder. It is possible that he had a little bit of bleeding into his shoulder that caused some irritation of his nerves. I think the more likely thing causing the numbness though is an issue with his cervical spine. I discussed the option of obtaining an MRI of the cervical spine versus nerve conduction studies, but we elected to defer those for now since the patient's symptoms are improving. I will seethe patient back in clinic in 4-6 weeks to assess his progress. Javier Daniel MD documented in this encounter Plan of Treatment Not on file documented as of this encounter Visit Diagnoses Diagnosis Nontraumatic complete tear of left rotator cuff- Primary Numbness of left hand Osteoarthritis of left acromioclavicular joint documented in this encounter Care Teams Supervising Floorperson Relationship Specialty Start Date End Date Juan A Quezada MD [address] [place] [address] PCP - General Internal Medicine 03/12/19 07/09/23 documented as of this encounter
--- OUTSIDE RECORDS SUMMARY | 2024-09-28 10:22 | XMS_ITS | Encounter Summary ---
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
--- OUTSIDE RECORDS SUMMARY | 2024-09-28 10:22 | XMS_ITS | Encounter Summary ---
Author Organization [facility] Address [address] [facility] [address] [place] [address] Care Team Providers Care Pattern Filer Name Role Phone Juan A Quezada MD Primary Care Provider [phone] Encounter Details Date Type Department Care Team (Late st Contact Info) Description 03/29/2019 Telephone [facility] Medical [facility] Orthopedics and Sports Medicine [facility] [address] [place] [address] Donell Chiu MD [address] [place] [address] [address] [place], [place] [id number] Social History Tobacco Use Types Packs/Day Years Used Date Smoking Tobacco: Never Smokeless Tobacco: Never Sex and Gender Information Value Date Recorded Sex Assigned at Not on file 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 Noel to further evaluate his shoulder. * Telephone Encounter - Tana Apple - 03/29/2019 10:14 AM CDT [facility] Pt would like MRI results. Was done 03/27/19 at [facility] documented in this encounter Plan of Treatment Not on file documented as of this encounter Visit Diagnoses Not on filedocumented in this encounter Care Teams Pattern Filer Relationship Specialty Start Date End Date Juan A Quezada MD [address] [place] [address] PCP - General Internal Medicine 03/12/19 07/09/23 documented as of this encounter
--- OUTSIDE RECORDS SUMMARY | 2024-09-28 10:22 | XMS_ITS | Encounter Summary ---
Author Organization [facility] Healthcare Address [address] [place] [address] Care Team Providers Care Bio Medical Technician Name Role Phone Juan A Quezada MD Primary Care Provider [phone] Encounter Details Date Type Department Care Team (Late st Contact Info) Description 03/27/2019 1:39 PM CDT Hospital Encounter [facility] OP INTERIM Donell Chiu MD [address] [facility] [address] [address] Social History Tobacco Use Types Packs/Day Years Used Date Smoking Tobacco: Never Smokeless Tobacco: Never Sex and Gender Information Value Date Recorded Sex Assigned at Not on file 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 Gender Identity Male 08/03/2023 6:13 PM CDT Sexual Orientation Not on file documented as of this encounter Medications at Time of Discharge hydroCHLOROthiaz anuj (HYDRODIURIL) 25 mg tablet Take 1 tablet (25 mg total) by mouth thermostatic controls supervisor before breakfast 3 02/03/2019 loratadine (CLARITIN) 10 mg tablet Take 1 tablet (10 mg total) by mouth thermostatic controls supervisor before breakfast 3 03/09/2019 CARTIA XT 300 mg 24 hr capsuleIndicatio ns:hypertension Take 1 capsule (300 mg total) by mouth thermostatic controls supervisor before breakfast 3 02/25/2019 3 doxazosin (CARDURA) 4 mg tablet TK 1 T BID 3 01/16/2019 3 enalapril (VASOTEC) 5 mg tablet 1 tablet (5 mg total) 3 losartan (COZAAR) 50 mg tablet TK 1 T PO D 4 01/30/2019 3 naproxen (NAPROSYN) 500 mg tablet 3 documented as of this encounter Plan of Treatment Not on file documented as of this encounter Procedures Procedure Name Priority Date/Time Associated Diagnosis Comments MRI UP EXT JOINT W CONTRAST LEFT 03/27/2019 1:45 PM CDT documented in this encounter Results * MRI UP EXT JOINT W L (03/27/2019 1:45 PM CDT) Anatomical Region Laterality Modality Upper Arm Left Magnetic Resonan ce 03/27/2019 3:33 PM CDT Narrative 03/27/2019 3:41 PM CDT Patient Name: GOKUL CORMIER ?Ordering Dr: Donell Chiu MD ?? D.O.B: 1955 ? Exam Date: 03/27/19 ?? 1345 ?? Age: 63 ?Sex: Male ? MR#: [id number] ?? Loc: ? RADIOLOGY REPORT ?? Order #[id number] ?? Magnetic Resonance Imaging ? MRI Upper Ext Joint Left ? Signed ?? EXAM DESCRIPTION: ??MRI Upper Ext Joint Left ? REASON FOR STUDY: ??Status post fall July 2018. ??Diffuse pain and limited ?? range of motion since then. ? TECHNIQUE: ??Multiplanar, multisequence MRI of the left shoulder was performed. ? COMPARISON: ??Radiograph dated July 27, 2018. ? FINDINGS: ? Rotator Cuff: There is advanced attritional supraspinatus tendinosis with full ?? thickness full width tearing and tendon retraction to the glenohumeral ?? articulation. ??There is advanced attritional infraspinatus tendinosis with ?? full thickness full width tearing and tendon retraction to the glenohumeral ?? articulation. ??The teres minor is intact. ??Intra-articular biceps is within ?? normal limits. ??There is mild subscapularis tendinosis without evidence of ?? significant tearing. ??Advanced fatty atrophy of the supraspinatus and ?? infraspinatus. ??No other evidence of muscle atrophy or edema. ? Biceps Tendon: The long head of the biceps tendon is located within the ?? bicipital groove, without tear. ? Labrum: Evaluation of the labrum is limited in the absence of intra-capsular ?? contrast. ??Within that limitation, no tear is seen. ? Acromion and AC Joint: The coracoacromial and coracoclavicular ligaments are ?? intact. ??There is no os acromiale. ??There is mild acromioclavicular ?? osteoarthritis. ? Glenohumeral Articulation: No subluxation. No chondromalacia. ? Bones: No fracture. ? Joint and bursae: Trace glenohumeral effusion and subacromial/subdeltoid ?? bursitis. ??No loose bodies. ? Soft Tissues: The scapular notch, quadrilateral space are unremarkable. ??There ?? is no axillary lymphadenopathy. ? Other: No other finding. ? IMPRESSION: ? 1. ??Supraspinatus advanced attritional tendinosis with full thickness full ?? width tearing and tendon retraction to the glenohumeral articulation. ? Advanced fatty atrophy of the muscle belly. ? 2. ??Infraspinatus advanced attritional tendinosis with full thickness full ?? width tearing and tendon retraction to the glenohumeral articulation. ? Advanced fatty atrophy of the muscle belly. ? 3. ??Acromioclavicular articulation mild osteoarthritis. ? 4. ??Trace glenohumeral effusion and subacromial/subdeltoid bursitis. ? THIS IS AN ELECTRONICALLY VERIFIED FINAL REPORT ?? 03/27/2019 3:41 PM - Electronically signed by Morro Raza M.D. ?? Morro Raza M.D. ? JA ?? D: ??03/27/2019 3:36 PM ?? T: ??03/27/2019 3:41 PM ? Report ID: [id number] ?? Reading Location: ??[id number] ? REPORT ELECTRONICALLY SIGNED IN OTHER VENDOR SYSTEM ?? Resulting Agency Comment O Procedure Note Morro Raza MD - 03/28/2019 Patient Name: GOKUL CORMIER Joshua Dr: Donell Chiu MD D.O.B: 1955 Exam Date: 03/27/191344 Age: 63 Sex: Male MR#: [id number] Loc: RADIOLOGY REPORT Order #[id number] Magnetic Resonance Imaging MRI Upper Ext Joint Left Signed EXAM DESCRIPTION: MRI Upper Ext Joint Left REASON FOR STUDY: Status post fall July 2018. Diffuse pain andlimited range of motion since then. TECHNIQUE: Multiplanar, multisequence MRI of the left shoulder wasperformed. COMPARISON: Radiograph dated July 27, 2018. FINDINGS: Rotator Cuff: There is advanced attritional supraspinatus tendinosis withfull thickness full width tearing and tendon retraction to the glenohumeral articulation. There is advanced attritional infraspinatus tendinosiswith full thickness full width tearing and tendon retraction to theglenohumeral articulation. The teres minor is intact. Intra-articular biceps iswithin normal limits. There is mild subscapularis tendinosis without evidenceof significant tearing. Advanced fatty atrophy of the supraspinatus and infraspinatus. No other evidence of muscle atrophy or edema. Biceps Tendon: The long head of the biceps tendon is located within the bicipital groove, without tear. Labrum: Evaluation of the labrum is limited in the absence ofintra-capsular contrast. Within that limitation, no tear is seen. Acromion and AC Joint: The coracoacromial and coracoclavicular ligamentsare intact. There is no os acromiale. There is mild acromioclavicular osteoarthritis. Glenohumeral Articulation: No subluxation. No chondromalacia. Bones: No fracture. Joint and bursae: Trace glenohumeral effusion and subacromial/subdeltoid bursitis. No loose bodies. Soft Tissues: The scapular notch, quadrilateral space are unremarkable.There is no axillary lymphadenopathy. Other: No other finding. IMPRESSION: 1. Supraspinatus advanced attritional tendinosis with full thicknessfull width tearing and tendon retraction to the glenohumeral articulation. Advanced fatty atrophy of the muscle belly. 2. Infraspinatus advanced attritional tendinosis with full thicknessfull width tearing and tendon retraction to the glenohumeral articulation. Advanced fatty atrophy of the muscle belly. 3. Acromioclavicular articulation mild osteoarthritis. 4. Trace glenohumeral effusion and subacromial/subdeltoid bursitis. THIS IS AN ELECTRONICALLY VERIFIED FINAL REPORT 03/27/2019 3:41 PM - Electronically signed by Morro BARRETT Report ID: [id number] Reading Location: [id number] REPORT ELECTRONICALLY SIGNED IN OTHER VENDOR SYSTEM us Donell Chiu MD IMG MRI PROCEDURES Fi nal Result documented in this encounter Visit Diagnoses Not on filedocumented in this encounter Care Teams Bio Medical Technician Relationship Specialty Start Date End Date Juan A Quezada MD [address] [place] [address] PCP - General Internal Medicine 03/12/19 07/09/23 documented as of this encounter
--- OUTSIDE RECORDS SUMMARY | 2024-09-28 10:22 | XMS_ITS | Encounter Summary ---
Author Organization [facility] Care Team Providers Care Flume Tender Name Role Phone Unavailable Primary Care Provider Unavailabl e Encounter Details Date Type Department Care Team (Late st Contact Info) Description 05/26/2010 - 05/26/2010 11:59 PM CDT [facility] [address] [place] [address] Degeneration of cervical intervertebral disc; Other disorder of bone and cartilage Social History Tobacco Use Types Packs/Day Years Used Date Smoking Tobacco: Never Assessed Sex and Gender Information Value Date Recorded Sex Assigned at Not on file 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
--- OUTSIDE RECORDS SUMMARY | 2024-09-28 10:22 | XMS_ITS | Encounter Summary ---
Author Organization [facility] Healthcare Address [address] [place] [address] Care Team Providers Care Finished Cigar Maker Name Role Phone Juan A Quezada MD Primary Care Provider [phone] [phone] Encounter Details Date Type Department Care Team (Late st Contact Info) Description 05/07/2019 1:10 PM CDT Hospital Encounter [facility] Javier Daniel MD [address] [facility] [address] [address] Social History Tobacco Use Types Packs/Day Years Used Date Smoking Tobacco: Never Smokeless Tobacco: Never Sex and Gender Information Value Date Recorded Sex Assigned at Not on file Legal 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 Gender Identity Male 08/03/2023 6:13 PM CDT Sexual Orientation Not on file documented as of this encounter Medications at Time of Discharge hydroCHLOROthiaz anuj (HYDRODIURIL) 25 mg tablet Take 1 tablet (25 mg total) by mouth assembler skylights before breakfast 3 02/03/2019 loratadine (CLARITIN) 10 mg tablet Take 1 tablet (10 mg total) by mouth assembler skylights before breakfast 3 03/09/2019 CARTIA XT 300 mg 24 hr capsuleIndicatio ns:hypertension Take 1 capsule (300 mg total) by mouth assembler skylights before breakfast 3 02/25/2019 doxazosin (CARDURA) 4 mg tablet TK 1 [...] Procedure Name Priority Date/Time Associated Diagnosis Comments SCAN - NEUROLOGY 05/13/2019 12:0 0 AM CDT documented in this encounter Results * SCAN - NEUROLOGY (05/13/2019 12:00 AM CDT) Anatomical Region Laterality Modality Other Narrative 05/13/2019 12:00 AM CDT Ordered by an unspecified provider. us Historical Provider Final Res ult documented in this encounter Visit Diagnoses Not on filedocumented in this encounter Care Teams Finished Cigar Maker Relationship Specialty Start Date End Date Juan A Quezada MD [address] [place] [address] PCP - General Internal Medicine 03/12/19 07/09/23 documented as of this encounter
--- OUTSIDE RECORDS SUMMARY | 2024-09-28 10:22 | XMS_ITS | Encounter Summary ---
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
--- OUTSIDE RECORDS SUMMARY | 2024-09-28 10:22 | XMS_ITS | Encounter Summary ---
Author Organization [facility] Facility Care Team Providers Care Potato Sorter Name Role Phone Unavailable Primary Care Provider Unavailabl e Encounter Details Date Type Department Care Team (Late st Contact Info) Description 03/16/2010 - 03/16/2010 11:59 PM CDT Hospital [facility] Graeme Coronado Jr., MD [address] [address] Urinary tract infection Social History Tobacco Use Types Packs/Day Years Used Date Smoking Tobacco: Never Assessed Sex and Gender Information Value Date Recorded Sex Assigned at Not on file Legal 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
--- OUTSIDE RECORDS SUMMARY | 2024-09-28 10:22 | XMS_ITS | Encounter Summary ---
Author Organization [facility] Facility Care Team Providers Care Dock Associate Name Role Phone Unavailable Primary Care Provider Unavailabl e Encounter Details Date Type Department Care Team (Latest Contact Info) Description 03/16/2010 1:44 PM CDT Hospital Encounter [facility] Graeme Coronado Jr., MD [address] [address] History of urinary tract infection Social History Tobacco Use Types Packs/Day Years Used Date Smoking Tobacco: Never Assessed Sex and Gender Information Value Date Recorded Sex Assigned at Not on file Legal 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
--- OUTSIDE RECORDS SUMMARY | 2024-09-28 10:22 | XMS_ITS | Encounter Summary ---
Author Organization [facility] Medical Group Address [address] [facility] [address] [place] [address] Care Team Providers Care Fire Department Marine Engineer Name Role Phone Juan A Quezada MD Primary Care Provider [phone] Reason for Referral * Injectables (Routine) - Closed Specialty Diagnoses / Procedures Referred By Vish negro Referred To Contact Orthopedic Surgery Diagnoses Primary osteoarthritis of left knee Left knee pain, unspecified chronicity Procedures Large Joint (Hip, Knee, Shoulder) Injection: L knee [facility]ribe [facility] [address] [place] [address] Phone: tel: fax: [facility] Orthopedics and Sports Medicine [address] [place] [address] [place] [address] Phone: tel: fax: Referral ID Status Reason Start Date Expiration Date Visits Re quested Visits Authorized [id number] Closed 03/27/2020 10/06/2021 1 1 * Diagnostic Imaging (Routine) - Closed Specialty Diagnoses / Procedures Referred By Vish negro Referred To Contact Diagnoses Left knee pain, unspecified chronicity Procedures XR Knee Left 3 Views [facility]ba Uribe [facility] [address] [place] [address] Phone: tel: fax: [facility] [address] [place] [address] Referral ID Status Reason Start Date Expiration Date Visits Re quested Visits Authorized [id number] Closed 03/27/2020 10/06/2021 1 1 Reason for Visit * Reason Comments Pain Encounter Details Date Type Department Care Team (Late st Contact Info) Description 03/27/2020 1:00 PM CDT Office Visit 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 Subjective/Objective Patient ID: Gokul Cormier is a 64 y.o. male. Chief Complaint Patient presents with ??? Left Knee - Pain HPI: This is a 64-year-old male patient with increasing left medial knee pain has been going on for quite some time. He recalls no specific injury. He has been taking occasional Aleve and Tylenol. He has had no locking or giving out. No numbness or tingling noted. There were no vitals taken for this visit. has a current medication list which includes the following prescription(s): cartia xt, clotrimazole(LOTRIMIN), doxazosin (CARDURA), enalapril (VASOTEC), hydrochlorothiazide (HYDRODIURIL), loratadine(CLARITIN), losartan (COZAAR), and naproxen (NAPROSYN). Review of Systems: Review of Systems Constitutional: Negative for chills and fever. Respiratory: Negative for shortness of breath. Cardiovascular: Negative for chest pain. Musculoskeletal: Positive for gait problem. Negative for joint swelling. Skin: Negative for rash and wound. Neurological: Negative for weakness and numbness. Psychiatric/Behavioral: Negative for behavioral problems and confusion. Examination Vital signs reviewed. General Appearance: The patient is in no acute distress. Alert and oriented X3. Respiratory: Respirations are even and unlabored. The patient does not use accessory muscles of respiration. Psych: The patient is pleasant and cooperative and acts appropriately. Musculoskeletal: The skin over the left knee is intact. There is no significant edema or erythema or ecchymosis. There is significant medial joint line tenderness. The patient is able to fully extendthe knee and flex the knee to 120??. The knee is stable to varus and valgus stress. Has no calf tenderness. Positive dorsalis pedis pulse. Neurologically grossly intact. Good strength to resistance to dorsi and plantar flexion of the ankle. Large Joint (Hip, Knee, Shoulder) Injection: L knee Date/Time: 03/27/2020 1:36 PM Performed by: ANNELIESE Rodriges Authorized by: ANNELIESE Rodriges Large Joint Injection/Aspiration: Consent Given by: Patient Timeout: prior to procedure the correct patient, procedure, and site was verified Verbal consent obtained: Yes Supporting Documentation: Indications: Pain Procedure Details: Location: Knee Site: L knee Prep: patient was prepped and draped in usual sterile fashion Needle Size: 22 G Approach: Anterolateral Ultrasound guided: No Medications: 40 mg methylPREDNISolone acetate 40 mg/mL; 2 mL lidocaine 10 mg/mL (1 %) Patient tolerance: Patient tolerated the procedure well with no immediate complications (M17.12) Primary osteoarthritis of left knee (primary encounter diagnosis) (M25.562) Left knee pain, unspecified chronicity Plan: XR Knee Left 3 Views Diagnoses and all orders for this visit: Primary osteoarthritis of left knee (Primary) Left knee pain, unspecified chronicity - XR Knee Left 3 Views; Future Assessment/Plan We discussed options. At this point we will try a cortisone injection to see if this does not help his symptoms. We also give him a hinged knee brace as well as strengthening exercises for the quadriceps and knee. Follow-up sooner increased symptoms, as needed. Nba Uribe PA-C documented in this encounter Plan of Treatment Not on file documented as of this encounter Procedures Procedure Name Priority Date/Time Associated Diagnosis Comments CT ARTHROCENTESIS ASPIR&/INJ MAJOR JT/BURSA W/O US Routine 03/27/2020 1:00 PM CDT Primary osteoarthritis of left knee Left knee pain, unspecified chronicity documented in this encounter Results * XR Knee Left 3 Views (03/27/2020 1:03 PM CDT) Anatomical Region Laterality Modality Lower Extremities, Knee Left Radiogra phic Imaging 03/27/2020 2:13 PM CDT Narrative 03/27/2020 2:14 PM CDT Patient Name: GOKUL CORMIER B ?Ordering Dr: Nba Uribe PA-C ?? D.O.B: 1955 ? Exam Date: 03/27/20 ?? 1303 ?? Age: 64 ?Sex: Male ? MR#: [id number] ?? Loc: ? RADIOLOGY REPORT ?? Order #[id number] ?? Radiology ? Knee LT 3 View (STANDARD) ? Signed ?? EXAM DESCRIPTION: ? Knee LT 3 View (STANDARD) ? REASON FOR STUDY: ?? Medial left knee pain over the past 2 months. ??No specific ?? injury. ? TECHNIQUE: ?? 3 radiographic views acquired of the left knee. ? COMPARISON: ?? No prior. ? FINDINGS: ? BONES/JOINTS: ??Normal mineralization. ??No acute fracture or dislocation. ??Mild ?? marginal endplate degenerative change of the patella. ??Chondrocalcinosis ?? medial and lateral compartment. ??Trace effusion. ? SOFT TISSUES: ??No significant findings. ? OTHER: ??No other significant finding. ? IMPRESSION: ? 1. ??Minimal osteoarthritis patellofemoral joint. ? 2. ??Chondrocalcinosis medial and lateral compartment. ? 3. ??Trace effusion. ? THIS IS AN ELECTRONICALLY VERIFIED FINAL REPORT ?? 03/27/2020 2:14 PM - Electronically signed by Rachid Garcia M.D. ?? Rachid Garcia M.D. ? MJ ?? D: ??03/27/2020 2:14 PM ?? T: ? Report ID: [id number] ?? Reading Location: ??[id number] ? REPORT ELECTRONICALLY SIGNED IN OTHER VENDOR SYSTEM ?? Resulting Agency Comment O Procedure Note Rachid Garcia MD - 03/27/2020 Patient Name: GOKUL CORMIER Joshua Dr: Nba Uribe PA-CO.B: 1955 Exam Date: 03/27/20 1303 Age: 64 Sex: Male MR#: [id number] Loc: RADIOLOGY REPORT Order #[id number] Radiology Knee LT 3 View (STANDARD) Signed EXAM DESCRIPTION: Knee LT 3 View (STANDARD) REASON FOR STUDY: Medial left knee pain over the past 2 months. Nospecific injury. TECHNIQUE: 3 radiographic views acquired of the left knee. COMPARISON: No prior. FINDINGS: BONES/JOINTS: Normal mineralization. No acute fracture or dislocation.Mild marginal endplate degenerative change of the patella. Chondrocalcinosis medial and lateral compartment. Trace effusion. SOFT TISSUES: No significant findings. OTHER: No other significant finding. IMPRESSION: 1. Minimal osteoarthritis patellofemoral joint. 2. Chondrocalcinosis medial and lateral compartment. 3. Trace effusion. THIS IS AN ELECTRONICALLY VERIFIED FINAL REPORT 03/27/2020 2:14 PM - Electronically signed by Rachid Garcia M.D. T: Report ID: [id number] Reading Location: [place] [address] REPORT ELECTRONICALLY SIGNED IN OTHER VENDOR SYSTEM us Nba COY IMG XR PROCEDURES Fin al Result * CT ARTHROCENTESIS ASPIR&/INJ MAJOR JT/BURSA W/O US (03/27/2020 1:00 PM CDT) Nba So PA - 03/27/2020 1:00 PM CDT ANNELIESE Rodriges ? 03/27/2020 ??1:41 PM Large Joint (Hip, Knee, Shoulder) Injection: L knee Date/Time: 03/27/2020 1:36 PM Performed by: ANNELIESE Rodriges Authorized by: ANNELIESE Rodriges Large Joint Injection/Aspiration: ??Consent Given by: ??Patient ??Timeout: prior to procedure the correct patient, procedure, and site was verified ?Verbal consent obtained: Yes ?? Supporting Documentation: ??Indications: ??Pain Procedure Details: ??Location: ??Knee ??Site: ??L knee ??Prep: patient was prepped and draped in usual sterile fashion ?Needle Size: ??22 G ??Approach: ??Anterolateral ??Ultrasound guided: No ?Medications: ??40 mg methylPREDNISolone acetate 40 mg/mL; 2 mL lidocaine 10 mg/mL (1 %) ??Patient tolerance: ??Patient tolerated the procedure well with no immediate complications us Nba COY IN CLINIC/BEDSIDE ORD ERABLES Final Result documented in this encounter Visit Diagnoses Diagnosis Primary osteoarthritis of left knee- Primary Left knee pain, unspecified chronicity Left knee pain, unspecified chronicity documented in this encounter Administered Medications Inactive Administered Medications - up to 3 most recent administrations Medication Order MAR Action Action Date Dose Rate Site lidocaine (XYLOCAINE) 10 mg/mL (1 %) injection 2 mL 2 mL, One-Time Injection, Starting on Mon03/27/20 at 1336, For 1 dose, Indications: Administration of Local AnesthesiaIndications:Administratio n of Local Anesthesia Given 03/27/2020 1:36 PM CDT 2 mL methylPREDNISolone acetate (DEPO-medrol) injection 40 mg 40 mg, intra-articular, One-Time Injection, Starting on Mon03/27/20 at 1336, For 1 doseIndications:Primary osteoarthritis of left knee,Left knee pain, unspecified chronicity Given 03/27/2020 1:36 PM CDT 40 mg documented in this encounter Care Teams Fire Department Marine Engineer Relationship Specialty Start Date End Date Juan A Quezada MD [address] [place] [address] PCP - General Internal Medicine 03/12/19 07/09/23 documented as of this encounter
--- OUTSIDE RECORDS SUMMARY | 2024-09-28 10:22 | XMS_ITS | Encounter Summary ---
Author Organization [facility] Facility Care Team Providers Care Cementer Helper Name Role Phone Unavailable Primary Care Provider Unavailabl e Encounter Details Date Type Department Care Team (Late st Contact Info) Description 02/19/2010 3:49 PM CDT - 02/19/2010 4:00 PM CDT [facility] [address] [place] [address] Other specified pre-operative examination; Localized osteoarthrosis, pelvic region and thigh; Obstructive sleep apnea Social History Tobacco Use Types Packs/Day Years Used Date Smoking Tobacco: Never Assessed Sex and Gender Information Value Date Recorded Sex Assigned at Not on file 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
--- OUTSIDE RECORDS SUMMARY | 2024-09-28 10:22 | XMS_ITS | Encounter Summary ---
Author Organization [facility] Medical [facility] Address [address] [facility] [address] [place] [address] Care Team Providers Care Blower Mechanic Name Role Phone Juan A Quezada MD Primary Care Provider [phone] [phone] Reason for Referral * (Routine) - Closed Specialty Diagnoses / Procedures Referred By Vish t Referred To Contact Diagnoses Trigger ring finger of right hand Procedures Hand / Upper Extremity Arthrocentesis: R ring A1 Tee Cuellar MD [address] [place] [address] [address] [place] [address] Phone: tel: fax: [facility] Referral ID Status Reason Start Date Expiration Date Visits Re quested Visits Authorized [id number] Closed 04/16/2020 10/26/2021 1 1 Reason for Visit * Reason Comments Pain Encounter Details Date Type Department Care Team (Late st Contact Info) Description 04/16/2020 9:00 AM CDT Office Visit [facility] Medical [facility] Hand Surgery [address] [place] [address] [address] [place] [address] Tee Cuellar MD [address] [place] [address] [address] [place] [address] Trigger ring finger of right hand (Primary Dx) Social History Tobacco Use Types Packs/Day Years Used Date Smoking Tobacco: Never Smokeless Tobacco: Never Alcohol Use Standard Drinks/Week Comments Not Currently 0 (1 standard drink = 0.6 oz pur e alcohol) Sex and Gender Information Value Date Recorded Sex Assigned at Not on file 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 Gender Identity Male 08/03/2023 6:13 PM CDT Sexual Orientation Not on file documented as of this encounter Last Filed Vital Signs Vital Sign Reading Time Taken Comments Blood Pressure - - Pulse - - Temperature 35.6 ??C (96 ??F) 04/16/2020 8:48 AM CDT Respiratory Rate - - Oxygen Saturation - - Inhaled Oxygen Concentration - - Weight - - Height - - Body Mass Index - - documented in this encounter Progress Notes * Tee Cuellar MD - 04/16/2020 9:00 AM CDTAssociated Order(s): Hand / Upper Extremity Arthrocentesis: R ring A1 Post-Procedure Diagnose(s): Trigger ring finger of right hand Patient ID: Juventino Cormier is a 64 y.o. male. Visit Date: 04/16/2020 Chief Complaint: Chief Complaint Patient presents with ??? Right Ring Finger - Pain HPI: The patient is a 64-year-old ambidextrous male seen for evaluation of pain in his right ring finger. He is a new patient. He reports 3-4 month history of symptoms. He denies any accident or injury. He denies any systemic symptoms or modifying factors. He reports that the finger will catch or trapped in flexion and then rapidly extend. ROS: Constitutional: Negative for appetite change. HENT: Negative for drooling and facial swelling. Eyes: Negative for photophobia. Respiratory: Negative for choking and stridor. Gastrointestinal: Negative for abdominal distention. Endocrine: Negative for polydipsia. Genitourinary: Negative for dysuria and genital sores. Neurological: Negative for facial asymmetry and speech difficulty. Hematological: Negative for adenopathy. Physical Exam: The patient is pleasant and alert. They are cooperative and well groomed. Walk with a normal gait. On examination upper extremities skin is warm and dry. There is brisk capillary refill. There are noulcerations or trophic changes. No atrophy is noted no swelling of the epitrochlear lymph nodes. Onexamination of his right hand there is tenderness to palpation over the flexor tendon sheath of theright ring finger. There is a palpable enlargement on the flexor tendon proximal to the A1 ludy with active composite finger flexion. X-rays/Imaging: Assessment/Plan Diagnoses and all orders for this visit: Trigger ring finger of right hand (Primary) Treatment / Plan: I discussed the diagnosis, anatomy, and treatment options with him. I have illustrated using plastic models and diagrams. I discussed options of splint wear to prevent flexion, intrathecal injection,and lastly an operative release. After thorough discussion I recommended and he wishes to proceed with an injection. I have asked for post car follow-up in 10 days to 2 weeks to reports response to this intervention. Hand / Upper Extremity Arthrocentesis: R ring A1 Performed by: Tee Cuellar MD Authorized by: Tee Cuellar MD Hand/Upper Extremity Injection: Consent Given by: [...] was prepped using a clean technique Medications: 1 mL lidocaine 10 mg/mL (1 %); 10 mg triamcinolone 40 mg/mL documented in this encounter Plan of Treatment Not on file documented as of this encounter Procedures Procedure Name Priority Date/Time Associated Diagnosis Comments SC INJECTION 1 TENDON SHEATH/LIGAMENT APONEUROSIS Routine 04/16/2020 9:00 AM CDT Trigger ring finger of right hand documented in this encounter Results * SC INJECTION 1 TENDON SHEATH/LIGAMENT APONEUROSIS (04/16/2020 9:00 AM CDT) Narrative Tee Ceullar MD - 04/16/2020 9:00 AM CDT Tee Cuellar MD ? 04/16/2020 12:32 PM Hand / Upper Extremity Arthrocentesis: R ring A1 Performed by: Tee Cuellar MD Authorized by: Tee Cuellar MD Hand/Upper Extremity Injection: ??Consent Given by: [...] was prepped using a clean technique ?Medications: ??1 mL lidocaine 10 mg/mL (1 %); 10 mg triamcinolone 40 mg/mL us Tee Cuellar MD IN CLINIC/BEDSIDE ORDERABLES Final Result documented in this encounter Visit Diagnoses Diagnosis Trigger ring finger of right hand- Primary documented in this encounter Administered Medications Inactive Administered Medications - up to 3 most recent administrations Medication Order MAR Action Action Date Dose Rate Site lidocaine (XYLOCAINE) 10 mg/mL (1 %) injection 1 mL 1 mL, One-Time Injection, Starting on Leatha 04/16/20 at 1231, For 1 dose, Indications: Administration of Local AnesthesiaIndications:Administrati on of Local Anesthesia Given 04/16/2020 12:31 PM CDT 1 mL triamcinolone (KENALOG) 40 mg/mL injection 10 mg 10 mg, intra-articular, One-Time Injection, Starting on [place]atha 04/16/20 at 1231, For 1 doseIndications:Trigger ring finger of right hand Given 04/16/2020 12:31 PM CDT 10 mg documented in this encounter Care Teams Blower Mechanic Relationship Specialty Start Date End Date Juan A Quezada MD [address] [place] [address] PCP - General Internal Medicine 03/12/19 07/09/23 documented as of this encounter
--- OUTSIDE RECORDS SUMMARY | 2024-09-28 10:22 | XMS_ITS | Encounter Summary ---
Author Organization [facility] Address [address] [place] [address] Care Team Providers Care Ride Mechanic Name Role Phone Juan A Quezada MD Primary Care Provider [phone] Reason for Referral * Diagnostic Imaging (Routine) - Closed Specialty Diagnoses / Procedures Referred By Vish t Referred To Contact Diagnoses Right knee pain, unspecified chronicity Procedures XR Knee Right 3 Views Nba Uribe PA Phone: tel: fax: [address] [address] Referral ID Status Reason Start Date Expiration Date Visits Re quested Visits Authorized [id number] Closed 10/07/2019 04/17/2021 1 1 NE ENGINE MACHINIST Reason for Visit * Reason Comments Pain Encounter Details Date Type Department Care Team (Late st Contact Info) Description 10/10/2019 10:45 AM MARINE ENGINE MACHINIST Office Visit [facility] Orthopedics and Sports Medicine [address] [place] [address] Nba Uribe PA [address] [place] [address] [address] [place] [address] Right knee pain, unspecified chronicity (Primary Dx); Primary osteoarthritis of right knee Social History Tobacco Use Types Packs/Day Years Used Date Smoking Tobacco: Never Smokeless Tobacco: Never Sex and Gender Information Value Date Recorded Sex Assigned at Not on file Legal 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 MARINE ENGINE MACHINIST Gender Identity Male 08/03/2023 6:13 PM CDT Sexual Orientation Not on file documented as of this encounter Progress Notes * Nba Uribe PA - 10/10/2019 10:45 AM CST Images from the original note were not included. Subjective/Objective Patient ID: Gokul Cormier is a 64 y.o. male. Chief Complaint Patient presents with ??? Right Knee - Pain HPI: This is a 63-year-old male patient complaining of right medial knee pain that has been going on forthe past couple of weeks. He recalls no specific injury. He has had no swelling, no erythema. He states that has got a little bit better recently. He does note a right total hip replacement in the past. He does get little bit of pain along the right buttock area at at times with pain down the lateral right thigh. He has had no locking, no giving out, no calf pain. No chest pain, no shortness of breath. There were no vitals taken for this visit. has a current medication list which includes the following prescription(s): cartia xt, clotrimazole(LOTRIMIN), doxazosin (CARDURA), enalapril (VASOTEC), hydrochlorothiazide (HYDRODIURIL), loratadine(CLARITIN), losartan (COZAAR), and naproxen (NAPROSYN). Review of Systems: Review of Systems Constitutional: Negative for chills and fever. Respiratory: Negative for shortness of breath. Cardiovascular: Negative for chest pain. Musculoskeletal: Negative for gait problem and joint swelling. Skin: Negative for rash and [...] acts appropriately. Musculoskeletal: The skin over the right knee appears intact. The patient is able to fully extend the knee and flex the knee to 110?? without difficulty. There is moderate medial joint line tenderness. There is no tenderness along the lateral posterior joint line. There is no tenderness over the patellar or quadriceps tendons. The patient has no calf tenderness. The patient has good strength to resistance to dorsi and plantar flexion of the ankle. Positive dorsalis pedis pulse. Neurologically grossly intact. Moderate tricompartmental osteoarthritis of the knee, worst within the medial central weight-bearing compartment. Procedures (M25.561) Right knee pain, unspecified chronicity (primary encounter diagnosis) Plan: XR Knee Right 3 Views (M17.11) Primary osteoarthritis of right knee Diagnoses and all orders for this visit: Right knee pain, unspecified chronicity (Primary) - XR Knee Right 3 Views; Future Primary osteoarthritis of right knee Assessment/Plan We discussed options including injections, therapy, anti-inflammatories. We will try conservative therapy with icing, rest, home quadriceps strengthening exercises. The patient will return in 4 weeks. If he continues to have symptoms we will consider cortisone injection at that time. Follow-up sooner as needed. Nba Uribe PA-C Cosigned by Javier Daniel MD at 10/11/2019 11:39 AM MARINE ENGINE MACHINIST NE ENGINE MACHINIST NE ENGINE MACHINIST documented in this encounter Plan of Treatment Not on file documented as of this encounter Results * XR Knee Right 3 Views (10/10/2019 11:04 AM MARINE ENGINE MACHINIST) Anatomical Region Laterality Modality Lower Extremities, Knee Right [facility] Imaging 10/10/2019 12:1 7 PM MARINE ENGINE MACHINIST Narrative 10/10/2019 12:18 PM MARINE ENGINE MACHINIST Patient Name: GOKUL CORMIER ?Ordering Dr: Nba Uribe PA-C ?? D.O.B: 1955 ? Exam Date: 10/10/ ?? 1104 ?? Age: 64 ?Sex: Male ? MR#: [id number] ?? Loc: ? RADIOLOGY REPORT ?? Order #[id number] ?? Radiology ? Knee RT 3 View (STANDARD) ? Signed ?? EXAM DESCRIPTION: ??Knee RT 3 View (STANDARD) ? REASON FOR STUDY: ??Generalized rt knee pain x 1 wk, NKI ? TECHNIQUE: ??Weightbearing AP, weight-bearing lateral, sunrise views of the ?? right knee were obtained. ? COMPARISON: ??None available ? FINDINGS: ? Mild osteoarthritic changes of the patellofemoral compartment are noted with ?? mild marginal osteophyte formation. ??There is enthesophyte formation at the ?? insertion of the quadriceps tendon. ??Moderate joint space narrowing within the ?? medial central weight-bearing compartment is noted. ??Chondrocalcinosis is ?? present. ? IMPRESSION: ??Moderate tricompartmental osteoarthritis of the knee, worst ?? within the medial central weight-bearing compartment. ? THIS IS AN ELECTRONICALLY VERIFIED FINAL REPORT ?? 10/10/2019 12:18 PM - Electronically signed by Gómez Russell M.D. ?? Gómez Russell M.D. ? AT ?? D: ??10/10/2019 12:18 PM ?? T: ? Report ID: [id number] ?? Reading Location: ??[id number] ? REPORT ELECTRONICALLY SIGNED IN OTHER VENDOR SYSTEM ?? Resulting Agency Comment O Procedure Note Gómez Russell MD - 10/10/2019 Patient Name: GOKUL CORMIER Dr: Nba Uribe PA-C, D.O.B: 1955 Exam Date: 10/10/19 1104 Age: 64 Sex: Male MR#: [id number] Loc: RADIOLOGY REPORT Order #[id number] Radiology Knee RT 3 View (STANDARD) Signed EXAM DESCRIPTION: Knee RT 3 View (STANDARD) REASON FOR STUDY: Generalized rt knee pain x 1 wk, NKI TECHNIQUE: Weightbearing AP, weight-bearing lateral, sunrise views ofthe right knee were obtained. COMPARISON: None available FINDINGS: Mild osteoarthritic changes of the patellofemoral compartment are notedwith mild marginal osteophyte formation. There is enthesophyte formation atthe insertion of the quadriceps tendon. Moderate joint space narrowingwithin the medial central weight-bearing compartment is noted. Chondrocalcinosis is present. IMPRESSION: Moderate tricompartmental osteoarthritis of the knee, worst within the medial central weight-bearing compartment. THIS IS AN ELECTRONICALLY VERIFIED FINAL REPORT 10/10/2019 12:18 PM - Electronically signed by Gómez Russell M.D. AT T: Report ID: [id number] Reading Location: [id number] REPORT ELECTRONICALLY SIGNED IN OTHER VENDOR SYSTEM Nba COY IMG XR PROCEDURES Fin al Result documented in this encounter Visit Diagnoses Diagnosis Right knee pain, unspecified chronicity- Primary Primary osteoarthritis of right knee Right knee pain, unspecified chronicity documented in this encounter Historical Medications * This list may reflect changes made after this encounter. clotrimazole (LOTRIMIN) 1 % external solution TIMA TO RIGHT EAR 4 GTS BID FOR 10 DAYS 10/08/2019 07/24/2023 added in this encounter Care Teams Ride Mechanic Relationship Specialty Start Date End Date Juan A Quezada MD [address] [place] [address] PCP - General Internal Medicine 03/12/19 07/09/23 documented as of this encounter
--- OUTSIDE RECORDS SUMMARY | 2024-09-28 10:22 | XMS_ITS | Encounter Summary ---
Author Organization [facility] Facility Care Team Providers Care Software Qa System Specialist Name Role Phone Unavailable Primary Care Provider Unavailabl e Encounter Details Date Type Department Care Team (Late st Contact Info) Description 02/16/2011 - 02/16/2011 11:59 PM CDT [facility] [address] [place] [address] Aftercare following joint replacement; History of hip joint replacement by other means Social History Tobacco Use Types Packs/Day Years Used Date Smoking Tobacco: Never Assessed Sex and Gender Information Value Date Recorded Sex Assigned at Not on file Legal 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
--- OUTSIDE RECORDS SUMMARY | 2024-09-28 10:22 | XMS_ITS | Encounter Summary ---
Author Organization [facility] Facility Care Team Providers Care Shirring Machine Operator Automatic Name Role Phone Unavailable Primary Care Provider Unavailabl e Encounter Details Date Type Department Care Team (Late st Contact Info) Description 12/22/2010 11:37 AM CDT - 12/22/2010 4:00 PM CDT Hospital Encounter [facility] Saqib Burgess MD [address] [place] [address] Other specified pre-operative examination; Pre-operative cardiovascular examination; Pain in joint, pelvic region and thigh; Osteoarthrosis Social History Tobacco Use Types Packs/Day Years Used Date Smoking Tobacco: Never Assessed Sex and Gender Information Value Date Recorded Sex Assigned at Not on file Legal 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 HOB GRINDER Gender Identity Male 08/03/2023 6:13 PM CDT Sexual Orientation Not on file documented as of this encounter Plan of Treatment Not on file documented as of this encounter Visit Diagnoses Diagnosis Other specified pre-operative examination Pre-operative cardiovascular examination Pain in joint, pelvic region and thigh Osteoarthrosis Osteoarthrosis, unspecified whether generalized or localized, unspecified site documented in this encounter
--- OUTSIDE RECORDS SUMMARY | 2024-09-28 10:22 | XMS_ITS | Encounter Summary ---
Author Organization [facility] Address [address] [place] [address] Care Team Providers Care Interpretive Program Coordinator Name Role Phone Juan A Quezada MD Primary Care Provider [phone] Reason for Visit * Reason Comments Pain Encounter Details Date Type Department Care Team (Late st Contact Info) Description 03/21/2019 11:45 AM CDT Office Visit [facility] Orthopedics and Sports Medicine [address] [place] [address] [address] [place] [phone] Donell Chiu MD [address] [place] [address] [address] [place] [address] Injury of left rotator cuff, subsequent encounter (Primary Dx) Social History Tobacco Use Types Packs/Day Years Used Date Smoking Tobacco: Never Smokeless Tobacco: Never Sex and Gender Information Value Date Recorded Sex Assigned at Not on file Legal 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 BOOK CRITIC Gender Identity Male 08/03/2023 6:13 PM CDT Sexual Orientation Not on file documented as of this encounter Last Filed Vital Signs Vital Sign Reading Time Taken Comments Blood Pressure - - Pulse - - Temperature - - Respiratory Rate - - Oxygen Saturation - - Inhaled Oxygen Concentration - - Weight 95.3 kg (210 lb) 03/21/2019 11:58 AM CDT Height 175.3 cm (5' 9 ) 03/21/2019 11:58 AM CDT Body Mass Index 31.01 03/21/2019 11:58 AM CDT documented in this encounter Progress Notes * Donell Chiu MD - 03/21/2019 11:45 AM CDT Subjective/Objective Patient ID: Gokul Cormier is a 63 y.o. male. Chief Complaint Chief Complaint Patient presents with ??? Left Shoulder - Pain HPI: Patient is retired, he has had left shoulder pain since sustaining an injury on 07/27/2018 trippingin his attic. Patient did formal physical therapy for about a month, he also had a subacromial injection into his left shoulder. Injection helped this pain for about 2 months but the pain has since returned. Still having similar problems, he has difficulty raising his arm over his head, notices weakness with lifting his shoulder, pain when he lifts a book to read a book. Having some pain at nightas well. He is working with the therapist in [place] doing various modalities Review of Systems Constitutional: Negative for fever, negative for confusion. HENT: Negative for drooling and voice change. Eyes: Negative for discharge. Respiratory: Negative for choking and stridor. Cardiovascular: Negative for palpitations. Gastrointestinal: Negative for abdominal distention. Musculoskeletal: See HPI. Skin: Negative for color change. Neurological: Negative for facial asymmetry. Psychiatric/Behavioral: Negative for agitation and hallucinations. Physical Exam Examination of his left shoulder shows no atrophy, he does have scapular dyskinesia. Active forwardelevation 150??, 60?? of external rotation and internal rotation to his lower lumbar spine. Mild weakness with empty can resistive strength and external rotation. No lag signs. He has positive Neer's and Reyes impingement testing, no tenderness over the acromioclavicular joint Imaging: Previous left shoulder radiographs showed a congruent glenohumeral joint, with inferior osteophytes compatible with [id number] degenerative changes at the inferior aspect of the joint.Also has hooked acromion Diagnoses and all orders for this visit: Injury of left rotator cuff, subsequent encounter (Primary) - MRI Shoulder Left WO Contrast; Future Patient has done appropriate non operative treatment as detailed above, about a months out from hisinjury still having left shoulder pain. I think an MRI is indicated at this point, particularly evaluating the rotator cuff, biceps tendon, labrum. Will follow-up on the results of that documented in this encounter Plan of Treatment Not on file documented as of this encounter Visit Diagnoses Diagnosis Injury of left rotator cuff, subsequent encounter- Primary documented in this encounter Care Teams Interpretive Program Coordinator Relationship Specialty Start Date End Date Juan A Quezada MD [address] [place] [address] PCP - General Internal Medicine 03/12/19 07/09/23 documented as of this encounter
--- OUTSIDE RECORDS SUMMARY | 2024-09-28 10:22 | XMS_ITS | Encounter Summary ---
Author Organization [facility] Address [address] [place] [address] Care Team Providers Care Ed Teacher Name Role Phone Juan A Quezada MD Primary Care Provider [phone] Encounter Details Date Type Department Care Team (Late st Contact Info) Description 04/24/2019 Telephone [facility] Orthopedics and Sports Medicine [address] [place] [address] Javier Daniel MD [address] [place] [address] [address] [place], [place] [id number] Social History Tobacco Use Types Packs/Day Years Used Date Smoking Tobacco: Never Smokeless Tobacco: Never Sex and Gender Information Value Date Recorded Sex Assigned at Not on file Legal 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 JOURNALIST Gender Identity Male 08/03/2023 6:13 PM CDT Sexual Orientation Not on file documented as of this encounter Miscellaneous Notes * Telephone Encounter - Tana Apple - 04/24/2019 4:16 PM CDT error documented in this encounter Plan of Treatment Not on file documented as of this encounter Visit Diagnoses Not on filedocumented in this encounter Care Teams Ed Teacher Relationship Specialty Start Date End Date Juan A Quezada MD [address] [place] [address] PCP - General Internal Medicine 03/12/19 07/09/23 documented as of this encounter
--- OUTSIDE RECORDS SUMMARY | 2024-09-28 10:22 | XMS_ITS | Encounter Summary ---
Author Organization [facility] Address [address] [place] [address] Care Team Providers Care Glost Kiln Placer Name Role Phone Juan A Quezada MD Primary Care Provider [phone] [phone] Reason for Visit * Reason Comments Pain Encounter Details Date Type Department Care Team (Late st Contact Info) Description 05/16/2019 2:45 PM CDT Office Visit [facility] Orthopedics and Sports Medicine [address] [place] [address] [address] [place] [address] Javier Daniel MD [address] [place] [address] Nontraumatic complete tear of left rotator cuff (Primary Dx); Spinal stenosis in cervical region Social History Tobacco Use Types Packs/Day Years Used Date Smoking Tobacco: Never Smokeless Tobacco: Never Sex and Gender Information Value Date Recorded Sex Assigned at Not on file Legal 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 PROTOCOL MANAGER Gender Identity Male 08/03/2023 6:13 PM CDT Sexual Orientation Not on file documented as of this encounter Progress Notes * Javier Daniel MD - 05/16/2019 2:45 PM CDT Images from the original note were not included. VISIT DATE: 05/16/2019 CHIEF COMPLAINT He had concerns including Pain of the Left Shoulder. Left arm numbness HISTORY OF PRESENT ILLNESS Juventino Cormier is a 63 y.o. male. The patient returns today for follow-up. He reports his left shoulder is doing pretty well. He reports minimal pain in the left shoulder joint today. He does get a little bit of a catch with overhead activity. He also notes that if he sleeps on his left shoulder gets a little sore. At the patient does not think that he is at the point worried need to have his shoulder replaced. The patient reports that the numbness that he had in his left upper extremity has also gotten better. He reports he did have EMG results as well as an MRI of his cervical spine. The patient reports no weakness distally in his left upper extremity. MEDICATIONS He has a current medication list [...] patients skin is intact across the upper extremity.Grossly normal motor strength and sensation distally in the extremity. The patient is nontender to palpation across the shoulder. Forward elevation is to 160 degrees. External rotation with the arm at the side is to 60 degrees. Internal rotation is to T12. 4+/5 strength with thumbs down abduction. 4+/5 strength with resisted external rotation with the arm at the side. Supraspinatus testing is nonpainful. Infraspinatus testing is nonpainful. Painful arc sign is negative. IMAGING I did interpret an MRI of the patient's cervical spine. He did have multiple level degenerative disc disease. He did have moderate central stenosis at the C7-T1 level. The patient also had mild lateral recess stenosis at multiple other levels with disc protrusions at multiple levels. Diagnostic studies I reviewed a report of the patient's nerve conduction studies. There was no evidence of cervical radiculopathy, brachial plexopathy or other focal distal neuropathy. 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 Moderate cervical stenosis that is currently asymptomatic PLAN I discussed treatment options the patient. Given that the numbness has resolved I would not recommend any further treatment of his cervical spine. I also recommend he continue with activity as tolerated for his left shoulder. I recommend following up for a potential cortisone injection down the road into his left shoulder if he has worsening of his symptoms. Javier Daniel MD documented in this encounter Plan of Treatment Not on file documented as of this encounter Visit Diagnoses Diagnosis Nontraumatic complete tear of left rotator cuff- Primary Spinal stenosis in cervical region documented in this encounter Care Teams Glost Kiln Placer Relationship Specialty Start Date End Date Juan A Quezada MD [address] [place] [address] PCP - General Internal Medicine 03/12/19 07/09/23 documented as of this encounter
--- OUTSIDE RECORDS SUMMARY | 2024-09-28 10:22 | XMS_ITS | Encounter Summary ---
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
--- OUTSIDE RECORDS SUMMARY | 2024-09-28 10:22 | XMS_ITS | Encounter Summary ---
Author Organization [facility] Facility Care Team Providers Care Flatlock Sewing Machine Operator Name Role Phone Unavailable Primary Care Provider Unavailabl e Encounter Details Date Type Department Care Team (Late st Contact Info) Description 05/06/2010 11:14 AM CDT - 05/06/2010 4:00 PM CDT Hospital Encounter [facility] Saqib Burgess MD [address] [place] [address] Other specified pre-operative examination Social History Tobacco Use Types Packs/Day Years Used Date Smoking Tobacco: Never Assessed Sex and Gender Information Value Date Recorded Sex Assigned at Not on file Legal 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 DIRECTOR OF ENVIRONMENTAL SERVICES Gender Identity Male 08/03/2023 6:13 PM CDT Sexual Orientation Not on file documented as of this encounter Plan of Treatment Not on file documented as of this encounter Visit Diagnoses Diagnosis Other specified pre-operative examination documented in this encounter
--- OUTSIDE RECORDS SUMMARY | 2024-09-28 10:22 | XMS_ITS | Encounter Summary ---
Author Organization [facility] Healthcare Address [address] [place] [address] Care Team Providers Care Acid Purification Equipment Operator Name Role Phone Juan A Quezada MD Primary Care Provider [phone] [phone] Reason for Referral * Diagnostic Imaging (Routine) - Closed Specialty Diagnoses / Procedures Referred By Vish t Referred To Contact Diagnoses Right knee pain, unspecified chronicity Procedures XR Knee Right 3 Views Nba Uribe PA Phone: tel: fax: [address] [phone] Referral ID Status Reason Start Date Expiration Date Visits Re quested Visits Authorized [id number] Closed 10/07/2019 04/17/2021 1 1 DOMETER INSPECTOR Encounter Details Date Type Department Care Team (Late st Contact Info) Description 10/10/2019 11:02 AM SPEEDOMETER INSPECTOR Hospital Encounter [facility] Nba Uribe PA [address] [place] [address] Right knee pain, unspecified chronicity Social History Tobacco Use Types Packs/Day Years Used Date Smoking Tobacco: Never Smokeless Tobacco: Never Sex and Gender Information Value Date Recorded Sex Assigned at Not on file Legal 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 SPEEDOMETER INSPECTOR Gender Identity Male 08/03/2023 6:13 PM CDT Sexual Orientation Not on file documented as of this encounter Medications at Time of Discharge hydroCHLOROthiaz anuj (HYDRODIURIL) 25 mg tablet Take 1 tablet (25 mg total) by mouth trailer chief before breakfast 3 02/03/2019 loratadine (CLARITIN) 10 mg tablet Take 1 tablet (10 mg total) by mouth trailer chief before breakfast 3 03/09/2019 CARTIA XT 300 mg 24 hr capsuleIndicatio ns:hypertension Take 1 capsule (300 mg total) by mouth trailer chief before breakfast 3 02/25/2019 3 clotrimazole (LOTRIMIN) [...] Name Priority Date/Time Associated Diagnosis Comments XR KNEE RIGHT 3 VIEWS Schedule Routine, Read Routine (OP Routine) 10/10/2019 11:04 AM SPEEDOMETER INSPECTOR Right knee pain, unspecified chronicity documented in this encounter Results * XR Knee Right 3 Views (10/10/2019 11:04 AM SPEEDOMETER INSPECTOR) Anatomical Region Laterality Modality Lower Extremities, Knee Right [facility] Imaging 10/10/2019 12:1 7 PM SPEEDOMETER INSPECTOR Narrative 10/10/2019 12:18 PM SPEEDOMETER INSPECTOR Patient Name: GOKUL CORMEIR ?Ordering Dr: Nba Uribe PA-C ?? D.O.B: 1955 ? Exam Date: 10/10/ ?? 1104 ?? Age: 64 ?Sex: Male ? MR#: [id number] ?? Loc: ? RADIOLOGY REPORT ?? Order #[id number] ?? Radiology ? Knee RT 3 View [...] 12:18 PM ?? T: ? Report ID: [id number] ?? Reading Location: ??[id number] ? REPORT ELECTRONICALLY SIGNED IN OTHER VENDOR SYSTEM ?? Resulting Agency Comment O Procedure Note Gómez Russell MD - 10/10/2019 Patient Name: GOKUL CORMIER Anthonyevy Dr: Nba Uribe PA-C, D.O.B: 1955 Exam Date: 10/10/19 1104 Age: 64 Sex: Male MR#: [id number] Loc: RADIOLOGY REPORT Order #[id number] Radiology Knee RT 3 View (STANDARD) Signed [...] Gómez Russell M.D. AT T: Report ID: [id number] Reading Location: [place] [address] REPORT ELECTRONICALLY SIGNED IN OTHER VENDOR SYSTEM us Nba COY IMG XR PROCEDURES Fin al Result documented in this encounter Visit Diagnoses Diagnosis Right knee pain, unspecified chronicity documented in this encounter Care Teams Acid Purification Equipment Operator Relationship Specialty Start Date End Date Juan A Quezada MD [address] [place] [address] PCP - General Internal Medicine 03/12/19 07/09/23 documented as of this encounter
--- OUTSIDE RECORDS SUMMARY | 2024-09-28 10:22 | XMS_ITS | Encounter Summary ---
Author Organization [facility] Facility Care Team Providers Care Wine And Spirits Clerk Name Role Phone Juan A Quezada MD Primary Care Provider [phone] [phone] Encounter Details Date Type Department Care Team (Latest Contact Info) Description 04/05/2019 Travel Social History Tobacco Use Types Packs/Day Years Used Date Smoking Tobacco: Never Smokeless Tobacco: Never Sex and Gender Information Value Date Recorded Sex Assigned at Not on file Legal 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SPEECH Gender Identity Male 08/03/2023 6:13 PM CDT Sexual Orientation Not on file documented as of this encounter Plan of Treatment Not on file documented as of this encounter Visit Diagnoses Not on filedocumented in this encounter Care Teams Wine And Spirits Clerk Relationship Specialty Start Date End Date Juan A Quezada MD [address] [place] [address] PCP - General Internal Medicine 03/12/19 07/09/23 documented as of this encounter
--- OUTSIDE RECORDS SUMMARY | 2024-09-28 10:22 | XMS_ITS | Encounter Summary ---
Author Organization [facility] Facility Care Team Providers Care Home Health Cna Name Role Phone Juan A Quezada MD Primary Care Provider [phone] [phone] Encounter Details Date Type Department Care Team (Latest Contact Info) Description 05/16/2019 Travel Social History Tobacco Use Types Packs/Day Years Used Date Smoking Tobacco: Never Smokeless Tobacco: Never Sex and Gender Information Value Date Recorded Sex Assigned at Not on file Legal 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 SLOPE HOIST OPERATOR Gender Identity Male 08/03/2023 6:13 PM CDT Sexual Orientation Not on file documented as of this encounter Plan of Treatment Not on file documented as of this encounter Visit Diagnoses Not on filedocumented in this encounter Care Teams Home Health Cna Relationship Specialty Start Date End Date Juan A Quezada MD [address] [place] [address] PCP - General Internal Medicine 03/12/19 07/09/23 documented as of this encounter
--- OUTSIDE RECORDS SUMMARY | 2024-09-28 10:22 | XMS_ITS | Encounter Summary ---
Author Organization [facility] Facility Care Team Providers Care Assistant Editor Name Role Phone Unavailable Primary Care Provider Unavailabl e Encounter Details Date Type Department Care Team (Late st Contact Info) Description 03/04/2010 5:37 AM CDT - 03/04/2010 4:00 PM CDT Hospital Encounter [facility] Saqib Burgess MD [address] [place] [address] Osteoarthrosis, pelvic region and thigh; Procedure not carried out because of contraindication; Essential hypertension; Esophageal reflux; Displacement of cervical intervertebral disc without myelopathy; Obstructive sleep apnea; Obesity Social History Tobacco Use Types Packs/Day Years Used Date Smoking Tobacco: Never Assessed Sex and Gender Information Value Date Recorded Sex Assigned at Not on file Legal 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 PRINCIPAL SOLUTIONS ARCHITECT Gender Identity Male 08/03/2023 6:13 PM CDT Sexual Orientation Not on file documented as of this encounter Plan of Treatment Not on file documented as of this encounter Visit Diagnoses Diagnosis Osteoarthrosis, pelvic region and thigh Procedure not carried out because of contraindication Surgical or other procedure not carried out because of contraindication Essential hypertension Unspecified essential hypertension Esophageal reflux Displacement of cervical intervertebral disc without myelopathy Obstructive sleep apnea Obstructive sleep apnea (adult) (pediatric) Obesity Obesity, unspecified documented in this encounter
--- OUTSIDE RECORDS SUMMARY | 2024-09-28 10:22 | XMS_ITS | Encounter Summary ---
Author Organization [facility] Medical Group Address [address] [place] [address] Care Team Providers Care Private Wealth Advisor Name Role Phone Juan A Quezada MD Primary Care Provider [phone] [phone] Encounter Details Date Type Department Care Team (Late st Contact Info) Description 03/19/2019 Orders Only [facility] Medical [facility] Orthopedics and Sports Medicine [address] [place] [phone] Arianna Connors MA Social History Tobacco Use Types Packs/Day Years Used Date Smoking Tobacco: Never Sex and Gender Information Value Date Recorded Sex Assigned at Not on file Legal 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 SPARK TESTER Gender Identity Male 08/03/2023 6:13 PM CDT Sexual Orientation Not on file documented as of this encounter Plan of Treatment Not on file documented as of this encounter Visit Diagnoses Not on filedocumented in this encounter Discontinued Medications Medication Sig Discontinue Reason Start Date End Da te dilTIAZem CD/XR/XT (dilTIAZem CD) 120 mg 24 hr capsule 03/19/2019 doxazosin (CARDURA) 8 mg tablet 03/19/2019 documented as of this encounter Historical Medications * This list may reflect changes made after this encounter. loratadine (CLARITIN) 10 mg tablet Take 1 tablet (10 mg total) by mouth ross carrier driver before breakfast 3 03/09/2019 hydroCHLOROthiaz anuj (HYDRODIURIL) 25 mg tablet Take 1 tablet (25 mg total) by mouth ross carrier driver before breakfast 3 02/03/2019 doxazosin (CARDURA) 4 mg tablet TK 1 T BID 3 01/16/2019 3 CARTIA XT 300 mg 24 hr capsuleIndicatio ns:hypertension Take 1 capsule (300 mg total) by mouth ross carrier driver before breakfast 3 02/25/2019 3 losartan (COZAAR) 50 mg tablet TK 1 T PO D 4 01/30/2019 3 naproxen (NAPROSYN) 500 mg tablet 3 enalapril (VASOTEC) 5 mg tablet 1 tablet (5 mg total) 3 doxazosin (CARDURA) 8 mg tablet 9 dilTIAZem CD/XR/XT (dilTIAZem CD) 120 mg 24 hr capsule 9 added in this encounter Care Teams Private Wealth Advisor Relationship Specialty Start Date End Date Juan A Quezada MD [address] [place] [address] PCP - General Internal Medicine 03/12/19 07/09/23 documented as of this encounter
--- OUTSIDE RECORDS SUMMARY | 2024-09-28 10:22 | XMS_ITS | Encounter Summary ---
Author Organization [facility] Facility Care Team Providers Care Legal Secretary Name Role Phone Unavailable Primary Care Provider Unavailabl e Encounter Details Date Type Department Care Team (Late st Contact Info) Description 05/09/2012 - 05/09/2012 11:59 PM CDT [facility] [address] [place] [address] Aftercare following joint replacement; History of hip joint replacement by other means Social History Tobacco Use Types Packs/Day Years Used Date Smoking Tobacco: Never Assessed Sex and Gender Information Value Date Recorded Sex Assigned at Not on file Legal 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 ACADEMIC INTERN Gender Identity Male 08/03/2023 6:13 PM CDT Sexual Orientation Not on file documented as of this encounter Plan of Treatment Not on file documented as of this encounter Visit Diagnoses Diagnosis Aftercare following joint replacement History of hip joint replacement by other means documented in this encounter
--- OUTSIDE RECORDS SUMMARY | 2024-09-28 10:22 | XMS_ITS | Encounter Summary ---
Author Organization [facility] Medical [facility] Address [address] [place] [address] Care Team Providers Care Country Singer Name Role Phone Juan A Quezada MD Primary Care Provider [phone] [phone] Reason for Referral * Injectables (Routine) - Closed Specialty Diagnoses / Procedures Referred By Vish negro Referred To Contact Diagnoses Traumatic complete tear of left rotator cuff, subsequent encounter Procedures Large Joint (Hip, Knee, Shoulder) Injection: L subacromial bursa Javier Daniel MD Phone: tel: fax: [facility] Referral ID Status Reason Start Date Expiration Date Visits Re quested Visits Authorized [id number] Closed 04/05/2019 10/14/2020 1 1 Reason for Visit * Reason Comments Pain Encounter Details Date Type Department Care Team (Latest Contact Info) Description 04/05/2019 10:00 AM CDT Office Visit [facility] Orthopedics and Sports Medicine [address] [place] [address] [address] [place] [address] Javier Daniel MD [address] [place] [address] [address] [place] [address] Traumatic complete tear of left rotator cuff, subsequent encounter (Primary Dx); Osteoarthritis of left glenohumeral joint; Osteoarthritis of left acromioclavicular joint Social History Tobacco Use Types Packs/Day Years Used Date Smoking Tobacco: Never Smokeless Tobacco: Never Sex and Gender Information Value Date Recorded Sex Assigned at Not on file Legal 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 WHIZZER Gender Identity Male 08/03/2023 6:13 PM CDT Sexual Orientation Not on file documented as of this encounter Progress Notes * Javier Daniel MD - 04/05/2019 10:00 AM CDTAssociated Order(s): Large Joint (Hip, Knee, Shoulder) Injection: L subacromial bursa Images from the original note were not included. VISIT DATE: 04/05/2019 CHIEF COMPLAINT He had concerns including Pain of the Left Shoulder. HISTORY OF PRESENT ILLNESS Juventino Cormier is a 63 y.o. male. The patient comes in today for follow-up of his left shoulder pain. He reports he continues to have pain in the left shoulder. The pain is worse with movement. In particular hurts to reach for things. The patient reports that he really had no problems in his left shoulder prior to a fall last July. Initially, the patient did see Dr. Corea and had a cortisone injection into her shoulder. He reports that that helped with his pain for about 2 months. The patient also did formal physical therapy but has not made a lot of progress with formal physical therapy. No numbness or tingling in the left upper extremity. The patient reports he is doing almost everything he wants on a day-to-day basis. MEDICATIONS He has a current medication list [...] strength and sensation distally in the extremity. [The patient is nontender topalpation across the shoulder. Forward elevation is to 170 degrees. External rotation with the arm at the side is to 30 degrees. Internal rotation is to L3. 4/5 strength with thumbs down abduction. 4/5 strength with resisted external rotation with the arm at the side. Belly press test is negative. S upraspinatus testing is painful. Infraspinatus testing is painful. Painful arc sign is positive.] IMAGING X-rays the patient's left shoulder show relatively well-preserved glenohumeral joint. He does have a small inferior humeral head osteophyte. He also has some marginal spurring of the acromioclavicular joint. MRI scan of the patient's left shoulder shows significant fatty atrophy of the supraspinatus and infraspinatus muscle bellies. He does have a full-thickness tear of the supraspinatus tendon that is retracted to the glenoid. There is some scar tissue in the region where the rotator cuff previously was. The patient also does have some full-thickness tearing of the infraspinatus tell tendon. 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 Mild left shoulder glenohumeral joint acromioclavicular joint osteoarthritis PLAN I discussed treatment options the patient including repeat injections versus operative treatment. Ithink the only operative treatment option for the patient is a reverse total shoulder arthroplasty.I am not sure that the patient's symptoms are bad enough to warrant a reverse total shoulder arthroplasty at this point time. The patient agreed and elected to proceed with repeat cortisone injectioninto his left shoulder today. Large Joint (Hip, Knee, Shoulder) Injection: L subacromial bursa Date/Time: 04/05/2019 11:43 AM Performed by: Javier Daniel MD Authorized by: Javier Daniel MD Large Joint Injection/Aspiration: Consent Given by: Patient Written consent obtained: Yes Supporting Documentation: Indications: Pain Procedure Details: Location: Shoulder Site: L subacromial bursa Prep: patient was prepped using a clean technique (The skin was anesthetized with ethyl chloride spray prior to the injection.) Needle Size: 25 G Medications: 2 mL lidocaine 10 mg/mL (1 %); 40 mg methylPREDNISolone acetate 40 mg/mL Patient tolerance: Patient tolerated the procedure well with no immediate complications Javier Daniel MD documented in this encounter Plan of Treatment Not on file documented as of this encounter Procedures Procedure Name Priority Date/Time Associated Diagnosis Comments SC ARTHROCENTESIS ASPIR&/INJ MAJOR JT/BURSA W/O US Routine 04/05/2019 10:00 AM CDT Traumatic complete tear of left rotator cuff, subsequent encounter documented in this encounter Results * SC ARTHROCENTESIS ASPIR&/INJ MAJOR JT/BURSA W/O US (04/05/2019 10:00 AM CDT) Narrative Javier Daniel MD - 04/05/2019 10:00 AM CDT Javier Daniel MD ? 04/05/2019 ??1:17 PM Large Joint (Hip, Knee, Shoulder) Injection: L subacromial bursa Date/Time: 04/05/2019 11:43 AM Performed by: Javier Daniel MD Authorized by: Javier Daniel MD Large Joint Injection/Aspiration: ??Consent Given by: ??Patient ??Written consent obtained: Yes ?? Supporting Documentation: ??Indications: ??Pain Procedure Details: ??Location: ??Shoulder ??Site: ??L subacromial bursa ??Prep: patient was prepped using a clean technique (The skin was anesthetized with ethyl chloride spray prior to the injection.) ?Needle Size: ??25 G ??Medications: ??2 mL lidocaine 10 mg/mL (1 %); 40 mg methylPREDNISolone acetate 40 mg/mL ??Patient tolerance: ??Patient tolerated the procedure well with no immediate complications us Javier Daniel MD IN CLINIC/BEDSIDE ORDERABL ES Final Result documented in this encounter Visit Diagnoses Diagnosis Traumatic complete tear of left rotator cuff, subsequent encounter- Primary 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 documented in this encounter Administered Medications Inactive Administered Medications - up to 3 most recent administrations Medication Order MAR Action Action Date Dose Rate Site lidocaine (XYLOCAINE) 10 mg/mL (1 %) injection 2 mL 2 mL, One-Time Injection, Starting on Mon04/05/19 at 1143, For 1 dose, Indications: Administration of Local AnesthesiaIndications:Administrati on of Local Anesthesia Given 04/05/2019 11:43 AM CDT 2 mL methylPREDNISolone acetate (DEPO-medrol) injection 40 mg 40 mg, intra-articular, One-Time Injection, Starting on Mon04/05/19 at 1143, For 1 doseIndications:Traumatic complete tear of left rotator cuff, subsequent encounter Given 04/05/2019 11:43 AM CDT 40 mg documented in this encounter Care Teams Country Singer Relationship Specialty Start Date End Date Juan A Quezada MD [address] [place] [address] PCP - General Internal Medicine 03/12/19 07/09/23 documented as of this encounter
--- OUTSIDE RECORDS SUMMARY | 2024-09-28 10:22 | XMS_ITS | Encounter Summary ---
Author Organization [facility] Medical Group Address [address] [place] [address] Care Team Providers Care Movie Machine Operator Name Role Phone Juan A Quezada MD Primary Care Provider [phone] [phone] Encounter Details Date Type Department Care Team (Late st Contact Info) Description 04/15/2019 Telephone [facility] Medical Group Orthopedics and Sports Medicine [address] [place] [address] Javier Dunn MD [address] [place] [address] [address] [place], [place] [id number] Social History Tobacco Use Types Packs/Day Years Used Date Smoking Tobacco: Never Smokeless Tobacco: Never Sex and Gender Information Value Date Recorded Sex Assigned at Not on file Legal 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 SOLAR ENERGY SPECIALIST Gender Identity Male 08/03/2023 6:13 PM CDT Sexual Orientation Not on file documented as of this encounter Miscellaneous Notes * Telephone Encounter - Aura Cheung MA - 04/16/2019 2:16 PM CDT Per CLL wants patient to come in for a visit, apt made with of pt, for this at 1pm [facility] * Telephone Encounter - Erlinda Cannon MA - 04/15/2019 9:59 AM CDT Patient states his numbness seems to be from the elbow down and affects the 2-5 fingers, will speakwith dr dunn tomorrow and see what next step is * Telephone Encounter - Tana Apple - 04/15/2019 8:25 AM CDT CLL Pt had an injection in his left shoulder on April 05, 2019. He states a couple of days following theinjection he began having tingling in his fingers and arm. He would like to talk to someone about that documented in this encounter Plan of Treatment Not on file documented as of this encounter Visit Diagnoses Not on filedocumented in this encounter Care Teams Movie Machine Operator Relationship Specialty Start Date End Date Juan A Quezada MD [address] [place] [address] PCP - General Internal Medicine 03/12/19 07/09/23 documented as of this encounter
--- OUTSIDE RECORDS SUMMARY | 2024-09-28 10:22 | XMS_ITS | Encounter Summary ---
Author Organization [facility] Facility Care Team Providers Care Cracker Off Name Role Phone Unavailable Primary Care Provider Unavailabl e Encounter Details Date Type Department Care Team (Late st Contact Info) Description 06/30/2010 - 06/30/2010 11:59 PM CDT Hospital [facility] [address] [place] [id number] Osteoarthrosis, pelvic region and thigh; History of hip joint replacement by other means Social History Tobacco Use Types Packs/Day Years Used Date Smoking Tobacco: Never Assessed Sex and Gender Information Value Date Recorded Sex Assigned at Not on file Legal 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 BULK COOLER INSTALLER Gender Identity Male 08/03/2023 6:13 PM CDT Sexual Orientation Not on file documented as of this encounter Plan of Treatment Not on file documented as of this encounter Visit Diagnoses Diagnosis Osteoarthrosis, pelvic region and thigh History of hip joint replacement by other means documented in this encounter
--- OUTSIDE RECORDS SUMMARY | 2024-09-28 10:22 | XMS_ITS | Encounter Summary ---
Author Organization [facility] Facility Care Team Providers Care Silk Screen Printer Machine Name Role Phone Unavailable Primary Care Provider Unavailabl e Encounter Details Date Type Department Care Team (Late st Contact Info) Description 05/17/2010 5:54 AM CDT - 05/19/2010 4:31 PM CDT Hospital Encounter [facility] Saqib Burgess MD [address] [place] [id number] Localized osteoarthrosis, pelvic region and thigh; Acute renal failure (HCC); Other constipation; Essential hypertension; Esophageal reflux; Displacement of cervical intervertebral disc without myelopathy; Obesity; Obstructive sleep apnea; Encounter for long-term (current) use of aspirin Social History Tobacco Use Types Packs/Day Years Used Date Smoking Tobacco: Never Assessed Sex and Gender Information Value Date Recorded Sex Assigned at Not on file Legal 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 INFORMATION MANAGEMENT SPECIALIST Gender Identity Male 08/03/2023 6:13 PM CDT Sexual Orientation Not on file documented as of this encounter Plan of Treatment Not on file documented as of this encounter Visit Diagnoses Diagnosis Localized osteoarthrosis, pelvic region and thigh Acute renal failure (HCC) Acute kidney failure, unspecified Other constipation Essential hypertension Unspecified essential hypertension Esophageal reflux Displacement of cervical intervertebral disc without myelopathy Obesity Obesity, unspecified Obstructive sleep apnea Obstructive sleep apnea (adult) (pediatric) Encounter for long-term (current) use of aspirin documented in this encounter
--- OUTSIDE RECORDS SUMMARY | 2024-09-28 10:22 | XMS_ITS | Encounter Summary ---
Author Organization [facility] Address [address] [place] [address] Care Team Providers Care Packaging Manager Name Role Phone Juan A Quezada MD Primary Care Provider [phone] Encounter Details Date Type Department Care Team (Late st Contact Info) Description 04/25/2019 Telephone [facility] Orthopedics and Sports Medicine [address] [place] [address] Javier Daniel MD [address] [place] [address] [address] [place], [place] [id number] Social History Tobacco Use Types Packs/Day Years Used Date Smoking Tobacco: Never Smokeless Tobacco: Never Sex and Gender Information Value Date Recorded Sex Assigned at Not on file Legal 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 PRESSROOM WORKER Gender Identity Male 08/03/2023 6:13 PM CDT Sexual Orientation Not on file documented as of this encounter Miscellaneous Notes * Telephone Encounter - Alicia Montilla MA - 04/25/2019 9:40 AM CDT Spoke to Juventino * Telephone Encounter - Tana Apple - 04/25/2019 9:16 AM CDT CLL Pt is returning your call documented in this encounter Plan of Treatment Not on file documented as of this encounter Visit Diagnoses Not on filedocumented in this encounter Care Teams Packaging Manager Relationship Specialty Start Date End Date Juan A Quezada MD [address] [place] [address] PCP - General Internal Medicine 03/12/19 07/09/23 documented as of this encounter
--- OUTSIDE RECORDS SUMMARY | 2024-09-28 10:22 | XMS_ITS | Encounter Summary ---
Author Organization [facility] Address [address] [place] [address] Care Team Providers Care Ecological Economist Name Role Phone Juan A Quezada MD Primary Care Provider [phone] Encounter Details Date Type Department Care Team (Late st Contact Info) Description 04/25/2019 Orders Only [facility] Orthopedics and Sports Medicine [facility] [address] [place] [address] Javier Daniel MD [address] [place] [address] [address] [place] [address] Numbness of left hand (Primary Dx) Social History Tobacco Use Types Packs/Day Years Used Date Smoking Tobacco: Never Smokeless Tobacco: Never Sex and Gender Information Value Date Recorded Sex Assigned at Not on file Legal 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
--- OUTSIDE RECORDS SUMMARY | 2024-09-28 10:22 | XMS_ITS | Encounter Summary ---
Author Organization [facility] Address [address] [place] [address] Care Team Providers Care Lifter Name Role Phone Juan A Quezada MD Primary Care Provider [phone] Reason for Visit * Reason Onset Date Comments elbow numbness 04/22/2019 Encounter Details Date Type Department Care Team (Late st Contact Info) Description 04/22/2019 Telephone [facility] Orthopedics and Sports Medicine [facility] [address] [place] [address] Javier Daniel MD [address] [place] [address] [address] [place] [address] elbow numbness Social History Tobacco Use Types Packs/Day Years Used Date Smoking Tobacco: Never Smokeless Tobacco: Never Sex and Gender Information Value Date Recorded Sex Assigned at Not on file 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 Gender Identity Male 08/03/2023 6:13 PM CDT Sexual Orientation Not on file documented as of this encounter Miscellaneous Notes * Telephone Encounter - Alicia Montilla MA - 04/25/2019 8:59 AM CDT LMOVM letting the patient know that I will be sending orders over for an MRI and an EMG/NVS and if that patient had an questions he could call me back * Telephone Encounter - Alicia Montilla MA - 04/25/2019 8:03 AM CDT CLL would like to get an MRI of the patient C-spine and would like to also get an EMG/NVS * Telephone Encounter - Aneta Puga - 04/22/2019 8:21 AM CDT Pt said he is still having nunbness and tingling in his elbow and was told to call back if not better-please call [phone] documented in this encounter Plan of Treatment Not on file documented as of this encounter Visit Diagnoses Not on filedocumented in this encounter Care Teams Lifter Relationship Specialty Start Date End Date Juan A Quezada MD [address] [place] [address] PCP - General Internal Medicine 03/12/19 07/09/23 documented as of this encounter
--- OUTSIDE RECORDS SUMMARY | 2024-09-28 10:22 | XMS_ITS | Encounter Summary ---
Author Organization [facility] Care Team Providers Care Magnetizer Name Role Phone Unavailable Primary Care Provider Unavailabl e Encounter Details Date Type Department Care Team (Late st Contact Info) Description 01/13/2010 - 01/13/2010 11:59 PM CDT [facility] [address] [place] [address] Localized osteoarthrosis, pelvic region and thigh Social History Tobacco Use Types Packs/Day Years Used Date Smoking Tobacco: Never Assessed Sex and Gender Information Value Date Recorded Sex Assigned at Not on file 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
--- OUTSIDE RECORDS SUMMARY | 2024-09-28 10:22 | XMS_ITS | Encounter Summary ---
Author Organization [facility] Care Team Providers Care Manager Demand Name Role Phone Unavailable Primary Care Provider Unavailabl e Encounter Details Date Type Department Care Team (Late st Contact Info) Description 01/03/2011 6:02 AM CDT - 01/05/2011 5:28 PM CDT [facility] [address] [place] [address] Localized osteoarthrosis, pelvic region and thigh; Essential hypertension; Esophageal reflux Social History Tobacco Use Types Packs/Day Years Used Date Smoking Tobacco: Never Assessed Sex and Gender Information Value Date Recorded Sex Assigned at Not on file Legal 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
--- OUTSIDE RECORDS SUMMARY | 2024-09-28 10:22 | XMS_ITS | Encounter Summary ---
Author Organization [facility] Address [address] [place] [address] Care Team Providers Care Acting Instructor Name Role Phone Unavailable Primary Care Provider Unavailabl e Encounter Details Date Type Department Care Team (Latest Contact Info) Description 08/28/2017 10:56 AM CARDER BLANKETS Hospital Encounter [facility] Donell Erickson MD [address] [address] Primary osteoarthritis of right shoulder Social History Tobacco Use Types Packs/Day Years Used Date Smoking Tobacco: Never Sex and Gender Information Value Date Recorded Sex Assigned at Not on file Legal 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 CARDER BLANKETS Gender Identity Male 08/03/2023 6:13 PM CDT Sexual Orientation Not on file documented as of this encounter Plan of Treatment Not on file documented as of this encounter Procedures Procedure Name Priority Date/Time Associated Diagnosis Comments XR SHOULDER RIGHT 2 OR MORE VIEWS Routine 08/28/2017 10:57 AM CARDER BLANKETS documented in this encounter Results * XR Shoulder Right 2 or More Views (08/28/2017 10:57 AM CARDER BLANKETS) Anatomical Region Laterality Modality Upper Extremities, Shoulder Right Radi ographic Imaging 08/28/2017 10:5 7 AM CARDER BLANKETS Impressions 08/28/2017 1:01 PM CARDER BLANKETS Type 3 hooked acromion, mild to moderate degenerative change acromioclavicular and glenohumeral joints THIS IS AN ELECTRONICALLY VERIFIED REPORT 08/28/2017 12:58 PM: ??Donell Chiu M.D. ?? Lima Chau:siomara 12:58 PM 12:58 PM [EOD] Narrative 08/28/2017 1:01 PM CARDER BLANKETS EXAMINATION: Right shoulder, 3 views COMPARISON: None. REASON FOR EXAM: Atraumatic and lateral shoulder pain FINDINGS: There is evidence of degenerative disease of the acromioclavicular joint, with osteophyte formation and enlargement of the distal clavicle. ??The glenohumeral joint is congruent, with mild joint space narrowing. ??There is a hook off the anterior aspect of the acromion seen on the AP and scapular Y views. ??No fractures seen, normal bony mineralization and soft tissues. Procedure Note Provider, MD Jennifer - 02/24/2021 EXAMINATION: Right shoulder, 3 views COMPARISON: None. REASON FOR EXAM: Atraumatic and lateral shoulder pain FINDINGS: There is evidence of degenerative disease of theacromioclavicular joint, with osteophyte formation and enlargement of the distal clavicle.The glenohumeral joint is congruent, with mild joint space narrowing. Thereis a hook off the anterior aspect of the acromion seen on the AP and scapular Y views. No fractures seen, normal bony mineralization and soft tissues. IMPRESSION: Type 3 hooked acromion, mild to moderate degenerative change acromioclavicular and glenohumeral joints THIS IS AN ELECTRONICALLY VERIFIED REPORT 08/28/2017 12:58 PM: Donell Chiu M.D. Lima Chau:siomara 12:58 PM 12:58 PM [EOD] us Donell Chiu MD IMG XR PROCEDURES Fin al Result documented in this encounter Visit Diagnoses Diagnosis Primary osteoarthritis of right shoulder documented in this encounter
--- OUTSIDE RECORDS SUMMARY | 2024-09-28 10:22 | XMS_ITS | Encounter Summary ---
Author Organization [facility] Healthcare Address [address] [place] [address] Care Team Providers Care Oyster Floater Name Role Phone Juan A Quezada MD Primary Care Provider [phone] Reason for Referral * Diagnostic Imaging (Routine) - Closed Specialty Diagnoses / Procedures Referred By Vish negro Referred To Contact Diagnoses Left knee pain, unspecified chronicity Procedures XR Knee Left 3 [facility] [address] [place] [address] Phone: tel: fax: [address] [address] Referral ID Status Reason Start Date Expiration Date Visits Re quested Visits Authorized [id number] Closed 03/27/2020 10/06/2021 1 1 Encounter Details Date Type Department Care Team (Late st Contact Info) Description 03/27/2020 1:02 PM CDT Hospital Encounter [facility] Nba Uribe PA [address] [facility] [address] [place] [address] [place] [address] Left knee pain, unspecified chronicity Social History Tobacco Use Types Packs/Day Years Used Date Smoking Tobacco: Never Smokeless Tobacco: Never Sex and Gender Information Value Date Recorded Sex Assigned at Not on file 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 Gender Identity Male 08/03/2023 6:13 PM CDT Sexual Orientation Not on file documented as of this encounter Medications at Time of Discharge hydroCHLOROthiaz anuj (HYDRODIURIL) 25 mg tablet Take 1 tablet (25 mg total) by mouth director of early childhood education before breakfast 3 02/03/2019 loratadine (CLARITIN) 10 mg tablet Take 1 tablet (10 mg total) by mouth director of early childhood education before breakfast 3 03/09/2019 CARTIA XT 300 mg 24 hr capsuleIndicatio ns:hypertension Take 1 capsule (300 mg total) by mouth director of early childhood education before breakfast 3 02/25/2019 3 clotrimazole (LOTRIMIN) [...] Priority Date/Time Associated Diagnosis Comments XR KNEE LEFT 3 VIEWS Schedule Routine, Read Routine (OP Routine) 03/27/2020 1:03 PM CDT Left knee pain, unspecified chronicity documented in this encounter Results * XR Knee Left 3 Views (03/27/2020 1:03 PM CDT) Anatomical Region Laterality Modality Lower Extremities, [facility]nee [facility] 03/27/2020 2:13 PM CDT Narrative 03/27/2020 2:14 PM CDT Patient Name: GOKUL CORMIER ?Ordering Dr: Nba Uribe PA-C ?? D.O.B: 1955 ? Exam Date: 03/27/20 ?? 1303 ?? Age: 64 ?Sex: Male ? MR#: [id number] ?? Loc: ? RADIOLOGY REPORT ?? Order #[id number] ?? Radiology ? Knee LT 3 View [...] 2:14 PM ?? T: ? Report ID: [id number] ?? Reading Location: ??[id number] ? REPORT ELECTRONICALLY SIGNED IN OTHER VENDOR SYSTEM ?? Resulting Agency Comment O Procedure Note Rachid Garcia MD - 03/27/2020 Patient Name: GOKUL CORMIER Dr: Nba Uribe PA-C, D.O.B: 1955 Exam Date: 03/27/201302 Age: 64 Sex: Male MR#: [id number] Loc: RADIOLOGY REPORT Order #[id number] Radiology Knee LT 3 View (STANDARD) Signed [...] 2:14 PM - Electronically signed by Rachid KELLY T: Report ID: [id number] Reading Location: [id number] REPORT ELECTRONICALLY SIGNED IN OTHER VENDOR SYSTEM Nba COY IMG XR PROCEDURES Fin al Result documented in this encounter Visit Diagnoses Diagnosis Left knee pain, unspecified chronicity documented in this encounter Care Teams Oyster Floater Relationship Specialty Start Date End Date Juan A Quezada MD [address] [place] [address] PCP - General Internal Medicine 03/12/19 07/09/23 documented as of this encounter
--- OUTSIDE RECORDS SUMMARY | 2024-09-28 10:22 | XMS_ITS | Encounter Summary ---
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 Gender Identity Male 08/03/2023 6:13 PM CDT Sexual Orientation Not on file documented as of this encounter Medications at Time of Discharge hydroCHLOROthiaz anuj (HYDRODIURIL) 25 mg tablet Take 1 tablet (25 mg total) by mouth marketing recruiter before breakfast 3 02/03/2019 loratadine (CLARITIN) 10 mg tablet Take 1 tablet (10 mg total) by mouth marketing recruiter before breakfast 3 03/09/2019 CARTIA XT 300 mg 24 hr capsuleIndicatio ns:hypertension Take 1 capsule (300 mg total) by mouth marketing recruiter before breakfast 3 02/25/2019 doxazosin (CARDURA) 4 [...] Name Priority Date/Time Associated Diagnosis Comments MRI CERVICAL SPINE WO CONTRAST 05/07/2019 2:45 PM CDT documented in this encounter Results * MRI Cervical Spine WO Contrast (05/07/2019 2:45 PM CDT) Anatomical Region Laterality Modality Spine N/A Magnetic Resonan ce 05/07/2019 4:16 PM CDT Narrative 05/07/2019 4:27 PM CDT Patient Name: GOKUL CORMIER ?Ordering Dr: Javier Daniel MD ?? D.O.B: 1955 ? Exam Date: 05/07/19 ?? 1445 ?? Age: 63 ?Sex: Male ? MR#: [id number] ?? Loc: ? RADIOLOGY REPORT ?? Order #[id number] ?? Magnetic Resonance Imaging ? MRI Cervical ? Signed ?? EXAM DESCRIPTION: ??MRI Cervical ? REASON FOR STUDY: ??NUMBNESS IN LEFT HAND. ??Left arm and hand numbness since ?? receiving cortisone injection in left shoulder for pain, history of left ?? rotator cuff tear, injection on April 05, 2019. ??Slight neck pain as well. ? TECHNIQUE: ??Sagittal and Axial imaging includes T1, T2, STIR and gradient echo ?? sequences. ? COMPARISON: ??None. ? FINDINGS: ? ALIGNMENT: Normal. ? VERTEBRAE: Vertebral body height well-maintained. Normal appearing marrow. ? DISCS: There is minimal degenerative disc height loss at C5-6 and C6-7. ??There ?? are anterior endplate osteophytes at C4-5, C5-6, and C6-7. ? HARDWARE: None in the spine. ? CORD: Normal in size and signal intensity. ??No evidence of syrinx. ? INDIVIDUAL LEVELS: ? C1-C2: Unremarkable. ? C2-C3: Unremarkable. ? C3-C4: Minimal facet hypertrophy. ??No canal or foraminal stenosis. ? C4-C5: Mild disc bulge. ??Uncovertebral and facet hypertrophy resulting in mild ?? right foraminal stenosis. ??No canal or left foraminal stenosis. ? C5-C6: Moderate disc bulge resulting in mild canal stenosis with contact on ?? the ventral cord surface. ??No foraminal stenosis. ? C6-C7: Moderate disc bulge resulting in mild canal stenosis with contact on ?? the ventral cord surface. ??Uncovertebral hypertrophy resulting in mild ?? bilateral foraminal stenosis. ? C7-T1: Mild disc bulge with tiny superimposed left subarticular disc ?? protrusion. ??Uncovertebral and facet hypertrophy. ??These factors result in ?? mild canal stenosis and mild bilateral foraminal stenosis. ? BASE OF BRAIN: The cerebellar tonsils are descended by 5 mm below a line drawn ?? between the basion and opisthion, borderline for Chiari 1 malformation. ??The ?? cerebellar tonsillar morphology remains rounded. ? UPPER THORACIC: Incompletely imaged. ??No canal or foraminal stenosis is ?? evident. ? OTHER: No other significant finding. ? IMPRESSION: ? 1. ??Mild multilevel degenerative disc disease and facet arthropathy, with ?? low-grade degenerative stenoses at C4-5, C6-7, and C7-T1 as discussed above. ? 2. 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 ? THIS IS AN ELECTRONICALLY VERIFIED FINAL REPORT ?? 05/07/2019 4:27 PM - Electronically signed by Shelbi Ness M.D. ?? Shelbi Ness M.D. ? MB ?? D: ??05/07/2019 4:27 PM ?? T: ? Report ID: [id number] ?? Reading Location: ??[id number] ? REPORT ELECTRONICALLY SIGNED IN OTHER VENDOR SYSTEM ?? Resulting Agency Comment O Procedure Note Shelbi Ness MD - 05/07/2019 Patient Name: GOKUL CORMIER Dr: Jaiver Daniel MD D.O.B: 1955 Exam Date: 05/07/19 1445 Age: 63 Sex: Male MR#: [id number] Loc: [facility]#: [id number] RADIOLOGY REPORT Order #[id number] Magnetic Resonance Imaging MRI Cervical Signed EXAM DESCRIPTION: MRI Cervical REASON FOR STUDY: NUMBNESS IN LEFT HAND. Left arm and hand numbnesssince receiving cortisone injection in left shoulder for pain, history of left rotator cuff tear, injection on April 05, 2019. Slight neck pain as well. TECHNIQUE: Sagittal and Axial imaging includes T1, T2, STIR and gradientecho sequences. COMPARISON: None. FINDINGS: ALIGNMENT: Normal. VERTEBRAE: Vertebral body height well-maintained. Normal appearingmarrow. DISCS: There is minimal degenerative disc height loss at C5-6 and C6-7.There are anterior endplate osteophytes at C4-5, C5-6, and C6-7. HARDWARE: None in the spine. CORD: Normal in size and signal intensity. No evidence of syrinx. INDIVIDUAL LEVELS: C1-C2: Unremarkable. C2-C3: Unremarkable. C3-C4: Minimal facet hypertrophy. No canal or foraminal stenosis. C4-C5: Mild disc bulge. Uncovertebral and facet hypertrophy resulting inmild right foraminal stenosis. No canal or left foraminal stenosis. C5-C6: Moderate disc bulge resulting in mild canal stenosis with contacton the ventral cord surface. No foraminal stenosis. C6-C7: Moderate disc bulge resulting in mild canal stenosis with contacton the ventral cord surface. Uncovertebral hypertrophy resulting in mild bilateral foraminal stenosis. C7-T1: Mild disc bulge with tiny superimposed left subarticular disc protrusion. Uncovertebral and facet hypertrophy. These factors resultin mild canal stenosis and mild bilateral foraminal stenosis. BASE OF BRAIN: The cerebellar tonsils are descended by 5 mm below a linedrawn between the basion and opisthion, borderline for Chiari 1 malformation.The cerebellar tonsillar morphology remains rounded. UPPER THORACIC: Incompletely imaged. No canal or foraminal stenosis is evident. OTHER: No other significant finding. IMPRESSION: 1. Mild multilevel degenerative disc disease and facet arthropathy, with low-grade degenerative stenoses at C4-5, C6-7, and C7-T1 as discussedabove. 2. 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 THIS IS AN ELECTRONICALLY VERIFIED FINAL REPORT 05/07/2019 4:27 PM - Electronically signed by Shelbi GALLEGOS T: Report ID: [id number] Reading Location: [place] [address] REPORT ELECTRONICALLY SIGNED IN OTHER VENDOR SYSTEM us Javier Daniel MD IMG MRI PROCEDURES Final R esult documented in this encounter Visit Diagnoses Not on filedocumented in this encounter Care Teams Electronic Prepress Technician Relationship Specialty Start Date End Date Juan A Quezada MD [address] [place] [address] PCP - General Internal Medicine 03/12/19 07/09/23 documented as of this encounter
--- OUTSIDE RECORDS SUMMARY | 2024-09-28 10:23 | XMS_ITS ---
Author Organization [facility] Address [address] [place] [address] Care Team Providers Care Clinical Lab Assistant Name Role Phone zzzzMigration, zzzzProvider Unavailable Unav ailable REASON FOR VISIT [facility] [place]coun[place] Encounter Location Date Provider Diagnosis [facility] [address] [place] [address] 07/29/2023 zzzzProvider zzzzMigration Plan Of Treatment No Information Progress Notes * Juventino LODOB:1955 (69 yo M)Acc No.[id number]:07/29/2023 Patient:?Juventino LO :1955???Age:68 Y???Sex:Male Address:[address], [facility] [address] Subjective: * Chief Complaints: * ???[facility] * Medical History:? * Surgical History:? * Hospitalization/Major Diagno stic Procedure:? * Medications:? Objective: * Vitals:? * Physical Examination:? Assessment: Plan: * Treatment: * Procedure Codes:? * * Date:?
--- OUTSIDE RECORDS SUMMARY | 2024-09-28 10:23 | XMS_ITS ---
Author Organization [facility] Address [address] [facility] [address] [place] [address] Care Team Providers Care Service Promoter Salesperson Name Role Phone zzzzMigration, zzzzProvider Unavailable Unav ailable REASON FOR VISIT [facility] Encounters Encounter Location Date Provider Diagnosis [facility] [address] [facility] [address] [place] [address] 07/30/2023 zzzzProvider zzzzMigration Plan Of Treatment No Information Progress Notes * Juventino LODOB:1955 (69 yo M)Acc No.[id number]:07/30/2023 Patient:?Juventino LO :1955???Age:68 Y???Sex:Male Address:[address] [facility], [facility] [address] Subjective: * Chief Complaints: * ???[facility] * Medical History:? * Surgical History:? * Hospitalization/Major Diagno stic Procedure:? * Medications:? Objective: * Vitals:? * Physical Examination:? Assessment: Plan: * Treatment: * Procedure Codes:? * * Date:?
--- OUTSIDE RECORDS SUMMARY | 2024-09-28 10:24 | XMS_ITS | Patient Health Record ---
Author Organization [facility] Address [address] [facility] [address] [facility] [address] [place] [address] Support Name Relationship Address Phone Juventino Cormier Guarantor Unknown [phone] Reason For Referral No Information Plan Of Treatment No Information Insurance Providers Payer Name Payer Address Payer Phone Subscriber Number Group Number Insured Name Patient Relationship to Insured Coverage Start Date Coverage End Date [employer] [address] [address] [place] [address] [id number] Juventino Cormier Self - patient is the insured 1
== END 2024-09-23 14:50 | disposition home or self-care (01) ==
PROVIDERS: PCP Family Medicine; Visit Provider Internal Medicine Gastroenterology
PROC: 0DJD8ZZ Inspection of Lower Intestinal Tract, Via Natural or Artificial Opening Endoscopic (ICD-10-PCS; CPT 45378; principal; 2024-09-23 12:30)
DX: Z12.11 Encounter for screening for malignant neoplasm of colon (principal); Q27.33 Arteriovenous malformation of digestive system vessel; Z86.0100 Personal history of colon polyps, unspecified; I10 Essential (primary) hypertension; E66.9 Obesity, unspecified; Z68.32 Body mass index [BMI] 32.0-32.9, adult
CPT/HCPCS: 45378; J2003; J2371; J2704; J7120

== ENCOUNTER 2024-09-24 03:25 | Emergency (ER) | payer BC, SELFPAY ==
--- NOTE | ~2024-09-24 | XR_ITS ---
Portable chest x-ray Comparison: 01/17/2023 Clinical History: Epigastric pain Findings: Lungs are clear, without focal consolidation or pleural effusion. Cardiomediastinal silho uette is stable. Bones and soft tissues are unremarkable. Impression: Normal chest. Reviewed, dictated and finalized at [facility]. ER PICKER Impression: Normal chest.
[2024-09-24 03:26] VITALS: BP 150/74; PULSE 60; RESP 18; TEMP 36.6; O2SAT 100
--- NOTE | 2024-09-24 03:30 | ECG_ITS ---
Test Date: 2024-09-24 03:45:08 Measurements Intervals Bromide Rate: 57 P: 47 WA: 174 QRS: -25 QRSD: 114 T: 19 QT: 401 QTc: 392 Interpretive Statements SINUS BRADYCARDIA SEPTAL MYOCARDIAL INFARCTION , OF INDETERMINATE AGE [40+ ms Q WAVE IN V1/V2] No previous ECG available for comparison Electronically Signed On 09-24-2024 16:16:42 [employer] FREE[employer]ER ASSISTANT by Connie Friedman M.D.
[2024-09-24 03:54] VITALS: O2SAT 98
[2024-09-24 04:11] LABS: Alanine Aminotransferase 29 U/L (6-50); Albumin Level 4.1 g/dL (3.5-5.1); Alkaline Phosphatase 65 U/L (38-126); Anion Gap 5 mmol/L (4-12); Aspartate Amino Transferase 35 U/L (17-59); Bilirubin,Total 0.7 mg/dL (0.2-1.3); Blood Urea Nitrogen 24 mg/dL (9-20); Calcium 9.2 mg/dL (8.4-10.2); Carbon Dioxide 28 mmol/L (22-30); Chloride 103 mmol/L (98-107); Estimated CRCL calculation 49 ml/min; Estimated Glomerular Filt Rate > 60; Glucose 100 mg/dL (65-110); Lipase 48 U/L (23-300); Potassium 3.9 mmol/L (3.4-5.0); Sodium 136 mmol/L (137-145)
[2024-09-24 04:18] LABS: Basophils Percent Auto 0.4 % (0.2-1.2); Eosinophils Absolute Auto 0.1 K/mm3 (0-0.3); Eosinophils Percent Auto 0.6 % (0-4.4); Hemoglobin 12.7 g/dL (14.0-18.0); Immature Granulocyte Absolute 0.05 K/mm3 (0.00-0.031); Immature Granulocyte Percent A 0.5 % (0-0.5); Lymphocytes Percent Auto 45.2 % (18.3-44.2); Mean Corpuscular HGB Conc 32.6 g/dl (32-36); Mean Corpuscular Hemoglobin 30.9 pg (26-34); Mean Corpuscular Volume 94.9 fl (80-100); Mean Platelet Volume 10.1 fl (7.4-10.4); Monocytes Absolute Auto 0.7 K/mm3 (0.1-0.6); Monocytes Percent Auto 6.7 % (2.6-8.5); Neutrophils Percent Auto 46.6 % (45.5-73.1); Platelet Count Result 280 k/mm3 (150-375); Red Blood Count 4.11 M/mm3 (4.6-6.20); Red Cell Distribution Width 14.3 % (11.5-14.5); White Blood Count 10.8 K/mm3 (4.5-10.0)
--- NOTE | 2024-09-24 04:21 | ED_ITS ---
HPI - General Adult General Chief complaint: Chest Pain Stated complaint: indigestion Time Seen by Provider: 09/24/24 03:56 History of Present Illness HPI narrative: patient 69-year-old gentleman who presents emergency department with chief complaint of chest discomfort. The patient reports that he had a colonoscopy done this morning and reports that he was at home started having feeling of indigestion patient states he took some Pepcid reports that he has not had relief in his symptoms. Patient states that once he got to the emergency department his symptoms have resolved and the patient reports he is currently asymptomatic. Patient reports no prior cardiac history the patient does report that he has had a prior stress test the patient reports also that he did undergo colonoscopy with bowel prep Related Data Home Medications ?Medication ?Instructions ?Recorded ?Confirmed ?Last Taken ?Type fluticasone propionate 50 2 spray intranasal DAILY PRN 11/05/19 09/12/24 07/30/20 History mcg/actuation nasal Congestion spray,suspension (Children's Flonase Allergy Relief) loratadine 10 mg tablet (Claritin) 10 mg PO DAILY PRN Allergy Symptoms 11/05/19 09/23/24 09/22/24 History famotidine 20 mg tablet 20 mg PO DAILY PRN Heartburn 09/12/24 09/23/24 09/21/24 History Allergies Allergy/AdvReac Type Severity Reaction Status Date / Time esomeprazole (From Nexium) AdvReac Hives Verified 09/24/24 03:30 Review of Systems 2 Review of Systems: A 10 system review of systems was completed on the patient and is negative except for what is stated in the HPI. Nursing and ancillary documentation was reviewed. [facility] Past Medical History Medical History Hypertension Surgical History Surgical History History of bilateral hip replacements Family History Family History Father Cerebrovascular accident, Onset Age: 59 Patient's father is , Onset Age: 59 Mother Family history of arthritis Social History Social History Smoking status: Never smoker Second hand tobacco smoke exposure: No Alcohol intake: never Substance use: never Substance use type: does not use Lack of Transportation: No Lack of Food: Never True Current Housing: I Have Housing Concerned About Future Housing: No Difficulty Paying Gas/Electric Bills: No Difficulty Paying for Meds: No Currently Unemployed: No Education: Decline to Answer Difficulty w/ Childcare or Family Care: No Living arrangements: with family Spiritual care concerns: No Exam 2 Narrative: GENERAL: Well-appearing, well-nourished, and in no acute distress. HEAD: Normocephalic, atraumatic. EYES: PERRLA and EOMI. ENT: Nares clear, no rhinorrhea or epistaxis. Mucous membranes moist. NECK: Supple. CHEST: Clear to auscultation. No respiratory distress. HEART: Regular rate and rhythm. No murmur heard. Normal peripheral pulses. ABDOMEN: Soft, nontender, nondistended, normal active bowel sounds. EXTREMITIES: Normal range of motion. No edema. SKIN: Warm, dry, no rash. NEURO: No focal deficits. Alert and oriented x3. PSYCH: Normal mood and affect. Course Vital Signs Vital signs: Vital Signs Temperature 36.6 C 09/24/24 03:26 Pulse Rate 60 09/24/24 03:26 Respiratory Rate 18 09/24/24 03:26 Blood Pressure 150/74 H 09/24/24 03:26 Pulse Oximetry 100 09/24/24 03:26 Oxygen Delivery Room Air 09/24/24 03:26 Temperature 36.6 C 09/24/24 03:26 Pulse Rate 60 09/24/24 03:26 Respiratory Rate 18 09/24/24 03:26 Blood Pressure 150/74 H 09/24/24 03:26 Pulse Oximetry 98 09/24/24 03:54 Oxygen Delivery Room Air 09/24/24 03:54 Medical Decision Making Vital Signs Vital Signs: Vital Signs Temperature 36.6 C 09/24/24 03:26 Pulse Rate 60 09/24/24 03:26 Respiratory Rate 18 09/24/24 03:26 Blood Pressure 150/74 H 09/24/24 03:26 Pulse Oximetry 100 09/24/24 03:26 Oxygen Delivery Room Air 09/24/24 03:26 Temperature 36.6 C 09/24/24 03:26 Pulse Rate 60 09/24/24 03:26 Respiratory Rate 18 09/24/24 03:26 Blood Pressure 150/74 H 09/24/24 03:26 Pulse Oximetry 98 09/24/24 03:54 Oxygen Delivery Room Air 09/24/24 03:54 Lab Data 09/24/24 03:46 09/24/24 03:46 Labs: Lab Results 09/24/24 09/24/24 Range/Units 03:46 06:49 WBC 10.8 H (4.5-10.0) K/mm3 RBC 4.11 L (4.6-6.20) M/mm3 Hgb 12.7 L (14.0-18.0) g/dL Hct 39.0 L (42.0-52.0) % MCV 94.9 (80-100) fl MCH 30.9 (26-34) pg MCHC 32.6 (32-36) g/dl RDW 14.3 (11.5-14.5) % Plt Count 280 (150-375) k/mm3 MPV 10.1 (7.4-10.4) fl Immature Gran % (Auto) 0.5 (0-0.5) % Neut % (Auto) 46.6 (45.5-73.1) % Lymph % (Auto) 45.2 H (18.3-44.2) % [place] % (Auto) 6.7 (2.6-8.5) % Eos % (Auto) 0.6 (0-4.4) % Baso % (Auto) 0.4 (0.2-1.2) % Lymph # (Auto) 4.90 H (0.9-3.2) K/mm3 [place] # (Auto) 0.7 H (0.1-0.6) K/mm3 Eos # (Auto) 0.1 (0-0.3) K/mm3 Baso # (Auto) 0.0 (0.0-0.1) K/mm3 Abs Immat Gran (auto) 0.05 H (0.00-0.031) K/mm3 Absolute Neuts (auto) 5.0 (1.3-6.7) K/mm3 Absolute Nucleated RBC 0.000 (0.0-0.012) K/mm3 Nucleated RBC % 0.0 (0.0-0.2) % PT 14.9 H (11.1-14.7) Seconds INR 1.1 APTT 32.4 (22.3-36.8) Seconds Sodium 136 L (137-145) mmol/L Potassium 3.9 (3.4-5.0) mmol/L Chloride 103 (98-107) mmol/L Carbon Dioxide 28 (22-30) mmol/L Anion Gap 5 (4-12) mmol/L BUN 24 H (9-20) mg/dL Creatinine 1.40 H (0.7-1.3) mg/dL Estim Creat Clear Calc 49 ml/min Estimated GFR > 60 (59 - ) Glucose 100 (65-110) mg/dL Calcium 9.2 (8.4-10.2) mg/dL Total Bilirubin 0.7 (0.2-1.3) mg/dL AST 35 (17-59) U/L ALT 29 (6-50) U/L Alkaline Phosphatase 65 (38-126) U/L Troponin I < 0.012 < 0.012 (0.000-0.034) ng/mL Total Protein 7.0 (6.3-8.2) g/dL Albumin 4.1 (3.5-5.1) g/dL Lipase 48 (23-300) U/L Discharge Plan Discharge Clinical Impression: Atypical chest pain Patient Disposition: Home, Self-Care Condition: Stable Instructions: Antibiotic Form, Chest Pain (ED) Patient Language: Kenyan Prescriptions: No Action prednisone 20 mg tablet 40 mg PO DAILY 5 Days Qty: 10 0RF Patient Comments: PT STATES DOSE COMPLETED uiqpefeh-iqnogcfia-WD 3.5-10,000-1 mg/mL-unit/mL-% drops,suspension 4 drp otic (ear) Q8H Qty: 10 1RF Patient Comments: PT STATES HAS NOT TAKEN FOR A LONG WHILE Rx Instructions: put 4 drops in right ear t.i.d. with ear up for 1 minute afterward famotidine 20 mg tablet 20 mg PO DAILY PRN (Reason: Heartburn) loratadine [Claritin] 10 mg tablet 10 mg PO DAILY PRN (Reason: Allergy Symptoms) fluticasone propionate [Children's Flonase Allergy Rlf] 50 mcg/actuation spray,suspension 2 spray NASAL DAILY PRN (Reason: Congestion) Rx Instructions: administer into each nostril potassium chloride 20 mEq tablet extended release 20 meq PO DAILY Qty: 90 4RF hydrochlorothiazide 25 mg tablet 25 mg PO DAILY Qty: 90 1RF losartan 100 mg tablet 100 mg PO DAILY Qty: 90 0RF spironolactone 25 mg tablet 25 mg PO DAILY Qty: 90 1RF amlodipine 10 mg tablet 10 mg PO DAILY Qty: 90 1RF Follow-up/Referrals: Remy Sevilla DO [Primary Care Provider] - Time of Disposition: 07:19
[2024-09-24 04:22] LABS: Troponin I < 0.012 ng/mL (0.000-0.034)
[2024-09-24 04:35] LABS: INR 1.1; Prothrombin Time 14.9 Seconds (11.1-14.7)
[2024-09-24 04:36] LABS: Partial Thromboplastin Time 32.4 Seconds (22.3-36.8)
[2024-09-24] MEDS: FAMOTIDINE 20 MG/2 ML VIAL IV PUSH (04:46)
[2024-09-24 07:01] VITALS: BP 125/72; PULSE 58; RESP 15; TEMP 36.3; O2SAT 100
[2024-09-24 07:15] LABS: Troponin I < 0.012 ng/mL (0.000-0.034)
[2024-09-24 07:31] VITALS: BP 148/86; PULSE 58; RESP 12; O2SAT 96
[2024-09-24] MEDS: BELLADONNA ALK/PHENOB ELIX 10 ML, MAG HYDROX/ALUMINUM HYD/SIMETH 30 ML, LIDOCAINE 2% VI... PO (07:49)
[2024-09-24 07:51] VITALS: BP 148/86; PULSE 62; RESP 18; O2SAT 100
== END 2024-09-24 08:01 | disposition home or self-care (01) ==
PROVIDERS: Emergency Provider Emergency Medicine; PCP Family Medicine
DX: R07.89 Other chest pain (principal); I10 Essential (primary) hypertension; Z96.643 Presence of artificial hip joint, bilateral; Z79.899 Other long term (current) drug therapy; R00.1 Bradycardia, unspecified; R94.31 Abnormal electrocardiogram [ECG] [EKG]
CPT/HCPCS: 36415; 71045; 80053; 83690; 84484; 85025; 85610; 85730; 93005; 96374; 99284; A9270

== ENCOUNTER 2025-07-15 10:34 | Outpatient (CLI) | payer BC, SELFPAY ==
--- OUTSIDE RECORDS SUMMARY | 2025-07-15 11:34 | XMS_ITS | Clinical Summary ---
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 Gender Identity Not on file Sexual Orientation Not on file Plan of Treatment Health Maintenance Due Date Last Done Comments Colorectal Cancer Screening Colonoscopy (10 Years) 1953 Hepatitis C 1971 DTaP, Tdap and Td Vaccines ( 1 - Tdap) 1972 Pneumococcal Vaccine: 50+ Ye ars (1 of 1 - PCV) 2003 Zoster Vaccines (1 of 2) 2003 COVID-19 Vaccine ( - 2023-2 5 season) 2025 RSV Immunization or 60+ Years (1 - 1-dose 75+ series) 2028 Meningococcal B Vaccine Aged Out No l onger eligible based on patient's age to complete this topic Meningococcal Vaccine Aged Out No sandi rhoda eligible based on patient's age to complete this topic RSV Immunizations Under 20 Months Aged Out No longer eligible based on patient's age to complete this topic Insurance [facility] MEDICARE PART A
--- OUTSIDE RECORDS SUMMARY | 2025-07-15 11:34 | XMS_ITS | Clinical Summary ---
Author Organization [facility] Address [address] [place] [address] Care Team Providers Care Ob Nurse Name Role Phone Remy Sevilla Primary Care Provider [phone] Allergies Active Allergy Reactions Criticality Noted Date Comments Esomeprazole Hives Medium 07/26/2024 Medications hydroCHLOROthi azide (HYDRODIURIL) 25 mg tablet Take 1 tablet (25 mg total) by mouth process control specialist before breakfast 3 9 Active loratadine (CLARITIN) 10 mg tablet Take 1 tablet (10 mg total) by mouth process control specialist before breakfast 3 9 Active amLODIPine (NORVASC) 10 mg tablet Take 1 tablet (10 mg total) by mouth process control specialist before breakfast 2 Active losartan (COZAAR) 100 mg tablet Take 1 tablet (100 mg total) by mouth process control specialist before breakfast 2 Active potassium chloride ER 10 mEq CR tablet Take 1 tablet/capsule (10 mEq total) by mouth process control specialist before breakfast Active spironolactone (ALDACTONE) 12.5 mg oral suspension Active potassium chloride ER 20 mEq CR tablet Take 1 tablet (20 mEq total) by mouth daily 5 Active neomycin/polym yxin B/hydrocort (NEOMYCIN-POLY MYXIN-HC OPHT) Administer into affected ear(s) 4 Active fluticasone propionate (FLONASE) 50 mcg/actuation nasal spray Administer 2 sprays into affected nostril(s) 0 Active famotidine (PEPCID) 20 mg tablet Take 1 tablet (20 mg total) by mouth 3 Active metoprolol XL (TOPROL-XL) 50 mg extended release tablet Take 1 tablet (50 mg total) by mouth process control specialist before breakfast 2 06/18/20 Discontinu ed(Other) ciprofloxacin- hydrocortisone (Cipro HC) otic suspension Administer 3 drops into each ear as needed 06/18/20 Discontinu ed(Other) acetaminophen (TYLENOL) 500 mg tablet Take 1 tablet (500 mg total) by mouth every 6 (six) hours as needed for pain 30 tablet 3 06/18/20 Discontinu ed(Other) ibuprofen (ADVIL,MOTRIN) 600 mg tablet Take 1 tablet (600 mg total) by mouth every 6 (six) hours as needed for pain 60 tablet 3 06/18/20 Discontinu ed(Other) oxyCODONE (ROXICODONE) 5 mg immediate release tabletIndicati ons:Pain Take 1-2 tablets (5-10 mg total) by mouth every 4 (four) hours as needed for pain 10 tablet 4 06/18/20 Discontinu ed(Other) Active Problems Problem Noted Date Diagnosed Date Acute hypokalemia 06/18/2025 Acute pain due to trauma 06/18/2025 Acute pain of left shoulder due to trauma 2024 Benign essential hypertension 06/18/2025 Chronic kidney disease, stage 3a 06/18/2025 Chronic mastoiditis, right ear 06/18/2025 Chronic otitis media of right ear with effusion 06/18/2025 Conductive hearing loss in right ear 06/18/2025 Erectile dysfunction 06/18/2025 Gastroesophageal reflux disease without esophagi tis 06/18/2025 Low back strain 06/18/2025 Paresthesia of upper and lower extremities of bernard th sides 06/18/2025 Upper respiratory infection with cough and conge stion 06/18/2025 Uvulitis 06/18/2025 Vitamin deficiency 06/18/2025 Tendon adhesions 12/20/2023 Tendon rupture of wrist 07/31/2023 Spontaneous rupture of extensor tendon of left h and 07/21/2023 Injury of left rotator cuff 08/27/2018 Tendinitis of right rotator cuff 08/28/2017 Primary localized osteoarthritis of pelvic regio n and thigh 12/13/2010 Surgical follow-up care 07/01/2010 Spinal stenosis of cervical region 05/28/2010 Osteoarthritis of cervical spine 05/28/2010 Benign prostatic hyperplasia 03/09/2010 Arthralgia of hip 02/23/2010 Encounters Date Type Department Care Team Description 06/18/2025 1:00 PM CDT Office Visit [facility] Medical Office Building [address] [place] [phone] Anika Rosenbaum MD Left hip pain (Primary Dx) 06/18/2025 12:30 PM CDT - 06/18/2025 11:59 PM CDT Hospital Encounter [email or web address] [address] [place] [address] [address] [place] [address] Left hip pain Discharge Disposition: Discharge to home or self care 04/28/2025 Results Follow-Up [facility] [address] [place] [address] [address] [place] [phone] Delores Flores PA XR Pelvis 3 or More Views 04/24/2025 4:17 PM CDT - 04/24/2025 11:59 PM CDT Hospital Encounter [id number] [address] [place] [address] [address] [place] [address] Discharge Disposition: Discharge to home or self care 04/23/2025 Orders Only [facility] [address] [place] [address] Medical Office Building [address] [place] [phone] Delores Flores PA Left hip pain (Primary Dx); History of left hip replacement 04/22/2025 1:15 PM CDT Office Visit [facility] [address] [place] [address] [address] [place] [phone] Delores Flores PA Left hip pain (Primary Dx); History of left hip replacement 04/22/2025 12:45 PM CDT Ancillary Procedure Radiology - [address] [place] [address] [address] [place] [id number] Left hip pain from Last 3 Months Immunizations Immunization Administration Dates Next Due Flucelvax Influenza Quad 11/07/2017 Influenza, Quad, Adjuvantate d, Intramuscular 07/26/2021 Influenza, Quadrivalent, Hig h Dose, Preservative Free, Intrr 09/11/2023,07/14/2022,07/07/2020 Influenza, Trivalent, High D ose, Split, Preservative Free, Intramuscular 09/11/2023,07/14/2022,09/16/2019,08/27 Influenza, Trivalent, IM (MDV) 11/07/2017 Influenza, Trivalent, Preser vative Free, Intramuscular 10/06/2016 Moderna SARS-CoV-2 Monovalen t Vaccination (12+ YRS) 08/20/2021,12/28/2020,11/25/2020 Moderna Sars-cov-2 Monovalen t Booster Vaccination (12+ YRS) 08/20/2021,12/28/2020,11/25/2020 Pneumococcal Conjugate PCV 13 07/14/2022 Sars-cov-2 Covid-19 Mrna, Bi valent, Original/omicron Ba.1 10/11/2023 Surgical History Surgery Date Site/Laterality Comments [place] HEMORRHOIDECTOMY INTERNAL RUBBER BAND LIGATIONS Hemorrhoidectomy - (Added by TW Conv) COLONOSCOPY TOTAL HIP ARTHROPLASTY 10/09/2009 - 10/08/2010 Bilateral JOINT REPLACEMENT 2013 Medical History Medical History Date Comments Primary [...] placement - (Added by TW Conv) Hypertension 1986 GERD (gastroesophageal reflux disease) 2021 Limb alert care status 07/2023 left hand [...] file Legal 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[employer] Gender Identity Male 08/03/2023 6:13 PM CDT Sexual Orientation Not on file Obstetrics History Last Filed Vital Signs Vital Sign Reading Time Taken Comments Blood Pressure 128/72 02/02/2024 9:30 AM CDT Pulse 53 02/02/2024 9:30 AM CDT Temperature 36 C (96.8 F) 02/02/2024 9:00 AM CDT Respiratory Rate 19 02/02/2024 9:30 AM CDT Oxygen Saturation 97% 02/02/2024 9:30 AM CDT Inhaled Oxygen Concentration - - Weight 102.1 kg (225 lb) 06/18/2025 1:43 PM CDT Height 174.6 cm (5' 8.75) 06/18/2025 1:43 PM CD T Body Mass Index 33.47 06/18/2025 1:43 PM CDT Plan of Treatment Health Maintenance Due Date Last Done Comments Colon Cancer Screening-Colonoscopy 1955 Depression Screening 1955 Hepatitis C Screening 1953 Prostate Cancer Screening-PSA 1953 DTaP/Tdap/Td Vaccine (1 - Tdap) 1964 Hepatitis B Screening 1971 Zoster Vaccine (1 of 2) 2003 Well Visit 65+ 2018 Pneumococcal vaccine 65+ (2 of 2 - PCV20 or PCV21) 07/14/2023 07/14/2022 Fall Risk Assessment 02/01/2025 02/02/2024 Covid-19 Vaccine (2024-2 6 season) 2025 10/11/2023, 08/20/2021, 08/20/2021, Additional history exists Influenza Vaccine (#1) 2025 , 09/11/2023, 07/14/2022, Additional history exists Medical Devices Implanted Type Area Compound Mixer Device Identifier Shelf Expiration Date Model / Serial / Lot Other - See Comments Other - see comments Jaimie you: Hip Description:Bilateral hip jacqueline int replacement Procedures Procedure Name Priority Date/Time Associated Diagnosis Comments XR HIP LEFT W PELVIS 2 OR 3 VIEWS Schedule Routine, Read Routine (OP Routine) 06/18/2025 12:49 PM CDT Left hip pain XR PELVIS 3 OR MORE VIEWS Schedule Routine, Read Routine (OP Routine) 04/24/2025 4:33 PM CDT Left hip pain History of left hip replacement XR HIP LEFT W PELVIS 2 OR 3 VIEWS Schedule Routine, Read Routine (OP Routine) 04/22/2025 12:51 PM CDT Left hip pain from Last 3 Months Results * XR Hip Left 2 or 3 Views W Pelvis (06/18/2025 12:49 PM CDT) Anatomical Region Laterality Modality Lower Extremities, Hip, Pelvis Left C omputed Radiography 06/18/2025 1:09 PM CDT Impressions 06/18/2025 1:09 PM CDT Unchanged left total hip arthroplasty in expected position. Electronically signed by: Davon Sanders M.D. Narrative 06/18/2025 1:09 PM CDT XR HIP LEFT 2 OR 3 VIEWS W PELVIS HISTORY: [Hip arthroplasty. FINDINGS: 2 views of the pelvis and left hip are obtained and compared with 04/24/2025. There is unchanged left total hip arthroplasty. Orthopedic components are in expected position. There is no periprosthetic fracture or osteolysis. Alignment is normal. Unchanged mild heterotopic ossification about the joint. Unchanged right total hip arthroplasty. Procedure Note Davon Sanders MD - 06/18/2025 XR HIP LEFT 2 OR 3 VIEWS W PELVIS HISTORY: [Hip arthroplasty. FINDINGS: 2 views of the pelvis and left hip are obtained and compared with 04/24/2025. There is unchanged left total hip arthroplasty. Orthopedic components are in expected position. There is no periprosthetic fracture or osteolysis. Alignment is normal. Unchanged mild heterotopic ossification about the joint. Unchanged right total hip arthroplasty. IMPRESSION: Unchanged left total hip arthroplasty in expected position. Electronically signed by: Davon Sanders M.D. Anika Barrientos MD IMG XR PROCEDURES Fin al Result * XR Pelvis 3 or More Views (04/24/2025 4:33 PM CDT) Anatomical Region Laterality Modality Pelvis, Body N/A Computed Radiogr aphy 04/24/2025 5:00 PM CDT Impressions 04/24/2025 5:00 PM CDT 1. Bilateral hip arthroplasties in expected position 2. Right superior pelvic tilt Electronically signed by: Sabino Tyler MD Narrative 04/24/2025 5:00 PM CDT EXAMINATION: XR PELVIS 3 OR MORE VIEWS HISTORY: Left hip pain FINDINGS: 6 radiographs of the pelvis are submitted for interpretation with comparison 04/22/2025. There is right superior pelvic obliquity. Bilateral hip arthroplasties are in expected position. Mild lower lumbar degenerative disc disease. No acute periprosthetic fracture or osteolysis is identified on the submitted images. Procedure Note Charity Tyler MD - 04/24/2025 EXAMINATION: XR PELVIS 3 OR MORE VIEWS HISTORY: Left hip pain FINDINGS: 6 radiographs of the pelvis are submitted for interpretation with comparison 04/22/2025. There is right superior pelvic obliquity. Bilateral hip arthroplasties are in expected position. Mild lower lumbar degenerative disc disease. No acute periprosthetic fracture or osteolysis is identified on the submitted images. IMPRESSION: 1. Bilateral hip arthroplasties in expected position 2. Right superior pelvic tilt Electronically signed by: Sabino Tyler MD Delores COY IMG XR PROCEDURES Fi nal Result * XR Hip Left 2 or 3 Views W Pelvis (04/22/2025 12:51 PM CDT) Anatomical Region Laterality Modality Lower Extremities, Hip, Pelvis Left C omputed Radiography 04/22/2025 3:21 PM CDT Impressions 04/22/2025 6:09 PM CDT 1. Unchanged left total hip arthroplasty in near-anatomic position. Dictated by: Rachid Kelley MD The radiology attending physician has personally reviewed this study, and had reviewed and/or edited this written report and agrees with it. Electronically signed by: Sabino Tyler MD Narrative 04/22/2025 6:09 PM CDT EXAMINATION: XR HIP LEFT 2 OR 3 VIEWS W PELVIS HISTORY: Left hip pain FINDINGS: 3 radiographs of the left hip are submitted for interpretation, with comparison made to 05/09/2012. Unchanged left total hip arthroplasty, in near-anatomic position. No periprosthetic fracture or osteolysis. Heterotopic ossification about the left greater trochanter. A right total hip arthroplasty is present. Procedure Note Charity Tyler MD - 04/22/2025 EXAMINATION: XR HIP LEFT 2 OR 3 VIEWS W PELVIS HISTORY: Left hip pain FINDINGS: 3 radiographs of the left hip are submitted for interpretation, with comparison made to 05/09/2012. Unchanged left total hip arthroplasty, in near-anatomic position. No periprosthetic fracture or osteolysis. Heterotopic ossification about the left greater trochanter. A right total hip arthroplasty is present. IMPRESSION: 1. Unchanged left total hip arthroplasty in near-anatomic position. Dictated by: Rachid Kelley MD The radiology attending physician has personally reviewed this study, and had reviewed and/or edited this written report and agrees with it. Electronically signed by: Sabino Tyler MD Delores COY IMG XR PROCEDURES Fi nal Result from Last 3 Months Insurance [facility] MEDIC[facility] MEDICARE [facility] Care Teams Ob Nurse Relationship Specialty Start Date End Date Remy Sevilla DO [facility] [address] [place] [address], [place] [address] PCP - General Family Medicine 07/10/23
[2025-07-15 13:00] LABS: Hematocrit 39.4 % (42.0-52.0); Hemoglobin 12.8 g/dL (14.0-18.0); Immature Granulocyte Percent A 0.6 % (0-0.5); Lymphocytes Absolute Auto 4.42 K/mm3 (0.9-3.2); Mean Corpuscular HGB Conc 32.5 g/dl (32-36); Mean Corpuscular Hemoglobin 31.7 pg (26-34); Mean Corpuscular Volume 97.5 fl (80-100); Nucleated Red Blood Cells Absolute Auto 0.000 K/mm3 (0.0-0.012); Nucleated Red Blood Cells Perc 0.0 % (0.0-0.2); Platelet Count Result 274 k/mm3 (150-375); Red Blood Count 4.04 M/mm3 (4.6-6.20); White Blood Count 8.6 K/mm3 (4.5-10.0)
[2025-07-15 13:20] LABS: Alanine Aminotransferase 41 U/L (6-50); Albumin Level 4.0 g/dL (3.5-5.1); Alkaline Phosphatase 62 U/L (38-126); Anion Gap 6 mmol/L (4-12); Aspartate Amino Transferase 66 U/L (17-59); Bilirubin,Total 0.7 mg/dL (0.2-1.3); Blood Urea Nitrogen 21 mg/dL (9-20); Calcium 9.4 mg/dL (8.4-10.2); Carbon Dioxide 26 mmol/L (22-30); Chloride 104 mmol/L (98-107); Cholesterol 171 mg/dL (0-200); Estimated Glomerular Filt Rate 52; Glucose 99 mg/dL (65-110); HDL Direct 33 mg/dL; Potassium 4.9 mmol/L (3.4-5.0); Sodium 136 mmol/L (137-145); Total Protein 7.2 g/dL (6.3-8.2); Triglycerides 89 mg/dL (<150)
[2025-07-15 13:56] LABS: Prostate Specific Antigen 3.2 ng/mL (< OR = 4.0); Thyroid Stimulating Hormone 1.610 uIU/mL (0.465-4.680)
== END 2025-07-15 10:35 | disposition home or self-care (01) ==
PROVIDERS: PCP Family Medicine; Visit Provider Nurse Practitioner Family
DX: K21.9 Gastro-esophageal reflux disease without esophagitis (principal); E78.5 Hyperlipidemia, unspecified; I12.9 Hypertensive chronic kidney disease with stage 1 through stage 4 chronic kidney disease, or unspecified chronic kidney disease; N18.31 Chronic kidney disease, stage 3a; Z12.5 Encounter for screening for malignant neoplasm of prostate
CPT/HCPCS: 36415; 80053; 80061; 84153; 84443; 85025; G0103

== ENCOUNTER 2025-07-16 14:06 | Outpatient (NON) | payer BC, SELFPAY | END 2025-07-16 14:07 | disposition home or self-care (01) | LOC: ANHGOSHLAB 14:07 | PROVIDERS: PCP Family Medicine; Visit Provider Nurse Practitioner Family | DX: R31.9 Hematuria, unspecified (principal) | CPT/HCPCS: 87086 ==